=== PATIENT | female | born 1965 | race Caucasian/White ===

== ENCOUNTER → 2016-07-28 | Outpatient (CLI) | payer OTHER ==
[~2016-07-28] MED LIST: ALBU17IN INH; ALLO100T PO; ALLO10TA PO; ASPI1TAB PO; BUPR15TA PO; CALC600T57 PO; CARV6.25 PO; CELE-19 PO; COLA100C PO; CYCL10TA PO; CYMB60CA3 PO; DIAZ2TAB PO; DOXY100T PO; DRIS50002 PO; DULO1CAP3 PO; ESTR62CR PV; FENT75PA TD; FLEX10TA2 PO; FLON1SPR; FLON50SP; FOLI1TAB2 PO; GABA300C2 PO; GABA600T PO; HYDR-3713 PO; HYDR200T3 PO; HYZAAR; KEFL500C7 PO; LASI20TA PO; LOSA25TA8 PO; LOSA50TA20 PO; LOVA20TA2 PO; MAGN250T11 PO; METF-415 PO; METF1000 PO; MILKSUS PO; MYLI40DR PO; NABU750T PO; NICO21DI5 TD; NICO21PAT TD; NYST10CR TOP; NYST50SS SS; ONDA1TAB15 PO; OXYC15TA76 PO; PERC5TAB6 PO; PERCOCET PO; PLAQ200T PO; PLAQUINIL; ROCE500I; SILV-4 TOP; TOPA100T8 PO; TOPI100T OR; VALI5TAB PO; VICO5TAB PO; VICO5TAB16 PO; VITA10002 PO; ZANA4TAB PO; [UNRECOGNIZED DRUG - CODE] IM; [UNRECOGNIZED DRUG - REMARK]; bactrim ds PO; cardizem PO; senokot s PO; zocor PO
--- NOTE | 2016-08-15 01:35 | ECWPNPC ---
PATIENT NAME: BEBA WHITEHEAD : 1965 GENDER: FEMALE VISIT DATE: 07/28/2016 DISCHARGE DATE: 07/28/16 1122 VISIT LOCKED DATE TIME: PHYSICIAN: ADAM CARLOS RESOURCE: ADAM CARLOS REASON FOR APPOINTMENT 1. CHRONIC PAIN HISTORY OF PRESENT ILLNESS HISTORY OF PRESENT ILLNESS: HERE FOR F/U OF CHRONIC GENERALIZED PAIN WITH HX OF SLE AND POLYNEUROPATHY.STARTED ON MS CONTIN 15MG BID AT LAST VISIT.REPORTS SIGNIFICANT REDUCTION IN PAIN AND IMPROVED ACTIVITY TOLERANCE WITH THIS.REPORTS LESS FREQUENT USE OF PERCOCET 5/325.RATING PAIN VAS 7/10.DENIES SIDE EFFECTS. FALL RISK SCREENING: SCREENING :NO FALLS IN THE PAST YEAR CURRENT MEDICATIONS TAKING CPAP MASK CPAP MASK AND TUBING WITH CONNECTORS DX. 327.23 APPLY TO CPAP MACHINE APPLY TO FACE , NOTES: NON COMPLIANT DOES NOT USE TAKING BLOOD GLUCOSE TEST STRIP ONE TOUCH ULTRA 2 ICD:250.02 NIDDM SUBCUTANEOUSLY THREE TIMES DAILY 250.01/401.9 TAKING ASPIR-81 81 MG TABLET DELAYED RELEASE 1 TABLET ORALLY ONCE A DAY TAKING TOPAMAX 100 MG TABLET 1 TABLET ORALLY TWICE A DAY, NOTES: NEEDED TAKING FLONASE 50 MCG/ACT SUSPENSION 1 SPRAY IN EACH NOSTRIL NASALLY ONCE A DAY TAKING ONE TOUCH/ONE TOUCH II STARTER 1 GLUCOMETER ICD:250.02 NIDDM FSBS THREE TIMES DAILY TAKING CARVEDILOL 6.25 MG TABLET 1 TABLET WITH FOOD ORALLY DAILY NEEDED TAKING CALCIUM + D3 600-200 MG-UNIT TABLET ORALLY TAKING FOLIC ACID 1 MG TABLET 1 TABLET ORALLY ONCE A DAY TAKING ALBUTEROL SULFATE HFA 108 (90 BASE) MCG/ACT AEROSOL SOLUTION 2 PUFFS INHALATION ONCE A DAY TAKING VITAMIN B12 1000 MCG TABLET 1 TABLET ORALLY ONCE A DAY TAKING DRISDOL 50,000 UNITS TABLET 1 TAB ORAL WEEKLY TAKING CYMBALTA 60 MG CAPSULE TAKE ONE CAPSULE BY MOUTH EVERY DAY TAKING ZOFRAN 4 MG TABLET 1 TAB ORALLY ONCE A DAY NEEDED FOR NAUASEA TAKING NABUMETONE 750 MG TABLET 1 TABLET ORALLY TWICE A DAY TAKING NYSTATIN THROAT/SUSPENSION 023779 UNIT/ML SUSPENSION SWISH AND SWALLOW MOUTH/THROAT TID PRN TAKING CHLORASEPTIC GARGLE 1.4 % LIQUID 5 APPLICATIONS TO AFFECTED AREA NEEDED MOUTH/THROAT EVERY 2 HRS TAKING SM MAGNESIUM OXIDE 250 MG TABLET 1 TAB ORALLY THREE TIMES DAILY TAKING CYCLOBENZAPRINE HCL 10 MG TABLET TAKE ONE TABLET BY MOUTH THREE TIMES A DAY NEEDED TAKING NEURONTIN 600 MG TABLET 1 TABLET ORALLY THREE TIMES A DAY TAKING DIAZEPAM 2 MG TABLET 1 TABLET NEEDED ORALLY TWICE E A DAY NEEDED TAKING PROAIR HFA 108 (90 BASE) MCG/ACT AEROSOL SOLUTION INHALE TWO PUFFS BY MOUTH EVERY DAY TAKING VITAMIN B12 1000MCG TAB TAKE ONE TABLET BY MOUTH EVERY DAY TAKING GLUCOPHAGE 1000 MG TABLET 1 TABLET WITH MEALS ORALLY TWICE A DAY TAKING COMMODE BEDSIDE - MISCELLANEOUS DIRECTED ICD10 - R15.9, M62.81 DAILY TAKING MORPHINE SULFATE ER 15 MG TABLET EXTENDED RELEASE (SCHEDULE II DRUG) TAKE ONE TABLET BY MOUTH EVERY 12 HOURS MAXIMUM DAILY DOSE TWO TABLETS ORAL TAKING PERCOCET 5-325 MG TABLET 1 TABLET NEEDED ORALLY EVERY 6 HRS MAX 4 DAILY TAKING PLAQUENIL 200 MG TABLET 1 TABLET ORALLY ONCE A DAY TAKING ALLOPURINOL 100 MG TABLET 1 TABLET ORALLY ONCE A DAY TAKING LOSARTAN POTASSIUM 25 MG TABLET 1 TABLET ORALLY ONCE A DAY NOT-TAKING PERCOCET 5-325 MG TABLET 1-2 TAB ORALLY Q4-6H PRN MDD6 NOT-TAKING PLAQUENIL 180 MG TABLET TAKE ONE TABLET BY MOUTH TWICE A DAY MEDICATION LIST REVIEWED AND RECONCILED WITH THE PATIENT PAST MEDICAL HISTORY LUPUS INFECTIOUS DIARRHEA GIARDIA- DUODENITIS MIGRAINES DEPRESSION/ANXIETY SLEEP APNEA UNSPECIFIED ENTHESOPATHY OF KNEE CHRONIC SINUSITIS PULMONARY NODULE LEFT LUNG BASE 05/2015 GIARDIASIS- FOLLOWED ANNUALLY BY DR. RICHARDS L5-S1 HERNIATION ALCOHOL ABUSE DIABETES FIBROMYALGIA SOCIAL HISTORY GENERAL: TOBACCO USE ARE YOU A:CURRENT SMOKER PATIENT COUNSELED ON THE DANGERS OF TOBACCO USE AND URGED TO QUIT:07/28/2016 ARE YOU INTERESTED IN QUITTING?THINKING ABOUT QUITTING COUNSELED THE PATIENT ON SMOKING CESSATION, EDUCATION [id number]/2017 LEARNING BARRIERS / SPECIAL NEEDS ORIENTED TO PLAN OF CARE: PATIENT, PAIN MANAGEMENT PATIENT, ORIENTED TO PLAN OF CARE: PATIENT, PAIN MANAGEMENT PATIENT. NEW PATIENT PAIN DIARY TODAY'S VISITNOTES FROM 0-10, WHAT LEVEL IS YOUR PAIN TODAY?0 PAIN CLINIC PFS, CLERGY, PUBLIC HEALTH REFERRALS PFS REFERRAL NEEDED?NO CLERGY REFERRAL NEEDED?NO PUBLIC HEALTH REFERRAL NEEDED?NO WAS THE PROVIDER NOTIFIED OF ANY PERTINENT INFO?NO PFS REFERRAL NEEDED?NO CLERGY REFERRAL NEEDED?NO PUBLIC HEALTH REFERRAL NEEDED?NO WAS THE PROVIDER NOTIFIED OF ANY PERTINENT INFO?NO REVIEW OF SYSTEMS CONSTITUTIONAL: ANY CHANGE IN YOUR MEDICAL CONDITION? NO . CHILLS NO . FEVER NO . INFECTION: DO YOU HAVE NEW INFECTIONS? NO . DO YOU HAVE HISTORY OF MRSA? NO . MUSCULOSKELETAL: ANY NEW PATTERNS OF PAIN OR NUMBNESS? NO . GASTROENTEROLOGY: ANY NEW CHANGE IN BOWEL CONTROL? NO . GENITOURINARY: ANY NEW CHANGE IN BLADDER CONTROL? NO . IS THERE A CHANCE YOU COULD BE ? NO . HEMATOLOGY/LYMPH: DO YOU TAKE ANY BLOOD THINNERS? (FOR EXAMPLE- COUMADIN, PLAVIX, AGGRENOX, PLATEL, PRADAXA, OR XARELTO) NO . WHEN WAS YOUR LAST DOSE? DATE: TIME: . NEUROLOGY: HAVE YOU FALLEN IN THE PAST 6 MONTHS? NO . ANY NEW EXTREMITY NUMBNESS OR WEAKNESS? NO . CARDIOLOGY: DO YOU HAVE A PACEMAKER OR DEFIBRILLATOR? NO . RESPIRATORY: HAVE YOU BEEN SICK IN THE PAST WEEK? NO . FEVER NO . FLU LIKE SYMPTOMS? NO . COUGH NO . INTEGUMENTARY: DO YOU HAVE ANY RASHES OR OPEN SORES? YES BOTH HANDS [place]OW[place] SORE? . ALLERGIC/IMMUNO: ARE YOU ALLERGIC TO SHELLFISH OR IV DYE? NO . ANY NEW ALLERGIES? NO . PSYCHIATRIC: DO YOU HAVE THOUGHTS OF HURTING YOURSELF OR SOMEONE ELSE? NO . ARE YOU ABUSED, NEGLECTED, OR IN AN UNSAFE ENVIRONMENT? NO . ENDOCRINOLOGY: ARE YOU DIABETIC? NO . OTHER: DO YOU NEED ANY PRESCRIPTIONS? NO . IF YES, PLEASE LIST: ____ . ANY NEW PROBLEMS WITH YOUR MEDICATIONS? NO . WHEN DID YOU LAST EAT? ____ . WHEN DID YOU LAST DRINK? ____ . WHAT DID YOU LAST DRINK? ____ . NAME OF PERSON DRIVING YOU HOME? ____ . DO YOU HAVE ANY OTHER QUESTIONS OR CONCERNS NO . REVIEWED BY: PROVIDER: ADAM EAST . VITAL SIGNS WT 200 LBS, HT 64 IN, BMI 34.33 INDEX, BP 155/80 MM HG, HR 102 /MIN, RR 16 /MIN, TEMP 98.9 F, OXYGEN SAT % 96, NA INITIALS TL 1053. EXAMINATION GENERAL EXAMINATION: HEENT:HEAD:, NORMOCEPHALIC, EYES:, EYES NORMAL, NOSE:, NOSE CLEAR, THROAT: NORMAL. LUNGS:LUNG SOUNDS ARE CLEAR. HEART:HEART RATE REGULAR. ABDOMEN:SOFT AND NOT TENDER, NON-DISTENDED. MUSCULOSKELETAL:*. LUMBAR SACRAL SPINEMUSCLE STRENGTH TESTING 2/5 BILATERAL LOWER EXTREMITIES.PALPATION: POSITIVE FOR PAIN OVER L/S SPINE. POSITIVE FOR PAIN OVER L/S PARSPINALS.. THORACIC SPINENEGATIVE FOR PAIN WITH PALPATION OF THORACIC SPINE. NEGATIVE FOR PAIN WITH PALPATION OF THORACIC PARASPINAL. CERVICALNEGATIVE FOR PAIN WITH PALPATION OF CERVICAL SPINE. NEGATIVE FOR PAIN WITH PALPATION OF CERVICAL PARASPINALS. NEGATIVE FOR PAIN WITH PALPATION OF TRAPEZIUS BILAT. SKIN:NORMAL, NO RASH. NEUROLOGIC EXAM:ALERT AND ORIENTED X 3, DTRS UNABLE TO ELICIT LOWER EXTREMITIES. DENIES UPPER EXTREMETIES SENSORY LOSS. STATES SHE IS UNABLE TO FEEL HER LEGS WITH LIGHT TOUCH. . DIAGNOSTIC:MRI L/S [id number]-MULTI LEVEL DEGENERATIVE CHANGES.LUMBAR DISC PROTRUSION AT L5/S1. ASSESSMENTS ARTHROPATHY - M12.9 (PRIMARY) MYOFASCIAL PAIN - M79.1 CHRONIC PRESCRIPTION OPIATE USE - Z79.891 TREATMENT ARTHROPATHY REFILL MORPHINE SULFATE ER TABLET EXTENDED RELEASE, 15 MG, (SCHEDULE II DRUG) TAKE ONE TABLET BY MOUTH EVERY 12 HOURS MAXIMUM DAILY DOSE TWO TABLETS, ORAL, Q12H MDD2, 30, 60, REFILLS 0 REFILL PERCOCET TABLET, 5-325 MG, 1 TABLET NEEDED, ORALLY, EVERY 6 HRS MAX 4 DAILY, 30 DAY(S), 120, REFILLS 0 PROCEDURE CODES FA211 ESTABILISHED PATIENT [facility] CHARGE FOLLOW UP 2 MONTHS ELECTRONICALLY SIGNED BY CRUZITO CHURCHILL ON 08/14/2016 AT 03:20 PM EST DISCLAIMER : THIS IS A VISIT SUMMARY EXTRACTED FROM THE [employer] CHART. IT IS NOT A COPY OF THE [employer] PROGRESS NOTE. MTDD
== END ==
LOC: M PAIN 10:40
PROVIDERS: ATTEND Nurse Practitioner Family
DX: Z09 Encounter for follow-up examination after completed treatment for conditions other than malignant neoplasm (principal); G89.29 Other chronic pain; M12.9 Arthropathy, unspecified; M79.7 Fibromyalgia; M32.9 Systemic lupus erythematosus, unspecified; G43.909 Migraine, unspecified, not intractable, without status migrainosus; G47.30 Sleep apnea, unspecified; E11.9 Type 2 diabetes mellitus without complications; J32.9 Chronic sinusitis, unspecified; A07.1 Giardiasis [lambliasis]; M51.27 Other intervertebral disc displacement, lumbosacral region; F17.200 Nicotine dependence, unspecified, uncomplicated; Z79.891 Long term (current) use of opiate analgesic; Z79.82 Long term (current) use of aspirin; Z79.84 Long term (current) use of oral hypoglycemic drugs; Z79.899 Other long term (current) drug therapy; Z85.59 Personal history of malignant neoplasm of other urinary tract organ

== ENCOUNTER → 2016-09-11 | Outpatient (CLI) | payer OTHER ==
[2016-09-11 17:51] LABS: ANION GAP 13 MEQ/L (8-16); BLOOD UREA NITROGEN 5 MG/DL (7-18); CALCIUM LEVEL 8.3 MG/DL (8.5-10.1); CARBON DIOXIDE LEVEL 24 MEQ/L (21-32); CHLORIDE LEVEL 104 MEQ/L (98-107); CREATININE FOR GFR 0.64 MG/DL (0.55-1.02); GLOMERULAR FILTRATION RATE > 60.0 (>58); GLUCOSE, FASTING 87 MG/DL (70-105); POTASSIUM SERUM 4.4 MEQ/L (3.5-5.1); SODIUM LEVEL 141 MEQ/L (136-145)
== END ==
LOC: M WUC 15:41
PROVIDERS: ATTEND Family Medicine
DX: E61.2 Magnesium deficiency (principal)

== ENCOUNTER → 2016-10-02 | Outpatient (CLI) | payer OTHER ==
--- NOTE | 2016-10-04 00:02 | ECWPNPC ---
PATIENT NAME: BEBA WHITEHEAD : 1965 GENDER: FEMALE VISIT DATE: 10/02/2016 DISCHARGE DATE: 10/02/16 1623 VISIT LOCKED DATE TIME: PHYSICIAN: ADAM CARLOS RESOURCE: ADAM CARLOS REASON FOR APPOINTMENT 1. MED FOLLOW UP HISTORY OF PRESENT ILLNESS HISTORY OF PRESENT ILLNESS: HERE FOR F/U OF CHRONIC GENERALIZED PAIN WITH HX OF SLE AND POLYNEUROPATHY. ON MS CONTIN 15MG BID AT LAST VISIT.REPORTS SIGNIFICANT REDUCTION IN PAIN AND IMPROVED ACTIVITY TOLERANCE WITH THIS.REPORTS LESS FREQUENT USE OF PERCOCET 5/325.RATING PAIN VAS 7/10.DENIES SIDE EFFECTS.NOW SHE IS REPORTING ABILITY TO WALK AND RESOLUTION OF FACIAL NUMBNESS.PRIMARY CARE ATTRIBUTES FACIAL NUMBNESS AND INABILITY TO WALK DUE TO LONG USE OF PLAQUENIL.THAT WAS STOPPED 3 MOS. AGO. PAIN THE PATIENT DESCRIBES THE PAIN... THE PATIENT DESCRIBES THE PAIN... FALL RISK SCREENING: SCREENING :NO FALLS IN THE PAST YEAR CURRENT MEDICATIONS TAKING DRISDOL 50,000 UNITS TABLET 1 TAB ORAL WEEKLY TAKING CPAP MASK CPAP MASK AND TUBING WITH CONNECTORS DX. 327.23 APPLY TO CPAP MACHINE APPLY TO FACE , NOTES: NON COMPLIANT DOES NOT USE TAKING BLOOD GLUCOSE TEST STRIP ONE TOUCH ULTRA 2 ICD:250.02 NIDDM SUBCUTANEOUSLY THREE TIMES DAILY 250.01/401.9 TAKING ASPIR-81 81 MG TABLET DELAYED RELEASE 1 TABLET ORALLY ONCE A DAY TAKING FLONASE 50 MCG/ACT SUSPENSION 1 SPRAY IN EACH NOSTRIL NASALLY ONCE A DAY TAKING ONE TOUCH/ONE TOUCH II STARTER 1 GLUCOMETER ICD:250.02 NIDDM FSBS THREE TIMES DAILY TAKING ALBUTEROL SULFATE HFA 108 (90 BASE) MCG/ACT AEROSOL SOLUTION 2 PUFFS INHALATION ONCE A DAY TAKING ZOFRAN 4 MG TABLET 1 TAB ORALLY ONCE A DAY NEEDED FOR NAUASEA TAKING NYSTATIN THROAT/SUSPENSION 638653 UNIT/ML SUSPENSION SWISH AND SWALLOW MOUTH/THROAT TID PRN TAKING CHLORASEPTIC GARGLE 1.4 % LIQUID 5 APPLICATIONS TO AFFECTED AREA NEEDED MOUTH/THROAT EVERY 2 HRS TAKING GLUCOPHAGE 1000 MG TABLET 1 TABLET WITH MEALS ORALLY TWICE A DAY TAKING COMMODE BEDSIDE - MISCELLANEOUS DIRECTED ICD10 - R15.9, M62.81 DAILY TAKING TOPAMAX 100 MG TABLET 1 TABLET ORALLY TWICE A DAY, NOTES: NEEDED TAKING CARVEDILOL 6.25 MG TABLET 1 TABLET WITH FOOD ORALLY DAILY NEEDED FOR TACHYCARDIA TAKING CALCIUM + D3 600-200 MG-UNIT TABLET 1 TAB ORALLY DAILY TAKING FOLIC ACID 1 MG TABLET 1 TABLET ORALLY ONCE A DAY TAKING VITAMIN B12 1000 MCG TABLET 1 TABLET ORALLY ONCE A DAY TAKING LOSARTAN POTASSIUM 25 MG TABLET 1 TABLET ORALLY ONCE A DAY TAKING ALLOPURINOL 100 MG TABLET 1 TABLET ORALLY ONCE A DAY TAKING WELLBUTRIN XL 150 MG TABLET EXTENDED RELEASE 24 HOUR 1 TABLET IN THE MORNING ORALLY ONCE A DAY TAKING MORPHINE SULFATE ER 15 MG TABLET EXTENDED RELEASE (SCHEDULE II DRUG) TAKE ONE TABLET BY MOUTH EVERY 12 HOURS MAXIMUM DAILY DOSE TWO TABLETS ORAL Q12H MDD2 TAKING PERCOCET 5-325 MG TABLET 1 TABLET NEEDED ORALLY EVERY 6 HRS MAX 4 DAILY TAKING CYMBALTA 60 MG CAPSULE TAKE ONE CAPSULE BY MOUTH EVERY DAY ORALLY ONCE A DAY TAKING PROAIR HFA 108 (90 BASE) MCG/ACT AEROSOL SOLUTION INHALE TWO PUFFS BY MOUTH EVERY DAY TAKING CYCLOBENZAPRINE HCL 10 MG TABLET TAKE ONE TABLET BY MOUTH THREE TIMES A DAY NEEDED ORALLY THREE TIMES A DAY TAKING NABUMETONE 750 MG TABLET 1 TABLET ORALLY TWICE A DAY TAKING SM MAGNESIUM OXIDE 250 MG TABLET 1 TAB ORALLY THREE TIMES DAILY TAKING NEURONTIN 600 MG TABLET 1 TABLET ORALLY THREE TIMES A DAY DISCONTINUED VITAMIN B12 1000MCG TAB TAKE ONE TABLET BY MOUTH EVERY DAY DISCONTINUED PLAQUENIL 200 MG TABLET 1 TABLET ORALLY ONCE EVERY OTHER DAY X 14 DAYS, THEN DISCONTINUE MEDICATION LIST REVIEWED AND RECONCILED WITH THE PATIENT PAST MEDICAL HISTORY LUPUS INFECTIOUS DIARRHEA GIARDIA- DUODENITIS MIGRAINES DEPRESSION/ANXIETY SLEEP APNEA UNSPECIFIED ENTHESOPATHY OF KNEE CHRONIC SINUSITIS PULMONARY NODULE LEFT LUNG BASE 05/2015 GIARDIASIS- FOLLOWED ANNUALLY BY DR. RICHARDS L5-S1 HERNIATION ALCOHOL ABUSE DIABETES FIBROMYALGIA ALLERGIES N.K.D.A. SOCIAL HISTORY GENERAL: TOBACCO USE ARE YOU A:NONSMOKER LEARNING BARRIERS / SPECIAL NEEDS ORIENTED TO PLAN OF CARE: PATIENT, PAIN MANAGEMENT PATIENT, ORIENTED TO PLAN OF CARE: PATIENT, PAIN MANAGEMENT PATIENT. NEW PATIENT PAIN DIARY TODAY'S VISITNOTES FROM 0-10, WHAT LEVEL IS YOUR PAIN TODAY?0 PAIN CLINIC PFS, CLERGY, PUBLIC HEALTH REFERRALS PFS REFERRAL NEEDED?NO CLERGY REFERRAL NEEDED?NO PUBLIC HEALTH REFERRAL NEEDED?NO WAS THE PROVIDER NOTIFIED OF ANY PERTINENT INFO?NO PFS REFERRAL NEEDED?NO CLERGY REFERRAL NEEDED?NO PUBLIC HEALTH REFERRAL NEEDED?NO WAS THE PROVIDER NOTIFIED OF ANY PERTINENT INFO?NO REVIEW OF SYSTEMS CONSTITUTIONAL: ANY CHANGE IN YOUR MEDICAL CONDITION? NO . CHILLS NO . FEVER NO . INFECTION: DO YOU HAVE NEW INFECTIONS? NO . DO YOU HAVE HISTORY OF MRSA? NO . MUSCULOSKELETAL: ANY NEW PATTERNS OF PAIN OR NUMBNESS? NO . GASTROENTEROLOGY: ANY NEW CHANGE IN BOWEL CONTROL? NO . GENITOURINARY: ANY NEW CHANGE IN BLADDER CONTROL? NO . IS THERE A CHANCE YOU COULD BE ? NO . HEMATOLOGY/LYMPH: DO YOU TAKE ANY BLOOD THINNERS? (FOR EXAMPLE- COUMADIN, PLAVIX, AGGRENOX, PLATEL, PRADAXA, OR XARELTO) NO . WHEN WAS YOUR LAST DOSE? DATE: TIME: . NEUROLOGY: HAVE YOU FALLEN IN THE PAST 6 MONTHS? NO . ANY NEW EXTREMITY NUMBNESS OR WEAKNESS? NO . CARDIOLOGY: DO YOU HAVE A PACEMAKER OR DEFIBRILLATOR? NO . RESPIRATORY: HAVE YOU BEEN SICK IN THE PAST WEEK? YES PT REPORTS SHE HAS NOT BEEN FEELING WELL THIS PAST WEEK, WITH CHILLS, COUGHING, ACHY FEELING, PT FEELS THAT IT IS RESOLVING . FEVER NO . FLU LIKE SYMPTOMS? NO . COUGH NO . INTEGUMENTARY: DO YOU HAVE ANY RASHES OR OPEN SORES? YES PT SEES A FILM OR VIDEOTAPE EDITOR IN [place] FOR WOUNDS ON HER FINGER AND FOOT . ALLERGIC/IMMUNO: ARE YOU ALLERGIC TO SHELLFISH OR IV DYE? PT REPORTS AN ALLERGY TO THE SHELLS OF SHELLFISH, NO PROBLEMS EATING SHELLFISH OR WITH IV DYE . ANY NEW ALLERGIES? NO . PSYCHIATRIC: DO YOU HAVE THOUGHTS OF HURTING YOURSELF OR SOMEONE ELSE? NO . ARE YOU ABUSED, NEGLECTED, OR IN AN UNSAFE ENVIRONMENT? NO . ENDOCRINOLOGY: ARE YOU DIABETIC? NO . OTHER: DO YOU NEED ANY PRESCRIPTIONS? NO . IF YES, PLEASE LIST: ____ . ANY NEW PROBLEMS WITH YOUR MEDICATIONS? YES PT REPORTS ITCHING AT NIGHT FOR LAST SEVERAL MONGHTS ? IF DUE TO MEDICINE . WHEN DID YOU LAST EAT? ____ . WHEN DID YOU LAST DRINK? ____ . WHAT DID YOU LAST DRINK? ____ . NAME OF PERSON DRIVING YOU HOME? ____ . DO YOU HAVE ANY OTHER QUESTIONS OR CONCERNS YES PT REPORTS SHE IS ITCHING AT NIGHT . REVIEWED BY: PROVIDER: ADAM EAST . VITAL SIGNS WT 203.2 LBS, HT 64 IN, BMI 34.88 INDEX, BP 138/63 MM HG, HR 98 /MIN, RR 18 /MIN, TEMP 98.2 F, OXYGEN SAT % 91%, SAFE IN ENV? (Y/N) YES, NA INITIALS ME 15:41, REVIEWED BY: JUDI. EXAMINATION GENERAL EXAMINATION: HEENT:HEAD:, NORMOCEPHALIC, EYES:, EYES NORMAL, NOSE:, NOSE CLEAR, THROAT: NORMAL. LUNGS:LUNG SOUNDS ARE CLEAR. HEART:HEART RATE REGULAR. ABDOMEN:SOFT AND NOT TENDER, NON-DISTENDED. MUSCULOSKELETAL:*. LUMBAR SACRAL SPINEMUSCLE STRENGTH TESTING 4/5 BILATERAL LOWER EXTREMITIES.PALPATION: POSITIVE FOR PAIN OVER L/S SPINE. POSITIVE FOR PAIN OVER L/S PARSPINALS.. THORACIC SPINENEGATIVE FOR PAIN WITH PALPATION OF THORACIC SPINE. NEGATIVE FOR PAIN WITH PALPATION OF THORACIC PARASPINAL. CERVICALNEGATIVE FOR PAIN WITH PALPATION OF CERVICAL SPINE. NEGATIVE FOR PAIN WITH PALPATION OF CERVICAL PARASPINALS. NEGATIVE FOR PAIN WITH PALPATION OF TRAPEZIUS BILAT. SKIN:MULTIPLE CIRCULAR 3-4 CM RED AND DARK LESIONS OVER LOWER EXTREMITIES.. NEUROLOGIC EXAM:ALERT AND ORIENTED X 3, DTRS 2/4 UPPER AND LOWER EXTREMITIES. DENIES UPPER EXTREMETIES SENSORY LOSS. . DIAGNOSTIC:MRI L/S [id number]-MULTI LEVEL DEGENERATIVE CHANGES.LUMBAR DISC PROTRUSION AT L5/S1. ASSESSMENTS ARTHROPATHY - M12.9 (PRIMARY) CHRONIC PRESCRIPTION OPIATE USE - Z79.891 TREATMENT ARTHROPATHY REFILL MORPHINE SULFATE ER TABLET EXTENDED RELEASE, 15 MG, (SCHEDULE II DRUG) TAKE ONE TABLET BY MOUTH EVERY 12 HOURS MAXIMUM DAILY DOSE TWO TABLETS, ORAL, Q12H MDD2, 30, 60, REFILLS 0 REFILL PERCOCET TABLET, 5-325 MG, 1 TABLET NEEDED, ORALLY, EVERY 6 HRS MAX 4 DAILY, 30 DAY(S), 120, REFILLS 0 PROCEDURE CODES FA211 ESTABILISHED PATIENT [facility] CHARGE DISPOSITION & COMMUNICATION FOLLOW UP 2 MONTHS ELECTRONICALLY SIGNED BY CRUZITO CHURCHILL ON 10/03/2016 AT 05:08 PM EDT DISCLAIMER : THIS IS A VISIT SUMMARY EXTRACTED FROM THE [employer] CHART. IT IS NOT A COPY OF THE [employer] PROGRESS NOTE. MTDD
== END ==
LOC: M PAIN 14:40
PROVIDERS: ATTEND Nurse Practitioner Family
DX: Z09 Encounter for follow-up examination after completed treatment for conditions other than malignant neoplasm (principal); G89.29 Other chronic pain; M12.9 Arthropathy, unspecified; M79.7 Fibromyalgia; E11.9 Type 2 diabetes mellitus without complications; G43.919 Migraine, unspecified, intractable, without status migrainosus; F32.9 Major depressive disorder, single episode, unspecified; F41.9 Anxiety disorder, unspecified; G47.30 Sleep apnea, unspecified; Z79.82 Long term (current) use of aspirin; Z79.84 Long term (current) use of oral hypoglycemic drugs; Z79.891 Long term (current) use of opiate analgesic; Z79.899 Other long term (current) drug therapy; Z87.39 Personal history of other diseases of the musculoskeletal system and connective tissue; Z86.79 Personal history of other diseases of the circulatory system; Z86.59 Personal history of other mental and behavioral disorders

== ENCOUNTER → 2016-10-20 | Outpatient (CLI) | payer OTHER ==
[~2016-10-20] MED LIST changes: -COLA100C PO; +COLA100C3 PO; +ENTERO VU 24% w/v SUSP BTL 600ML As Ordered ONE
--- NOTE | 2016-10-20 16:25 | REP ---
Small follow-through study: History: Diarrhea. Findings: Preliminary gelatin dynamite packing operator radiograph shows clips in the right upper quadrant. Bowel gas pattern is unremarkable. SI joints are normal in appearance. Some vascular calcification is seen. Sequential films taken after the ingestion of Enterovu demonstrate normal stomach and duodenum. C-loop is not widened. Jejunal and ileal mucosal folds are normal. There is no evidence of obstruction, fold thickening, mural thickening or stricture. Terminal ileum and right colon are opacified at 210 minutes. Fluoroscopy time is 44 seconds. Impression: No morphologic abnormality. Signed by Catrachito Herron MD 10/20/2016 06:36 P
== END ==
LOC: M RAD 09:13
PROVIDERS: ATTEND Internal Medicine Gastroenterology
DX: R19.7 Diarrhea, unspecified (principal)

== ENCOUNTER → 2016-11-10 | Outpatient (CLI) | payer OTHER ==
[~2016-11-10] VITALS: Ht 160 cm; Wt 90.7 kg
[~2016-11-10] MED LIST changes: -ENTERO VU 24% w/v SUSP BTL 600ML As Ordered ONE; +MORP15TASA PO; +NEUR100C PO; +NS 1,000 ML IV ONE; +OXYC1TAB23 PO; +PROPOFOL 200 MG/20 ML VIAL As Ordered ONE
--- NOTE | 2016-11-10 13:33 | ROOR ---
Patient Name: Claudia Lorenz Procedure Date: 11/10/2016 1:10 PM Date of : 1965 Age: 51 Room: [facility] Gender: Female Note Status: Finalized Procedure: Colonoscopy Indications: Clinically significant diarrhea of unexplained origin, (Pt with previous history of chronic giardiasis) Providers: Elan DIOR MD Referring MD: Ammon Raymundo DO Requesting Provider: Medicines: Monitored Anesthesia Care Complications: No immediate complications. Procedure: Pre-Anesthesia Assessment: - The heart rate, respiratory rate, oxygen saturations, blood pressure, adequacy of pulmonary ventilation, and response to care were monitored throughout the procedure. The Colonoscope was introduced through the anus and advanced to 10 cm into the ileum. The colonoscopy was performed without difficulty. The patient tolerated the procedure well. The quality of the bowel preparation was good. Findings: The perianal and digital rectal examinations were normal. The terminal ileum appeared normal. A diminutive polyp was found in the splenic flexure. The polyp was sessile. The polyp was removed with a jumbo cold forceps. Resection and retrieval were complete. Internal hemorrhoids were found during retroflexion. The hemorrhoids were medium-sized. The exam was otherwise without abnormality on direct and retroflexion views. Biopsies for histology were taken with a cold forceps from the entire colon for evaluation of microscopic colitis. Impression: - The perianal and terminal ileum is normal. - One diminutive polyp at the splenic flexure, removed with a jumbo cold forceps. Resected and retrieved. - Internal hemorrhoids. - The colon examination was otherwise normal on direct and retroflexion views. - Biopsies were taken with a cold forceps from the entire colon for evaluation of microscopic colitis. Recommendation: - Please complete your small bowel study, your stool testing and blood work as ordered. - Telephone endoscopist for pathology results in 2 weeks. - Telephone endoscopist for study results in 2 weeks. Elan Dior MD Elan DIOR MD 11/10/2016 1:33:41 PM This report has been signed electronically. Number of Addenda: 0 Note Initiated On: 11/10/2016 1:10 PM Estimated Blood Loss: Estimated blood loss: none.
[2016-11-10 14:02] VITALS: BP 156/78
== END | disposition home or self-care (01) ==
LOC: M OPP 11:32
PROVIDERS: ATTEND Internal Medicine Gastroenterology
DX: R19.7 Diarrhea, unspecified (principal); D12.3 Benign neoplasm of transverse colon; K64.8 Other hemorrhoids; I10 Essential (primary) hypertension; E11.9 Type 2 diabetes mellitus without complications; M79.7 Fibromyalgia; E78.5 Hyperlipidemia, unspecified; Z86.14 Personal history of Methicillin resistant Staphylococcus aureus infection; M19.90 Unspecified osteoarthritis, unspecified site; M32.9 Systemic lupus erythematosus, unspecified; M25.50 Pain in unspecified joint; S81.001A Unspecified open wound, right knee, initial encounter; S81.002A Unspecified open wound, left knee, initial encounter; S61.401A Unspecified open wound of right hand, initial encounter; S61.402A Unspecified open wound of left hand, initial encounter; F41.9 Anxiety disorder, unspecified; F32.9 Major depressive disorder, single episode, unspecified; G62.9 Polyneuropathy, unspecified; G47.30 Sleep apnea, unspecified; G43.909 Migraine, unspecified, not intractable, without status migrainosus; R06.83 Snoring; F17.200 Nicotine dependence, unspecified, uncomplicated; Z86.19 Personal history of other infectious and parasitic diseases; T88.4XXD Failed or difficult intubation, subsequent encounter; Z87.898 Personal history of other specified conditions; Z91.013 Allergy to seafood; Z79.82 Long term (current) use of aspirin; Z79.84 Long term (current) use of oral hypoglycemic drugs; Z79.899 Other long term (current) drug therapy; X58.XXXA Exposure to other specified factors, initial encounter; Y93.9 Activity, unspecified; Y92.9 Unspecified place or not applicable; Y99.8 Other external cause status

== ENCOUNTER 2016-11-12 08:27 | Inpatient (IN) | payer OTHER ==
[~2016-11-12] VITALS: Ht 165.1 cm; Wt 91.9 kg
[~2016-11-12 08:27] MED LIST changes: -NS 1,000 ML IV ONE; -PROPOFOL 200 MG/20 ML VIAL As Ordered ONE
[2016-11-12] MEDS: FOLIC ACID 1 MG TAB PO SCH (09:00)
[2016-11-12] MEDS: CARVedilol 6.25 MG TAB PO SCH (09:00)
[2016-11-12] MEDS: NICOTINE 21MG/24HR 1 EA TRANSDERMAL TD SCH (09:00)
[2016-11-12] MEDS: CYANOCOBALAMIN 500 MCG TAB PO SCH (09:00)
[2016-11-12] MEDS ORDERED: NS 1,000 ML IV SCH ×2 (09:49→16:00)
[2016-11-12 10:00] LABS: BASO # 0.1 K/mm3 (0.0-0.2); BASO % 0.8 % (0.0-1.0); EOS # 0.1 K/mm3 (0.0-0.50); EOS % 0.7 % (0.0-3.0); LARGE UNSTAINED CELL # 0.1 K/mm3 (0.0-0.4); LARGE UNSTAINED CELL % 0.6 % (0.0-4.0); LYMPH # 1.1 K/mm3 (1.5-4.5); MEAN CORPUSCULAR HEMOGLOBIN 34.7 pg (27.0-33.0); MEAN CORPUSCULAR HGB CONC 31.1 g/dl (32.0-36.5); MEAN CORPUSCULAR VOLUME 111.6 fl (80.0-96.0); MONO # 0.3 K/mm3 (0.0-0.8); MONO % 3.1 % (0.0-5.0); NEUTROPHILS # 8.6 K/mm3 (1.8-7.7); NEUTROPHILS % 84.9 % (36.0-66.0); PLATELET COUNT, AUTOMATED 187 k/mm3 (150-450); RED CELL DISTRIBUTION WIDTH 14.7 % (11.5-14.5); WHITE BLOOD COUNT 10.1 K/mm3 (4.0-10.0)
[2016-11-12] MEDS ORDERED: ONDANSETRON 4MG/2ML VIAL (J2405) IV ONE ×2 (10:00→14:30)
[2016-11-12] MEDS ORDERED: MORPHINE 4 MG/ML 1ML SYRINGE IV PRN (10:00)
[2016-11-12 10:07] LABS: ADD MORPHOLOGY? YES
[2016-11-12 10:14] LABS: INR 0.9
[2016-11-12 10:23] LABS: STOMATOCYTES 2+
[2016-11-12 10:27] LABS: ALBUMIN 3.2 GM/DL (3.2-5.2); ALBUMIN/GLOBULIN RATIO 0.73 (1.00-1.93); ALKALINE PHOSPHATASE 297 U/L (45-117); ALT/SGPT 30 U/L (12-78); ANION GAP 7 MEQ/L (8-16); AST/SGOT 37 U/L (15-37); BILIRUBIN,DIRECT 0.4 MG/DL (0.0-0.2); BLOOD UREA NITROGEN 4 MG/DL (7-18); CALCIUM LEVEL 8.8 MG/DL (8.5-10.1); CARBON DIOXIDE LEVEL 28 MEQ/L (21-32); CHLORIDE LEVEL 100 MEQ/L (98-107); CREATININE FOR GFR 0.68 MG/DL (0.55-1.02); GLOMERULAR FILTRATION RATE > 60.0 (>58); GLUCOSE, FASTING 138 MG/DL (70-105); POTASSIUM SERUM 3.9 MEQ/L (3.5-5.1); SODIUM LEVEL 135 MEQ/L (136-145); TOTAL PROTEIN 7.6 GM/DL (6.4-8.2)
[2016-11-12] MEDS ORDERED: IPRATROPIUM 0.5MG/ALBUTEROL 2.5MG INH SOL UD 3ML (DUONEB)(J7620) NEB ONE (11:00)
[2016-11-12] MEDS ORDERED: ISOVUE-370 76% 100ML VIAL (Q9967) As Ordered ONE (11:09)
[2016-11-12] MEDS: IPRATROPIUM 0.5MG/ALBUTEROL 2.5MG INH SOL UD 3ML (DUONEB)(J7620) NEB SCH ×4 (12:47→20:00)
[2016-11-12] MEDS ORDERED: GABA600T PO (14:10)
[2016-11-12] MEDS ORDERED: LOSA25TA8 PO (14:10)
[2016-11-12] MEDS ORDERED: IPRATROPIUM 0.5MG/ALBUTEROL 2.5MG INH SOL UD 3ML (DUONEB)(J7620) NEB PRN (14:45)
[2016-11-12] MEDS ORDERED: ONDANSETRON 4MG/2ML VIAL (J2405) IV PRN (14:45)
[2016-11-12] MEDS ORDERED: ACETAMINOPHEN TAB 650MG DOSE (2X325MG) PO PRN (14:45)
[2016-11-12] MEDS ORDERED: SODIUM CHLORIDE 0.9% 1000 ML IV ONE (15:00)
[2016-11-12] MEDS: PANTOPRAZOLE 40MG INJ (PROTONIX) (C9113) IV SCH (15:02)
[2016-11-12] MEDS: MEROPENEM INJ 1 GM in D5W MINI-BAG PLUS 100 ML IV SCH (15:02)
[2016-11-12] MEDS: MORPHINE 2 MG/ML 1ML SYRINGE IV PRN (15:04)
--- NOTE | 2016-11-12 15:19 | HPEPDOC ---
General Date of Admission Nov 12, 2016 at 14:34 Chief Complaint The patient is a 51-year-old female Presented to the ER with complaints of nausea, vomiting, abdominal pain, diarrhea and shortness of breath. History of Present Illness Patient is a 51 year old female with a PMHx of SLE (not on medications ), Migraines, Depression, Anxiety, MICHELLE on CPAP, Arthritis of knee, Chronic sinusitis, Hx of Pulmonary nodule on LEFT, and Hx of Giardia infection who presented with multiple problems. Patient noted that she had a colonoscopy on Sunday with Dr. Segovia. Since that point she has been having nausea, vomiting, abdominal pain (more pronounced at LUQ) and diarrhea. She notes that today she was very short of breath and came in for evaluation. She notes that she has had nausea since yesterday evening, has had retching for a long period of time since then, but hasnt had much vomit. She noted that she was having left upper abdominal and left lower chest pain. She describes it as a 8/10, aching, continuous, non-radiating pain, no alieving or aggregating factors. Patient had a colonoscopy performed on Sunday to evaluate for inflammatory bowel disease, but was reported to be negative. She had an EGD several years ago and was reported normal. She denies any dysuria. Fever or chills at home. Denies palpitations,. Home Medications Scheduled Aspirin (Aspirin 81) 81 Mg Tab, 81 MG PO QHS, (Reported) Cyanocobalamin (Vitamin B-12) 1,000 Mcg Tab, 1,000 MCG PO DAILY, (Reported) Duloxetine Hcl (Cymbalta) 60 Mg Cap, 60 MG PO QHS, (Reported) Folic Acid (Folic Acid) 1 Mg Tab, 1 MG PO DAILY, (Reported) Gabapentin (Gabapentin) 600 Mg Tab, 600 MG PO TID, (Reported) Losartan Potassium (Losartan Potassium) 25 Mg Tab, 25 MG PO QHS, (Reported) Magnesium Oxide (Magnesium Oxide) 250 Mg Tab, 250 MG PO TID, (Reported) Metformin Hydrochloride (Metformin HCl) 1,000 Mg Tab, 1,000 MG PO BID, (Reported ) Morphine Sulfate (Morphine Sulfate ER) 15 Mg Tabcr, 15 MG PO BID, (Reported) Nabumetone (Nabumetone) 750 Mg Tab, 750 MG PO BID, (Reported) Topiramate (Topamax) 100 Mg Tab, 100 MG PO BID, (Reported) Vitamin D (Drisdol) 50,000 Unit Cap, 50,000 UNIT PO QWEEK, (Reported) WEDNESDAYS Scheduled PRN Albuterol Sulfate (Ventolin Hfa) 200 Puff/8 Gm Aers, 2 PUFF INH QIDP PRN for SHORTNESS OF BREATH, (Reported) Carvedilol (Carvedilol) 6.25 Mg Tab, 6.25 MG PO DAILY PRN for TACHYCARDIA, ( Reported) Cyclobenzaprine HCl (Cyclobenzaprine HCl) 10 Mg Tab, 10 MG PO TID PRN for SPASMS , (Reported) Diazepam (Diazepam) 2 Mg Tab, 2 MG PO BID PRN for ANXIETY, (Reported) Nystatin (Nystatin Oral Susp) 5 Ml Susp, 5 ML SS TID PRN for THRUSH, (Reported) Ondansetron HCl (Ondansetron HCl) 4 Mg Tab, 4 MG PO for NAUSEA OR VOMITING, ( Reported) Oxycodone/Acetaminophen (Oxycodone/Acetaminophen 5-325 mg) 1 Tab Tab, 1 TAB PO Q6HP PRN for PAIN, (Reported) Allergies Coded Allergies: Aspartame (Verified Allergy, Unknown, 09/17/15) SUGAR SUBSTITUTES Shellfish Allergy (Unverified Allergy, Unknown, 03/07/16) Past Medical History Medical History SLE (not on medications), Migraines, Depression, Anxiety, MICHELLE on CPAP, Arthritis of knee, Chronic sinusitis, Hx of Pulmonary nodule on LEFT, and Hx of Giardia infection Surgical History Carpal tunnel surgery bilaterally Bilateral elbow surgery Sinus reconstruction Cholecystectomy Hernia repair Diabetic foot ulcer Family History - Non-contributory Social History - Denies the use of illicit drugs; Smoker of 37 years at 2 ppd, Heavy alcohol use in the past, now social use - Denies sick contacts; Travel to [place] last week - Lives with - Never employed Review of Symptoms Other systems 11 point review of systems complete see HPI Vital Signs - Vitals: BP 162/80, HR 103, RR 18, Sat 93%RA, Temp 97.4F - General: Lying in bed, No acute distress, Speaking in full sentences, AAOx3 - HEENT: NC, AT, PERRLA, EOMI - CVS: RRR, +S1S2, +S4 - Lungs: Fair air entry bilaterally, Clear to auscultation, No wheezing / rales / rhonchi - Abdomen: Soft, Non-distended, Mild tenderness at LUQ, + Bowel sounds x 4 - Extremities: + PPx4, No lower extremity edema, No calf tenderness - Neuro: No focal motor or sensory deficit - Skin: No visible rashes Laboratory Data Labs 24H Laboratory Tests 2 11/12/16 09:05: White Blood Count 10.1H, Red Blood Count 4.47, Hemoglobin 15.5, Hematocrit 49.9H , Mean Corpuscular Volume 111.6H, Mean Corpuscular Hemoglobin 34.7H, Mean Corpuscular Hemoglobin Concent 31.1L, Red Cell Distribution Width 14.7H, Platelet Count 187, Neutrophils (%) (Auto) 84.9H, Lymphocytes (%) (Auto) 10.0L, Monocytes (%) (Auto) 3.1, Eosinophils (%) (Auto) 0.7, Basophils (%) (Auto) 0.8, Neutrophils # (Auto) 8.6H, Lymphocytes # (Auto) 1.1L, Monocytes # (Auto) 0.3, Eosinophils # (Auto) 0.1, Basophils # (Auto) 0.1, Large Unclassified Cells % 0.6 , Large Unclassified Cells # 0.1, Platelet Estimate NORMAL, Macrocytosis 3+, Stomatocytes 2+, Prothrombin Time 12.3, Prothromb Time International Ratio 0.90 , Activated Partial Thromboplast Time 32.4, D-Dimer, Quantitative 614.4H, Anion Gap 7L, Glomerular Filtration Rate > 60.0, Lactic Acid Level 3.0*H, Calcium Level 8.8, Aspartate Amino Transf (AST/SGOT) 37, Alanine Aminotransferase (ALT/ SGPT) 30, Alkaline Phosphatase 297H, Total Bilirubin 1.0, Direct Bilirubin 0.4H , Total Creatine Kinase 18L, Creatine Kinase MB 1.0, Creatine Kinase MB Relative Index 5.55H, Troponin I < 0.02, Total Protein 7.6, Albumin 3.2, Albumin /Globulin Ratio 0.73L, Lipase 55L 11/12/16 09:30: Urine Appearance CLEAR, Urine Color YELLOW, Urine pH 8.0, Urine Specific [place] 1.009, Urine Protein NEGATIVE, Urine Glucose (UA) NEGATIVE, Urine Ketones NEGATIVE, Urine Urobilinogen 0.2, Urine Bilirubin NEGATIVE, Urine Leukocyte Esterase NEGATIVE, Urine Blood NEGATIVE, Urine Nitrite NEGATIVE, Urine WBC (Auto) 0, Urine RBC (Auto) 1, Urine Hyaline Casts (Auto) 1, Urine Bacteria (Auto) NEGATIVE, Urine Squamous Epithelial Cells 0, Urine Mucus (Auto) SMALL, Urine Sperm (Auto) 11/12/16 14:42: B-Type Natriuretic Peptide 831H CBC/BMP Laboratory Tests 11/12/16 09:05 Red Blood Count 4.47, Mean Corpuscular Volume 111.6 H, Mean Corpuscular Hemoglobin 34.7 H, Mean Corpuscular Hemoglobin Concent 31.1 L, Red Cell Distribution Width 14.7 H, Neutrophils (%) (Auto) 84.9 H, Lymphocytes (%) (Auto ) 10.0 L, Monocytes (%) (Auto) 3.1, Eosinophils (%) (Auto) 0.7, Basophils (%) ( Auto) 0.8, Neutrophils # (Auto) 8.6 H, Lymphocytes # (Auto) 1.1 L, Monocytes # ( Auto) 0.3, Eosinophils # (Auto) 0.1, Basophils # (Auto) 0.1 Microbiology Microbiology 11/12/16 Blood Culture, Received Pending 11/12/16 Blood Culture, Received Pending 11/12/16 Urine Culture, Received Pending Plan / VTE VTE Prophylaxis Ordered?: Yes Plan Plan Abdominal pain, nausea, vomiting, diarrhea possibly 2/2 gastrointestinal etiology possibly 2/2 infection - Occurred after a colonoscopy on Sunday - Presented with nausea, vomiting, abdominal pain, diarrhea - Elevated WBC and Elevated Lactic acid, ESR / CRP - CT abdomen unrevealing - Will get US abdomen - Will send stool for GI panel, electrolytes, occult blood - Will start Meropenem and Vancomycin - Will give IV fluid bolus and continuous therafter Shortness of breath - History of significant smoking - No diagnosis of COPD - Physical without any wheezing - c/w Duoneb inhaled therapy SLE - not on medications - Follows with outpatient [employer] Migraines - c/w topiramate DM2 - c/w ISS HTN - c/w carvedilol and Lisinopril Depression and anxiety - c/w duloxetine and diazepam PRN MICHELLE on CPAP Arthritis of knee Chronic sinusitis Hx of Pulmonary nodule on LEFT Hx of Giardia infection Gastrointestinal prophylaxis - Will start Protonix IV DVT prophylaxis - Will start Lovenox ROSS,VIJESH MD Nov 12, 2016 15:19
[2016-11-12] MEDS: diazePAM 2 MG TAB PO PRN (15:42)
[2016-11-12 15:57] LABS: ERYTHROCYTE SEDIMENTATION RATE 15 mm/hr (0-20)
[2016-11-12] MEDS: GABAPENTIN 300 MG CAP PO SCH ×2 (16:00→22:00)
[2016-11-12 16:38] VITALS: BP 160/86
[2016-11-12] MEDS ORDERED: VANCOMYCIN HCL 1,000 MG, VIAL MATE ADAPTER 1 EACH in D5W 250 ML IV ONE (17:00)
[2016-11-12] MEDS ORDERED: NS 500 ML IV ONE (17:30)
[2016-11-12] MEDS: CYCLOBENZAPRINE 10 MG TAB PO PRN (17:50)
--- NOTE | 2016-11-12 18:14 | PHACANCOPD ---
PHARMACY VANCOMYCIN DOSING Pt Demographics Demographics Patient Age:51 , Weight:91.600 , Gender: female Adjusted Body Weight Date: 11/12/16, Adjusted Body Weight: [70.8] Kg Events Past 24 Hours Events Past 24 Hours: NO: Dialysis, Diuretic Therapy, Change in CrCl, Fever, Elevation in WBC, Pending Diagnostics, Pending Procedures, Other Vancomycin Vancomycin indication: MRSA coverage Vancomycin Target Ranges: 15-20 mcg/ml Vancomycin Load Y/N: Yes Load Dose Date Time Vancomycin Load Dose: 1000mg Date: 11/12 Time: ~17:00 - not yet documented Vancomycin Dose Date: 11/12/16. Current Vancomycin Dose: [1g IV q8h @22] Intermittent Dosing?: No Labs Labs Item Value Date Time White Blood Count 10.1 K/mm3 H 11/12/16 0905 Creatinine 0.68 MG/DL 11/12/16 0905 Lactic Acid Level 3.0 MMOL/L *H 11/12/16 0905 Micro Microbiology 11/12/16 Blood Culture, Received Pending 11/12/16 Blood Culture, Received Pending 11/12/16 Urine Culture, Received Pending Creatinine Clearance Date:11/12/16. Creatinine Clearance: [~110 ml/min]. Assessment and Plan Maintaining Current Dose?: Yes Reason for dose change: No Dose Change Pharmacist Note Pharmacist Note Date: 11/12/16. Pharmacist note: pt has been admitted for n/v/d s/p colonoscopy on Sunday. She has been started on meropenem and vancomycin to rule out infection. She has had a past hx of MRSA (wound, RIVKA = 0.5) in 01/2013 for which she was on vancomycin for. Based on her past dosing, I have started her on 1g q8h to start ~5 hours after her first dose. Blood and urine cultures are pending. We will continue to monitor and make adjustments as necessary. Bassem Malhotra Pharm.D. Nov 12, 2016 18:13
[2016-11-12] MEDS ORDERED: methylPREDNISolone INJ 125 MG/2 ML VIAL (J2930) IV ONE (20:00)
[2016-11-12] MEDS: ASPIRIN 81 MG ENTERIC TAB PO SCH (21:59)
[2016-11-12] MEDS: TOPIRAMATE (TopAMAX) 100 MG TAB PO SCH (21:59)
[2016-11-12] MEDS: ENOXAPARIN 40 MG/0.4 ML SYRINGE (J1650) SC SCH (21:59)
[2016-11-12] MEDS: NABUMETONE 500 MG TAB PO SCH (21:59)
[2016-11-12] MEDS: VANCOMYCIN HCL 1,000 MG, VIAL MATE ADAPTER 1 EACH in D5W 250 ML IV SCH (21:59)
[2016-11-12 22:00] VITALS: BP 154/82
[2016-11-12] MEDS: DULoxetine 30 MG CAP (CYMBALTA) PO SCH (22:00)
[2016-11-12] MEDS: LOSARTAN 25 MG TAB PO SCH (22:01)
[2016-11-12] MEDS: ADVAIR DISKUS 250/50 INH PWD INH SCH (22:03)
[2016-11-12 22:04] VITALS: O2SAT 91
[2016-11-13] MEDS: IPRATROPIUM 0.5MG/ALBUTEROL 2.5MG INH SOL UD 3ML (DUONEB)(J7620) NEB SCH ×4 (00:32→20:00)
[2016-11-13] MEDS: MEROPENEM INJ 1 GM in D5W MINI-BAG PLUS 100 ML IV SCH ×2 (00:42→08:41)
[2016-11-13 02:00] VITALS: BP 160/90
[2016-11-13] MEDS: methylPREDNISolone INJ 125 MG/2 ML VIAL (J2930) IV SCH ×2 (03:58→11:13)
[2016-11-13] MEDS: VANCOMYCIN HCL 1,000 MG, VIAL MATE ADAPTER 1 EACH in D5W 250 ML IV SCH (05:41)
--- NOTE | 2016-11-13 05:41 | REP ---
ABDOMEN, FLAT AND UPRIGHT; PA CHEST: HISTORY: Abdominal pain. A small amount of air is present in small and large intestine. Several air fluid levels are present. There are no dilated loops of intestine. There is no pneumoperitoneum. Surgical clips are present in the right upper quadrant. A diffuse increase in interstitial markings is present in the lungs. Linear densities are present in the left lower lobe consistent with atelectasis or scar. The heart is normal in size. The pulmonary vasculature is normal in appearance. IMPRESSION: 1. Nonspecific bowel gas pattern. 2. There is a diffuse increase in interstitial markings in the lungs. This may represent chronic interstitial fibrosis or an acute process such as pneumonitis. 3. Left lower lobe atelectasis or scar. Signed by Tavo Joyce MD 11/13/2016 08:15 A
--- NOTE | 2016-11-13 05:55 | REP ---
CT ANGIO CHEST: HISTORY: Dyspnea. CONTRAST: Isovue 370, 100 mL. There are no filling defects in the main , right and left pulmonary arteries or their branches. Small areas of atelectasis are present in the lower lobes. Small bilateral pleural effusions are present. A 4 mm parenchymal nodule is present in the left upper lobe. Enlarged lymph nodes are present in the kathleen and mediastinum. These measure 1.3 to 2.5 mm in size. The lymph nodes are increased in size compared to the previous study. The heart is normal in size. Atherosclerotic calcification is present in the thoracic aorta. Degenerative change is present in the thoracic spine. IMPRESSION: 1. There is no pulmonary embolism. 2. There are small areas of atelectasis or infiltrate in the lower lobes. 3. Small bilateral pleural effusions. 4. There are enlarged mediastinal lymph nodes that are increased in size compared to the previous study. 5. There is a 4 mm parenchymal nodule the left upper lobe. A repeat examination in 6 months may be helpful for further evaluation. Signed by Tavo Joyce MD 11/13/2016 08:16 A
--- NOTE | 2016-11-13 05:59 | REP ---
CT ABDOMEN AND PELVIS WITH CONTRAST: HISTORY: Dyspnea. The patient is status post cholecystectomy. The liver, pancreas, spleen, adrenal glands and kidneys are normal in appearance. There is no mass, adenopathy or free fluid. Atherosclerotic calcification is present in the abdominal aorta and common iliac arteries. The urinary bladder and uterus are normal in appearance. Degenerative change is present in the spine. IMPRESSION: The patient is status post cholecystectomy. Signed by Tavo Joyce MD 11/13/2016 08:17 A
[2016-11-13 06:00] VITALS: BP 167/95
--- NOTE | 2016-11-13 06:14 | ECGEPIP ---
Stationary ECG Study [facility] - ED Test Date: 2016-11-12 Pat Name: BEBA WHITEHEAD Department: Room: - Gender: F Rehabilitation Services Manager: luis alfredo : 1965 Requested By: Kunal Greer Order Number: [id number] Reading MD: Kunal King Measurements Intervals [place] Rate: 105 P: 40 TX: 116 QRS: -1 QRSD: 86 T: 52 QT: 344 QTc: 456 Interpretive Statements SINUS TACHYCARDIA WITH SHORT TX INTERVAL POSSIBLE LEFT ATRIAL ENLARGEMENT PRWP SIMILAR TO 05/01/16 Electronically Signed On 11-13-2016 6:13:26 EDT by Kunal King
--- NOTE | 2016-11-13 07:08 | REP ---
LIMITED ABDOMEN ULTRASOUND: HISTORY: Right upper quadrant tenderness. The patient is status post cholecystectomy. The common bile duct measures 5.6 mm. There is fatty infiltration of the liver. A cyst is present in the left lobe of the liver. This measures 5.9 mm in width. The right kidney is normal in echogenicity. The right kidney measures 6.1 cm in transverse by 5 cm in AP by 10.7 cm in cephalocaudal dimensions. There is no hydronephrosis or mass. IMPRESSION: 1. The patient is status post cholecystectomy. 2. Fatty infiltration of the liver. Signed by Tavo Joyce MD 11/13/2016 08:26 A
[2016-11-13 08:13] LABS: BASO % 0.2 % (0.0-1.0); EOS % 0.2 % (0.0-3.0); LARGE UNSTAINED CELL % 0.2 % (0.0-4.0); LYMPH # 0.6 K/mm3 (1.5-4.5); LYMPH % 7.4 % (24.0-44.0); MEAN CORPUSCULAR HEMOGLOBIN 35.5 pg (27.0-33.0); MEAN CORPUSCULAR HGB CONC 31.4 g/dl (32.0-36.5); MONO # 0.1 K/mm3 (0.0-0.8); MONO % 1.3 % (0.0-5.0); NEUTROPHILS # 6.6 K/mm3 (1.8-7.7); NEUTROPHILS % 90.7 % (36.0-66.0); PLATELET COUNT, AUTOMATED 183 k/mm3 (150-450); WHITE BLOOD COUNT 7.3 K/mm3 (4.0-10.0)
[2016-11-13 08:18] LABS: ADD MORPHOLOGY? YES
[2016-11-13 08:22] LABS: ALBUMIN 2.9 GM/DL (3.2-5.2); ALBUMIN/GLOBULIN RATIO 0.67 (1.00-1.93); ALKALINE PHOSPHATASE 248 U/L (45-117); ALT/SGPT 23 U/L (12-78); ANION GAP 7 MEQ/L (8-16); AST/SGOT 29 U/L (15-37); BLOOD UREA NITROGEN 4 MG/DL (7-18); CALCIUM LEVEL 8.3 MG/DL (8.5-10.1); CARBON DIOXIDE LEVEL 30 MEQ/L (21-32); CHLORIDE LEVEL 103 MEQ/L (98-107); CREATININE FOR GFR 0.78 MG/DL (0.55-1.02); GLOMERULAR FILTRATION RATE > 60.0 (>58); GLUCOSE, FASTING 195 MG/DL (70-105); MAGNESIUM LEVEL 2.1 MG/DL (1.8-2.4); POTASSIUM SERUM 3.8 MEQ/L (3.5-5.1); SODIUM LEVEL 140 MEQ/L (136-145); TOTAL PROTEIN 7.2 GM/DL (6.4-8.2)
[2016-11-13] MEDS: PANTOPRAZOLE 40MG INJ (PROTONIX) (C9113) IV SCH (08:28)
[2016-11-13] MEDS: MORPHINE 2 MG/ML 1ML SYRINGE IV PRN (08:28)
[2016-11-13] MEDS: GABAPENTIN 300 MG CAP PO SCH ×3 (08:29→21:48)
[2016-11-13] MEDS: TOPIRAMATE (TopAMAX) 100 MG TAB PO SCH ×2 (08:30→21:48)
[2016-11-13] MEDS: NABUMETONE 500 MG TAB PO SCH ×2 (08:30→21:49)
[2016-11-13] MEDS: FOLIC ACID 1 MG TAB PO SCH (08:31)
[2016-11-13] MEDS: CYCLOBENZAPRINE 10 MG TAB PO PRN (08:31)
[2016-11-13] MEDS: CARVedilol 6.25 MG TAB PO SCH (08:31)
[2016-11-13] MEDS: CYANOCOBALAMIN 500 MCG TAB PO SCH (08:31)
[2016-11-13] MEDS: NICOTINE 21MG/24HR 1 EA TRANSDERMAL TD SCH (08:41)
[2016-11-13] MEDS: ADVAIR DISKUS 250/50 INH PWD INH SCH ×2 (08:45→20:15)
[2016-11-13 09:04] LABS: ANISOCYTOSIS 1+; POLYCHROMASIA 1+
[2016-11-13 09:52] VITALS: BP 152/90
[2016-11-13] MEDS: MORPHINE 15 MG SA TAB PO SCH ×2 (11:08→21:49)
[2016-11-13] MEDS ORDERED: DEXTROSE 50% 50 ML SYRINGE IV PRN (11:45)
[2016-11-13] MEDS ORDERED: GLUCAGON FOR INJ 1 MG VIAL (J1610) SC PRN (11:45)
[2016-11-13] MEDS ORDERED: GLUCOSE 4 GM CHEW TABLET PO PRN (11:45)
[2016-11-13] MEDS: HumaLOG INSULIN (NovoLOG) PER UNIT SC SCH ×2 (12:00→17:30)
[2016-11-13] MEDS: PERCOCET 5MG/325MG TAB PO PRN ×2 (12:31→23:52)
[2016-11-13] MEDS: LACTOBACILLUS ACIDOPHILUS CAP (BACID) PO SCH ×2 (13:10→17:27)
[2016-11-13] MEDS: metroNIDAZOLE (FLAGYL) 500 MG TAB PO SCH ×2 (13:11→21:48)
[2016-11-13 14:00] VITALS: BP 137/67
[2016-11-13] MEDS ORDERED: LevoFLOXacin IV 750 MG in APPROPRIATE DILUENT 1 EA IV SCH (14:00)
[2016-11-13] MEDS: diazePAM 2 MG TAB PO PRN (14:06)
--- NOTE | 2016-11-13 19:27 | IPN ---
DATE: 11/13/2016 Patient is seen and examined. Reported nausea and vomiting has resolved, only minimal abdominal discomfort. Reported dyspnea has also resolved. Patient stated that she is hungry and wants to be on a diet. Subsequently, patient advanced to clear liquid diet and later this afternoon will be advanced to soft consistent carbohydrate diet. Patient currently feels comfortable. Denies any chest pain, pressure or discomfort. VITAL SIGNS: Temperature 99.7, pulse 100, respirations 18, blood pressure 137/67, pulse oximetry 95% on room air. LABORATORY DATA: WBC 7.3, hemoglobin and hematocrit 15.3/48.9, platelets 183. Chemistry: Sodium 140, potassium 3.8, chloride 103, bicarbonate 30, BUN 4, creatinine 0.78, lactic acid is down to 1.8. PHYSICAL EXAMINATION: GENERAL: Patient alert and oriented times three, in no acute distress. HEENT: Normocephalic, atraumatic, obese. PULMONARY: Bilateral minimal wheeze, no rales or rhonchi, good air entry. CARDIAC: Regular rate and rhythm, normal S1, S2. ABDOMEN: Soft, no distention, obese, no significant tenderness. Positive bowel sounds. EXTREMITIES: No edema lower extremities. ASSESSMENT AND PLAN: This is a 51-year-old female patient with underlying medical history of systemic lupus erythematous (SLE), migraines, depression, anxiety, obstructive sleep apnea on continuous positive airway pressure (CPAP), osteoarthritis of the knees, chronic sinusitis, pulmonary nodules on the left, with history of Giardia infection status post recent colonoscopy done last week on Sunday by Dr. Elan Ontiveros, presented with nausea, vomiting, abdominal pain, more pronounced on the left upper quadrant, and diarrhea, and also reported shortness of breath. 1. Abdominal pain, nausea and vomiting, possibly secondary to gastroenteritis. CT scan and ultrasound has been appreciated. Followup gastrointestinal (GI) panel. Recent colonoscopy. CT scan does not show any acute pathology or perforation. Patient initially nothing by mouth, currently diet has been advanced to clears, will advance the diet to soft consistent carbohydrate if patient tolerates. Lactic acidosis has resolved. Continue Levaquin and Flagyl for now. Gastrointestinal (GI) panel. Monitor electrolytes. Initially on meropenem and vancomycin for broad-spectrum coverage. IV fluids have also been given initially. 2. Shortness of breath, unknown history of chronic obstructive pulmonary disease (COPD), possible COPD exacerbation. Patient on steroids, currently tapered. Antibiotics have also been adjusted. Nebulizer treatments. Currently patient's respiration has much improved. Continue Advair. 3. Systemic lupus erythematous. Not on medication. Followup as outpatient with rheumatology. 4. Migraines. Continue with topiramate. 5. Diabetes. Continue insulin as per protocol. Followup fingersticks. 6. Hypertension. Continue Coreg and losartan. 7. Depression and anxiety. Continue current medication. 8. Obstructive sleep apnea. Continue continuous positive airway pressure (CPAP) at night. 9. Osteoarthritis. Continue pain medication as ordered. If necessary, consult pain management. 10. History of pulmonary nodule on the left. Outpatient followup. 11. Deep venous thrombosis (DVT) prophylaxis. Lovenox subcutaneous. DISPOSITION PLANNING: Pending clinical improvement. Will consider stopping steroids in the next few days. Followup cultures. Physical therapy.
--- NOTE | 2016-11-13 20:43 | ECHO ---
DATE OF PROCEDURE: 11/13/2016 REFERRING PHYSICIAN: Tunde Hopkins MD INDICATION: Dyspnea. HEIGHT: 165 cm WEIGHT: 92 kg DIMENSIONS: IVS: 1.5 LV: 4.3 LVPW: 1.5 LA: 4.5 Aorta: 2.9 IVC: 1.7 Mitral E velocity: 104 cm/s Septal E prime velocity: 4.7 cm/s Lateral E prime velocity: 7.2 cm/s FINDINGS: The study is of fair technical quality corresponding to patient's body habitus. Left ventricle is normal size and systolic function with estimated ejection fraction (EF) around 65-70%. Right ventricle is normal size and systolic function. Left atrium is moderately enlarged. Right atrium is probably normal size. Trace pericardial effusion is noted. Aortic valve has three cusps that have preserved mobility. Mitral valve exhibits degenerative abnormalities with mild mitral annular calcifications, but leaflet mobility is preserved. Tricuspid and pulmonic valves appear normal. Inferior vena cava is normal size. Aortic root is normal. Aortic arch and abdominal aorta were not well seen. Doppler interrogation of aortic valve reveals no stenosis or insufficiency. There is trace mitral insufficiency and trace tricuspid insufficiency. Calculated pulmonary artery pressure was on upper limits of normal values. Pulmonic valve is functionally competent. Mitral inflow pattern and tissue Doppler imaging of mitral annulus reveal grade 2 diastolic dysfunction. CONCLUSION 1. Study is of fair technical quality. 2. Normal left ventricle (LV) size with moderate left ventricular hypertrophy and preserved LV systolic function. Grade 2 diastolic dysfunction. 3. No hemodynamically significant valvular disease. 4. Normal central venous pressure. 5. Normal mildly elevated pulmonary artery pressure. 6. Trace pericardial effusion. COMMENT: Subacute bacterial endocarditis (SBE) prophylaxis is not recommended. Study is overall most consistent with hypertensive heart disease.
[2016-11-13] MEDS ORDERED: HumaLOG INSULIN (NovoLOG) PER UNIT SC SCH (21:00)
[2016-11-13] MEDS: DULoxetine 30 MG CAP (CYMBALTA) PO SCH (21:48)
[2016-11-13] MEDS: ASPIRIN 81 MG ENTERIC TAB PO SCH (21:48)
[2016-11-13] MEDS: LOSARTAN 25 MG TAB PO SCH (21:52)
[2016-11-13] MEDS: ENOXAPARIN 40 MG/0.4 ML SYRINGE (J1650) SC SCH (21:54)
[2016-11-13 22:00] VITALS: BP 118/56
[2016-11-13] MEDS: methylPREDNISolone INJ 40 MG/1 ML VIAL (J2920) IV SCH (22:02)
[2016-11-14] MEDS: IPRATROPIUM 0.5MG/ALBUTEROL 2.5MG INH SOL UD 3ML (DUONEB)(J7620) NEB SCH ×2 (02:00→07:51)
[2016-11-14] MEDS: metroNIDAZOLE (FLAGYL) 500 MG TAB PO SCH (05:28)
[2016-11-14 06:00] VITALS: BP 148/90
[2016-11-14 06:53] LABS: BASO % 0.2 % (0.0-1.0); EOS # 0.1 K/mm3 (0.0-0.50); EOS % 1.2 % (0.0-3.0); LARGE UNSTAINED CELL # 0.1 K/mm3 (0.0-0.4); LARGE UNSTAINED CELL % 0.9 % (0.0-4.0); LYMPH # 1.4 K/mm3 (1.5-4.5); LYMPH % 14.7 % (24.0-44.0); MEAN CORPUSCULAR HEMOGLOBIN 35.9 pg (27.0-33.0); MEAN CORPUSCULAR HGB CONC 32.1 g/dl (32.0-36.5); MEAN CORPUSCULAR VOLUME 111.9 fl (80.0-96.0); MONO # 0.4 K/mm3 (0.0-0.8); MONO % 4.7 % (0.0-5.0); NEUTROPHILS # 7.2 K/mm3 (1.8-7.7); NEUTROPHILS % 78.3 % (36.0-66.0); PLATELET COUNT, AUTOMATED 153 k/mm3 (150-450); RED CELL DISTRIBUTION WIDTH 15.1 % (11.5-14.5); WHITE BLOOD COUNT 9.2 K/mm3 (4.0-10.0)
[2016-11-14 07:16] LABS: ALBUMIN 2.5 GM/DL (3.2-5.2); ALBUMIN/GLOBULIN RATIO 0.78 (1.00-1.93); ALKALINE PHOSPHATASE 183 U/L (45-117); ALT/SGPT 20 U/L (12-78); ANION GAP 9 MEQ/L (8-16); AST/SGOT 29 U/L (15-37); BILIRUBIN,TOTAL 0.6 MG/DL (0.2-1.0); BLOOD UREA NITROGEN 8 MG/DL (7-18); CALCIUM LEVEL 7.8 MG/DL (8.5-10.1); CARBON DIOXIDE LEVEL 27 MEQ/L (21-32); CHLORIDE LEVEL 102 MEQ/L (98-107); CREATININE FOR GFR 0.81 MG/DL (0.55-1.02); GLOMERULAR FILTRATION RATE > 60.0 (>58); GLUCOSE, FASTING 193 MG/DL (70-105); MAGNESIUM LEVEL 1.9 MG/DL (1.8-2.4); POTASSIUM SERUM 3.8 MEQ/L (3.5-5.1); SODIUM LEVEL 138 MEQ/L (136-145); TOTAL PROTEIN 5.7 GM/DL (6.4-8.2)
[2016-11-14] MEDS: ADVAIR DISKUS 250/50 INH PWD INH SCH (07:51)
[2016-11-14] MEDS: PANTOPRAZOLE 40MG INJ (PROTONIX) (C9113) IV SCH (08:37)
[2016-11-14] MEDS: HumaLOG INSULIN (NovoLOG) PER UNIT SC SCH (08:39)
[2016-11-14] MEDS: CYANOCOBALAMIN 500 MCG TAB PO SCH (08:44)
[2016-11-14] MEDS: GABAPENTIN 300 MG CAP PO SCH (08:44)
[2016-11-14] MEDS: MORPHINE 15 MG SA TAB PO SCH (08:45)
[2016-11-14] MEDS: TOPIRAMATE (TopAMAX) 100 MG TAB PO SCH (08:45)
[2016-11-14] MEDS: LACTOBACILLUS ACIDOPHILUS CAP (BACID) PO SCH (08:45)
[2016-11-14 08:46] VITALS: BP 150/80
[2016-11-14] MEDS: FOLIC ACID 1 MG TAB PO SCH (08:46)
[2016-11-14] MEDS: CARVedilol 6.25 MG TAB PO SCH (08:46)
[2016-11-14] MEDS: NABUMETONE 500 MG TAB PO SCH (08:47)
[2016-11-14] MEDS: methylPREDNISolone INJ 40 MG/1 ML VIAL (J2920) IV SCH (10:39)
[2016-11-14] MEDS: PERCOCET 5MG/325MG TAB PO PRN (10:40)
[2016-11-14] MEDS ORDERED: KEFL500C7 PO (11:35)
--- NOTE | 2016-11-14 12:59 | DSES ---
DATE OF ADMISSION: 11/12/2016 DATE OF DISCHARGE: PRINCIPAL DIAGNOSES: Intractable nausea and vomiting with abdominal pain and probable gastroenteritis. SECONDARY DIAGNOSES: 1. History of chronic obstructive pulmonary disease (COPD) with exacerbation. 2. Lupus. 3. History of migraines. 4. Diabetes. On insulin. 5. Hypertension. 6. Obstructive sleep apnea (MICHELLE). On continuous positive airway pressure (CPAP). 7. History of pulmonary nodule, left lung, with outpatient followup advised (the patient aware). PRIMARY CARE PROVIDER: Dr. Ammon Raymundo, [facility] HISTORY: Claudia Lorenz was admitted with nausea, vomiting, and abdominal pain a few days after colonoscopy. Details are in history and physical for admission. HOSPITAL COURSE: The patient admitted to a medical bed. She was treated with intravenous (IV) Levaquin and Flagyl. CT scan did not show anything remarkable. She was rehydrated. She ended up growing out Escherichia (E.) coli in her urine. It was probably the source of some of her illness. She also had exacerbation of COPD. She used steroids and nebulized bronchodilator and above antibiotics. The rest of her medical problems remained stable during her hospitalization. On day of discharge, she is resting comfortably, eating a full diet, and would like to go home. Her examination show stable vital signs. No fever. Lungs clear. Heart: Regular rate and rhythm. Abdomen: Soft, nontender, nondistended. LABORATORIES: CMP unremarkable. White count is 9.2, hemoglobin 11.2. Abdominal ultrasound showed fatty liver. CT abdomen and pelvis showed no significant findings. Angiographic CT scan of the chest showed a 4 mm left upper lobe nodule, for which followup in 6 months is advised. DISPOSITION: She is discharged home, improved, in stable condition. She will take the same medicine she was taking prior to admission, which are aspirin 81 mg daily, B12 1000 mcg daily, Cymbalta 60 mg nightly, folic acid 1 mg daily, gabapentin 600 mg three times a day, losartan 25 mg nightly, magnesium oxide 250 mg three times a day, metformin 1000 mg twice a day, morphine ER 15 mg twice a day, Relafen 750 mg twice a day, Topamax 100 mg twice a day, vitamin D 50,000 units weekly. She uses carvedilol 6.25 mg daily as needed for tachycardia, albuterol two puffs four times a day as needed for shortness of breath, Valium 2 mg twice a day as needed for anxiety, cyclobenzaprine 10 mg twice a day as needed for back spasms, Percocet 5/325 every 6 hours as needed for pain. The only new medicine is Keflex 500 mg twice a day for 7 days for the urinary tract infection (UTI). Followup urine culture advised in the office. She will followup with Dr. Raymundo in 1 week. Activity as tolerated. Diet as tolerated.
== END 2016-11-14 12:13 | disposition home or self-care (01) | DRG 249 ==
LOC: EDBD 08:27 → M ED 09:41 → M ED INP 14:34 → M MSPAV 16:23
PROVIDERS: ADMIT Internal Medicine; ATTEND Family Medicine
DX: K52.9 Noninfective gastroenteritis and colitis, unspecified (principal); N39.0 Urinary tract infection, site not specified; J44.1 Chronic obstructive pulmonary disease with (acute) exacerbation; I10 Essential (primary) hypertension; E11.9 Type 2 diabetes mellitus without complications; B96.29 Other Escherichia coli [E. coli] as the cause of diseases classified elsewhere; M32.9 Systemic lupus erythematosus, unspecified; G47.33 Obstructive sleep apnea (adult) (pediatric); R91.1 Solitary pulmonary nodule; Z79.899 Other long term (current) drug therapy; Z79.82 Long term (current) use of aspirin; Z91.013 Allergy to seafood; Z91.018 Allergy to other foods; F41.9 Anxiety disorder, unspecified; F32.9 Major depressive disorder, single episode, unspecified; G43.909 Migraine, unspecified, not intractable, without status migrainosus; J32.9 Chronic sinusitis, unspecified; M17.2 Bilateral post-traumatic osteoarthritis of knee; M79.7 Fibromyalgia

== ENCOUNTER → 2016-11-23 | Outpatient (CLI) | payer OTHER ==
--- NOTE | 2016-11-24 00:01 | ECWPNPC ---
PATIENT NAME: BEBA WHITEHEAD : 1965 GENDER: FEMALE VISIT DATE: 11/23/2016 DISCHARGE DATE: 11/23/16 1150 VISIT LOCKED DATE TIME: PHYSICIAN: ADAM CARLOS RESOURCE: ADAM CARLOS REASON FOR APPOINTMENT 1. JOINTS HISTORY OF PRESENT ILLNESS HISTORY OF PRESENT ILLNESS: HERE FOR F/U OF CHRONIC GENERALIZED PAIN WITH HX OF SLE AND POLYNEUROPATHY. ON MS CONTIN 15MG BID .REPORTS SIGNIFICANT REDUCTION IN PAIN AND IMPROVED ACTIVITY TOLERANCE WITH THIS.REPORTS LESS FREQUENT USE OF PERCOCET 5/325.RATING PAIN VAS 7/10.DENIES SIDE EFFECTS.NOW SHE IS REPORTING ABILITY TO WALK AND RESOLUTION OF FACIAL NUMBNESS.PRIMARY CARE ATTRIBUTES FACIAL NUMBNESS AND INABILITY TO WALK DUE TO LONG USE OF PLAQUENIL.THAT WAS STOPPED SEVERAL MONTHS AGO. PAIN THE PATIENT DESCRIBES THE PAIN... THE PATIENT DESCRIBES THE PAIN... THE PATIENT DESCRIBES THE PAIN... FALL RISK SCREENING: SCREENING :TWO OR MORE FALLS WITHOUT INJURY IN THE PAST YEAR CURRENT MEDICATIONS TAKING CPAP MASK CPAP MASK AND TUBING WITH CONNECTORS DX. 327.23 APPLY TO CPAP MACHINE APPLY TO FACE , NOTES: NON COMPLIANT DOES NOT USE TAKING BLOOD GLUCOSE TEST STRIP ONE TOUCH ULTRA 2 ICD:250.02 NIDDM SUBCUTANEOUSLY THREE TIMES DAILY 250.01/401.9 TAKING ASPIR-81 81 MG TABLET DELAYED RELEASE 1 TABLET ORALLY ONCE A DAY TAKING FLONASE 50 MCG/ACT SUSPENSION 1 SPRAY IN EACH NOSTRIL NASALLY ONCE A DAY TAKING ONE TOUCH/ONE TOUCH II STARTER 1 GLUCOMETER ICD:250.02 NIDDM FSBS THREE TIMES DAILY TAKING ALBUTEROL SULFATE HFA 108 (90 BASE) MCG/ACT AEROSOL SOLUTION 2 PUFFS INHALATION ONCE A DAY TAKING ZOFRAN 4 MG TABLET 1 TAB ORALLY ONCE A DAY NEEDED FOR NAUASEA TAKING GLUCOPHAGE 1000 MG TABLET 1 TABLET WITH MEALS ORALLY TWICE A DAY TAKING COMMODE BEDSIDE - MISCELLANEOUS DIRECTED ICD10 - R15.9, M62.81 DAILY TAKING TOPAMAX 100 MG TABLET 1 TABLET ORALLY TWICE A DAY, NOTES: NEEDED TAKING CARVEDILOL 6.25 MG TABLET 1 TABLET WITH FOOD ORALLY DAILY NEEDED FOR TACHYCARDIA TAKING CALCIUM + D3 600-200 MG-UNIT TABLET 1 TAB ORALLY DAILY TAKING FOLIC ACID 1 MG TABLET 1 TABLET ORALLY ONCE A DAY TAKING VITAMIN B12 1000 MCG TABLET 1 TABLET ORALLY ONCE A DAY TAKING LOSARTAN POTASSIUM 25 MG TABLET 1 TABLET ORALLY ONCE A DAY TAKING WELLBUTRIN XL 150 MG TABLET EXTENDED RELEASE 24 HOUR 1 TABLET IN THE MORNING ORALLY ONCE A DAY TAKING CYMBALTA 60 MG CAPSULE TAKE ONE CAPSULE BY MOUTH EVERY DAY ORALLY ONCE A DAY TAKING CYCLOBENZAPRINE HCL 10 MG TABLET TAKE ONE TABLET BY MOUTH THREE TIMES A DAY NEEDED ORALLY THREE TIMES A DAY TAKING NABUMETONE 750 MG TABLET 1 TABLET ORALLY TWICE A DAY TAKING NYSTATIN THROAT/SUSPENSION 315075 UNIT/ML SUSPENSION SWISH AND SWALLOW MOUTH/THROAT TID PRN TAKING SM MAGNESIUM OXIDE 250 MG TABLET 1 TAB ORALLY THREE TIMES DAILY TAKING DRISDOL 50,000 UNITS TABLET 1 TAB ORAL WEEKLY TAKING MORPHINE SULFATE ER 15 MG TABLET EXTENDED RELEASE (SCHEDULE II DRUG) TAKE ONE TABLET BY MOUTH EVERY 12 HOURS MAXIMUM DAILY DOSE TWO TABLETS ORAL Q12H MDD2 TAKING PERCOCET 5-325 MG TABLET 1 TABLET NEEDED ORALLY EVERY 6 HRS MAX 4 DAILY TAKING NEURONTIN 600 MG TABLET 1 TABLET ORALLY THREE TIMES A DAY DISCONTINUED CHLORASEPTIC GARGLE 1.4 % LIQUID 5 APPLICATIONS TO AFFECTED AREA NEEDED MOUTH/THROAT EVERY 2 HRS DISCONTINUED ALLOPURINOL 100 MG TABLET 1 TABLET ORALLY ONCE A DAY DISCONTINUED PROAIR HFA 108 (90 BASE) MCG/ACT AEROSOL SOLUTION INHALE TWO PUFFS BY MOUTH EVERY DAY MEDICATION LIST REVIEWED AND RECONCILED WITH THE PATIENT PAST MEDICAL HISTORY LUPUS INFECTIOUS DIARRHEA GIARDIA- DUODENITIS MIGRAINES DEPRESSION/ANXIETY SLEEP APNEA UNSPECIFIED ENTHESOPATHY OF KNEE CHRONIC SINUSITIS PULMONARY NODULE LEFT LUNG BASE 05/2015 GIARDIASIS- FOLLOWED ANNUALLY BY DR. RICHARDS L5-S1 HERNIATION ALCOHOL ABUSE DIABETES FIBROMYALGIA ALLERGIES SHELL FISH: ITCHING: ALLERGY SOCIAL HISTORY GENERAL: TOBACCO USE ARE YOU A:CURRENT SMOKER HOW MANY CIGARETTES A DAY DO YOU SMOKE?11-20 HOW SOON AFTER YOU WAKE UP DO YOU SMOKE YOUR FIRST CIGARETTE?6-30 MIN HOW OFTEN DO YOU SMOKE CIGARETTES?EVERY DAY PATIENT COUNSELED ON THE DANGERS OF TOBACCO USE AND URGED TO QUIT:09/11/2016 ARE YOU INTERESTED IN QUITTING?THINKING ABOUT QUITTING COUNSELED THE PATIENT ON SMOKING CESSATION, EDUCATION [id number]/27/2017 BMI CARE GOAL FOLLOW-UP ABOVE NORMAL BMI FOLLOW-UPLIFESTYLE EDUCATION REGARDING DIET ALCOHOL SCREENING DID YOU HAVE A DRINK CONTAINING ALCOHOL IN THE PAST YEAR?YES HOW OFTEN DID YOU HAVE A DRINK CONTAINING ALCOHOL IN THE PAST YEAR?MONTHLY OR LESS (1 POINT) HOW MANY DRINKS DID YOU HAVE ON A TYPICAL DAY WHEN YOU WERE DRINKING IN THE PAST YEAR?1 OR 2 (0 POINTS) HOW OFTEN DID YOU HAVE SIX OR MORE DRINKS ON ONE OCCASION IN THE PAST YEAR?NEVER (0 POINTS) POINTS1 INTERPRETATIONNEGATIVE RECREATIONAL DRUG USE DRUG USE?NO CAFFEINE CAFFEINE USE?NO OCCUPATION: UNEMPLOYED. DIET: REGULAR. EXERCISE: NO REGULAR EXERCISE. MARITAL STATUS: . OTHERS AT HOME: JUAN DAVID, SONS. PETS: DOGS & CATS. EPISCOPAL NO SIKH BELIEFS THAT WOULD IMPACT HEALTH CARE. LANGUAGE PUERTO RICAN. LEARNING BARRIERS / SPECIAL NEEDS CHANGE FROM LAST VISIT?YES BARRIERS TO LEARNING?NO HEARING IMPAIRED?NO VISION IMPAIRED?YES :CORRECTIVE LENSES COGNITIVELY IMPAIRED?NO READINESS TO LEARN?YES LEARNING PREFERENCES?NO LEARNING CAPABILITIES PRESENT?YES EMOTIONAL BARRIERS?NO SPECIAL DEVICES?YES :WALKER SOIL SURVEYOR NEEDED?NO NEW PATIENT PAIN DIARY TODAY'S VISIT NOTES, FROM 0-10, WHAT LEVEL IS YOUR PAIN TODAY? 0. PAIN CLINIC PFS, CLERGY, PUBLIC HEALTH REFERRALS PFS REFERRAL NEEDED?NO CLERGY REFERRAL NEEDED?NO PUBLIC HEALTH REFERRAL NEEDED?NO WAS THE PROVIDER NOTIFIED OF ANY PERTINENT INFO?NO REVIEW OF SYSTEMS CONSTITUTIONAL: ANY CHANGE IN YOUR MEDICAL CONDITION? NO . CHILLS NO . FEVER NO . INFECTION: DO YOU HAVE NEW INFECTIONS? NO . DO YOU HAVE HISTORY OF MRSA? NO . MUSCULOSKELETAL: ANY NEW PATTERNS OF PAIN OR NUMBNESS? NO . GASTROENTEROLOGY: ANY NEW CHANGE IN BOWEL CONTROL? NO . GENITOURINARY: ANY NEW CHANGE IN BLADDER CONTROL? NO . IS THERE A CHANCE YOU COULD BE ? NO . HEMATOLOGY/LYMPH: DO YOU TAKE ANY BLOOD THINNERS? (FOR EXAMPLE- COUMADIN, PLAVIX, AGGRENOX, PLATEL, PRADAXA, OR XARELTO) NO . WHEN WAS YOUR LAST DOSE? DATE: TIME: . NEUROLOGY: HAVE YOU FALLEN IN THE PAST 6 MONTHS? YES . ANY NEW EXTREMITY NUMBNESS OR WEAKNESS? NO . CARDIOLOGY: DO YOU HAVE A PACEMAKER OR DEFIBRILLATOR? NO . RESPIRATORY: HAVE YOU BEEN SICK IN THE PAST WEEK? NO . FEVER NO . FLU LIKE SYMPTOMS? NO . COUGH NO . INTEGUMENTARY: DO YOU HAVE ANY RASHES OR OPEN SORES? YES . ALLERGIC/IMMUNO: ARE YOU ALLERGIC TO SHELLFISH OR IV DYE? YES . ANY NEW ALLERGIES? NO . PSYCHIATRIC: DO YOU HAVE THOUGHTS OF HURTING YOURSELF OR SOMEONE ELSE? NO . ARE YOU ABUSED, NEGLECTED, OR IN AN UNSAFE ENVIRONMENT? NO . ENDOCRINOLOGY: ARE YOU DIABETIC? YES . OTHER: DO YOU NEED ANY PRESCRIPTIONS? NO . IF YES, PLEASE LIST: ____ . ANY NEW PROBLEMS WITH YOUR MEDICATIONS? NO . WHEN DID YOU LAST EAT? ____ . WHEN DID YOU LAST DRINK? ____ . WHAT DID YOU LAST DRINK? ____ . NAME OF PERSON DRIVING YOU HOME? ____ . DO YOU HAVE ANY OTHER QUESTIONS OR CONCERNS NO . REVIEWED BY: PROVIDER: ADAM EAST . VITAL SIGNS WT 203 LBS, HT 64 IN, BMI 34.84 INDEX, BP 98/50 MM HG, HR 101 /MIN, RR 18 /MIN, TEMP 97.9 F, OXYGEN SAT % 90%, NA INITIALS AW 1046, REVIEWED BY: VD. EXAMINATION GENERAL EXAMINATION: HEENT:HEAD:, NORMOCEPHALIC, EYES:, EYES NORMAL, NOSE:, NOSE CLEAR, THROAT: NORMAL. LUNGS:LUNG SOUNDS ARE CLEAR. HEART:HEART RATE REGULAR. ABDOMEN:SOFT AND NOT TENDER, NON-DISTENDED. MUSCULOSKELETAL:*. LUMBAR SACRAL SPINEMUSCLE STRENGTH TESTING 4/5 BILATERAL LOWER EXTREMITIES.PALPATION: POSITIVE FOR PAIN OVER L/S SPINE. POSITIVE FOR PAIN OVER L/S PARSPINALS.. THORACIC SPINENEGATIVE FOR PAIN WITH PALPATION OF THORACIC SPINE. NEGATIVE FOR PAIN WITH PALPATION OF THORACIC PARASPINAL. CERVICALNEGATIVE FOR PAIN WITH PALPATION OF CERVICAL SPINE. NEGATIVE FOR PAIN WITH PALPATION OF CERVICAL PARASPINALS. NEGATIVE FOR PAIN WITH PALPATION OF TRAPEZIUS BILAT. SKIN:MULTIPLE CIRCULAR 3-4 CM RED AND DARK LESIONS OVER LOWER EXTREMITIES.. NEUROLOGIC EXAM:ALERT AND ORIENTED X 3, DTRS 2/4 UPPER AND LOWER EXTREMITIES. DENIES UPPER EXTREMETIES SENSORY LOSS. . DIAGNOSTIC:MRI L/S [id number]-MULTI LEVEL DEGENERATIVE CHANGES.LUMBAR DISC PROTRUSION AT L5/S1. ASSESSMENTS ARTHROPATHY - M12.9 (PRIMARY) CHRONIC PRESCRIPTION OPIATE USE - Z79.891 TREATMENT ARTHROPATHY REFILL MORPHINE SULFATE ER TABLET EXTENDED RELEASE, 15 MG, (SCHEDULE II DRUG) TAKE ONE TABLET BY MOUTH EVERY 12 HOURS MAXIMUM DAILY DOSE TWO TABLETS, ORAL, Q12H MDD2, 30, 60, REFILLS 0 REFILL PERCOCET TABLET, 5-325 MG, 1 TABLET NEEDED, ORALLY, EVERY 6 HRS MAX 4 DAILY, 30 DAY(S), 120, REFILLS 0 NOTES: ISTOP REGISTRY REVIEWED AND DEMNOSTRATES COMPLLIANCE. BRINGS IN MEDICATIONS WHICH IS APPROPRIATE FOR WHAT WAS DISPENSED. RECENT URINE TOXICOLOGY REVIEWED. NO UNAUTHORIZED MEDICATIONS. NO ILLICIT SUBSTANCES AND PRESCRIBED MEDICATIONS WERE PRESENT. , REVIEWED WITH PATIENT THE POTENTIAL RISK OF INCREASED SEDATION, RESPIRATORY SUPPRESSION AND WITH THE COMBINATION OF BENZODIAZAPINE AND OPIOD MEDICATIONS. PATIENT STATES HE UNDERSTANDS THIS RISK AND WISHES TO CONTINUE WITH THERAPY, RISKS AND BENEFITS OF NARCOTIC/OPIOD MEDICATIONS WERE REVIEWED WITH PATIENT - THIS INCLUDES BUT IS NOT LIMITED TO RISK OF DEPENDANCE/DEVELOPMENT OF ADDICTION, MOOD DISTURBANCE AND DEPRESSION, OSTEOPOROSIS, HORMONAL AND LABIDAL CHANGES, RESPIRATORY DEPRESSION AND . PATIENT IS ADVISED NOT TO DRIVE WHILE ON THESE MEDICATIONS.URINE TOX TODAY. PROCEDURE CODES FA211 ESTABILISHED PATIENT [facility] CHARGE DISPOSITION & COMMUNICATION FOLLOW UP 2 MONTHS ELECTRONICALLY SIGNED BY CRUZITO CHURCHILL ON 11/23/2016 AT 02:07 PM EDT DISCLAIMER : THIS IS A VISIT SUMMARY EXTRACTED FROM THE [employer] CHART. IT IS NOT A COPY OF THE [employer] PROGRESS NOTE. LETY
== END ==
LOC: M PAIN 10:20
PROVIDERS: ATTEND Nurse Practitioner Family
DX: G89.29 Other chronic pain (principal); M12.9 Arthropathy, unspecified; M32.9 Systemic lupus erythematosus, unspecified; G62.9 Polyneuropathy, unspecified; G43.909 Migraine, unspecified, not intractable, without status migrainosus; F32.9 Major depressive disorder, single episode, unspecified; F41.9 Anxiety disorder, unspecified; G47.30 Sleep apnea, unspecified; E11.9 Type 2 diabetes mellitus without complications; M79.7 Fibromyalgia; F17.200 Nicotine dependence, unspecified, uncomplicated; Z91.013 Allergy to seafood; Z79.82 Long term (current) use of aspirin; Z79.84 Long term (current) use of oral hypoglycemic drugs; Z79.891 Long term (current) use of opiate analgesic; Z79.899 Other long term (current) drug therapy

== ENCOUNTER → 2016-11-27 | Outpatient (REF) | payer OTHER | LOC: M SFHCPLAZ 15:30 | PROVIDERS: ATTEND Family Medicine | DX: N30.00 Acute cystitis without hematuria (principal) ==

== ENCOUNTER → 2016-12-13 | Outpatient (CLI) | payer OTHER ==
[~2016-12-13] MED LIST changes: +GABA-282 PO; +MORP-38 PO
--- NOTE | 2017-01-02 02:13 | ECWPNPC ---
PATIENT NAME: BEBA WHITEHEAD : 1965 GENDER: FEMALE VISIT DATE: 12/13/2016 DISCHARGE DATE: 12/13/16 1432 VISIT LOCKED DATE TIME: PHYSICIAN: ADAM CARLOS RESOURCE: ADAM CARLOS REASON FOR APPOINTMENT 1. MEDS HISTORY OF PRESENT ILLNESS HISTORY OF PRESENT ILLNESS: HERE FOR F/U OF CHRONIC GENERALIZED PAIN WITH HX OF SLE AND POLYNEUROPATHY. ON MS CONTIN 15MG BID .REPORTS SIGNIFICANT REDUCTION IN PAIN AND IMPROVED ACTIVITY TOLERANCE WITH THIS.REPORTS LESS FREQUENT USE OF PERCOCET 5/325.RATING PAIN VAS 6/10.DENIES SIDE EFFECTS.NOW SHE IS REPORTING ABILITY TO WALK AND RESOLUTION OF FACIAL NUMBNESS.PRIMARY CARE ATTRIBUTES FACIAL NUMBNESS AND INABILITY TO WALK DUE TO LONG USE OF PLAQUENIL.THAT WAS STOPPED SEVERAL MONTHS AGO.TODAY SHE IS REPORTING INCREASE IN BILATERAL HAND NUMBNESS AND BURNING PAIN.DISCUSSED MEDICATION OPTIONS FOR NEUROPATHY. PAIN THE PATIENT DESCRIBES THE PAIN... THE PATIENT DESCRIBES THE PAIN... THE PATIENT DESCRIBES THE PAIN... THE PATIENT DESCRIBES THE PAIN... FALL RISK SCREENING: SCREENING :NO FALLS IN THE PAST YEAR CURRENT MEDICATIONS TAKING MORPHINE SULFATE ER 15 MG TABLET EXTENDED RELEASE (SCHEDULE II DRUG) TAKE ONE TABLET BY MOUTH EVERY 12 HOURS MAXIMUM DAILY DOSE TWO TABLETS ORAL Q12H MDD2 TAKING PERCOCET 5-325 MG TABLET 1 TABLET NEEDED ORALLY EVERY 6 HRS MAX 4 DAILY TAKING CPAP MASK CPAP MASK AND TUBING WITH CONNECTORS DX. 327.23 APPLY TO CPAP MACHINE APPLY TO FACE , NOTES: NON COMPLIANT DOES NOT USE TAKING BLOOD GLUCOSE TEST STRIP ONE TOUCH ULTRA 2 ICD:250.02 NIDDM SUBCUTANEOUSLY THREE TIMES DAILY 250.01/401.9 TAKING ASPIR-81 81 MG TABLET DELAYED RELEASE 1 TABLET ORALLY ONCE A DAY TAKING FLONASE 50 MCG/ACT SUSPENSION 1 SPRAY IN EACH NOSTRIL NASALLY ONCE A DAY TAKING ONE TOUCH/ONE TOUCH II STARTER 1 GLUCOMETER ICD:250.02 NIDDM FSBS THREE TIMES DAILY TAKING ALBUTEROL SULFATE HFA 108 (90 BASE) MCG/ACT AEROSOL SOLUTION 2 PUFFS INHALATION ONCE A DAY TAKING ZOFRAN 4 MG TABLET 1 TAB ORALLY ONCE A DAY NEEDED FOR NAUASEA TAKING GLUCOPHAGE 1000 MG TABLET 1 TABLET WITH MEALS ORALLY TWICE A DAY TAKING COMMODE BEDSIDE - MISCELLANEOUS DIRECTED ICD10 - R15.9, M62.81 DAILY TAKING TOPAMAX 100 MG TABLET 1 TABLET ORALLY TWICE A DAY, NOTES: NEEDED TAKING CARVEDILOL 6.25 MG TABLET 1 TABLET WITH FOOD ORALLY DAILY NEEDED FOR TACHYCARDIA TAKING CALCIUM + D3 600-200 MG-UNIT TABLET 1 TAB ORALLY DAILY TAKING FOLIC ACID 1 MG TABLET 1 TABLET ORALLY ONCE A DAY TAKING VITAMIN B12 1000 MCG TABLET 1 TABLET ORALLY ONCE A DAY TAKING LOSARTAN POTASSIUM 25 MG TABLET 1 TABLET ORALLY ONCE A DAY TAKING CYMBALTA 60 MG CAPSULE TAKE ONE CAPSULE BY MOUTH EVERY DAY ORALLY ONCE A DAY TAKING CYCLOBENZAPRINE HCL 10 MG TABLET TAKE ONE TABLET BY MOUTH THREE TIMES A DAY NEEDED ORALLY THREE TIMES A DAY TAKING NABUMETONE 750 MG TABLET 1 TABLET ORALLY TWICE A DAY TAKING NYSTATIN THROAT/SUSPENSION 651108 UNIT/ML SUSPENSION SWISH AND SWALLOW MOUTH/THROAT TID PRN TAKING SM MAGNESIUM OXIDE 250 MG TABLET 1 TAB ORALLY THREE TIMES DAILY TAKING DRISDOL 50,000 UNITS TABLET 1 TAB ORAL WEEKLY TAKING NEURONTIN 600 MG TABLET 1 TABLET ORALLY THREE TIMES A DAY TAKING NICOTINE STEP 1 21 MG/24HR PATCH 24 HOUR 1 PATCH TO SKIN TRANSDERMAL ONCE A DAY TAKING NYSTATIN 622650 UNIT/GM CREAM 1 APPLICATION TO AFFECTED AREA EXTERNALLY TO AFFECTED AREA FOUR TIMES DAILY NEEDED FOR RASH NOT-TAKING CEFDINIR 300 MG CAPSULE 1 CAPSULE ORALLY EVERY 12 HRS NOT-TAKING DIFLUCAN 150 MG TABLET 1 TABLET ORALLY ONCE MEDICATION LIST REVIEWED AND RECONCILED WITH THE PATIENT PAST MEDICAL HISTORY LUPUS INFECTIOUS DIARRHEA GIARDIA- DUODENITIS MIGRAINES DEPRESSION/ANXIETY SLEEP APNEA UNSPECIFIED ENTHESOPATHY OF KNEE CHRONIC SINUSITIS PULMONARY NODULE LEFT LUNG BASE 05/2015 GIARDIASIS- FOLLOWED ANNUALLY BY DR. RICHARDS L5-S1 HERNIATION ALCOHOL ABUSE DIABETES FIBROMYALGIA ALLERGIES SHELL FISH: ITCHING: ALLERGY SURGICAL HISTORY CARPAL TUNNEL RELEASE/ULNAR TUNNEL RELEASE-DR. ROBERTH HMUMEL 11/2012 DEBRIDEMENT DIABETIC FOOT ULCER 03/2013 CHOLECYSTECTOMY 2009 SINUS SURGERY 2004 INCISIONAL HERNIA 09/28 COLONOSCOPY 11/10/16 HOSPITALIZATION/MAJOR DIAGNOSTIC PROCEDURE DIABETIC FOOT ULCER/CELLULITIS 12/2012 RENAL FAILURE 02/2016 WEAKNESS 05/09/2016 INFECTION & DEHYDRATION 11/12/16-11/14/16 REVIEW OF SYSTEMS CONSTITUTIONAL: ANY CHANGE IN YOUR MEDICAL CONDITION? YES, PT C/O BILAT HAND PAIN, WAXES AND WANES. SCRATHCES NOTED TO HANDS, PT STATES SHE HAS A NEW PUPPY. . CHILLS NO . FEVER NO . INFECTION: DO YOU HAVE NEW INFECTIONS? YES, RECENT UTI, TX'D WITH ABX, PT STATES SHE HAD TO BE ADMITTED FOR INFECTION.&NBSP;. DO YOU HAVE HISTORY OF MRSA? &NBSP;&NBSP; NO&NBSP;. MUSCULOSKELETAL: ANY NEW PATTERNS OF PAIN OR NUMBNESS? YES, HAND PAIN BILAT BASELINE 3/10 UP TO 04/24. PT STATES WHEN IT IS REALLY BAD, IT FEELS LIKE MY HANDS HAVE BEEN DIPPED IN BATTERY ACID. . GASTROENTEROLOGY: ANY NEW CHANGE IN BOWEL CONTROL? NO . GENITOURINARY: ANY NEW CHANGE IN BLADDER CONTROL? NO, PT SUSPECTS UTI IS STILL THERE . IS THERE A CHANCE YOU COULD BE ? NO . HEMATOLOGY/LYMPH: DO YOU TAKE ANY BLOOD THINNERS? (FOR EXAMPLE- COUMADIN, PLAVIX, AGGRENOX, PLATEL, PRADAXA, OR XARELTO) NO . WHEN WAS YOUR LAST DOSE? DATE: TIME: . NEUROLOGY: HAVE YOU FALLEN IN THE PAST 6 MONTHS? YES, PT STATES SHE FALLS ALL THE TIME, TRIPPING OVER THINGS, SHUFFLING . ANY NEW EXTREMITY NUMBNESS OR WEAKNESS? NO . CARDIOLOGY: DO YOU HAVE A PACEMAKER OR DEFIBRILLATOR? NO . RESPIRATORY: HAVE YOU BEEN SICK IN THE PAST WEEK? NO . FEVER NO . FLU LIKE SYMPTOMS? NO . COUGH NO . INTEGUMENTARY: DO YOU HAVE ANY RASHES OR OPEN SORES? YES, SCRATCHES TO HANDS, LEFT BIG TOE SORE . ALLERGIC/IMMUNO: ARE YOU ALLERGIC TO SHELLFISH OR IV DYE? NO . ANY NEW ALLERGIES? NO . PSYCHIATRIC: DO YOU HAVE THOUGHTS OF HURTING YOURSELF OR SOMEONE ELSE? NO . ARE YOU ABUSED, NEGLECTED, OR IN AN UNSAFE ENVIRONMENT? NO . ENDOCRINOLOGY: ARE YOU DIABETIC? YES . OTHER: DO YOU NEED ANY PRESCRIPTIONS? NO, PT TO DISCUSS WITH Gama CARLOS . IF YES, PLEASE LIST: ____ . ANY NEW PROBLEMS WITH YOUR MEDICATIONS? NO . WHEN DID YOU LAST EAT? ____ . WHEN DID YOU LAST DRINK? ____ . WHAT DID YOU LAST DRINK? ____ . NAME OF PERSON DRIVING YOU HOME? ____ . DO YOU HAVE ANY OTHER QUESTIONS OR CONCERNS NO . REVIEWED BY: PROVIDER: ADAM CARLOS CLERK FUNERAL DETAIL . VITAL SIGNS WT 205.4 LBS, HT 64 IN, BMI 35.25 INDEX, BP 120/65 MM HG, HR 92 /MIN, RR 18 /MIN, TEMP 96.6 F, OXYGEN SAT % 91%, SAFE IN ENV? (Y/N) Y, NA INITIALS GA 13:33, REVIEWED BY: EM. EXAMINATION GENERAL EXAMINATION: HEENT:HEAD:, NORMOCEPHALIC, EYES:, EYES NORMAL, NOSE:, NOSE CLEAR, THROAT: NORMAL. LUNGS:LUNG SOUNDS ARE CLEAR. HEART:HEART RATE REGULAR. ABDOMEN:SOFT AND NOT TENDER, NON-DISTENDED. MUSCULOSKELETAL:*. LUMBAR SACRAL SPINEMUSCLE STRENGTH TESTING 4/5 BILATERAL LOWER EXTREMITIES.PALPATION: POSITIVE FOR PAIN OVER L/S SPINE. POSITIVE FOR PAIN OVER L/S PARSPINALS.. THORACIC SPINENEGATIVE FOR PAIN WITH PALPATION OF THORACIC SPINE. NEGATIVE FOR PAIN WITH PALPATION OF THORACIC PARASPINAL. CERVICALNEGATIVE FOR PAIN WITH PALPATION OF CERVICAL SPINE. NEGATIVE FOR PAIN WITH PALPATION OF CERVICAL PARASPINALS. NEGATIVE FOR PAIN WITH PALPATION OF TRAPEZIUS BILAT. SKIN:MULTIPLE CIRCULAR 3-4 CM RED AND DARK LESIONS OVER LOWER EXTREMITIES.. NEUROLOGIC EXAM:ALERT AND ORIENTED X 3, DTRS 2/4 UPPER AND LOWER EXTREMITIES. DENIES UPPER EXTREMETIES SENSORY LOSS. . DIAGNOSTIC:MRI L/S [id number]-MULTI LEVEL DEGENERATIVE CHANGES.LUMBAR DISC PROTRUSION AT L5/S1. ASSESSMENTS ARTHROPATHY - M12.9 (PRIMARY) CHRONIC PRESCRIPTION OPIATE USE - Z79.891 TREATMENT ARTHROPATHY REFILL MORPHINE SULFATE ER TABLET EXTENDED RELEASE, 15 MG, (SCHEDULE II DRUG) TAKE ONE TABLET BY MOUTH EVERY 12 HOURS MAXIMUM DAILY DOSE TWO TABLETS, ORAL, Q12H MDD2, 30, 60, REFILLS 0 REFILL PERCOCET TABLET, 5-325 MG, 1 TABLET NEEDED, ORALLY, EVERY 6 HRS MAX 4 DAILY, 30 DAY(S), 120, REFILLS 0 CONTINUE NEURONTIN TABLET, 600 MG, 1 TABLET, ORALLY, THREE TIMES A DAY, 30 DAY(S), 90, REFILLS 0 START GABAPENTIN CAPSULE, 300 MG, 1 CAPSULE, ORALLY, BID, 30 DAY(S), 60 CAPSULE, REFILLS 2 NOTES: ISTOP REGISTRY REVIEWED AND DEMNOSTRATES COMPLLIANCE. BRINGS IN MEDICATIONS WHICH IS APPROPRIATE FOR WHAT WAS DISPENSED. RECENT URINE TOXICOLOGY REVIEWED. NO UNAUTHORIZED MEDICATIONS. NO ILLICIT SUBSTANCES AND PRESCRIBED MEDICATIONS WERE PRESENT. , RISKS AND BENEFITS OF NARCOTIC/OPIOD MEDICATIONS WERE REVIEWED WITH PATIENT - THIS INCLUDES BUT IS NOT LIMITED TO RISK OF DEPENDANCE/DEVELOPMENT OF ADDICTION, MOOD DISTURBANCE AND DEPRESSION, OSTEOPOROSIS, HORMONAL AND LABIDAL CHANGES, RESPIRATORY DEPRESSION AND . PATIENT IS ADVISED NOT TO DRIVE WHILE ON THESE MEDICATIONS.URINE TOX TODAY. PROCEDURE CODES FA211 ESTABILISHED PATIENT [facility] FACILITY CHARGE DISPOSITION & COMMUNICATION FOLLOW UP 2 MONTHS ELECTRONICALLY SIGNED BY CRUZITO CHURCHILL ON 01/01/2017 AT 06:18 PM EDT DISCLAIMER : THIS IS A VISIT SUMMARY EXTRACTED FROM THE [employer] CHART. IT IS NOT A COPY OF THE [employer] PROGRESS NOTE. MTDD
== END ==
LOC: M PAIN 13:20
PROVIDERS: ATTEND Nurse Practitioner Family
DX: G89.29 Other chronic pain (principal); M12.9 Arthropathy, unspecified; M32.9 Systemic lupus erythematosus, unspecified; G62.9 Polyneuropathy, unspecified; G43.909 Migraine, unspecified, not intractable, without status migrainosus; F32.9 Major depressive disorder, single episode, unspecified; F41.9 Anxiety disorder, unspecified; G47.30 Sleep apnea, unspecified; F10.21 Alcohol dependence, in remission; E11.9 Type 2 diabetes mellitus without complications; M79.7 Fibromyalgia; F17.200 Nicotine dependence, unspecified, uncomplicated; Z91.013 Allergy to seafood; Z79.891 Long term (current) use of opiate analgesic; Z79.82 Long term (current) use of aspirin; Z79.84 Long term (current) use of oral hypoglycemic drugs; Z79.899 Other long term (current) drug therapy

== ENCOUNTER → 2016-12-18 | Outpatient (REF) | payer OTHER ==
[~2016-12-18] MED LIST changes: -GABA-282 PO; -MORP-38 PO
== END ==
LOC: M SFHCPLAZ 11:30
PROVIDERS: ATTEND Family Medicine
DX: L65.8 Other specified nonscarring hair loss (principal); Z53.9 Procedure and treatment not carried out, unspecified reason

== ENCOUNTER → 2016-12-18 | Outpatient (CLI) | payer OTHER | LOC: M WUC 12:17 | PROVIDERS: ATTEND Internal Medicine Gastroenterology | DX: R19.7 Diarrhea, unspecified (principal) ==

== ENCOUNTER → 2016-12-18 | Outpatient (CLI) | payer OTHER ==
[2016-12-18 17:00] LABS: PERCENT SATURATION 31.2 % (13.2-37.4)
[2016-12-18 19:12] LABS: MEAN CORPUSCULAR HEMOGLOBIN 37.2 pg (27.0-33.0); MEAN CORPUSCULAR HGB CONC 32.6 g/dl (32.0-36.5); MEAN CORPUSCULAR VOLUME 114.1 fl (80.0-96.0); RED CELL DISTRIBUTION WIDTH 14.9 % (11.5-14.5); WHITE BLOOD COUNT 6.4 K/mm3 (4.0-10.0)
== END ==
LOC: M WUC 12:12
PROVIDERS: ATTEND Family Medicine
DX: L65.8 Other specified nonscarring hair loss (principal)

== ENCOUNTER 2017-01-01 14:40 | Inpatient (IN) | payer OTHER ==
[~2017-01-01] VITALS: Ht 160 cm; Wt 93.6 kg
[2017-01-01] MEDS ORDERED: FUROSEMIDE 40 MG/4 ML VIAL (J1940) IV ONE (15:45)
[2017-01-01] MEDS ORDERED: predniSONE 20 MG TAB PO ONE (15:45)
[2017-01-01] MEDS ORDERED: ALBUTEROL SULFATE 2.5 MG/0.5 ML INH NEB SOLN NEB PRN (15:45)
[2017-01-01 15:54] LABS: INR 1.06
[2017-01-01 16:02] LABS: ALBUMIN/GLOBULIN RATIO 0.94 (1.00-1.93); ALKALINE PHOSPHATASE 200 U/L (45-117); ALT/SGPT 21 U/L (12-78); ANION GAP 11 MEQ/L (8-16); AST/SGOT 33 U/L (15-37); BILIRUBIN,DIRECT 0.2 MG/DL (0.0-0.2); BILIRUBIN,TOTAL 0.6 MG/DL (0.2-1.0); BLOOD UREA NITROGEN 4 MG/DL (7-18); CALCIUM LEVEL 8.1 MG/DL (8.5-10.1); CARBON DIOXIDE LEVEL 24 MEQ/L (21-32); CHLORIDE LEVEL 96 MEQ/L (98-107); CREATININE FOR GFR 0.61 MG/DL (0.55-1.02); GLOMERULAR FILTRATION RATE > 60.0 (>58); GLUCOSE, FASTING 82 MG/DL (70-105); POTASSIUM SERUM 4.5 MEQ/L (3.5-5.1); SODIUM LEVEL 131 MEQ/L (136-145); TOTAL PROTEIN 6.2 GM/DL (6.4-8.2)
[2017-01-01 16:13] LABS: BASO % 0.3 % (0.0-1.0); EOS # 0.1 K/mm3 (0.0-0.50); EOS % 1.4 % (0.0-3.0); LARGE UNSTAINED CELL # 0.1 K/mm3 (0.0-0.4); LARGE UNSTAINED CELL % 1.1 % (0.0-4.0); LYMPH # 1.6 K/mm3 (1.5-4.5); LYMPH % 20.2 % (24.0-44.0); MEAN CORPUSCULAR HGB CONC 32.6 g/dl (32.0-36.5); MEAN CORPUSCULAR VOLUME 116.5 fl (80.0-96.0); MONO # 0.4 K/mm3 (0.0-0.8); MONO % 5.1 % (0.0-5.0); NEUTROPHILS # 5.5 K/mm3 (1.8-7.7); NEUTROPHILS % 71.8 % (36.0-66.0); PLATELET COUNT, AUTOMATED 251 k/mm3 (150-450); RED CELL DISTRIBUTION WIDTH 15.5 % (11.5-14.5); WHITE BLOOD COUNT 7.6 K/mm3 (4.0-10.0)
[2017-01-01 16:15] LABS: ADD MORPHOLOGY? YES
[2017-01-01 16:36] LABS: ANISOCYTOSIS 1+
[2017-01-01] MEDS ORDERED: GABA-282 PO (17:52)
[2017-01-01] MEDS ORDERED: OXYC1TAB23 PO (17:52)
[2017-01-01] MEDS ORDERED: MORP-38 PO (17:52)
[2017-01-01] MEDS ORDERED: CYCLOBENZAPRINE 10 MG TAB PO PRN (18:45)
[2017-01-01] MEDS ORDERED: CARVedilol 6.25 MG TAB PO PRN (18:45)
[2017-01-01] MEDS ORDERED: GLUCAGON FOR INJ 1 MG VIAL (J1610) SC PRN (18:45)
[2017-01-01] MEDS ORDERED: GLUCOSE 4 GM CHEW TABLET PO PRN (18:45)
[2017-01-01] MEDS ORDERED: ONDANSETRON 4MG/2ML VIAL (J2405) IV PRN (18:45)
[2017-01-01] MEDS ORDERED: DEXTROSE 50% 50 ML SYRINGE IV PRN (18:45)
[2017-01-01] MEDS ORDERED: ACETAMINOPHEN TAB 650MG DOSE (2X325MG) PO PRN (18:45)
[2017-01-01] MEDS ORDERED: IPRATROPIUM 0.5MG/ALBUTEROL 2.5MG INH SOL UD 3ML (DUONEB)(J7620) NEB PRN (18:45)
[2017-01-01] MEDS: IPRATROPIUM 0.5MG/ALBUTEROL 2.5MG INH SOL UD 3ML (DUONEB)(J7620) NEB SCH (20:00)
[2017-01-01 20:45] VITALS: BP 146/70
[2017-01-01] MEDS: HumaLOG INSULIN (NovoLOG) PER UNIT SC SCH (21:00)
[2017-01-01] MEDS: NABUMETONE 500 MG TAB PO SCH (21:59)
[2017-01-01] MEDS: ASPIRIN 81 MG ENTERIC TAB PO SCH (22:00)
[2017-01-01] MEDS: GABAPENTIN 300 MG CAP PO SCH (22:00)
[2017-01-01] MEDS: TOPIRAMATE (TopAMAX) 100 MG TAB PO SCH (22:00)
[2017-01-01] MEDS: NICOTINE 21MG/24HR 1 EA TRANSDERMAL TD SCH (22:00)
[2017-01-01] MEDS: DULoxetine 30 MG CAP (CYMBALTA) PO SCH (22:01)
[2017-01-01] MEDS: MAGNESIUM OXIDE 400 MG TAB (MAG-OX) PO SCH (22:01)
[2017-01-01] MEDS: MORPHINE 15 MG SA TAB PO SCH (22:01)
[2017-01-01] MEDS: PERCOCET 5MG/325MG TAB PO PRN (23:42)
[2017-01-01 23:59] VITALS: BP 116/69
[2017-01-02] MEDS: FUROSEMIDE 40 MG/4 ML VIAL (J1940) IV SCH ×3 (00:47→20:33)
[2017-01-02] MEDS: IPRATROPIUM 0.5MG/ALBUTEROL 2.5MG INH SOL UD 3ML (DUONEB)(J7620) NEB SCH ×4 (01:13→20:00)
[2017-01-02 05:18] VITALS: BP 109/70
[2017-01-02 06:34] LABS: MEAN CORPUSCULAR HGB CONC 32.7 g/dl (32.0-36.5); MEAN CORPUSCULAR VOLUME 116.5 fl (80.0-96.0); RED CELL DISTRIBUTION WIDTH 15.5 % (11.5-14.5); WHITE BLOOD COUNT 6.3 K/mm3 (4.0-10.0)
[2017-01-02 06:36] LABS: ANION GAP 4 MEQ/L (8-16); BLOOD UREA NITROGEN 6 MG/DL (7-18); CALCIUM LEVEL 8.3 MG/DL (8.5-10.1); CARBON DIOXIDE LEVEL 32 MEQ/L (21-32); CHLORIDE LEVEL 96 MEQ/L (98-107); CREATININE FOR GFR 0.74 MG/DL (0.55-1.02); GLOMERULAR FILTRATION RATE > 60.0 (>58); GLUCOSE, FASTING 158 MG/DL (70-105); MAGNESIUM LEVEL 2.5 MG/DL (1.8-2.4); POTASSIUM SERUM 4.1 MEQ/L (3.5-5.1); SODIUM LEVEL 132 MEQ/L (136-145)
[2017-01-02 08:00] VITALS: BP 139/77
[2017-01-02] MEDS: TOPIRAMATE (TopAMAX) 100 MG TAB PO SCH ×2 (08:04→20:36)
[2017-01-02] MEDS: ENOXAPARIN 40 MG/0.4 ML SYRINGE (J1650) SC SCH (08:04)
[2017-01-02] MEDS: NABUMETONE 500 MG TAB PO SCH ×2 (08:05→20:36)
[2017-01-02] MEDS: CYANOCOBALAMIN 500 MCG TAB PO SCH (08:05)
[2017-01-02] MEDS: GABAPENTIN 300 MG CAP PO SCH ×3 (08:05→20:36)
[2017-01-02] MEDS: FOLIC ACID 1 MG TAB PO SCH (08:05)
[2017-01-02] MEDS: HumaLOG INSULIN (NovoLOG) PER UNIT SC SCH ×4 (08:06→20:34)
[2017-01-02] MEDS: MAGNESIUM OXIDE 400 MG TAB (MAG-OX) PO SCH ×2 (08:06→20:36)
[2017-01-02] MEDS: MORPHINE 15 MG SA TAB PO SCH ×2 (08:07→20:35)
[2017-01-02 12:00] VITALS: BP 156/74
[2017-01-02] MEDS: PERCOCET 5MG/325MG TAB PO PRN (13:35)
[2017-01-02 16:00] VITALS: BP 135/65
[2017-01-02 20:10] VITALS: BP 144/71
[2017-01-02] MEDS: NICOTINE 21MG/24HR 1 EA TRANSDERMAL TD SCH (20:34)
[2017-01-02] MEDS: DULoxetine 30 MG CAP (CYMBALTA) PO SCH (20:35)
[2017-01-02] MEDS: ASPIRIN 81 MG ENTERIC TAB PO SCH (20:36)
[2017-01-02] MEDS ORDERED: NICOTINE 21MG/24HR 1 EA TRANSDERMAL TD SCH (21:00)
[2017-01-02] MEDS ORDERED: ALPRAZolam 0.25 MG TAB PO ONE (22:00)
[2017-01-03] VITALS: BP 123/64
[2017-01-03] MEDS: IPRATROPIUM 0.5MG/ALBUTEROL 2.5MG INH SOL UD 3ML (DUONEB)(J7620) NEB SCH ×2 (02:00→08:00)
[2017-01-03 03:41] VITALS: BP 154/86
[2017-01-03] MEDS: PERCOCET 5MG/325MG TAB PO PRN (03:50)
[2017-01-03 05:51] LABS: MEAN CORPUSCULAR HEMOGLOBIN 37.2 pg (27.0-33.0); MEAN CORPUSCULAR HGB CONC 32.1 g/dl (32.0-36.5); RED CELL DISTRIBUTION WIDTH 15.1 % (11.5-14.5)
[2017-01-03 05:55] LABS: ANION GAP 4 MEQ/L (8-16); BLOOD UREA NITROGEN 6 MG/DL (7-18); CALCIUM LEVEL 8.3 MG/DL (8.5-10.1); CARBON DIOXIDE LEVEL 35 MEQ/L (21-32); CHLORIDE LEVEL 99 MEQ/L (98-107); CREATININE FOR GFR 0.71 MG/DL (0.55-1.02); GLOMERULAR FILTRATION RATE > 60.0 (>58); GLUCOSE, FASTING 102 MG/DL (70-105); MAGNESIUM LEVEL 2.3 MG/DL (1.8-2.4); POTASSIUM SERUM 3.7 MEQ/L (3.5-5.1); SODIUM LEVEL 138 MEQ/L (136-145)
[2017-01-03] MEDS: HumaLOG INSULIN (NovoLOG) PER UNIT SC SCH (07:30)
[2017-01-03 08:00] VITALS: BP 153/84
[2017-01-03] MEDS: ENOXAPARIN 40 MG/0.4 ML SYRINGE (J1650) SC SCH (08:33)
[2017-01-03] MEDS: NABUMETONE 500 MG TAB PO SCH (08:34)
[2017-01-03] MEDS: CYANOCOBALAMIN 500 MCG TAB PO SCH (08:34)
[2017-01-03] MEDS: TOPIRAMATE (TopAMAX) 100 MG TAB PO SCH (08:34)
[2017-01-03] MEDS: MAGNESIUM OXIDE 400 MG TAB (MAG-OX) PO SCH (08:35)
[2017-01-03] MEDS: GABAPENTIN 300 MG CAP PO SCH (08:35)
[2017-01-03] MEDS: MORPHINE 15 MG SA TAB PO SCH (08:36)
[2017-01-03] MEDS: FOLIC ACID 1 MG TAB PO SCH (08:36)
[2017-01-03] MEDS: FUROSEMIDE 40 MG/4 ML VIAL (J1940) IV SCH (08:37)
[2017-01-03] MEDS ORDERED: LASI20TA PO (10:07)
== END 2017-01-03 12:15 | disposition home or self-care (01) | DRG 194 ==
LOC: M ED 15:30 → M ED INP 18:43 → M PCU 20:44
PROVIDERS: ADMIT Internal Medicine; ATTEND Hospitalist
DX: I50.33 Acute on chronic diastolic (congestive) heart failure (principal); M32.10 Systemic lupus erythematosus, organ or system involvement unspecified; J44.9 Chronic obstructive pulmonary disease, unspecified; E66.01 Morbid (severe) obesity due to excess calories; F41.9 Anxiety disorder, unspecified; F32.9 Major depressive disorder, single episode, unspecified; F17.200 Nicotine dependence, unspecified, uncomplicated; G43.909 Migraine, unspecified, not intractable, without status migrainosus; G47.33 Obstructive sleep apnea (adult) (pediatric); I11.0 Hypertensive heart disease with heart failure; Z79.899 Other long term (current) drug therapy; Z79.82 Long term (current) use of aspirin; Z91.013 Allergy to seafood; Z91.018 Allergy to other foods; G89.29 Other chronic pain

== ENCOUNTER → 2017-01-12 | Outpatient (CLI) | payer OTHER ==
[~2017-01-12] MED LIST changes: -CELE-19 PO; +CELE1CAP4 PO; -COLA100C3 PO; +COLA100C5 PO; -FOLI1TAB2 PO; +FOLI1TAB4 PO; +GABA-282 PO; +HYDR-3719 PO; +KEFL500C17 PO; -KEFL500C7 PO; -METF1000 PO; +METF10004 PO; +MORP-38 PO; +MUCI600T31 PO; -ONDA1TAB15 PO; +ONDA4TAB5 PO; +ONETTES6 VI; +PERC5TAB12 PO; -PERC5TAB6 PO; +PRED10PA PO; +SULF1TAB23 PO; +TOPA100T12 PO; -TOPA100T8 PO
[2017-01-12 14:10] LABS: ANION GAP 8 MEQ/L (8-16); BLOOD UREA NITROGEN 5 MG/DL (7-18); CALCIUM LEVEL 8.9 MG/DL (8.5-10.1); CARBON DIOXIDE LEVEL 30 MEQ/L (21-32); CHLORIDE LEVEL 97 MEQ/L (98-107); CREATININE FOR GFR 0.68 MG/DL (0.55-1.02); GLOMERULAR FILTRATION RATE > 60.0 (>58); GLUCOSE, FASTING 77 MG/DL (70-105); POTASSIUM SERUM 4.3 MEQ/L (3.5-5.1); SODIUM LEVEL 135 MEQ/L (136-145)
== END ==
LOC: M WUC 11:07
PROVIDERS: ATTEND Family Medicine
DX: I50.33 Acute on chronic diastolic (congestive) heart failure (principal)

== ENCOUNTER → 2017-01-29 | Outpatient (CLI) | payer OTHER ==
[2017-01-29 18:50] LABS: ANION GAP 8 MEQ/L (8-16); BLOOD UREA NITROGEN 5 MG/DL (7-18); CALCIUM LEVEL 8.8 MG/DL (8.5-10.1); CARBON DIOXIDE LEVEL 30 MEQ/L (21-32); CHLORIDE LEVEL 94 MEQ/L (98-107); CREATININE FOR GFR 0.79 MG/DL (0.55-1.02); GLOMERULAR FILTRATION RATE > 60.0 (>58); GLUCOSE, FASTING 153 MG/DL (70-105); MAGNESIUM LEVEL 2.2 MG/DL (1.8-2.4); POTASSIUM SERUM 3.9 MEQ/L (3.5-5.1); SODIUM LEVEL 132 MEQ/L (136-145)
== END ==
LOC: M WUC 15:04
PROVIDERS: ATTEND Family Medicine
DX: E86.0 Dehydration (principal)

== ENCOUNTER → 2017-02-14 | Outpatient (CLI) | payer OTHER ==
--- NOTE | 2017-03-02 00:03 | ECWPNPC ---
PATIENT NAME: BEBA WHITEHEAD : 1965 GENDER: FEMALE VISIT DATE: 02/14/2017 DISCHARGE DATE: 02/14/17 1531 VISIT LOCKED DATE TIME: PHYSICIAN: ADAM CARLOS RESOURCE: ADAM CARLOS REASON FOR APPOINTMENT 1. LUPUS/FIBROMIALGIA HISTORY OF PRESENT ILLNESS HISTORY OF PRESENT ILLNESS: HERE FOR F/U OF CHRONIC GENERALIZED PAIN WITH HX OF SLE AND POLYNEUROPATHY. ON MS CONTIN 15MG BID .REPORTS SIGNIFICANT REDUCTION IN PAIN AND IMPROVED ACTIVITY TOLERANCE WITH THIS.REPORTS THAT PERCOCET 5/325 NOT EFFECTIVE.RATING PAIN VAS 7/10.DENIES SIDE EFFECTS.NOW SHE IS REPORTING ABILITY TO WALK AND RESOLUTION OF FACIAL NUMBNESS.PRIMARY CARE ATTRIBUTES FACIAL NUMBNESS AND INABILITY TO WALK DUE TO LONG USE OF PLAQUENIL.THAT WAS STOPPED SEVERAL MONTHS AGO.TODAY SHE IS REPORTING INCREASE IN BILATERAL HAND NUMBNESS AND BURNING PAIN.DISCUSSED MEDICATION OPTIONS FOR NEUROPATHY. PAIN THE PATIENT DESCRIBES THE PAIN... THE PATIENT DESCRIBES THE PAIN... THE PATIENT DESCRIBES THE PAIN... THE PATIENT DESCRIBES THE PAIN... THE PATIENT DESCRIBES THE PAIN... FALL RISK SCREENING: SCREENING :TWO OR MORE FALLS WITHOUT INJURY IN THE PAST YEAR CURRENT MEDICATIONS TAKING GLUCOPHAGE 1000 MG TABLET 1 TABLET WITH MEALS ORALLY TWICE A DAY TAKING GABAPENTIN 600 MG TABLET 1 CAPSULE ORALLY THREE TIMES DAILY TAKING CPAP MASK CPAP MASK AND TUBING WITH CONNECTORS DX. 327.23 APPLY TO CPAP MACHINE APPLY TO FACE , NOTES: NON COMPLIANT DOES NOT USE TAKING BLOOD GLUCOSE TEST STRIP ONE TOUCH ULTRA 2 ICD:250.02 NIDDM SUBCUTANEOUSLY THREE TIMES DAILY 250.01/401.9 TAKING ASPIR-81 81 MG TABLET DELAYED RELEASE 1 TABLET ORALLY ONCE A DAY TAKING FLONASE 50 MCG/ACT SUSPENSION 1 SPRAY IN EACH NOSTRIL NASALLY ONCE A DAY TAKING ONE TOUCH/ONE TOUCH II STARTER 1 GLUCOMETER ICD:250.02 NIDDM FSBS THREE TIMES DAILY TAKING ALBUTEROL SULFATE HFA 108 (90 BASE) MCG/ACT AEROSOL SOLUTION 2 PUFFS INHALATION TWICE DAILY NEEDED TAKING COMMODE BEDSIDE - MISCELLANEOUS DIRECTED ICD10 - R15.9, M62.81 DAILY TAKING TOPAMAX 100 MG TABLET 1 TABLET ORALLY TWICE A DAY, NOTES: NEEDED TAKING CARVEDILOL 6.25 MG TABLET 1 TABLET WITH FOOD ORALLY DAILY NEEDED FOR TACHYCARDIA TAKING CALCIUM + D3 600-200 MG-UNIT TABLET 1 TAB ORALLY DAILY TAKING NYSTATIN THROAT/SUSPENSION 123448 UNIT/ML SUSPENSION SWISH AND SWALLOW MOUTH/THROAT TID PRN TAKING DRISDOL 50,000 UNITS TABLET 1 TAB ORAL WEEKLY TAKING NYSTATIN 799962 UNIT/GM CREAM 1 APPLICATION TO AFFECTED AREA EXTERNALLY TO AFFECTED AREA FOUR TIMES DAILY NEEDED FOR RASH TAKING GABAPENTIN 300 MG TABLET 1 TABLET ORALLY TWICE DAILY TAKING LASIX 20 MG TABLET 1 TABLET ORALLY ONCE A DAY TAKING FOLIC ACID 1 MG TABLET 1 TABLET ORALLY ONCE A DAY TAKING VITAMIN B12 1000 MCG TABLET 1 TABLET ORALLY ONCE A DAY TAKING ZOFRAN 4 MG TABLET 1 TAB ORALLY ONCE A DAY NEEDED FOR NAUASEA TAKING LOSARTAN POTASSIUM 25 MG TABLET 1 TABLET ORALLY ONCE A DAY TAKING SM MAGNESIUM OXIDE 250 MG TABLET 1 TAB ORALLY THREE TIMES DAILY TAKING CYCLOBENZAPRINE HCL 10 MG TABLET TAKE ONE TABLET BY MOUTH THREE TIMES A DAY NEEDED ORALLY THREE TIMES A DAY TAKING CYMBALTA 60 MG CAPSULE TAKE ONE CAPSULE BY MOUTH EVERY DAY ORALLY ONCE A DAY TAKING MORPHINE SULFATE ER 15 MG TABLET EXTENDED RELEASE (SCHEDULE II DRUG) TAKE ONE TABLET BY MOUTH EVERY 12 HOURS MAXIMUM DAILY DOSE TWO TABLETS ORAL Q12H MDD2 TAKING PERCOCET 5-325 MG TABLET 1 TABLET NEEDED ORALLY EVERY 6 HRS MAX 4 DAILY NOT-TAKING NABUMETONE 750 MG TABLET 1 TABLET ORALLY TWICE A DAY, NOTES: RELAFEN NOT-TAKING MINOXIDIL FOR WOMEN 2 % SOLUTION 1 DROP TO AFFECTED AREA EXTERNALLY TWICE A DAY NOT-TAKING NICOTINE STEP 1 21 MG/24HR PATCH 24 HOUR 1 PATCH TO SKIN TRANSDERMAL ONCE A DAY NOT-TAKING CEFDINIR 300 MG CAPSULE 1 CAPSULE ORALLY EVERY 12 HRS NOT-TAKING DIFLUCAN 150 MG TABLET 1 TABLET ORALLY ONCE MEDICATION LIST REVIEWED AND RECONCILED WITH THE PATIENT PAST MEDICAL HISTORY LUPUS INFECTIOUS DIARRHEA GIARDIA- DUODENITIS MIGRAINES DEPRESSION/ANXIETY SLEEP APNEA UNSPECIFIED ENTHESOPATHY OF KNEE CHRONIC SINUSITIS PULMONARY NODULE LEFT LUNG BASE 05/2015 GIARDIASIS- FOLLOWED ANNUALLY BY DR. RICHARDS L5-S1 HERNIATION ALCOHOL ABUSE DIABETES FIBROMYALGIA ALLERGIES SHELL FISH: ITCHING: ALLERGY REVIEW OF SYSTEMS REVIEWED BY: PROVIDER: ADAM EAST . CONSTITUTIONAL: ANY CHANGE IN YOUR MEDICAL CONDITION? NO . CHILLS NO . FEVER NO . INFECTION: DO YOU HAVE NEW INFECTIONS? NO . DO YOU HAVE HISTORY OF MRSA? NO . MUSCULOSKELETAL: ANY NEW PATTERNS OF PAIN OR NUMBNESS? NO . GASTROENTEROLOGY: ANY NEW CHANGE IN BOWEL CONTROL? NO . GENITOURINARY: ANY NEW CHANGE IN BLADDER CONTROL? NO . IS THERE A CHANCE YOU COULD BE ? NO . HEMATOLOGY/LYMPH: DO YOU TAKE ANY BLOOD THINNERS? (FOR EXAMPLE- COUMADIN, PLAVIX, AGGRENOX, PLATEL, PRADAXA, OR XARELTO) NO . WHEN WAS YOUR LAST DOSE? DATE: TIME: . NEUROLOGY: HAVE YOU FALLEN IN THE PAST 6 MONTHS? YES . ANY NEW EXTREMITY NUMBNESS OR WEAKNESS? NO . CARDIOLOGY: DO YOU HAVE A PACEMAKER OR DEFIBRILLATOR? NO . RESPIRATORY: HAVE YOU BEEN SICK IN THE PAST WEEK? NO . FEVER NO . FLU LIKE SYMPTOMS? NO . COUGH NO . INTEGUMENTARY: DO YOU HAVE ANY RASHES OR OPEN SORES? YES . ALLERGIC/IMMUNO: ARE YOU ALLERGIC TO SHELLFISH OR IV DYE? YES . ANY NEW ALLERGIES? NO . PSYCHIATRIC: DO YOU HAVE THOUGHTS OF HURTING YOURSELF OR SOMEONE ELSE? NO . ARE YOU ABUSED, NEGLECTED, OR IN AN UNSAFE ENVIRONMENT? NO . ENDOCRINOLOGY: ARE YOU DIABETIC? YES . OTHER: DO YOU NEED ANY PRESCRIPTIONS? NO . IF YES, PLEASE LIST: ____ . ANY NEW PROBLEMS WITH YOUR MEDICATIONS? NO . WHEN DID YOU LAST EAT? ____ . WHEN DID YOU LAST DRINK? ____ . WHAT DID YOU LAST DRINK? ____ . NAME OF PERSON DRIVING YOU HOME? ____ . DO YOU HAVE ANY OTHER QUESTIONS OR CONCERNS NO . VITAL SIGNS WT 198 LBS, HT 64 IN, BMI 33.98 INDEX, BP 130/66 MM HG, HR 72 /MIN, RR 18 /MIN, TEMP 98.0 F, OXYGEN SAT % 91%, NA INITIALS AW 1413, REVIEWED BY: VD. EXAMINATION GENERAL EXAMINATION: HEENT:HEAD:, NORMOCEPHALIC, EYES:, EYES NORMAL, NOSE:, NOSE CLEAR, THROAT: NORMAL. LUNGS:LUNG SOUNDS ARE CLEAR. HEART:HEART RATE REGULAR. ABDOMEN:SOFT AND NOT TENDER, NON-DISTENDED. MUSCULOSKELETAL:*. LUMBAR SACRAL SPINEMUSCLE STRENGTH TESTING 4/5 BILATERAL LOWER EXTREMITIES.PALPATION: POSITIVE FOR PAIN OVER L/S SPINE. POSITIVE FOR PAIN OVER L/S PARSPINALS.. THORACIC SPINENEGATIVE FOR PAIN WITH PALPATION OF THORACIC SPINE. NEGATIVE FOR PAIN WITH PALPATION OF THORACIC PARASPINAL. CERVICALNEGATIVE FOR PAIN WITH PALPATION OF CERVICAL SPINE. NEGATIVE FOR PAIN WITH PALPATION OF CERVICAL PARASPINALS. NEGATIVE FOR PAIN WITH PALPATION OF TRAPEZIUS BILAT. SKIN:MULTIPLE CIRCULAR 3-4 CM RED AND DARK LESIONS OVER LOWER EXTREMITIES.. NEUROLOGIC EXAM:ALERT AND ORIENTED X 3, DTRS 2/4 UPPER AND LOWER EXTREMITIES. DENIES UPPER EXTREMETIES SENSORY LOSS. . DIAGNOSTIC:MRI L/S [id number]-MULTI LEVEL DEGENERATIVE CHANGES.LUMBAR DISC PROTRUSION AT L5/S1. ASSESSMENTS ARTHROPATHY - M12.9 (PRIMARY) CHRONIC PRESCRIPTION OPIATE USE - Z79.891 TREATMENT ARTHROPATHY CONTINUE MORPHINE SULFATE ER TABLET EXTENDED RELEASE, 15 MG, (SCHEDULE II DRUG) TAKE ONE TABLET BY MOUTH EVERY 12 HOURS MAXIMUM DAILY DOSE TWO TABLETS, ORAL, Q12H MDD2, 30 DAY(S), 60, REFILLS 0 STOP PERCOCET TABLET, 5-325 MG, 1 TABLET NEEDED, ORALLY, EVERY 6 HRS MAX 4 DAILY START NORCO TABLET, 10-325 MG, 1 TABLET NEEDED, ORALLY, EVERY 6 HRS MDD4, 30 DAY(S), 120, REFILLS 0 NOTES: ISTOP REGISTRY REVIEWED AND DEMNOSTRATES COMPLLIANCE. BRINGS IN MEDICATIONS WHICH IS APPROPRIATE FOR WHAT WAS DISPENSED. RECENT URINE TOXICOLOGY REVIEWED. NO UNAUTHORIZED MEDICATIONS. NO ILLICIT SUBSTANCES AND PRESCRIBED MEDICATIONS WERE PRESENT. URINE TOX TODAY. PROCEDURE CODES FA211 ESTABILISHED PATIENT [facility] CHARGE DISPOSITION & COMMUNICATION FOLLOW UP 2 MONTHS ELECTRONICALLY SIGNED BY CRUZITO CHURCHILL ON 03/01/2017 AT 07:12 PM EDT DISCLAIMER : THIS IS A VISIT SUMMARY EXTRACTED FROM THE [employer] CHART. IT IS NOT A COPY OF THE [employer] PROGRESS NOTE. MTDD
== END ==
LOC: M PAIN 13:30
PROVIDERS: ATTEND Nurse Practitioner Family
DX: G89.29 Other chronic pain (principal); M12.9 Arthropathy, unspecified; M32.9 Systemic lupus erythematosus, unspecified; E11.9 Type 2 diabetes mellitus without complications; I50.32 Chronic diastolic (congestive) heart failure; G47.30 Sleep apnea, unspecified; F10.21 Alcohol dependence, in remission; L30.9 Dermatitis, unspecified; Z91.013 Allergy to seafood; Z79.84 Long term (current) use of oral hypoglycemic drugs; Z79.82 Long term (current) use of aspirin; Z79.891 Long term (current) use of opiate analgesic; Z79.899 Other long term (current) drug therapy

== ENCOUNTER → 2017-03-13 | Outpatient (CLI) | payer OTHER ==
[2017-03-13 17:40] LABS: IMMUNOGLOBULIN M 46.6 MG/DL (40-230)
[2017-03-13 18:19] LABS: BASO % 0.5 % (0.0-1.0); EOS # 0.2 K/mm3 (0.0-0.50); LARGE UNSTAINED CELL # 0.1 K/mm3 (0.0-0.4); LARGE UNSTAINED CELL % 0.8 % (0.0-4.0); LYMPH # 1.8 K/mm3 (1.5-4.5); LYMPH % 20.3 % (24.0-44.0); MEAN CORPUSCULAR HEMOGLOBIN 36.4 pg (27.0-33.0); MEAN CORPUSCULAR VOLUME 110.3 fl (80.0-96.0); MONO # 0.5 K/mm3 (0.0-0.8); MONO % 5.5 % (0.0-5.0); NEUTROPHILS # 6.2 K/mm3 (1.8-7.7); NEUTROPHILS % 70.9 % (36.0-66.0); PLATELET COUNT, AUTOMATED 227 k/mm3 (150-450); RED CELL DISTRIBUTION WIDTH 14.4 % (11.5-14.5); WHITE BLOOD COUNT 8.7 K/mm3 (4.0-10.0)
[2017-03-13 18:20] LABS: ADD MORPHOLOGY? YES
[2017-03-13 18:51] LABS: ERYTHROCYTE SEDIMENTATION RATE 28 mm/hr (0-20)
[2017-03-16 08:07] LABS: IgG SERUM (part of Subclasses) 784 mg/dL (700-1600); IgG Subclass 1 505 mg/dL (248-810); IgG Subclass 2 136 mg/dL (130-555); IgG Subclass 3 129 mg/dL (15-102); IgG Subclass 4 1 mg/dL (2-96)
== END ==
LOC: M WUC 11:06
PROVIDERS: ATTEND Internal Medicine Infectious Disease
DX: E11.621 Type 2 diabetes mellitus with foot ulcer (principal); L97.529 Non-pressure chronic ulcer of other part of left foot with unspecified severity; D80.1 Nonfamilial hypogammaglobulinemia

== ENCOUNTER → 2017-03-13 | Outpatient (CLI) | payer OTHER | LOC: M WUC 11:13 | PROVIDERS: ATTEND Family Medicine | DX: E55.9 Vitamin D deficiency, unspecified (principal) ==

== ENCOUNTER → 2017-03-22 | Outpatient (REF) | payer OTHER | LOC: M SFHCPLAZ 11:07 | PROVIDERS: ATTEND Internal Medicine Infectious Disease | DX: L89.893 Pressure ulcer of other site, stage 3 (principal) ==

== ENCOUNTER → 2017-04-03 | Outpatient (REF) | payer OTHER ==
[2017-04-03 14:00] LABS: BASO % 0.4 % (0.0-1.0); EOS # 0.2 K/mm3 (0.0-0.50); EOS % 2.8 % (0.0-3.0); LARGE UNSTAINED CELL % 0.6 % (0.0-4.0); LYMPH # 1.3 K/mm3 (1.5-4.5); LYMPH % 21.5 % (24.0-44.0); MEAN CORPUSCULAR HEMOGLOBIN 36.5 pg (27.0-33.0); MEAN CORPUSCULAR HGB CONC 33.3 g/dl (32.0-36.5); MEAN CORPUSCULAR VOLUME 109.7 fl (80.0-96.0); MONO # 0.3 K/mm3 (0.0-0.8); MONO % 4.8 % (0.0-5.0); NEUTROPHILS # 4.1 K/mm3 (1.8-7.7); NEUTROPHILS % 69.9 % (36.0-66.0); PLATELET COUNT, AUTOMATED 205 k/mm3 (150-450); RED CELL DISTRIBUTION WIDTH 15.1 % (11.5-14.5); WHITE BLOOD COUNT 5.8 K/mm3 (4.0-10.0)
[2017-04-03 14:10] LABS: IMMUNOGLOBULIN G 782 MG/DL (681-1648); IMMUNOGLOBULIN M 46.5 MG/DL (40-230)
[2017-04-03 15:12] LABS: ERYTHROCYTE SEDIMENTATION RATE 31 mm/hr (0-20)
[2017-04-05 12:37] LABS: FOLATE > 24.0 NG/ML; VITAMIN B12 LEVEL 1088 PG/ML
[2017-04-06 00:55] LABS: IgG SERUM (part of Subclasses) 755 mg/dL (700-1600); IgG Subclass 1 292 mg/dL (248-810); IgG Subclass 2 74 mg/dL (130-555); IgG Subclass 3 73 mg/dL (15-102); IgG Subclass 4 1 mg/dL (2-96)
== END ==
LOC: M SFHCPLAZ 10:43
PROVIDERS: ATTEND Internal Medicine Infectious Disease
DX: D80.1 Nonfamilial hypogammaglobulinemia (principal); L97.529 Non-pressure chronic ulcer of other part of left foot with unspecified severity; E11.621 Type 2 diabetes mellitus with foot ulcer

== ENCOUNTER → 2017-04-03 | Outpatient (CLI) | payer OTHER ==
[2017-04-03 14:00] LABS: ANION GAP 9 MEQ/L (8-16); BLOOD UREA NITROGEN 5 MG/DL (7-18); CALCIUM LEVEL 8.6 MG/DL (8.5-10.1); CARBON DIOXIDE LEVEL 33 MEQ/L (21-32); CHLORIDE LEVEL 91 MEQ/L (98-107); CREATININE FOR GFR 0.69 MG/DL (0.55-1.02); GLOMERULAR FILTRATION RATE > 60.0 (>58); GLUCOSE, FASTING 96 MG/DL (70-105); POTASSIUM SERUM 3.9 MEQ/L (3.5-5.1); SODIUM LEVEL 133 MEQ/L (136-145)
== END ==
LOC: M WUC 10:43
PROVIDERS: ATTEND Family Medicine
DX: E11.621 Type 2 diabetes mellitus with foot ulcer (principal)

== ENCOUNTER → 2017-04-06 | Outpatient (CLI) | payer OTHER ==
--- NOTE | 2017-04-06 16:00 | REP ---
MRI RIGHT FOOT WITH AND WITHOUT CONTRAST: TECHNIQUE: Multiple sequences obtained in the axial, sagittal and coronal planes prior to and following the intravenous administration of 17 mL of gadolinium. There is excessive motion artifact. Apparently the patient could not keep her foot still during the scan. This severely limits the exam. Only the coronal precontrast images provide any diagnostic information. The visualized osseous structures appear grossly unremarkable with no gross marrow signal abnormality. However, the osseous structures of the 5th toe are not optimally visualized. There is reportedly an ulcer of the right 5th toe. Soft tissue structures demonstrate scattered ill-defined high signal in the medial plantar soft tissues compatible with edema and possible cellulitis. No gross abscess collection is seen. IMPRESSION: Largely nondiagnostic exam due to excessive motion. No gross marrow signal abnormality is seen, but the osseous structures of the 5th toe cannot be adequately evaluated for osteomyelitis. There is edema and possible cellulitis of the medial plantar soft tissues. No gross abscess collection is seen. Signed by Rick Infante MD 04/06/2017 07:22 P
== END ==
LOC: M RAD 13:33
PROVIDERS: ATTEND Internal Medicine Infectious Disease
DX: L89.893 Pressure ulcer of other site, stage 3 (principal)
CPT/HCPCS: 73720; A9576

== ENCOUNTER → 2017-04-16 | Outpatient (CLI) | payer OTHER ==
--- NOTE | 2017-04-22 02:04 | ECWPNPC ---
PATIENT NAME: BEBA WHITEHEAD : 1965 GENDER: FEMALE VISIT DATE: 04/16/2017 DISCHARGE DATE: 04/16/17 1353 VISIT LOCKED DATE TIME: PHYSICIAN: ADAM CARLOS RESOURCE: ADAM CARLOS REASON FOR APPOINTMENT 1. LUPUS/FIBROMIALGIA HISTORY OF PRESENT ILLNESS HISTORY OF PRESENT ILLNESS: HERE FOR F/U OF CHRONIC GENERALIZED PAIN WITH HX OF SLE AND POLYNEUROPATHY. ON MS CONTIN 15MG BID .REPORTS SIGNIFICANT REDUCTION IN PAIN AND IMPROVED ACTIVITY TOLERANCE WITH THIS.USING HYDROCODONE 10/325 UP TO FOUR PER DAY NEEDED FOR SEVERE PAIN.RATING PAIN VAS 7/10.DENIES SIDE EFFECTS.HAVING ALOT OF MEDICAL ISSUES RECENTLY.BEING TREATED FOR PNEUMONIA.WILL BE HAVING CT SCAN OF CHEST FOR SUSPICOUS LYMPHADENOPATHY.GENERALLY NOT FEELING WELL. PAIN THE PATIENT DESCRIBES THE PAIN... THE PATIENT DESCRIBES THE PAIN... THE PATIENT DESCRIBES THE PAIN... THE PATIENT DESCRIBES THE PAIN... THE PATIENT DESCRIBES THE PAIN... THE PATIENT DESCRIBES THE PAIN... FALL RISK SCREENING: SCREENING :NO FALLS IN THE PAST YEAR CURRENT MEDICATIONS TAKING BLOOD GLUCOSE TEST STRIP ONE TOUCH ULTRA 2 ICD:250.02 NIDDM SUBCUTANEOUSLY THREE TIMES DAILY 250.01/401.9 TAKING ONE TOUCH/ONE TOUCH II STARTER 1 GLUCOMETER ICD:250.02 NIDDM FSBS THREE TIMES DAILY TAKING CPAP MASK CPAP MASK AND TUBING WITH CONNECTORS DX. 327.23 APPLY TO CPAP MACHINE APPLY TO FACE , NOTES: NON COMPLIANT DOES NOT USE TAKING ASPIR-81 81 MG TABLET DELAYED RELEASE 1 TABLET ORALLY ONCE A DAY TAKING FLONASE 50 MCG/ACT SUSPENSION 1 SPRAY IN EACH NOSTRIL NASALLY ONCE A DAY TAKING COMMODE BEDSIDE - MISCELLANEOUS DIRECTED ICD10 - R15.9, M62.81 DAILY TAKING TOPAMAX 100 MG TABLET 1 TABLET ORALLY TWICE A DAY, NOTES: NEEDED TAKING CARVEDILOL 6.25 MG TABLET 1 TABLET WITH FOOD ORALLY DAILY NEEDED FOR TACHYCARDIA TAKING CALCIUM + D3 600-200 MG-UNIT TABLET 1 TAB ORALLY DAILY TAKING NYSTATIN THROAT/SUSPENSION 485972 UNIT/ML SUSPENSION SWISH AND SWALLOW MOUTH/THROAT TID PRN TAKING NYSTATIN 505008 UNIT/GM CREAM 1 APPLICATION TO AFFECTED AREA EXTERNALLY TO AFFECTED AREA FOUR TIMES DAILY NEEDED FOR RASH TAKING GABAPENTIN 300 MG TABLET 1 TABLET ORALLY TWICE DAILY TAKING FOLIC ACID 1 MG TABLET 1 TABLET ORALLY ONCE A DAY TAKING VITAMIN B12 1000 MCG TABLET 1 TABLET ORALLY ONCE A DAY TAKING ZOFRAN 4 MG TABLET 1 TAB ORALLY ONCE A DAY NEEDED FOR NAUASEA TAKING LOSARTAN POTASSIUM 25 MG TABLET 1 TABLET ORALLY ONCE A DAY TAKING SM MAGNESIUM OXIDE 250 MG TABLET 1 TAB ORALLY THREE TIMES DAILY TAKING CYCLOBENZAPRINE HCL 10 MG TABLET TAKE ONE TABLET BY MOUTH THREE TIMES A DAY NEEDED ORALLY THREE TIMES A DAY TAKING CYMBALTA 60 MG CAPSULE TAKE ONE CAPSULE BY MOUTH EVERY DAY ORALLY ONCE A DAY TAKING LIDOCAINE 3 % CREAM 1 APPLICATION TO AFFECTED AREA NEEDED EXTERNALLY TWICE A DAY TAKING LASIX 20 MG TABLET 1 TABLET ORALLY ONCE A DAY TAKING DRISDOL 50,000 UNITS TABLET 1 TAB ORAL WEEKLY TAKING MORPHINE SULFATE ER 15 MG TABLET EXTENDED RELEASE (SCHEDULE II DRUG) TAKE ONE TABLET BY MOUTH EVERY 12 HOURS MAXIMUM DAILY DOSE TWO TABLETS ORAL Q12H MDD2 TAKING NORCO 10-325 MG TABLET 1 TABLET NEEDED ORALLY EVERY 6 HRS MDD4 TAKING GABAPENTIN 600 MG TABLET 1 CAPSULE ORALLY THREE TIMES DAILY TAKING GLUCOPHAGE 1000 MG TABLET 1 TABLET WITH MEALS ORALLY TWICE A DAY TAKING PREDNISONE 10 MG TABLET 4 TAB 3 DAYS , 3 TAB 3 DAYS , 2 TAB 3 DAYS THEMN 1 TAB DAILY ORALLY ONCE A DAY TAKING ALBUTEROL SULFATE HFA 108 (90 BASE) MCG/ACT AEROSOL SOLUTION 2 PUFFS INHALATION TWICE DAILY NEEDED TAKING CEFUROXIME AXETIL 500 MG TABLET 1 TABLET ORALLY TWICE A DAY MEDICATION LIST REVIEWED AND RECONCILED WITH THE PATIENT PAST MEDICAL HISTORY LUPUS INFECTIOUS DIARRHEA GIARDIA- DUODENITIS MIGRAINES DEPRESSION/ANXIETY SLEEP APNEA UNSPECIFIED ENTHESOPATHY OF KNEE CHRONIC SINUSITIS PULMONARY NODULE LEFT LUNG BASE 05/2015 GIARDIASIS- FOLLOWED ANNUALLY BY DR. RICHARDS L5-S1 HERNIATION ALCOHOL ABUSE DIABETES FIBROMYALGIA ALLERGIES SHELL FISH: ITCHING: ALLERGY REVIEW OF SYSTEMS REVIEWED BY: PROVIDER: ADAM EAST . CONSTITUTIONAL: ANY CHANGE IN YOUR MEDICAL CONDITION? YES, CURRENTLY BEING TX'D FOR PNEUMONIA . CHILLS NO . FEVER NO . INFECTION: DO YOU HAVE NEW INFECTIONS? YES, PT STATES SHE IS BEING TX'D FOR PNEUMONIA . DO YOU HAVE HISTORY OF MRSA? NO . MUSCULOSKELETAL: ANY NEW PATTERNS OF PAIN OR NUMBNESS? NO . GASTROENTEROLOGY: ANY NEW CHANGE IN BOWEL CONTROL? YES, PT C/O DIARRHEA, PT SUSPECTS SIDE EFFECT FROM ABX . GENITOURINARY: ANY NEW CHANGE IN BLADDER CONTROL? YES, PT C/O INCONTINENCE . IS THERE A CHANCE YOU COULD BE ? NO . HEMATOLOGY/LYMPH: DO YOU TAKE ANY BLOOD THINNERS? (FOR EXAMPLE- COUMADIN, PLAVIX, AGGRENOX, PLATEL, PRADAXA, OR XARELTO) NO . WHEN WAS YOUR LAST DOSE? DATE: TIME: . NEUROLOGY: HAVE YOU FALLEN IN THE PAST 6 MONTHS? YES, PT STATES SHE FALLS FREQUENTLY. PT STATES BALANCE IS OFF WITH CAST AND BOOT TO LEFT ANKLE & FOOT . ANY NEW EXTREMITY NUMBNESS OR WEAKNESS? NO . CARDIOLOGY: DO YOU HAVE A PACEMAKER OR DEFIBRILLATOR? NO . RESPIRATORY: HAVE YOU BEEN SICK IN THE PAST WEEK? NO . FEVER NO . FLU LIKE SYMPTOMS? NO . COUGH NO . INTEGUMENTARY: DO YOU HAVE ANY RASHES OR OPEN SORES? YES, RASHES AND OPEN SORES TO BILAT LEGS. PT STATES SHE IS BEING TX'D [facility] FOR THIS . ALLERGIC/IMMUNO: ARE YOU ALLERGIC TO SHELLFISH OR IV DYE? NO . ANY NEW ALLERGIES? NO . PSYCHIATRIC: DO YOU HAVE THOUGHTS OF HURTING YOURSELF OR SOMEONE ELSE? NO . ARE YOU ABUSED, NEGLECTED, OR IN AN UNSAFE ENVIRONMENT? NO . ENDOCRINOLOGY: ARE YOU DIABETIC? YES . OTHER: DO YOU NEED ANY PRESCRIPTIONS? YES, HYDROCODONE, MORPHINE . IF YES, PLEASE LIST: ____ . ANY NEW PROBLEMS WITH YOUR MEDICATIONS? NO . WHEN DID YOU LAST EAT? ____ . WHEN DID YOU LAST DRINK? ____ . WHAT DID YOU LAST DRINK? ____ . NAME OF PERSON DRIVING YOU HOME? ____ . DO YOU HAVE ANY OTHER QUESTIONS OR CONCERNS NO . VITAL SIGNS WT 195 LBS, HT 64 IN, BMI 33.47 INDEX, BP 175/77 MM HG, HR 104 /MIN, RR 16 /MIN, TEMP 98.6 F, OXYGEN SAT % 94, REVIEWED BY: EM. EXAMINATION GENERAL EXAMINATION: HEENT:HEAD:, NORMOCEPHALIC, EYES:, EYES NORMAL, NOSE:, NOSE CLEAR, THROAT: NORMAL. LUNGS:LUNG SOUNDS ARE CLEAR. HEART:HEART RATE REGULAR. ABDOMEN:SOFT AND NOT TENDER, NON-DISTENDED. MUSCULOSKELETAL:*. LUMBAR SACRAL SPINEMUSCLE STRENGTH TESTING 4/5 BILATERAL LOWER EXTREMITIES.PALPATION: POSITIVE FOR PAIN OVER L/S SPINE. POSITIVE FOR PAIN OVER L/S PARSPINALS.. THORACIC SPINENEGATIVE FOR PAIN WITH PALPATION OF THORACIC SPINE. NEGATIVE FOR PAIN WITH PALPATION OF THORACIC PARASPINAL. CERVICALNEGATIVE FOR PAIN WITH PALPATION OF CERVICAL SPINE. NEGATIVE FOR PAIN WITH PALPATION OF CERVICAL PARASPINALS. NEGATIVE FOR PAIN WITH PALPATION OF TRAPEZIUS BILAT. SKIN:MULTIPLE CIRCULAR 3-4 CM RED AND DARK LESIONS OVER LOWER EXTREMITIES.. NEUROLOGIC EXAM:ALERT AND ORIENTED X 3, DTRS 2/4 UPPER AND LOWER EXTREMITIES. DENIES UPPER EXTREMETIES SENSORY LOSS. . DIAGNOSTIC:MRI L/S [id number]-MULTI LEVEL DEGENERATIVE CHANGES.LUMBAR DISC PROTRUSION AT L5/S1. ASSESSMENTS ARTHROPATHY - M12.9 (PRIMARY) CHRONIC PRESCRIPTION OPIATE USE - Z79.891 TREATMENT ARTHROPATHY REFILL MORPHINE SULFATE ER TABLET EXTENDED RELEASE, 15 MG, (SCHEDULE II DRUG) TAKE ONE TABLET BY MOUTH EVERY 12 HOURS MAXIMUM DAILY DOSE TWO TABLETS, ORAL, Q12H MDD2, 30 DAY(S), 60, REFILLS 0 REFILL NORCO TABLET, 10-325 MG, 1 TABLET NEEDED, ORALLY, EVERY 6 HRS MDD4, 30 DAY(S), 120, REFILLS 0 REFILL GABAPENTIN TABLET, 300 MG, 1 TABLET, ORALLY, TWICE DAILY, 30 DAY(S), 60, REFILLS 2 REFILL GABAPENTIN TABLET, 600 MG, 1 CAPSULE, ORALLY, THREE TIMES DAILY, 30 DAY(S), 90, REFILLS 2 NOTES: ISTOP REGISTRY REVIEWED [id number] AND DEMNOSTRATES COMPLLIANCE. BRINGS IN MEDICATIONS WHICH IS APPROPRIATE FOR WHAT WAS DISPENSED. RECENT URINE TOXICOLOGY REVIEWED. NO UNAUTHORIZED MEDICATIONS. NO ILLICIT SUBSTANCES AND PRESCRIBED MEDICATIONS WERE PRESENT. , RISKS AND BENEFITS OF NARCOTIC/OPIOD MEDICATIONS WERE REVIEWED WITH PATIENT - THIS INCLUDES BUT IS NOT LIMITED TO RISK OF DEPENDANCE/DEVELOPMENT OF ADDICTION, MOOD DISTURBANCE AND DEPRESSION, OSTEOPOROSIS, HORMONAL AND LABIDAL CHANGES, RESPIRATORY DEPRESSION AND . PATIENT IS ADVISED NOT TO DRIVE WHILE ON THESE MEDICATIONS. PROCEDURE CODES FA211 ESTABILISHED PATIENT [facility]AC[facility] CHARGE DISPOSITION & COMMUNICATION FOLLOW UP 2 MONTHS ELECTRONICALLY SIGNED BY CRUZITO CHURCHILL ON 04/16/2017 AT 04:29 PM EDT DISCLAIMER : THIS IS A VISIT SUMMARY EXTRACTED FROM THE [employer] CHART. IT IS NOT A COPY OF THE [employer] PROGRESS NOTE. LETY
== END ==
LOC: M PAIN 13:00
PROVIDERS: ATTEND Nurse Practitioner Family
DX: G89.29 Other chronic pain (principal); M12.9 Arthropathy, unspecified; E11.9 Type 2 diabetes mellitus without complications; M32.9 Systemic lupus erythematosus, unspecified; I50.32 Chronic diastolic (congestive) heart failure; D80.1 Nonfamilial hypogammaglobulinemia; E55.9 Vitamin D deficiency, unspecified; J44.1 Chronic obstructive pulmonary disease with (acute) exacerbation; F32.9 Major depressive disorder, single episode, unspecified; F41.9 Anxiety disorder, unspecified; G47.30 Sleep apnea, unspecified; F10.21 Alcohol dependence, in remission; R19.7 Diarrhea, unspecified; R32 Unspecified urinary incontinence; R21 Rash and other nonspecific skin eruption; Z91.013 Allergy to seafood; Z79.82 Long term (current) use of aspirin; Z79.891 Long term (current) use of opiate analgesic; Z79.899 Other long term (current) drug therapy; Z91.81 History of falling

== ENCOUNTER → 2017-04-18 | Outpatient (CLI) | payer OTHER ==
--- NOTE | 2017-04-18 09:01 | REP ---
CT of the chest without IV contrast: Comparisons are 11/12/2016 and 11/03/2015. There are multifocal small subsegmental ground-glass densities throughout all lobes of both lungs today a significant interval change. This is nonspecific. Some diagnostic possibilities are: septic emboli, multifocal pneumonia, vasculitis and metastatic disease. There are enlarged aorticopulmonic mediastinal nodes. These have increased in size from 11/12/2016. The mediastinal azygos node has increased in size. The subcarinal adenopathy has slightly decreased in size. There are small bilateral pleural effusions and 11/12/2016 have resolved. There is a nodule in the left upper lobe on image 30 today measuring 8 mm. This was not present on 11/03/2015. 11/12/2016 artery measuring this nodule is 6 mm. There is a 7 ml nodule in the left lower lobe on image 75. This is unchanged from 11/12/2016. On 11/03/2015 there was atelectasis in this area. There is a parenchymal scar in the left lower lobe, unchanged. Impression: Multiple bilateral ground-glass densities throughout the all lobes of both lungs as distinct interval change as discussed above. The aorticopulmonic mediastinal adenopathy has increased in size. The azygos node has increased in size. The small bilateral pleural effusions identified on 11/12/2016 have resolved. There is a left upper lobe lung nodule and a left lower lobe lung nodule as described. On 11/03/2015 there was focal infiltration of the anterior abdominal wall subcutaneous fat. This has resolved. Signed by Rick Thomas MD 04/18/2017 08:53 A
== END ==
LOC: M RAD 07:19
PROVIDERS: ATTEND Internal Medicine Infectious Disease
DX: J44.9 Chronic obstructive pulmonary disease, unspecified (principal)

== ENCOUNTER → 2017-04-23 | Outpatient (CLI) | payer OTHER ==
[2017-04-23 19:35] LABS: BASO % 0.2 % (0.0-1.0); IMMATURE GRANULOCYTE % 1.2 % (0-0); LYMPH # 1.1 10^3/uL (1.5-4.5); MEAN CORPUSCULAR HGB CONC 33.1 g/dl (32.0-36.5); MONO # 0.6 10^3/uL (0.0-0.8); MONO % 4.9 % (0.0-5.0); NEUTROPHILS % 84.7 % (36.0-66.0); PLATELET COUNT, AUTOMATED 219 10^3/uL (150-450); WHITE BLOOD COUNT 11.8 10^3/uL (4.0-10.0)
[2017-04-23 19:52] LABS: ADD MORPHOLOGY? YES; MEAN CORPUSCULAR VOLUME 114.9 fl (80.0-96.0)
[2017-04-23 20:55] LABS: ANISOCYTOSIS 2+
[2017-04-25 14:24] LABS: SJOGREN'S ANTI SS-A <0.2 AI (0.0-0.9); SJOGREN'S ANTI SS-B <0.2 AI (0.0-0.9)
== END ==
LOC: M WUC 16:47
PROVIDERS: ATTEND Dermatology
DX: L98.499 Non-pressure chronic ulcer of skin of other sites with unspecified severity (principal)

== ENCOUNTER → 2017-04-23 | Outpatient (REF) | payer OTHER | LOC: M SFHCLERA 11:43 | PROVIDERS: ATTEND Dermatology | DX: L98.8 Other specified disorders of the skin and subcutaneous tissue (principal) ==

== ENCOUNTER 2017-04-24 11:32 | Observation (INO) | payer OTHER ==
[~2017-04-24] VITALS: Ht 160 cm; Wt 93.4 kg
[2017-04-24] MEDS: FOLIC ACID 1 MG TAB PO SCH (09:00)
[~2017-04-24 11:32] MED LIST changes: -HYDR-3719 PO; -MUCI600T31 PO; -ONETTES6 VI; -PRED10PA PO; -SULF1TAB23 PO
[2017-04-24] MEDS ORDERED: HYDR-3719 PO (11:49)
[2017-04-24] MEDS ORDERED: IPRATROPIUM 0.5MG/ALBUTEROL 2.5MG INH SOL UD 3ML (DUONEB)(J7620) NEB ONE (12:30)
[2017-04-24 12:50] LABS: BASO % 0.3 % (0.0-1.0); EOS # 0.1 10^3/uL (0.0-0.50); EOS % 0.7 % (0.0-3.0); IMMATURE GRANULOCYTE % 0.5 % (0-0); LYMPH # 2.7 10^3/uL (1.5-4.5); LYMPH % 23.9 % (24.0-44.0); MEAN CORPUSCULAR HEMOGLOBIN 38.2 pg (27.0-33.0); MEAN CORPUSCULAR HGB CONC 33.3 g/dl (32.0-36.5); MONO # 0.8 10^3/uL (0.0-0.8); NEUTROPHILS # 7.5 10^3/uL (1.8-7.7); NEUTROPHILS % 67.6 % (36.0-66.0); PLATELET COUNT, AUTOMATED 215 10^3/uL (150-450); RED CELL DISTRIBUTION WIDTH 17.1 % (11.5-14.5); WHITE BLOOD COUNT 11.1 10^3/uL (4.0-10.0)
[2017-04-24 12:54] LABS: ADD MORPHOLOGY? YES; MEAN CORPUSCULAR VOLUME 114.7 fl (80.0-96.0)
[2017-04-24] MEDS ORDERED: MUCI600T31 PO (12:56)
[2017-04-24 12:57] LABS: ABG BASE EXCESS 9.2 (-2.0-2.0); ABG HCO3 34.1 MEQ/L (22.0-26.0); ABG PARTIAL PRESSURE O2 75.9 mmHg (75.0-100.0); ABG STANDARD HCO3 32.9 MEQ/L (22.0-26.0); ABG TOTAL CO2 35.6 MEQ/L (22.0-29.0)
[2017-04-24 13:28] LABS: ALBUMIN 3.3 GM/DL (3.2-5.2); ALBUMIN/GLOBULIN RATIO 0.89 (1.00-1.93); ALKALINE PHOSPHATASE 167 U/L (45-117); ALT/SGPT 41 U/L (12-78); ANION GAP 8 MEQ/L (8-16); AST/SGOT 19 U/L (15-37); BILIRUBIN,DIRECT 0.3 MG/DL (0.0-0.2); BILIRUBIN,TOTAL 0.8 MG/DL (0.2-1.0); BLOOD UREA NITROGEN 4 MG/DL (7-18); CARBON DIOXIDE LEVEL 34 MEQ/L (21-32); CHLORIDE LEVEL 94 MEQ/L (98-107); CREATININE FOR GFR 0.64 MG/DL (0.55-1.02); GLOMERULAR FILTRATION RATE > 60.0 (>58); GLUCOSE, FASTING 88 MG/DL (70-105); POTASSIUM SERUM 3.4 MEQ/L (3.5-5.1); SODIUM LEVEL 136 MEQ/L (136-145)
[2017-04-24] MEDS ORDERED: NORCO, ANEXSIA 5/325MG TABLET (HYDROcodone/ACETAMINOPHEN) PO ONE (13:30)
[2017-04-24] MEDS ORDERED: ISOVUE-370 76% 100ML VIAL (Q9967) As Ordered ONE (13:45)
[2017-04-24] MEDS ORDERED: NS 1,000 ML IV ONE (13:45)
[2017-04-24] MEDS ORDERED: NICOTINE 21MG/24HR 1 EA TRANSDERMAL TD ONE (14:15)
[2017-04-24 15:40] VITALS: O2SAT 90
[2017-04-24] MEDS ORDERED: POTASSIUM CHLORIDE 10% LIQ 20 MEQ/15 ML UDC PO ONE (15:45)
[2017-04-24] MEDS: GABAPENTIN 300 MG CAP PO SCH ×2 (16:00→20:38)
[2017-04-24] MEDS: CYCLOBENZAPRINE 10 MG TAB PO SCH ×2 (16:00→20:39)
--- NOTE | 2017-04-24 16:27 | REP ---
CT study of the chest with IV contrast: History: Shortness of breath. Elevated BMP. Leukocytosis. Noncontrast CT study April 18, [address] is reviewed from November 12, [address] contrast dose: 75 mL of intravenous Isovue 370. CT findings: There is no evidence of pleural effusion. A small pericardial effusion is again seen. Left and right coronary artery vascular calcification is noted. There are scattered mediastinal and bilateral hilar lymph nodes again noted. Scattered nodular and ground-glass opacities are seen throughout the upper lobes and to a lesser extent lower lobes of the lungs as on recent prior study of April 18, 2017. There were similar opacities in the November 12, [address] findings suggest sarcoidosis or other granulomatous disease. One or two of the mediastinal lymph nodes are very slightly larger than on the October 2016 study. No new adenopathy. The main pulmonary artery is larger than the ascending aorta, raising question of pulmonary arterial hypertension. The main pulmonary artery measures 4.5 cm in transverse dimension as opposed to AP dimension of the aortic root, which is 3.3 cm. This is unchanged. No adrenal lesion is observed. The visualized upper abdominal structures are otherwise unremarkable. No extrathoracic mass or adenopathy is seen. No significant bony lesion is seen. Impression: Bilateral hilar mediastinal lymphadenopathy, essentially stable. Nodular and ground-glass opacities in the lung parenchyma, question sarcoidosis. These findings are similar to those seen on April 18, 2017 prior study. Coronary artery vascular calcification is seen. Small pericardial effusion is seen. Dilated main pulmonary artery, question pulmonary arterial hypertension. Signed by Catrachito Herron MD 04/24/2017 05:31 P
[2017-04-24] MEDS ORDERED: ALBUTEROL 90 MCG/ACT 8GM HFA INHALER INH PRN (18:00)
[2017-04-24] MEDS ORDERED: GLUCOSE 4 GM CHEW TABLET PO PRN (18:00)
[2017-04-24] MEDS ORDERED: DEXTROSE 50% 50 ML SYRINGE IV PRN (18:00)
[2017-04-24] MEDS ORDERED: CARVedilol 6.25 MG TAB PO PRN (18:00)
[2017-04-24] MEDS ORDERED: GLUCAGON FOR INJ 1 MG VIAL (J1610) SC PRN (18:00)
[2017-04-24] MEDS ORDERED: METAL LOCK LOOP XX ONE (18:51)
[2017-04-24 20:00] VITALS: BP 144/72
[2017-04-24] MEDS: HumaLOG INSULIN (NovoLOG) PER UNIT SC SCH (20:31)
--- NOTE | 2017-04-24 20:37 | ECGEPIP ---
Stationary ECG Study [facility] - ED Test Date: 2017-04-24 Pat Name: BEBA WHITEHEAD Department: Room: - Gender: F Bilingual Account Manager: mariana : 1965 Requested By: CLARA EAST Order Number: [id number] Reading MD: Tosha Gutierrez Measurements Intervals [place] Rate: 105 P: 56 CA: 99 QRS: 16 QRSD: 85 T: 73 QT: 342 QTc: 453 Interpretive Statements SINUS TACHYCARDIA WITH SHORT CA INTERVAL POSSIBLE LEFT ATRIAL ENLARGEMENT ABNORMAL RHYTHM ECG PRWP LOW VOLTAGE LIMB INCREASED RATE 01/01/17 Electronically Signed On 04-24-2017 20:36:51 EDT by Tosha Gutierrez
[2017-04-24] MEDS: guaiFENesin ER 600 MG TAB PO SCH (20:39)
[2017-04-24] MEDS: ASPIRIN 81 MG ENTERIC TAB PO SCH (20:39)
[2017-04-24] MEDS: TOPIRAMATE (TopAMAX) 100 MG TAB PO SCH (20:39)
[2017-04-24] MEDS: BACTRIM 160MG/800MG DS TAB PO SCH (20:39)
[2017-04-24] MEDS: DULoxetine 30 MG CAP (CYMBALTA) PO SCH (20:39)
[2017-04-24] MEDS: LOSARTAN 25 MG TAB PO SCH (20:40)
[2017-04-24] MEDS: MORPHINE 15 MG SA TAB PO SCH (20:42)
--- NOTE | 2017-04-24 22:10 | HPEPDOC ---
General Date of Admission Apr 24, 2017 Chief Complaint The patient is a 51-year-old female admitted with a reason for visit of Lung/ Chest Braulio. Pain. History of Present Illness This is a 51 F with a PMH migraine headaches, SLE, hypertension, obstructive sleep apnea on CPAP, COPD, diabetes mellitus, diastolic congestive heart failure presenting to the ER for worsening SOB for 1 day. The patient states she woke up the morning of admission with difficulty breathing, and was recommened to come to the ER if her breathing did not improve. The patient states for the last two days she has felt a lot more fatigue, exertional dyspnea when traveling short distances. The patient also states she has been under the care of Dr. Morris for abnormal CT of lung finding for the last two weeks. She has been a ton of antibiotics which she states hasn't been helping. The patient also states since she has been starting the furosemide she admits to drinking "almost of gallon of water", especially before going to bed because she just feel so dry. The patient denies any recent sick contact, any respiratory symptoms, diarrhea, constipation, or vomiting. The patient does admit to having fevers interment the past two weeks with a tmax of 102 unknown date and a temp yesterday of 101. Patient does states she recently finished a steroid taper 2 days prior to this ER visit. In the ER, the patient has been afebrile, does not appear in acute distress, with stable vitals. Labs came back elevated for a slight white count, and lactic acidosis of 5.7 and a BNP of 1717. She had a slight hypokalemia on admission which the ER gave 40 mEq Potassium Chloride. Patient had CT of the chest which showed Bilateral hilar mediastinal lymphadenopathy, essentially stable. Nodular and ground-glass opacities in the lung parenchyma, question sarcoidosis. These findings are similar to those seen on April 18, 2017 prior study. Coronary artery vascular calcification is seen. Small pericardial effusion is seen. Dilated main pulmonary artery, question pulmonary arterial hypertension. Patient was admitted for hypoxia likely due to Congestive heart Failure vs COPD. Home Medications Scheduled Aspirin (Aspirin 81) 81 Mg Tab, 81 MG PO QHS, (Reported) Cyanocobalamin (Vitamin B-12) 1,000 Mcg Tab, 1,000 MCG PO DAILY, (Reported) LUNCHTIME Cyclobenzaprine HCl (Cyclobenzaprine HCl) 10 Mg Tab, 10 MG PO TID, (Reported) Duloxetine Hcl (Cymbalta) 60 Mg Cap, 60 MG PO QHS, (Reported) Folic Acid (Folic Acid) 1 Mg Tab, 1 MG PO DAILY, (Reported) LUNCHTIME Furosemide (Lasix) 20 Mg Tab, 20 MG PO DAILY Gabapentin (Gabapentin) 600 Mg Tab, 600 MG PO DAILY, (Reported) Gabapentin (Gabapentin) 300 Mg Cap, 900 MG PO BID, (Reported) Afternoon & HS Guaifenesin (Mucinex) 600 Mg Tab, 1,200 MG PO BID, (Reported) Losartan Potassium (Losartan Potassium) 25 Mg Tab, 25 MG PO QHS, (Reported) Magnesium Oxide (Magnesium Oxide) 250 Mg Tab, 250 MG PO TID, (Reported) Metformin Hydrochloride (Metformin HCl) 1,000 Mg Tab, 1,000 MG PO BID, (Reported ) Morphine Sulfate (Morphine Sulfate ER) 15 Mg Tab, 15 MG PO Q12H, (Reported) Topiramate (Topamax) 100 Mg Tab, 100 MG PO BID, (Reported) Vitamin D (Drisdol) 50,000 Unit Cap, 50,000 UNIT PO QWEEK, (Reported) WEDNESDAYS Scheduled PRN Acetaminophen/Hydrocodone (Hydrocodone/Acetaminophen 10-325 mg) 1 Tab Tab, 1 TAB PO Q6H PRN for PAIN, (Reported) Albuterol Sulfate (Ventolin Hfa) 200 Puff/8 Gm Aers, 2 PUFF INH Q2H PRN for SHORTNESS OF BREATH, (Reported) Carvedilol (Carvedilol) 6.25 Mg Tab, 6.25 MG PO DAILY PRN for TACHYCARDIA, ( Reported) Ondansetron HCl (Ondansetron HCl) 4 Mg Tab, 4 MG PO PRN PRN for NAUSEA OR VOMITING, (Reported) Allergies Coded Allergies: Aspartame (Verified Allergy, Unknown, 09/17/15) SUGAR SUBSTITUTES Shellfish Allergy (Unverified Allergy, Unknown, 03/07/16) Past Medical History Medical History 1. migraine headaches 2. SLE 3. hypertension 4. obstructive sleep apnea on CPAP 5. COPD 6. diabetes mellitus 7. diastolic congestive heart failure Family History Significant Family History: No pertinent family hx Patient is an only child. Patient's father due to myocardial infarction ([place]). Patient's mother due to lupus and leukemia. Patient has one son and one daughter who are healthy. Patient has one adopted daughter who is also healthy Social History * Smoker: greater than 1 pack/day (37 years od 2ppd) Alcohol: other (Heavy alcohol use in the past, now social use ) Drugs: denies Review of Symptoms Constitutional: Reports: Fever (Tmax 102 unknow date. last fever yesterday of 101. ), Night Sweats (two week. ), Weakness, Fatigue ENT: Reports: Head Aches Skin: Reports: Lesions (chronic right lower leg lesion (currently being evaluated by a dermotologist)) Pulmonary: Reports: Dyspnea Cardiovascular: Reports: Chest Pain, Edema Gastrointestinal: Denies: Nausea, Vomiting, Abdominal Pain, Diarrhea, Constipation Genitourinary: Denies: Dysuria, Frequency Physical Examination General Exam: Positive: Alert, Cooperative, No Acute Distress Eye Exam: Positive: PERRLA, Conjunctiva & lids normal, EOMI ENT Exam: Positive: Atraumatic, Mucous membr. moist/pink Chest Exam: Positive: Wheezing (expiratory wheezing) Heart Exam: Positive: Rate Normal, Regular Rhythm, Normal S1, Normal S2, Negative: Gallops, Murmurs, Rubs Abdomen Exam: Positive: Normal bowel sounds, Negative: Soft (distended abdomen) Extremity Exam: Positive: Other (right leg in a wound cast with a boot. ) Skin Exam: Positive: Nl turgor and temperature, Other skin issue (multiple skin lesion on the left anterior leg, right big toe sole ucleration lesion, right little pinkie crustic wound on dorsal aspect) Neuro Exam: Positive: Normal Speech Psych Exam: Positive: Mental status NL Vital Signs Vital Signs Date Time Temp Pulse Resp B/P (MAP) Pulse Ox O2 Delivery O2 Flow Rate FiO2 04/24/17 15:48 92 96 04/24/17 15:45 16 04/24/17 15:40 Room Air 04/24/17 15:16 143/74 (97) 04/24/17 11:33 97.8 Laboratory Data Labs 24H Laboratory Tests 2 04/24/17 12:34: Immature Granulocyte % (Auto) 0.5H, White Blood Count 11.1H, Red Blood Count 3.19L, Hemoglobin 12.2, Hematocrit 36.6, Mean Corpuscular Volume 114.7H, Mean Corpuscular Hemoglobin 38.2H, Mean Corpuscular Hemoglobin Concent 33.3, Red Cell Distribution Width 17.1H, Platelet Count 215, Neutrophils (%) (Auto) 67.6H , Lymphocytes (%) (Auto) 23.9L, Monocytes (%) (Auto) 7.0H, Eosinophils (%) (Auto ) 0.7, Basophils (%) (Auto) 0.3, Neutrophils # (Auto) 7.5, Lymphocytes # (Auto) 2.7, Monocytes # (Auto) 0.8, Eosinophils # (Auto) 0.1, Basophils # (Auto) 0.0, Immature Granulocyte # (Auto) 0.1H, Nucleated Red Blood Cells % (auto) 0.0, Platelet Estimate NORMAL, Macrocytosis 2+, D-Dimer, Quantitative 307.8, Anion Gap 8, Glomerular Filtration Rate > 60.0, Lactic Acid Level 5.7*H, Calcium Level 9.0, Aspartate Amino Transf (AST/SGOT) 19, Alanine Aminotransferase (ALT/ SGPT) 41, Alkaline Phosphatase 167H, Total Bilirubin 0.8, Direct Bilirubin 0.3H , Total Creatine Kinase 14L, Creatine Kinase MB 1.0, Creatine Kinase MB Relative Index 7.14H, Troponin I < 0.02, XP-Rcc-L-Type Natriuretic Peptide 1717H , Total Protein 7.0, Albumin 3.3, Albumin/Globulin Ratio 0.89L 04/24/17 12:45: Blood Gas Bicarbonate Standard 32.9H, Arterial Blood pH 7.470H, Arterial Blood Partial Pressure CO2 48.0H, Arterial Blood Partial Pressure O2 75.9, Arterial Blood Total CO2 35.6H, Arterial Blood HCO3 34.1H, Arterial Blood Base Excess 9.2H, Arterial Blood Oxygen Saturation 96.6 04/24/17 14:38: Urine Appearance CLEAR, Urine Color STRAW, Urine pH 6.0, Urine Specific Strong 1.008, Urine Protein NEGATIVE, Urine Glucose (UA) NEGATIVE, Urine Ketones NEGATIVE, Urine Urobilinogen 0.2, Urine Bilirubin NEGATIVE, Urine Leukocyte Esterase NEGATIVE, Urine Blood NEGATIVE, Urine Nitrite NEGATIVE, Urine WBC (Auto ) 0, Urine RBC (Auto) 1, Urine Hyaline Casts (Auto) 0, Urine Bacteria (Auto) NEGATIVE, Urine Squamous Epithelial Cells 0, Urine Sperm (Auto) CBC/BMP Laboratory Tests 04/24/17 12:34 Red Blood Count 3.19 L, Mean Corpuscular Volume 114.7 H, Mean Corpuscular Hemoglobin 38.2 H, Mean Corpuscular Hemoglobin Concent 33.3, Red Cell Distribution Width 17.1 H, Neutrophils (%) (Auto) 67.6 H, Lymphocytes (%) (Auto ) 23.9 L, Monocytes (%) (Auto) 7.0 H, Eosinophils (%) (Auto) 0.7, Basophils (%) (Auto) 0.3, Neutrophils # (Auto) 7.5, Lymphocytes # (Auto) 2.7, Monocytes # ( Auto) 0.8, Eosinophils # (Auto) 0.1, Basophils # (Auto) 0.0 Microbiology Microbiology 04/24/17 Blood Culture, Received Pending 04/24/17 Blood Culture, Received Pending 04/24/17 Respiratory Virus Panel (PCR) (RIVKA) - Final, Complete Assessment/Plan 1. Hypoxia due to Congestive heart failure vs due to COPD. The patient does admit to drinking a gallon of water daily for the past one month. Does have a history of a recent admission for diastolic CHF here in [facility] on 12/2016. Chest CT showed questionable Pulmonary hypertension unsure if secondary to CHF or COPD or another underlying lung etiology. BNP was elevated at 1717. The patient does not appear in any distress currently. We will order an echo, fluid restrict the patient to 1800c. Day team can reassess if the patient should be placed on home lasix to diuresis the patient, I do believe the patient will benefit it. 2. Lactic acidosis - Will follow up on with reflex lactic acidosis. 3. Wound Care- [facility] care nurse to elevate the left foot if the wound cast can be removed. 4. Right Pinkie Osteomyelitises - History of MSSA on the right toe on 04/11, will emperically treat with Bactrim and will obtain new wound cultures. 5. Hx of COPD - continue with home medication and continue with O2 with titration order of spo2 between 89-93%. 6. Abnormal CT imaging - ground glass opacity unchanged since 04/18/17. Patient was being followed by Dr. Morris. Contacted Dr. Morris, who will come see the patient on if needed. Consult order is currently pending, pending reevaluation tomorrow. 7. Diabetes mellitus - insulin sliding scale. 8. MICHELLE - use CPAP 9. DVT prophylaxis - Lovenox 10. CODE STATUS - FULL CODE. Plan / VTE VTE Prophylaxis Ordered?: Yes (Lovenox ) GME ATTESTATION GME ATTESTATION My preceptor for this patient encounter was physically present in the building during the encounter and was fully available. As needed, all aspects of the patient interview, examination, medical decision making process, and medical care plan development were reviewed and approved by the preceptor. Preceptor is aware and concurs with the plan as stated in the body of this note and will attest to such by his/her cosignature. ATTENDING NOTE I, Tunde Ross, have both independently examined this patient as well as reviewed the documentation. I have discussed in detail with the resident the findings and plan of treatment as documented in the residents documentation. I will continue to follow the patient and offer further guidance to the patients care as necessary during this hospital stay. THOR BRAVO DO Apr 24, 2017 15:57 TUNDE ROSS MD Apr 25, 2017 12:08
[2017-04-24] MEDS ORDERED: diphenhydrAMINE 25 MG CAP PO ONE (23:15)
[2017-04-25 06:00] VITALS: BP 152/84
[2017-04-25] MEDS ORDERED: diphenhydrAMINE 25 MG CAP PO PRN (07:30)
[2017-04-25] MEDS ORDERED: IPRATROPIUM 0.5MG/ALBUTEROL 2.5MG INH SOL UD 3ML (DUONEB)(J7620) NEB PRN (07:30)
[2017-04-25 07:34] LABS: MEAN CORPUSCULAR HEMOGLOBIN 37.4 pg (27.0-33.0); MEAN CORPUSCULAR HGB CONC 32.1 g/dl (32.0-36.5); RED CELL DISTRIBUTION WIDTH 17.2 % (11.5-14.5); WHITE BLOOD COUNT 7.9 10^3/uL (4.0-10.0)
[2017-04-25 07:49] LABS: MEAN CORPUSCULAR VOLUME 116.3 fl (80.0-96.0)
[2017-04-25] MEDS ORDERED: FUROSEMIDE 40 MG/4 ML VIAL (J1940) IV ONE (08:00)
[2017-04-25 08:05] LABS: ALBUMIN 3.3 GM/DL (3.2-5.2); ALBUMIN/GLOBULIN RATIO 0.94 (1.00-1.93); ALKALINE PHOSPHATASE 164 U/L (45-117); ALT/SGPT 37 U/L (12-78); ANION GAP 4 MEQ/L (8-16); AST/SGOT 17 U/L (15-37); BILIRUBIN,TOTAL 0.8 MG/DL (0.2-1.0); BLOOD UREA NITROGEN 6 MG/DL (7-18); CALCIUM LEVEL 9.1 MG/DL (8.5-10.1); CARBON DIOXIDE LEVEL 33 MEQ/L (21-32); CHLORIDE LEVEL 100 MEQ/L (98-107); CREATININE FOR GFR 0.57 MG/DL (0.55-1.02); GLOMERULAR FILTRATION RATE > 60.0 (>58); GLUCOSE, FASTING 93 MG/DL (70-105); MAGNESIUM LEVEL 2.3 MG/DL (1.8-2.4); POTASSIUM SERUM 4.7 MEQ/L (3.5-5.1); SODIUM LEVEL 137 MEQ/L (136-145); TOTAL PROTEIN 6.8 GM/DL (6.4-8.2)
[2017-04-25] MEDS: IPRATROPIUM 0.5MG/ALBUTEROL 2.5MG INH SOL UD 3ML (DUONEB)(J7620) NEB PRN ×2 (08:43→20:10)
[2017-04-25] MEDS: HumaLOG INSULIN (NovoLOG) PER UNIT SC SCH ×4 (08:48→21:18)
[2017-04-25] MEDS: MORPHINE 15 MG SA TAB PO SCH ×2 (09:48→21:14)
[2017-04-25] MEDS: NORCO, ANEXSIA 5/325MG TABLET (HYDROcodone/ACETAMINOPHEN) PO PRN ×3 (09:48→23:52)
[2017-04-25] MEDS: TOPIRAMATE (TopAMAX) 100 MG TAB PO SCH ×2 (09:48→21:19)
[2017-04-25] MEDS: CYCLOBENZAPRINE 10 MG TAB PO SCH ×3 (09:48→21:13)
[2017-04-25] MEDS: CYANOCOBALAMIN 500 MCG TAB PO SCH (09:49)
[2017-04-25] MEDS: guaiFENesin ER 600 MG TAB PO SCH ×2 (09:49→21:16)
[2017-04-25] MEDS: FOLIC ACID 1 MG TAB PO SCH (09:49)
[2017-04-25] MEDS: GABAPENTIN 300 MG CAP PO SCH ×3 (09:49→21:12)
[2017-04-25] MEDS: BACTRIM 160MG/800MG DS TAB PO SCH ×3 (09:53→21:17)
[2017-04-25] MEDS: ENOXAPARIN 40 MG/0.4 ML SYRINGE (J1650) SC SCH (09:54)
[2017-04-25] MEDS: NICOTINE 21MG/24HR 1 EA TRANSDERMAL TD SCH (12:34)
[2017-04-25] MEDS: methylPREDNISolone INJ 125 MG/2 ML VIAL (J2930) IV SCH ×2 (12:34→23:52)
[2017-04-25 14:00] VITALS: BP 172/86
--- NOTE | 2017-04-25 16:01 | IPNPDOC ---
Date Seen The patient was seen on 04/25/17. Progress Note SUBJECTIVE: Patient is a 51-year-old female admitted last evening due to increasing shortness of breath, intermittent productive cough. She denies chest pain, nausea, vomiting, no abdominal pain. She's tolerating oral intake. She also had a issue with her left lower extremity with the compression casting placed by Dr. Neely for wound therapy. There was a 2-D echo that was ordered on her. However, she informs me that she did have one performed at outside facility within the last couple of months. We'll try to obtain those records. OBJECTIVE PHYSICAL EXAMINATION: VITAL SIGNS: Please see below. GENERAL: Acute distress, alert, oriented, pleasant HEENT: PERRLA. Throat clear. Neck supple, no JVD CARDIOVASCULAR: Regular rate and rhythm. RESPIRATORY: Occasional expiratory wheeze. ABDOMINAL: Soft, anteroseptal positive bowel sounds EXTREMITIES: Cast on the left leg was removed. The wounds do appear to be clean and healing well. Did discuss with Dr. Jones, her outpatient provider NEUROLOGICAL: Cranial nerves II through XII grossly intact. No neurologic deficits PSYCHOLOGICAL: Negative LABORATORY DATA: Please see below. MICROBIOLOGY: Please see below. Echocardiogram: Will obtain recent echo from outside facility. 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 PROBLEMS: 1. Acute hypoxic respiratory failure: Likely secondary to her underlying lung disease. However, she did have an elevated proBNP am not fully convinced that this is cardiac in nature. Nonetheless, we'll give her 1 time dose of furosemide 40 mg IV. And continue with nebulizers and Solu-Medrol. 2. Lactic acidosis - resolved, likely secondary to her hypoxic respiratory failure and work to breathe. She does not have any signs of sepsis 3. Wound Care- spoke to her outpatient wound provider will remove the compression cast. And if need be. Apply Unna boots versus other wound dressings. Follow up outpatient with Dr. Neely 4. Right Pinkie Osteomyelitises - History of MSSA on the right toe on 04/11, will empirically continue to treat with Bactrim and will obtain new wound cultures. 5. Hx of COPD - continue with home medication and continue with O2 with titration order of spo2 between 89-93%. 6. Abnormal CT imaging - ground glass opacity unchanged since 04/18/17. The opportunity discussed this with pulmonology. She does have what appears to be more reactive adenopathy. We'll treat her underlying cause. There is a history of lupus. We'll go ahead and recheck some lupus titers as well as rheumatoid factor. And started on empiric steroids. Today starting Solu-Medrol. We'll gradually progress her to prednisone. She'll take as an outpatient. 7. Diabetes mellitus - insulin sliding scale. 8. MICHELLE - use CPAP 9. DVT prophylaxis - Lovenox DISPOSITION: Anticipate she'll be here greater than 2 midnights. VS, I&O, 24H, Fishbone Vital Signs/I&O Vital Signs Date Time Temp Pulse Resp B/P (MAP) Pulse Ox O2 Delivery O2 Flow Rate FiO2 04/25/17 10:18 18 04/25/17 09:00 Room Air 04/25/17 06:00 97.0 102 152/84 (106) 92 I&O- Last 24 Hours up to 6 AM 04/26/17 06:00 Intake Total 960 ml Output Total 4300 ml Balance -3340 ml Laboratory Data 24H LABS Laboratory Tests 2 04/24/17 17:30: Lactic Acid Followup at 4 Hours 2.6*H 04/24/17 18:43: Lactic Acid Level 1.5 04/24/17 20:24: Bedside Glucose (Misc Panel) 173H 04/25/17 07:06: Erythrocyte Sedimentation Rate 24H, Anion Gap 4L, Glomerular Filtration Rate > 60.0, Blood Urea Nitrogen 6L, Creatinine 0.57, Sodium Level 137, Potassium Level 4.7#, Chloride Level 100, Carbon Dioxide Level 33H, Calcium Level 9.1, Aspartate Amino Transf (AST/SGOT) 17, Alanine Aminotransferase (ALT/SGPT) 37, Alkaline Phosphatase 164H, Total Bilirubin 0.8, Total Protein 6.8, Albumin 3.3, Magnesium Level 2.3, C-Reactive Protein, Quantitative 6.82H, Albumin/Globulin Ratio 0.94L 04/25/17 11:42: Bedside Glucose (Misc Panel) 81 04/25/17 11:56: C-Reactive Protein, Quantitative 7.23H, Rheumatoid Factor < 10.0 CBC/BMP Laboratory Tests 04/25/17 07:06 Red Blood Count 3.13 L, Mean Corpuscular Volume 116.3 H, Mean Corpuscular Hemoglobin 37.4 H, Mean Corpuscular Hemoglobin Concent 32.1, Red Cell Distribution Width 17.2 H, Calcium Level 9.1, Aspartate Amino Transf (AST/SGOT) 17, Alanine Aminotransferase (ALT/SGPT) 37, Alkaline Phosphatase 164 H, Total Bilirubin 0.8, Total Protein 6.8, Albumin 3.3 Microbiology Microbiology 04/24/17 Blood Culture - Preliminary, Resulted No growth after 24 hours . All specim... 04/24/17 Blood Culture - Preliminary, Resulted No growth after 24 hours . All specim... 04/25/17 Gram Stain - Final, Resulted 04/25/17 Sputum Culture, Resulted Pending 04/24/17 Respiratory Virus Panel (PCR) (RIVKA) - Final, Complete KRYSTYNA COTO DO Apr 25, 2017 16:01
[2017-04-25 21:15] VITALS: BP 158/82
[2017-04-25] MEDS: ASPIRIN 81 MG ENTERIC TAB PO SCH (21:15)
[2017-04-25] MEDS: LOSARTAN 25 MG TAB PO SCH (21:15)
[2017-04-25] MEDS: DULoxetine 30 MG CAP (CYMBALTA) PO SCH (21:17)
[2017-04-25 22:00] VITALS: BP 160/82
[2017-04-26] MEDS: NORCO, ANEXSIA 5/325MG TABLET (HYDROcodone/ACETAMINOPHEN) PO PRN (05:52)
[2017-04-26 06:00] VITALS: BP 144/62
[2017-04-26 07:14] LABS: MEAN CORPUSCULAR HEMOGLOBIN 37.8 pg (27.0-33.0); MEAN CORPUSCULAR HGB CONC 33.1 g/dl (32.0-36.5); WHITE BLOOD COUNT 11.2 10^3/uL (4.0-10.0)
[2017-04-26 07:17] LABS: MEAN CORPUSCULAR VOLUME 114.1 fl (80.0-96.0)
[2017-04-26 07:39] LABS: ALBUMIN 3.6 GM/DL (3.2-5.2); ALBUMIN/GLOBULIN RATIO 0.88 (1.00-1.93); BILIRUBIN,TOTAL 0.8 MG/DL (0.2-1.0); CALCIUM LEVEL 9.3 MG/DL (8.5-10.1); CREATININE FOR GFR 1.08 MG/DL (0.55-1.02); GLOMERULAR FILTRATION RATE 57.4 (>58); POTASSIUM SERUM 4.5 MEQ/L (3.5-5.1); TOTAL PROTEIN 7.7 GM/DL (6.4-8.2)
[2017-04-26] MEDS ORDERED: SULF1TAB23 PO (07:51)
[2017-04-26] MEDS ORDERED: PRED10PA PO (07:51)
[2017-04-26] MEDS: ENOXAPARIN 40 MG/0.4 ML SYRINGE (J1650) SC SCH (09:00)
[2017-04-26] MEDS: NICOTINE 21MG/24HR 1 EA TRANSDERMAL TD SCH (09:00)
[2017-04-26] MEDS: HumaLOG INSULIN (NovoLOG) PER UNIT SC SCH (09:08)
[2017-04-26] MEDS: CYCLOBENZAPRINE 10 MG TAB PO SCH (09:09)
[2017-04-26] MEDS: FOLIC ACID 1 MG TAB PO SCH (09:09)
[2017-04-26] MEDS: GABAPENTIN 300 MG CAP PO SCH (09:09)
[2017-04-26] MEDS: CYANOCOBALAMIN 500 MCG TAB PO SCH (09:09)
[2017-04-26] MEDS: BACTRIM 160MG/800MG DS TAB PO SCH (09:09)
[2017-04-26] MEDS: TOPIRAMATE (TopAMAX) 100 MG TAB PO SCH (09:09)
[2017-04-26] MEDS: MORPHINE 15 MG SA TAB PO SCH (09:10)
[2017-04-26] MEDS: guaiFENesin ER 600 MG TAB PO SCH (09:10)
--- NOTE | 2017-04-26 14:03 | DS.PDOC ---
Discharge Summary General Date of Admission Apr 24, 2017 at 17:31 Date of Discharge Apr, Primary Care Physician: William Morris MD Attending Physician: KRYSTYNA COTO DO Specialist/Consultants Involve none Discharge Summary PROCEDURES PERFORMED DURING STAY: [None]. ADMITTING DIAGNOSES / DISCHARGE DIAGNOSES: 1. Acute hypoxic respiratory failure: Resolved. 2. Lactic acidosis: Resolved. 3. Wound care: Compression cast was removed, dressings applied. She can follow- up with Dr. Jones 4. Right foot fifth digit osteomyelitis, history of MSSA. Empirically continue with Bactrim on palpation with Dr. Jones. 5. History of COPD, stable. 6. Abnormal CT imaging with groundglass opacity and what appears to be reactive lymph nodes. She'll need outpatient follow-up with pulmonology. 7. Diabetes: Stable excellent 8. MICHELLE on CPAP 9. h/o SLE: continue with steroid taper/ follow up with her glove operator. HOSPITAL COURSE: [51-year-old female presented to the emergency department with acute respiratory failure, hypoxia, shortness of breath, admitted for further symptomatic treatment. There was some question with her. ProBNP be an elevated that she did receive a few doses of IV Lasix, nebulizers, Solu-Medrol. She did have a recent echocardiogram done as an outpatient since results have not been resulted to establish follow-up as an outpatient since she is clinically improved. He does appear to be back to her baseline. We'll plan on discharging her today. She did have abnormal findings on CT scan of the chest with groundglass opacification that did not appear to be change since 04/18/2017 and what appeared to be reactive lymphadenopathy. I did discuss with pulmonology. It did not appear that she needed any acute intervention and she should have repeat CT scan done in the next 3-4 weeks when she has completed treatment. For further information regarding intake physical. Lab diagnostics please refer the H&P]. DISCHARGE MEDICATIONS: Please see below. ALLERGIES: Please see below. PHYSICAL EXAMINATION ON DISCHARGE: VITAL SIGNS: Please see below. GENERAL: [No acute distress. Heart and oriented] HEENT: [Negative] NECK: [Negative] CARDIOVASCULAR EXAMINATION: RESPIRATORY EXAMINATION: [Clear to auscultation] ABDOMINAL EXAMINATION: [Soft and non- tenderness, non-extended] EXTREMITIES: [Negative] SKIN: [Clear] NEUROLOGICAL EXAMINATION: [Negative] PSYCHIATRIC EXAMINATION: [Negative] LABORATORY DATA: Please see below. ACTIVITY: [As tolerated]. DIET: [Consistent carb]. DISCHARGE CONDITION: [Stable]. DISPOSITION: 01 Home, Self-Care. DISCHARGE INSTRUCTIONS: Discharge home. Activities tolerated. Consistent carb diet. She'll follow-up with Dr. Neely as an outpatient for her wound care and she'll need outpatient follow-up with pulmonology in 3-4 weeks regarding her abnormal chest CT. She keep regular appointment and/or follow-up appointment in a week or so with her primary care provider. Keep f/u appointments with [facility]. TRANSITION OF CARE ISSUES: Follow up with pulmonology in 3-4 weeks and likely needs repeat imaging of chest due to ground glass appearance and questionable reactive adenopathy. TIME SPENT ON DISCHARGE: Greater than minutes. Vital Signs/I&Os Vital Signs Date Time Temp Pulse Resp B/P (MAP) Pulse Ox O2 Delivery O2 Flow Rate FiO2 04/26/17 09:10 22 04/26/17 09:00 Room Air 04/26/17 06:00 97.3 96 144/62 (89) 92 I&O- Last 24 Hours up to 6 AM 04/27/17 05:59 Intake Total 100 ml Output Total 400 ml Balance -300 ml Laboratory Data Labs 24H Laboratory Tests 2 04/25/17 17:16: Bedside Glucose (Misc Panel) 250H 04/25/17 20:10: Bedside Glucose (Misc Panel) 300H 04/26/17 06:59: Nucleated Red Blood Cells % (auto) 0.0, Anion Gap 6L, Glomerular Filtration Rate 57.4L, Blood Urea Nitrogen 10#, Creatinine 1.08#H, Sodium Level 131L, Potassium Level 4.5, Chloride Level 95L, Carbon Dioxide Level 30, Calcium Level 9.3, Aspartate Amino Transf (AST/SGOT) 17, Alanine Aminotransferase (ALT/SGPT) 38, Alkaline Phosphatase 192H, Total Bilirubin 0.8, Total Protein 7.7, Albumin 3.6, Albumin/Globulin Ratio 0.88L CBC/BMP Laboratory Tests 04/26/17 06:59 Red Blood Count 3.47 L, Mean Corpuscular Volume 114.1 H, Mean Corpuscular Hemoglobin 37.8 H, Mean Corpuscular Hemoglobin Concent 33.1, Red Cell Distribution Width 16.0 H, Calcium Level 9.3, Aspartate Amino Transf (AST/SGOT) 17, Alanine Aminotransferase (ALT/SGPT) 38, Alkaline Phosphatase 192 H, Total Bilirubin 0.8, Total Protein 7.7, Albumin 3.6 FSBS Laboratory Tests Test 04/25/17 17:16 04/25/17 20:10 Range/Units Bedside Glucose (Misc Panel) 250 300 70-105 MG/DL Microbiology Microbiology 04/24/17 Blood Culture - Preliminary, Resulted No growth after 24 hours . All specim... 04/24/17 Blood Culture - Preliminary, Resulted No Growth after 48 hours. All Specime... 04/25/17 Gram Stain - Final, Resulted 04/25/17 Sputum Culture, Resulted Pending 04/24/17 Respiratory Virus Panel (PCR) (RIVKA) - Final, Complete Discharge Medications Scheduled Aspirin (Aspirin 81) 81 Mg Tab, 81 MG PO QHS, (Reported) Cyanocobalamin (Vitamin B-12) 1,000 Mcg Tab, 1,000 MCG PO DAILY, (Reported) LUNCHTIME Cyclobenzaprine HCl (Cyclobenzaprine HCl) 10 Mg Tab, 10 MG PO TID, (Reported) Duloxetine Hcl (Cymbalta) 60 Mg Cap, 60 MG PO QHS, (Reported) Folic Acid (Folic Acid) 1 Mg Tab, 1 MG PO DAILY, (Reported) LUNCHTIME Furosemide (Lasix) 20 Mg Tab, 20 MG PO DAILY Gabapentin (Gabapentin) 600 Mg Tab, 600 MG PO DAILY, (Reported) Gabapentin (Gabapentin) 300 Mg Cap, 900 MG PO BID, (Reported) Afternoon & HS Guaifenesin (Mucinex) 600 Mg Tab, 1,200 MG PO BID, (Reported) Losartan Potassium (Losartan Potassium) 25 Mg Tab, 25 MG PO QHS, (Reported) Magnesium Oxide (Magnesium Oxide) 250 Mg Tab, 250 MG PO TID, (Reported) Metformin Hydrochloride (Metformin HCl) 1,000 Mg Tab, 1,000 MG PO BID, (Reported ) Morphine Sulfate (Morphine Sulfate ER) 15 Mg Tab, 15 MG PO Q12H, (Reported) Prednisone (Prednisone) 10 Mg Raheel, 10 MG PO DAILY 6TBS DAILY X3DAYS; 5TBS DAILY X3DAYS; 4TBS DAILY X3DAYS; 3TBS DAILY X3DAYS; 2TBS DAILY X3DAYS; 1TBS DAILY X3DAYS Topiramate (Topamax) 100 Mg Tab, 100 MG PO BID, (Reported) Trimethoprim/Sulfamethoxazole (Smz-Tmp Ds 800-160 mg) 1 Tab Tab, 1 TAB PO BID Vitamin D (Drisdol) 50,000 Unit Cap, 50,000 UNIT PO QWEEK, (Reported) WEDNESDAYS Scheduled PRN Acetaminophen/Hydrocodone (Hydrocodone/Acetaminophen 10-325 mg) 1 Tab Tab, 1 TAB PO Q6H PRN for PAIN, (Reported) Albuterol Sulfate (Ventolin Hfa) 200 Puff/8 Gm Aers, 2 PUFF INH Q2H PRN for SHORTNESS OF BREATH, (Reported) Carvedilol (Carvedilol) 6.25 Mg Tab, 6.25 MG PO DAILY PRN for TACHYCARDIA, ( Reported) Ondansetron HCl (Ondansetron HCl) 4 Mg Tab, 4 MG PO PRN PRN for NAUSEA OR VOMITING, (Reported) Allergies Coded Allergies: Aspartame (Verified Allergy, Unknown, 09/17/15) SUGAR SUBSTITUTES Shellfish Allergy (Unverified Allergy, Unknown, 03/07/16) KRYSTYNA COTO DO Apr 26, 2017 14:03
[2017-04-26] MEDS ORDERED: METF10004 PO (15:45)
[2017-04-26] MEDS ORDERED: ONETTES6 VI (15:45)
[2017-04-28 00:07] LABS: ANTI-SINGLE STRAND DNA Ab IgG < 20 EU (0-19)
== END 2017-04-26 10:40 | disposition home or self-care (01) ==
LOC: M ED 11:32 → M ED INP 17:31 → M MS5PR 20:18
PROVIDERS: ADMIT Internal Medicine; ATTEND Hospitalist
DX: J96.01 Acute respiratory failure with hypoxia (principal); E87.2 Acidosis; M86.171 Other acute osteomyelitis, right ankle and foot; J44.9 Chronic obstructive pulmonary disease, unspecified; R91.8 Other nonspecific abnormal finding of lung field; E11.9 Type 2 diabetes mellitus without complications; G47.33 Obstructive sleep apnea (adult) (pediatric); M32.10 Systemic lupus erythematosus, organ or system involvement unspecified; I50.30 Unspecified diastolic (congestive) heart failure; I11.9 Hypertensive heart disease without heart failure; Z79.82 Long term (current) use of aspirin; Z79.52 Long term (current) use of systemic steroids; Z79.899 Other long term (current) drug therapy; Z91.013 Allergy to seafood; Z91.018 Allergy to other foods; Z79.51 Long term (current) use of inhaled steroids; F17.210 Nicotine dependence, cigarettes, uncomplicated
CPT/HCPCS: 36415; 36600; 71260; 80048; 80053; 80076; 81001; 82550; 82553; 82803; 83605; 83735; 83880; 85025; 85027; 85379; 85652; 86038; 86140; 86225; 86226; 86431; 87040; 87070; 87205; 87486; 87581; 87633; 87798; 93000; 93041; 94640; 96361; 96375; 97161; 97165; 99285; J1650; J1940; J2930; Q9967

== ENCOUNTER 2017-04-30 14:01 | Emergency (ER) | payer OTHER ==
[~2017-04-30] VITALS: Ht 160 cm; Wt 88.6 kg
[~2017-04-30 14:01] MED LIST changes: +HYDR-3719 PO; +MUCI600T31 PO; +ONETTES6 VI; +PRED10PA PO; +SULF1TAB23 PO
[2017-04-30 15:40] LABS: BASO % 0.1 % (0.0-1.0); IMMATURE GRANULOCYTE % 1.3 % (0-0); LYMPH # 0.6 10^3/uL (1.5-4.5); LYMPH % 5.5 % (24.0-44.0); MEAN CORPUSCULAR HGB CONC 33.8 g/dl (32.0-36.5); MONO # 0.1 10^3/uL (0.0-0.8); MONO % 0.9 % (0.0-5.0); NEUTROPHILS # 10.1 10^3/uL (1.8-7.7); NEUTROPHILS % 92.2 % (36.0-66.0); PLATELET COUNT, AUTOMATED 189 10^3/uL (150-450); RED CELL DISTRIBUTION WIDTH 15.6 % (11.5-14.5); WHITE BLOOD COUNT 10.9 10^3/uL (4.0-10.0)
[2017-04-30 15:42] LABS: MEAN CORPUSCULAR VOLUME 112.2 fl (80.0-96.0); POSITIVE MORPH POS FLAG
[2017-04-30 15:43] LABS: ADD MORPHOLOGY? YES
[2017-04-30] MEDS ORDERED: IPRATROPIUM 0.5MG/ALBUTEROL 2.5MG INH SOL UD 3ML (DUONEB)(J7620) NEB ONE ×2 (15:45→18:15)
[2017-04-30 15:53] LABS: ALBUMIN/GLOBULIN RATIO 0.97 (1.00-1.93); ALKALINE PHOSPHATASE 160 U/L (45-117); ALT/SGPT 30 U/L (12-78); ANION GAP 14 MEQ/L (8-16); AST/SGOT 16 U/L (15-37); BILIRUBIN,DIRECT 0.3 MG/DL (0.0-0.2); BILIRUBIN,TOTAL 0.4 MG/DL (0.2-1.0); BLOOD UREA NITROGEN 9 MG/DL (7-18); CALCIUM LEVEL 8.2 MG/DL (8.5-10.1); CARBON DIOXIDE LEVEL 23 MEQ/L (21-32); CHLORIDE LEVEL 88 MEQ/L (98-107); CREATININE FOR GFR 0.73 MG/DL (0.55-1.02); GLOMERULAR FILTRATION RATE > 60.0 (>58); GLUCOSE, FASTING 199 MG/DL (70-105); POTASSIUM SERUM 4.1 MEQ/L (3.5-5.1); SODIUM LEVEL 125 MEQ/L (136-145); TOTAL PROTEIN 6.1 GM/DL (6.4-8.2)
[2017-04-30 16:12] LABS: ANISOCYTOSIS 2+
[2017-04-30] MEDS ORDERED: NS 500 ML IV ONE (16:30)
[2017-04-30] MEDS ORDERED: FUROSEMIDE 40 MG/4 ML VIAL (J1940) IV ONE (16:30)
--- NOTE | 2017-04-30 16:40 | REP ---
CHEST, TWO VIEWS: HISTORY: Cough. COMPARISON: Chest x-ray 01/01/[address] chest 04/24/2017. Parenchymal densities are present in the lungs. There is enlargement of the right hilum consistent with adenopathy. The heart is normal in size. The pulmonary vasculature is normal in appearance. The bony structure is intact. IMPRESSION: There are parenchymal densities in the lungs with associated right hilar adenopathy. This may represent sarcoidosis. Signed by Tavo Joyce MD 04/30/2017 04:43 P
[2017-04-30 18:31] LABS: ABG BASE EXCESS 2.1 (-2.0-2.0); ABG HCO3 25.4 MEQ/L (22.0-26.0); ABG STANDARD HCO3 26.4 MEQ/L (22.0-26.0); ABG TOTAL CO2 26.4 MEQ/L (22.0-29.0); ABG pH (ARTERIAL) 7.478 UNITS (7.350-7.450)
[2017-04-30 18:54] VITALS: BP 107/18
--- NOTE | 2017-04-30 20:30 | CR.PDOC ---
[facility] Consultation Consultation DATE OF CONSULTATION: Apr 30, 2017 at 14:01 REFERRING PROVIDER: Dr. Sabra Nguyen ATTENDING PHYSICIAN: Dr. Sabra Nguyen REASON FOR CONSULTATION: Evaluation of dyspnea. CHIEF COMPLAINT: Presented to the ER with complaints of shortness of breath. HISTORY OF PRESENT ILLNESS: Patient is a 75 year old female with a PMHx of HTN, Diastolic CHF ( Stage 2), SLE, MICHELLE on CPAP, Suspected COPD, NIDDM2 and Migraine headaches who presented to the ER with complaints of shortness of breath. Patient was evaluated by the ER physician and was thought to have possible fluid overload vs. infection. Hospitalist was called for further evaluation of her breathing. Upon evaluation in the ER patient noted that yesterday she was experiencing worsening of her breathing and noted that there has been a productive cough with yellow / green. She noted that she has had increased frequency of nebulizer treatments at home. Today she only took her inhaled therapy twice. Patient denies any fever or chills. Patient was recently admitted on 04/24/2017 and was found to have a possible COPD exacerbation; she was given Solumedrol IV and discharged home with a tapering dose of steroids. She was noted to have a bone scan several weeks ago and had an MRI of her foot that showed possible osteomyelitis. She was prescribed Bactrim for this. Currently she is still on Bactrim and is completing her steroid taper. She notes mild nausea without any vomiting. No abdominal pain, constipation, diarrhea or dysuria. ALLERGIES: Please see below. HOME MEDICATIONS: Please see below. PAST MEDICAL HISTORY: HTN, Diastolic CHF (Stage 2), SLE, MICHELLE on CPAP, Suspected COPD, NIDDM2 and Migraine headaches PAST SURGICAL HISTORY: Bilateral elbow surgery Bilateral wrist surgeries Cholecystectomy Hernia repair Sinus reconstruction surgery FAMILY HISTORY: - Mother with history of SLE and Leukemia - Father with history of SC SOCIAL HISTORY: - Denies the use of illicit drugs; Smoker of 37 years at 1-2ppd; Heavy alcohol use and now social alcohol use - Denies recent travel or sick contacts - Lives together with - Occupation; Unemployed, Looking into disability REVIEW OF SYSTEMS: Negative otherwise stated in HPI PHYSICAL EXAMINATION: - Vitals: BP 138/62, HR 107, RR 18, Sat 91%RA, Temp 98.6F - General: Lying in bed, No acute distress, Speaking in full sentences, AAOx3 - HEENT: NC, AT, PERRLA, EOMI - CVS: Mildly Tachycardic, Regular rhythm, +S1S2 - Lungs: Fair air entry bilaterally, Expiratory wheezing appreciated bilaterally - Abdomen: Soft, Non-distended, Non-tender - Extremities: No lower extremity edema, No calf tenderness - Neuro: No focal motor or sensory deficit - Skin: No visible rashes LABORATORY DATA: Please see below. ASSESSMENT/PLAN: Dyspnea likely 2/2 acute COPD exacerbation - Presented with dyspnea and productive cough - Physical reveals bilateral expiratory wheezing - ABG indicate mild respiratory alkalosis and normal oxygenation - CXR 04/30: parenchymal densities in the lungs with associated right hilar adenopathy, may represent sarcoidosis - Has had improvement in the ER after receiving Duoneb therapy x2 - Patient has outpatient follow up with Dr. Morris, Dr. Meeks, Dr. Neely and her primary care provider - Advised ER physician to report if there is no resolution of her breathing after Duoneb therapy Mild Leukocytosis - possibly 2/2 reactive from steroid use, possibly 2/2 chronic osteomyelitis - CXR does not reveal any new infiltrates s/p Lactic acidosis - improved with IV fluids - Repeat lactic acid of 5.3 to 1.5 Vital Signs/I&O Vital Signs Date Time Temp Pulse Resp B/P (MAP) Pulse Ox O2 Delivery O2 Flow Rate FiO2 04/30/17 18:54 98.6 107 18 107/18 (47) 91 Room Air I&O- Last 24 Hours up to 6 AM 05/01/17 06:00 Output Total 700 ml Balance -700 ml Laboratory Data Labs 24H Laboratory Tests 2 04/30/17 14:54: Immature Granulocyte % (Auto) 1.3H, White Blood Count 10.9H, Red Blood Count 3.03L, Hemoglobin 11.5L, Hematocrit 34.0L, Mean Corpuscular Volume 112.2H, Mean Corpuscular Hemoglobin 38.0H, Mean Corpuscular Hemoglobin Concent 33.8, Red Cell Distribution Width 15.6H, Platelet Count 189, Neutrophils (%) (Auto) 92.2H , Lymphocytes (%) (Auto) 5.5L, Monocytes (%) (Auto) 0.9, Eosinophils (%) (Auto) 0.0, Basophils (%) (Auto) 0.1, Neutrophils # (Auto) 10.1H, Lymphocytes # (Auto) 0.6L, Monocytes # (Auto) 0.1, Eosinophils # (Auto) 0.0, Basophils # (Auto) 0.0, Immature Granulocyte # (Auto) 0.1H, Nucleated Red Blood Cells % (auto) 0.0, Platelet Estimate NORMAL, Anisocytosis 2+, Macrocytosis 2+, Anion Gap 14, Glomerular Filtration Rate > 60.0, Lactic Acid Level 5.3*H, Calcium Level 8.2L, Aspartate Amino Transf (AST/SGOT) 16, Alanine Aminotransferase (ALT/SGPT) 30, Alkaline Phosphatase 160H, Total Bilirubin 0.4, Direct Bilirubin 0.3H, NT-Pro-B- Type Natriuretic Peptide 1755H, Total Protein 6.1L, Albumin 3.0L, Albumin/ Globulin Ratio 0.97L 04/30/17 17:33: Blood Gas Bicarbonate Standard 26.4H, Arterial Blood pH 7.478H, Arterial Blood Partial Pressure CO2 35.0, Arterial Blood Partial Pressure O2 205.0H, Arterial Blood Total CO2 26.4, Arterial Blood HCO3 25.4, Arterial Blood Base Excess 2.1H , Arterial Blood Oxygen Saturation 99.5H 04/30/17 17:42: Lactic Acid Level 1.5 CBC/BMP Laboratory Tests 04/30/17 14:54 Red Blood Count 3.03 L, Mean Corpuscular Volume 112.2 H, Mean Corpuscular Hemoglobin 38.0 H, Mean Corpuscular Hemoglobin Concent 33.8, Red Cell Distribution Width 15.6 H, Neutrophils (%) (Auto) 92.2 H, Lymphocytes (%) (Auto ) 5.5 L, Monocytes (%) (Auto) 0.9, Eosinophils (%) (Auto) 0.0, Basophils (%) ( Auto) 0.1, Neutrophils # (Auto) 10.1 H, Lymphocytes # (Auto) 0.6 L, Monocytes # (Auto) 0.1, Eosinophils # (Auto) 0.0, Basophils # (Auto) 0.0 Allergies Coded Allergies: Aspartame (Verified Allergy, Unknown, 09/17/15) SUGAR SUBSTITUTES Shellfish Allergy (Unverified Allergy, Unknown, 03/07/16) Home Medications Scheduled (Men [place] Ultra Blue) 1 Tika Tika, 1 TIKA TID for 7 Days, #21 Aspirin (Aspirin 81) 81 Mg Tab, 81 MG PO QHS, (Reported) Cyanocobalamin (Vitamin B-12) 1,000 Mcg Tab, 1,000 MCG PO DAILY, (Reported) LUNCHTIME Cyclobenzaprine HCl (Cyclobenzaprine HCl) 10 Mg Tab, 10 MG PO TID, (Reported) Duloxetine Hcl (Cymbalta) 60 Mg Cap, 60 MG PO QHS, (Reported) Folic Acid (Folic Acid) 1 Mg Tab, 1 MG PO DAILY, (Reported) LUNCHTIME Furosemide (Lasix) 20 Mg Tab, 20 MG PO DAILY for 30 Days, #30 Gabapentin (Gabapentin) 600 Mg Tab, 600 MG PO DAILY, (Reported) Gabapentin (Gabapentin) 300 Mg Cap, 900 MG PO BID, (Reported) Afternoon & HS Guaifenesin (Mucinex) 600 Mg Tab, 1,200 MG PO BID, (Reported) Losartan Potassium (Losartan Potassium) 25 Mg Tab, 25 MG PO QHS, (Reported) Magnesium Oxide (Magnesium Oxide) 250 Mg Tab, 250 MG PO TID, (Reported) Metformin Hydrochloride (Metformin HCl) 1,000 Mg Tab, 1,000 MG PO BID, (Reported ) Morphine Sulfate (Morphine Sulfate ER) 15 Mg Tab, 15 MG PO Q12H, (Reported) Prednisone (Prednisone) 10 Mg Raheel, 10 MG PO DAILY, #60 6TBS DAILY X3DAYS; 5TBS DAILY X3DAYS; 4TBS DAILY X3DAYS; 3TBS DAILY X3DAYS; 2TBS DAILY X3DAYS; 1TBS DAILY X3DAYS Topiramate (Topamax) 100 Mg Tab, 100 MG PO BID, (Reported) Trimethoprim/Sulfamethoxazole (Smz-Tmp Ds 800-160 mg) 1 Tab Tab, 1 TAB PO BID, # 20 Vitamin D (Drisdol) 50,000 Unit Cap, 50,000 UNIT PO QWEEK, (Reported) WEDNESDAYS Scheduled PRN Acetaminophen/Hydrocodone (Hydrocodone/Acetaminophen 10-325 mg) 1 Tab Tab, 1 TAB PO Q6H PRN for PAIN, (Reported) Albuterol Sulfate (Ventolin Hfa) 200 Puff/8 Gm Aers, 2 PUFF INH Q2H PRN for SHORTNESS OF BREATH, (Reported) Carvedilol (Carvedilol) 6.25 Mg Tab, 6.25 MG PO DAILY PRN for TACHYCARDIA, ( Reported) Ondansetron HCl (Ondansetron HCl) 4 Mg Tab, 4 MG PO PRN PRN for NAUSEA OR VOMITING, (Reported) LORENZA ROSS MD Apr 30, 2017 20:30
--- NOTE | 2017-05-01 05:29 | ECGEPIP ---
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
== END 2017-04-30 18:54 | disposition home or self-care (01) ==
LOC: M ED 14:01
DX: J44.9 Chronic obstructive pulmonary disease, unspecified (principal); R06.02 Shortness of breath; R00.0 Tachycardia, unspecified; E11.9 Type 2 diabetes mellitus without complications; I10 Essential (primary) hypertension; N18.9 Chronic kidney disease, unspecified; Z87.440 Personal history of urinary (tract) infections; Z86.73 Personal history of transient ischemic attack (TIA), and cerebral infarction without residual deficits; G43.909 Migraine, unspecified, not intractable, without status migrainosus; M79.7 Fibromyalgia; M32.9 Systemic lupus erythematosus, unspecified; F32.9 Major depressive disorder, single episode, unspecified; F41.9 Anxiety disorder, unspecified; D80.1 Nonfamilial hypogammaglobulinemia; F17.200 Nicotine dependence, unspecified, uncomplicated; Z82.49 Family history of ischemic heart disease and other diseases of the circulatory system
CPT/HCPCS: 36600; 71020; 80048; 80076; 82803; 83605; 83880; 85025; 93000; 93041; 94640; 96374; 99284; J1940

== ENCOUNTER 2017-05-31 15:58 | Emergency (ER) | payer OTHER ==
[~2017-05-31] VITALS: Ht 160 cm; Wt 97.7 kg
[~2017-05-31 15:58] MED LIST changes: -CLEO300C2 PO; -LASI40TA PO; -PULM0.5S INH
[2017-05-31] MEDS ORDERED: LASI40TA PO (16:09)
[2017-05-31] MEDS ORDERED: NS 1,000 ML IV SCH (17:24)
[2017-05-31] MEDS ORDERED: MORPHINE 4 MG/ML 1ML SYRINGE IV PRN (17:30)
[2017-05-31] MEDS ORDERED: ISOVUE-370 76% 100ML VIAL (Q9967) As Ordered ONE (17:45)
[2017-05-31] MEDS ORDERED: FUROSEMIDE 100 MG/10 ML VIAL (J1940) IV ONE (18:30)
[2017-05-31 18:56] LABS: ANION GAP 9 MEQ/L (8-16); BLOOD UREA NITROGEN 9 MG/DL (7-18); CALCIUM LEVEL 8.5 MG/DL (8.5-10.1); CARBON DIOXIDE LEVEL 30 MEQ/L (21-32); CHLORIDE LEVEL 87 MEQ/L (98-107); CREATININE FOR GFR 0.99 MG/DL (0.55-1.02); GLOMERULAR FILTRATION RATE > 60.0 (>58); GLUCOSE, FASTING 159 MG/DL (70-105); POTASSIUM SERUM 3.8 MEQ/L (3.5-5.1); SODIUM LEVEL 126 MEQ/L (136-145)
--- NOTE | 2017-05-31 20:00 | REPUSA ---
CT angiogram of the chest Clinical statement: Chest pain and shortness of breath. Technique: Multiple axial CT images were obtained from the thoracic inlet through the upper abdomen a fter a bolus administration of nonionic intravenous contrast. Coronal and sagittal reconstructions we re also obtained. Comparison: 04/24/2017. Findings: The pulmonary arteries are well-opacified with contrast, with no intraluminal filling defec ts to suggest embolism. The thoracic aorta is unremarkable. Thyroid gland is within normal limits. Th ere is no thoracic lymphadenopathy. There are no pericardial or pleural effusions. There is minimal l inear atelectasis in the left lower lobe clear. Limited imaging of the upper abdomen is unremarkable. There are no suspicious osseous lesions. Impression: 1. No evidence of pulmonary embolism. 2. Minimal linear atelectasis in the left lower lobe.
[2017-05-31 21:47] LABS: BASO % 0.4 % (0.0-1.0); EOS # 0.1 10^3/uL (0.0-0.50); IMMATURE GRANULOCYTE % 0.8 % (0-0); LYMPH # 1.9 10^3/uL (1.5-4.5); LYMPH % 24.9 % (24.0-44.0); MEAN CORPUSCULAR HEMOGLOBIN 38.8 pg (27.0-33.0); MEAN CORPUSCULAR VOLUME 110.7 fl (80.0-96.0); MONO # 0.6 10^3/uL (0.0-0.8); MONO % 8.1 % (0.0-5.0); NEUTROPHILS # 5.1 10^3/uL (1.8-7.7); NEUTROPHILS % 64.8 % (36.0-66.0); PLATELET COUNT, AUTOMATED 160 10^3/uL (150-450); RED CELL DISTRIBUTION WIDTH 15.6 % (11.5-14.5); WHITE BLOOD COUNT 7.8 10^3/uL (4.0-10.0)
[2017-05-31] MEDS ORDERED: CLEO300C2 PO (22:27)
[2017-05-31] MEDS ORDERED: PULM0.5S INH (22:29)
[2017-05-31 22:37] VITALS: BP 149/72
--- NOTE | 2017-06-01 07:37 | ECGEPIP ---
Stationary ECG Study [facility] - ED Test Date: 2017-05-31 Pat Name: BEBA WHITEHEAD Department: Room: - Gender: F Alterations Manager: ct : 1965 Requested By: PERFECTO DE LEON PA-C Order Number: [id number] Reading MD: Kunal King Measurements Intervals [place] Rate: 98 P: 55 NM: 145 QRS: 26 QRSD: 100 T: 70 QT: 366 QTc: 468 Interpretive Statements SINUS RHYTHM WITH OCCASIONAL SUPRAVENTRICULAR PREMATURE COMPLEXES POSSIBLE LEFT ATRIAL ENLARGEMENT SIMILAR TO PRIOR ON SAME DATE Electronically Signed On 06-01-2017 7:36:57 EST by Kunal King
== END 2017-05-31 22:40 | disposition home or self-care (01) ==
LOC: M ED 15:58
DX: J44.9 Chronic obstructive pulmonary disease, unspecified (principal); J98.11 Atelectasis; I50.9 Heart failure, unspecified; E11.40 Type 2 diabetes mellitus with diabetic neuropathy, unspecified; I10 Essential (primary) hypertension; Z87.442 Personal history of urinary calculi; M54.2 Cervicalgia; Z86.73 Personal history of transient ischemic attack (TIA), and cerebral infarction without residual deficits; G43.909 Migraine, unspecified, not intractable, without status migrainosus; M32.9 Systemic lupus erythematosus, unspecified; M79.7 Fibromyalgia; F41.9 Anxiety disorder, unspecified; F32.9 Major depressive disorder, single episode, unspecified; Z86.14 Personal history of Methicillin resistant Staphylococcus aureus infection; Z79.82 Long term (current) use of aspirin; Z79.84 Long term (current) use of oral hypoglycemic drugs; Z79.899 Other long term (current) drug therapy; Z91.02 Food additives allergy status; Z91.013 Allergy to seafood
CPT/HCPCS: 36415; 71275; 80048; 81001; 83605; 85025; 85652; 86140; 93000; 96374; 96375; 99284; J1940; Q9967

== ENCOUNTER → 2017-05-31 | Outpatient (CLI) | payer OTHER ==
[~2017-05-31] MED LIST changes: +CLEO300C2 PO; +LASI40TA PO; +PULM0.5S INH
[2017-05-31 13:09] LABS: BASO # 0.1 10^3/uL (0.0-0.2); BASO % 0.6 % (0.0-1.0); EOS # 0.1 10^3/uL (0.0-0.50); EOS % 0.8 % (0.0-3.0); IMMATURE GRANULOCYTE % 0.8 % (0-0); LYMPH % 25.9 % (24.0-44.0); MEAN CORPUSCULAR HEMOGLOBIN 38.2 pg (27.0-33.0); MEAN CORPUSCULAR HGB CONC 34.5 g/dl (32.0-36.5); MEAN CORPUSCULAR VOLUME 110.8 fl (80.0-96.0); MONO # 0.5 10^3/uL (0.0-0.8); MONO % 6.7 % (0.0-5.0); NEUTROPHILS # 5.2 10^3/uL (1.8-7.7); NEUTROPHILS % 65.2 % (36.0-66.0); PLATELET COUNT, AUTOMATED 170 10^3/uL (150-450); RED CELL DISTRIBUTION WIDTH 15.6 % (11.5-14.5); WHITE BLOOD COUNT 7.9 10^3/uL (4.0-10.0)
--- NOTE | 2017-05-31 13:31 | REP ---
Clinical: Congestive heart failure . Comparison: 04/30/2017 . Technique: PA and lateral. Findings: The mediastinum and cardiac silhouette are normal. The lung molina are clear and without acute consolidation, effusion, or pneumothorax. The skeletal structures are intact and normal. Impression: 1. No acute cardiopulmonary process. Signed by Christopher Renae MD 05/31/2017 01:23 P
[2017-05-31 13:38] LABS: ALBUMIN 3.3 GM/DL (3.2-5.2); ALKALINE PHOSPHATASE 122 U/L (45-117); ALT/SGPT 23 U/L (12-78); ANION GAP 10 MEQ/L (8-16); AST/SGOT 13 U/L (7-37); BILIRUBIN,TOTAL 0.5 MG/DL (0.2-1.0); BLOOD UREA NITROGEN 8 MG/DL (7-18); CALCIUM LEVEL 8.6 MG/DL (8.5-10.1); CARBON DIOXIDE LEVEL 30 MEQ/L (21-32); CHLORIDE LEVEL 85 MEQ/L (98-107); CREATININE FOR GFR 0.88 MG/DL (0.55-1.02); GLOMERULAR FILTRATION RATE > 60.0 (>58); GLUCOSE, FASTING 84 MG/DL (70-105); POTASSIUM SERUM 3.9 MEQ/L (3.5-5.1); SODIUM LEVEL 125 MEQ/L (136-145); TOTAL PROTEIN 6.3 GM/DL (6.4-8.2)
--- NOTE | 2017-06-01 13:46 | ECGEPIP ---
Stationary ECG Study [facility] Test Date: 2017-05-31 Pat Name: BEBA WHITEHEAD Department: Room: - Gender: F Mascara Molder: JAMES : 1965 Requested By: Nedra Hirsch Order Number: [id number] Reading MD: Sidney Monterroso Measurements Intervals [place] Rate: 86 P: 40 IN: 151 QRS: 29 QRSD: 102 T: 65 QT: 381 QTc: 458 Interpretive Statements SINUS RHYTHM POSSIBLE LEFT ATRIAL ENLARGEMENT Borderline low-voltage QRS complexes in the limb leads Poor R-wave progression Compared to the last 2 tracings, heart rate is now slower otherwise no significant changes Electronically Signed On 06-01-2017 13:46:14 EST by Sidney Monterroso
== END ==
LOC: M LAB 12:17
PROVIDERS: ATTEND Physician Assistant Medical
DX: I50.20 Unspecified systolic (congestive) heart failure (principal)

== ENCOUNTER → 2017-06-20 | Outpatient (CLI) | payer OTHER | LOC: M PAIN 08:30 | DX: G89.29 Other chronic pain (principal); M12.9 Arthropathy, unspecified; M32.9 Systemic lupus erythematosus, unspecified; G43.909 Migraine, unspecified, not intractable, without status migrainosus; F32.9 Major depressive disorder, single episode, unspecified; F41.9 Anxiety disorder, unspecified; F10.10 Alcohol abuse, uncomplicated; E11.9 Type 2 diabetes mellitus without complications; M79.7 Fibromyalgia; M76.899 Other specified enthesopathies of unspecified lower limb, excluding foot; I50.9 Heart failure, unspecified; F17.210 Nicotine dependence, cigarettes, uncomplicated; J32.9 Chronic sinusitis, unspecified; Z79.891 Long term (current) use of opiate analgesic; Z79.899 Other long term (current) drug therapy; Z79.82 Long term (current) use of aspirin; Z91.013 Allergy to seafood | CPT/HCPCS: G0463 ==

== ENCOUNTER 2017-07-04 06:24 | Emergency (ER) | payer OTHER ==
[~2017-07-04 06:24] MED LIST changes: +CLEO300C2 PO; +LASI40TA PO; +PULM0.5S INH
[2017-07-04] MEDS ORDERED: MORPHINE 4 MG/ML 1ML SYRINGE IV ONE (06:45)
[2017-07-04] MEDS ORDERED: HYDROmorphone HCL 1 MG/ML SYRINGE (J1170) IV ONE (07:15)
[2017-07-04] MEDS ORDERED: ONDANSETRON 4MG/2ML VIAL (J2405) IV ONE (07:15)
[2017-07-04] MEDS ORDERED: PERCOCET 5MG/325MG TAB PO ONE (09:00)
[2017-07-04 11:06] VITALS: BP 160/90
--- NOTE | 2017-07-04 15:46 | REP ---
Clinical: Trauma. Technique: AP and lateral views of the right humerus. Findings: There is a comminuted fracture involving the proximal to mid humerus with relatively stable alignment to the fracture fragments. Overlying soft tissue swelling and small amounts of subcutaneous emphysema are suggested. Underlying calcific tendinopathy at the shoulder and mild degenerative changes noted. Impression: 1. Comminuted nondisplaced fracture of the proximal to mid humerus with overlying soft tissue injury. 2. Calcific tendinopathy and mild degenerative changes at the right shoulder. Signed by Christopher Renae MD 07/04/2017 04:13 A
== END 2017-07-04 11:08 | disposition home or self-care (01) ==
LOC: M ED 06:24
DX: S42.354A Nondisplaced comminuted fracture of shaft of humerus, right arm, initial encounter for closed fracture (principal); W01.10XA Fall on same level from slipping, tripping and stumbling with subsequent striking against unspecified object, initial encounter; Y92.099 Unspecified place in other non-institutional residence as the place of occurrence of the external cause; Y93.9 Activity, unspecified; Y99.9 Unspecified external cause status; M19.011 Primary osteoarthritis, right shoulder; M75.31 Calcific tendinitis of right shoulder; Z86.73 Personal history of transient ischemic attack (TIA), and cerebral infarction without residual deficits; G43.909 Migraine, unspecified, not intractable, without status migrainosus; I50.9 Heart failure, unspecified; E78.00 Pure hypercholesterolemia, unspecified; I10 Essential (primary) hypertension; I95.9 Hypotension, unspecified; G47.30 Sleep apnea, unspecified; Z87.01 Personal history of pneumonia (recurrent); A07.1 Giardiasis [lambliasis]; N17.9 Acute kidney failure, unspecified; Z87.440 Personal history of urinary (tract) infections; Z87.442 Personal history of urinary calculi; N93.9 Abnormal uterine and vaginal bleeding, unspecified; E11.40 Type 2 diabetes mellitus with diabetic neuropathy, unspecified; K76.0 Fatty (change of) liver, not elsewhere classified; M79.7 Fibromyalgia; M32.9 Systemic lupus erythematosus, unspecified; M54.2 Cervicalgia; M54.9 Dorsalgia, unspecified; E55.9 Vitamin D deficiency, unspecified; D75.9 Disease of blood and blood-forming organs, unspecified; D80.1 Nonfamilial hypogammaglobulinemia; F41.9 Anxiety disorder, unspecified; F32.9 Major depressive disorder, single episode, unspecified; Z86.14 Personal history of Methicillin resistant Staphylococcus aureus infection; Z79.899 Other long term (current) drug therapy; Z79.82 Long term (current) use of aspirin; Z79.84 Long term (current) use of oral hypoglycemic drugs; Z91.013 Allergy to seafood; Z91.02 Food additives allergy status
CPT/HCPCS: 29105; 73060; 93041; 96374; 96375; 99284; J1170; J2405

== ENCOUNTER → 2017-07-06 | Outpatient (CLI) | payer OTHER | LOC: M PAIN 10:15 | DX: G89.29 Other chronic pain (principal); M12.9 Arthropathy, unspecified; S42.301S Unspecified fracture of shaft of humerus, right arm, sequela; M32.9 Systemic lupus erythematosus, unspecified; E11.9 Type 2 diabetes mellitus without complications; G43.909 Migraine, unspecified, not intractable, without status migrainosus; F32.9 Major depressive disorder, single episode, unspecified; F41.9 Anxiety disorder, unspecified; G47.30 Sleep apnea, unspecified; F10.10 Alcohol abuse, uncomplicated; F17.210 Nicotine dependence, cigarettes, uncomplicated; Z91.013 Allergy to seafood; Z79.891 Long term (current) use of opiate analgesic; Z79.82 Long term (current) use of aspirin; Z79.84 Long term (current) use of oral hypoglycemic drugs; Z79.899 Other long term (current) drug therapy | CPT/HCPCS: G0463 ==

== ENCOUNTER → 2017-08-24 | Outpatient (CLI) | payer OTHER, SELFPAY | LOC: M PAIN 13:45 | DX: M12.9 Arthropathy, unspecified (principal); G89.29 Other chronic pain; M32.9 Systemic lupus erythematosus, unspecified; G43.909 Migraine, unspecified, not intractable, without status migrainosus; F32.9 Major depressive disorder, single episode, unspecified; F41.9 Anxiety disorder, unspecified; G47.30 Sleep apnea, unspecified; F10.10 Alcohol abuse, uncomplicated; M79.7 Fibromyalgia; E11.9 Type 2 diabetes mellitus without complications; F17.210 Nicotine dependence, cigarettes, uncomplicated; Z79.82 Long term (current) use of aspirin; Z79.84 Long term (current) use of oral hypoglycemic drugs; Z79.891 Long term (current) use of opiate analgesic; Z79.899 Other long term (current) drug therapy; Z91.013 Allergy to seafood; Z86.79 Personal history of other diseases of the circulatory system | CPT/HCPCS: G0463 ==

== ENCOUNTER → 2018-01-07 | Outpatient (REF) | payer OTHER | LOC: M SFHCPLAZ 09:13 | DX: L97.502 Non-pressure chronic ulcer of other part of unspecified foot with fat layer exposed (principal); D80.1 Nonfamilial hypogammaglobulinemia; Z53.9 Procedure and treatment not carried out, unspecified reason | CPT/HCPCS: 36415 ==

== ENCOUNTER → 2018-01-21 | Outpatient (CLI) | payer OTHER | LOC: M PAIN 14:00 | DX: M12.9 Arthropathy, unspecified (principal); M79.1 Myalgia; M54.5 Low back pain; M25.50 Pain in unspecified joint; G89.29 Other chronic pain; E11.9 Type 2 diabetes mellitus without complications; M32.10 Systemic lupus erythematosus, organ or system involvement unspecified; G43.909 Migraine, unspecified, not intractable, without status migrainosus; F32.9 Major depressive disorder, single episode, unspecified; F41.9 Anxiety disorder, unspecified; G47.30 Sleep apnea, unspecified; F10.10 Alcohol abuse, uncomplicated; I25.2 Old myocardial infarction; F17.210 Nicotine dependence, cigarettes, uncomplicated; Z79.01 Long term (current) use of anticoagulants; Z79.82 Long term (current) use of aspirin; Z79.891 Long term (current) use of opiate analgesic; Z79.899 Other long term (current) drug therapy; Z88.0 Allergy status to penicillin; Z91.013 Allergy to seafood; Z86.79 Personal history of other diseases of the circulatory system; Z91.81 History of falling | CPT/HCPCS: G0463 ==

== ENCOUNTER → 2018-03-04 | Outpatient (CLI) | payer OTHER | LOC: M RAD 13:49 | DX: S42.35 Comminuted fracture of shaft of humerus (principal) | CPT/HCPCS: 73200 ==

== ENCOUNTER → 2018-03-05 | Outpatient (REF) | payer OTHER ==
[2018-03-05 12:14] LABS: BASO # 0.1 10^3/uL (0.0-0.2); BASO % 0.7 % (0.0-1.0); EOS # 0.2 10^3/uL (0.0-0.50); EOS % 2.4 % (0.0-3.0); HEMATOCRIT 35.6 % (36.0-47.0); HEMOGLOBIN 12.5 g/dl (12.0-15.5); IMMATURE GRANULOCYTE % 0.7 % (0-3.0); LYMPH # 1.2 10^3/uL (1.5-4.5); LYMPH % 15.7 % (24.0-44.0); MEAN CORPUSCULAR HEMOGLOBIN 35.5 pg (27.0-33.0); MEAN CORPUSCULAR HGB CONC 35.1 g/dl (32.0-36.5); MEAN CORPUSCULAR VOLUME 101.1 fl (80.0-96.0); MONO # 0.7 10^3/uL (0.0-0.8); MONO % 8.9 % (0.0-5.0); NEUTROPHILS # 5.5 10^3/uL (1.8-7.7); NEUTROPHILS % 71.6 % (36.0-66.0); PLATELET COUNT, AUTOMATED 172 10^3/uL (150-450); RED BLOOD COUNT 3.52 10^6/uL (4.00-5.40); RED CELL DISTRIBUTION WIDTH 17.3 % (11.5-14.5); WHITE BLOOD COUNT 7.6 10^3/uL (4.0-10.0)
[2018-03-05 12:37] LABS: ERYTHROCYTE SEDIMENTATION RATE 48 mm/hr (0-30)
[2018-03-05 13:24] LABS: ANION GAP 8 MEQ/L (8-16); BLOOD UREA NITROGEN 10 MG/DL (7-18); CALCIUM LEVEL 8.6 MG/DL (8.5-10.1); CARBON DIOXIDE LEVEL 31 MEQ/L (21-32); CHLORIDE LEVEL 87 MEQ/L (98-107); CREATININE FOR GFR 0.88 MG/DL (0.55-1.30); FREE T4 1.37 NG/DL (0.76-1.46); GLOMERULAR FILTRATION RATE > 60.0 (>51); GLUCOSE, FASTING 101 MG/DL (70-100); POTASSIUM SERUM 4.1 MEQ/L (3.5-5.1); SODIUM LEVEL 126 MEQ/L (136-145); URIC ACID 6.6 MG/DL (2.6-6.0)
== END ==
LOC: M SFHCPLAZ 10:56
DX: M79.89 Other specified soft tissue disorders (principal); E87.1 Hypo-osmolality and hyponatremia
CPT/HCPCS: 84443

== ENCOUNTER → 2018-04-01 | Outpatient (CLI) | payer OTHER | LOC: M PAIN 09:30 | DX: M12.9 Arthropathy, unspecified (principal); G89.29 Other chronic pain; G43.909 Migraine, unspecified, not intractable, without status migrainosus; F32.9 Major depressive disorder, single episode, unspecified; F41.9 Anxiety disorder, unspecified; G47.30 Sleep apnea, unspecified; E11.610 Type 2 diabetes mellitus with diabetic neuropathic arthropathy; M79.7 Fibromyalgia; I25.2 Old myocardial infarction; F17.210 Nicotine dependence, cigarettes, uncomplicated; Z79.01 Long term (current) use of anticoagulants; Z79.82 Long term (current) use of aspirin; Z79.891 Long term (current) use of opiate analgesic; Z79.899 Other long term (current) drug therapy; Z88.0 Allergy status to penicillin; Z91.013 Allergy to seafood; Z87.39 Personal history of other diseases of the musculoskeletal system and connective tissue; Z86.79 Personal history of other diseases of the circulatory system | CPT/HCPCS: G0463 ==

== ENCOUNTER → 2018-04-04 | Outpatient (CLI) | payer OTHER ==
[2018-04-09 14:27] LABS: PORPHYRINS SERUM <0.1 ug/dL (0.0-1.0)
[2018-04-09 14:27] LABS: PORPHYRIN TOTAL PLASMA <0.1 ug/dL (0.0-1.0)
== END ==
LOC: M WUC 13:17
DX: R21 Rash and other nonspecific skin eruption (principal)
CPT/HCPCS: 84311

== ENCOUNTER → 2018-04-30 | Outpatient (CLI) | payer OTHER | LOC: M PAIN 13:00 | DX: M12.9 Arthropathy, unspecified (principal); E11.9 Type 2 diabetes mellitus without complications; M79.7 Fibromyalgia; G43.909 Migraine, unspecified, not intractable, without status migrainosus; F41.9 Anxiety disorder, unspecified; F32.9 Major depressive disorder, single episode, unspecified; G47.30 Sleep apnea, unspecified; F10.10 Alcohol abuse, uncomplicated; I25.2 Old myocardial infarction; F17.210 Nicotine dependence, cigarettes, uncomplicated; Z79.01 Long term (current) use of anticoagulants; Z79.82 Long term (current) use of aspirin; Z79.891 Long term (current) use of opiate analgesic; Z79.899 Other long term (current) drug therapy; Z88.0 Allergy status to penicillin; Z91.013 Allergy to seafood; Z87.39 Personal history of other diseases of the musculoskeletal system and connective tissue; Z86.79 Personal history of other diseases of the circulatory system | CPT/HCPCS: G0463 ==

== ENCOUNTER 2018-05-15 07:14 | Day surgery (SDC) | payer OTHER ==
[~2018-05-15 07:14] MED LIST changes: +ACETAMINOPHEN 325 MG TAB PO; -ALBU17IN INH; -ALLO100T PO; -ALLO10TA PO; -ASPI1TAB PO; -BUPR15TA PO; -CALC600T57 PO; -CARV6.25 PO; -CELE1CAP4 PO; -CLEO300C2 PO; -COLA100C5 PO; -CYCL10TA PO; +CYCLOPENTOLATE 2% OPHTH SOLN 2ML BTL OS; -CYMB60CA3 PO; -DIAZ2TAB PO; -DOXY100T PO; -DRIS50002 PO; -DULO1CAP3 PO; -ESTR62CR PV; -FENT75PA TD; -FLEX10TA2 PO; -FLON1SPR; -FLON50SP; -FOLI1TAB4 PO; -GABA-282 PO; -GABA300C2 PO; -GABA600T PO; -HYDR-3713 PO; -HYDR-3719 PO; -HYDR200T3 PO; -HYZAAR; -KEFL500C17 PO; -LASI20TA PO; -LASI40TA PO; -LOSA25TA8 PO; -LOSA50TA20 PO; -LOVA20TA2 PO; -MAGN250T11 PO; -METF-415 PO; -METF10004 PO; -MILKSUS PO; -MORP-38 PO; -MORP15TASA PO; -MUCI600T31 PO; -MYLI40DR PO; -NABU750T PO; -NEUR100C PO; -NICO21DI5 TD; -NICO21PAT TD; -NYST10CR TOP; -NYST50SS SS; -ONDA4TAB5 PO; -ONETTES6 VI; -OXYC15TA76 PO; -OXYC1TAB23 PO; -PERC5TAB12 PO; -PERCOCET PO; -PLAQ200T PO; -PLAQUINIL; -PRED10PA PO; +PROPARACAINE 0.5% OPHTH SOL 15ML OS; -PULM0.5S INH; -ROCE500I; -SILV-4 TOP; -SULF1TAB23 PO; -TOPA100T12 PO; -TOPI100T OR; -VALI5TAB PO; -VICO5TAB PO; -VICO5TAB16 PO; -VITA10002 PO; -ZANA4TAB PO; -[UNRECOGNIZED DRUG - CODE] IM; -[UNRECOGNIZED DRUG - REMARK]; -bactrim ds PO; -cardizem PO; -senokot s PO; -zocor PO
[2018-05-15] MEDS: OFLOXACIN 0.3 % (OCUFLOX) OPTH SOL 5ML OS (07:48)
[2018-05-15] MEDS: TROPICAMIDE 1% OPHTH SOLN 2ML OS (07:48)
[2018-05-15] MEDS: PHENYLEPHRINE 2.5% OPHTH SOL 2ML OS (07:48)
[2018-05-15] MEDS: PHENYLEPHRINE HCL 10 % OPHTH. SOL 5ML OS (07:50)
[2018-05-15] MEDS: LIDOCAINE 3.5 % 1ML OPHTH TOPICAL GEL OU (07:50)
[2018-05-15 08:12] LABS: BEDSIDE GLUCOSE 104 MG/DL (70-105)
[2018-05-15] MEDS ORDERED: MIDAZOLAM INJ 2 MG/2 ML VIAL (J2250) As Ordered (08:26)
[2018-05-15] MEDS ORDERED: fentaNYL 100 MCG/2 ML INJECTION (J3010) As Ordered (08:26)
[2018-05-15] MEDS: BALANCED SALT IRRIGATION SOLUTION 500ML BAG (FOR OR EYE MACHINE) As Ordered (09:22)
[2018-05-15] MEDS: HEALON DUET (HEALON 10MG/ML 0.55ML & HEALON ENDOCOAT 30MG/ML 0.85ML) As Ordered (09:22)
[2018-05-15] MEDS: LIDOCAINE 1% SDV 5 ML VIAL As Ordered (09:23)
[2018-05-15] MEDS: AcetaZOLAMIDE 500 MG ER CAP PO (10:00)
[2018-05-15] MEDS ORDERED: TRIMETHOBENZAMIDE 300 MG CAP PO (10:00)
[2018-05-15] MEDS ORDERED: KETOROLAC 0.5% OPHTH SOLN OS (10:00)
== END 2018-05-15 10:25 | disposition home or self-care (01) ==
LOC: M SDC 07:14
DX: H25.12 Age-related nuclear cataract, left eye (principal); I11.0 Hypertensive heart disease with heart failure; I25.10 Atherosclerotic heart disease of native coronary artery without angina pectoris; I25.2 Old myocardial infarction; R00.0 Tachycardia, unspecified; E11.40 Type 2 diabetes mellitus with diabetic neuropathy, unspecified; M12.9 Arthropathy, unspecified; M32.9 Systemic lupus erythematosus, unspecified; M79.7 Fibromyalgia; S91.101D Unspecified open wound of right great toe without damage to nail, subsequent encounter; F41.9 Anxiety disorder, unspecified; F32.9 Major depressive disorder, single episode, unspecified; G43.909 Migraine, unspecified, not intractable, without status migrainosus; R29.898 Other symptoms and signs involving the musculoskeletal system; G47.33 Obstructive sleep apnea (adult) (pediatric); T88.4XXD Failed or difficult intubation, subsequent encounter; Z91.09 Other allergy status, other than to drugs and biological substances; Z91.013 Allergy to seafood; Z79.899 Other long term (current) drug therapy; Z79.82 Long term (current) use of aspirin; Z79.01 Long term (current) use of anticoagulants; Z95.5 Presence of coronary angioplasty implant and graft; Z86.14 Personal history of Methicillin resistant Staphylococcus aureus infection; Z72.0 Tobacco use; Z78.0 Asymptomatic menopausal state
CPT/HCPCS: 66984

== ENCOUNTER → 2018-06-12 | Day surgery (SDC) | payer OTHER ==
[~2018-06-12] MED LIST changes: -ACETAMINOPHEN 325 MG TAB PO; +BALANCED SALT IRRIGATION SOLUTION 500ML BAG (FOR OR EYE MACHINE) As Ordered; -CYCLOPENTOLATE 2% OPHTH SOLN 2ML BTL OS; +HEALON DUET PRO(HEALON 10MG/ML 0.55ML & HEALON ENDOCOAT 30MG/ML 0.85ML) As Ordered; +LIDOCAINE 1% SDV 5 ML VIAL As Ordered; +PHENYLEPHRINE HCL 10 % OPHTH. SOL 5ML OD; -PROPARACAINE 0.5% OPHTH SOL 15ML OS
[2018-06-12] MEDS: CYCLOPENTOLATE 2% OPHTH SOLN 2ML BTL OD (08:20)
[2018-06-12] MEDS: PHENYLEPHRINE 2.5% OPHTH SOL 2ML OD (08:20)
[2018-06-12] MEDS: OFLOXACIN 0.3 % (OCUFLOX) OPTH SOL 5ML OD (08:21)
[2018-06-12] MEDS: LIDOCAINE 3.5 % 1ML OPHTH TOPICAL GEL OU (08:21)
[2018-06-12] MEDS: TROPICAMIDE 1% OPHTH SOLN 2ML OD (08:21)
== END | disposition home or self-care (01) ==
LOC: M SDC 07:43
DX: H25.11 Age-related nuclear cataract, right eye (principal); Z53.09 Procedure and treatment not carried out because of other contraindication; R05 Cough

== ENCOUNTER → 2018-06-14 | Outpatient (CLI) | payer OTHER | LOC: M RAD 11:43 | DX: N63.10 Unspecified lump in the right breast, unspecified quadrant (principal) | CPT/HCPCS: 77065 ==

== ENCOUNTER 2020-01-08 08:31 | Inpatient (IN) | payer MEDICARE, OTHER ==
[~2020-01-08] VITALS: Ht 162.6 cm; Wt 97.9 kg
[~2020-01-08 08:31] MED LIST changes: +ALBU17IN INH; +ALLO100T PO; +ALLO10TA PO; +ASPI81TA26 PO; -BALANCED SALT IRRIGATION SOLUTION 500ML BAG (FOR OR EYE MACHINE) As Ordered; +BUPR15TA PO; +CALC600T57 PO; +CARV6.25 PO; +CELE1CAP4 PO; +CLEO300C2 PO; +COLA100C5 PO; +CYAN100049 PO; +CYCL-707 PO; +CYMB1CAP5 PO; +CYMB60CA3 PO; +DIAZ2TAB PO; +DOXY100T PO; +DRIS50003 PO; +DULO1CAP6 PO; +ESTR62CR PV; +FENT75DI18 TD; +FLEX10TA2 PO; +FLON1SPR; +FLON50SP; +FOLI1TAB11 PO; +GABA-843 PO; +GABA300C2 PO; +GABA600T4 PO; -HEALON DUET PRO(HEALON 10MG/ML 0.55ML & HEALON ENDOCOAT 30MG/ML 0.85ML) As Ordered; +HYDR-3713 PO; +HYDR-3719 PO; +HYDR200T3 PO; +HYZAAR; +KEFL500C17 PO; +LASI20TA3 PO; +LASI40TA9 PO; -LIDOCAINE 1% SDV 5 ML VIAL As Ordered; +LOSA25TA14 PO; +LOSA25TA8 PO; +LOSA50TA88 PO; +LOVA20TA2 PO; +MAGN250T11 PO; +METF-415 PO; +METF10004 PO; +MILK120011 PO; +MORP-69 PO; +MORP15TASA PO; +MUCI600T31 PO; +MYLI40DR PO; +NABU-119 PO; +NEUR100C PO; +NICO21DI6 TD; +NICO21PAT TD; +NYST100029 TOP; +NYST50SS SS; +ONDA-83 PO; +ONETTES6 VI; +OXYC-1 PO; +OXYC1TAB23 PO; +PERC5TAB12 PO; +PERCOCET PO; -PHENYLEPHRINE HCL 10 % OPHTH. SOL 5ML OD; +PLAQ200T PO; +PLAQUINIL; +PLAV1TAB2 PO; +PRED10PA PO; +PULM0.5S INH; +ROCE500I; +SILV-4 TOP; +SULF1TAB93 PO; +TOPA100T12 PO; +TOPI100T OR; +VALI5TAB PO; +VENTAER INH; +VICO5TAB PO; +VICO5TAB17 PO; +ZANA4TAB PO; +[UNRECOGNIZED DRUG - CODE] IM; +[UNRECOGNIZED DRUG - REMARK]; +bactrim ds PO; +cardizem PO; +senokot s PO; +zocor PO
[2020-01-08 16:00] VITALS: BP 147/73
[2020-01-08] MEDS ORDERED: CARV3.12 PO (16:04)
[2020-01-08] MEDS ORDERED: DIAZ2TAB PO (16:04)
[2020-01-08] MEDS ORDERED: LASI40TA9 PO (16:04)
[2020-01-08] MEDS ORDERED: BUPR150T5 PO (16:04)
[2020-01-08] MEDS ORDERED: HYDR200T3 PO (16:04)
[2020-01-08] MEDS ORDERED: VITA50005 PO (16:04)
[2020-01-08] MEDS: ACETAMINOPHEN TAB 650MG DOSE (2X325MG) PO PRN (16:31)
[2020-01-08] MEDS ORDERED: NICO21DI38 TD (16:39)
[2020-01-08] MEDS ORDERED: SODI1TAB6 PO (16:39)
[2020-01-08] MEDS ORDERED: POTA1TAB23 PO (16:39)
[2020-01-08] MEDS ORDERED: CALC500T44 PO (16:39)
[2020-01-08] MEDS ORDERED: VANC-7 IV (16:39)
[2020-01-08] MEDS ORDERED: FLUC100T PO (16:39)
[2020-01-08] MEDS ORDERED: NOVOINJ12 SC (16:39)
[2020-01-08 16:45] LABS: HEMATOCRIT 29.4 % (36.0-47.0); HEMOGLOBIN 8.9 g/dl (12.0-15.5); MEAN CORPUSCULAR HEMOGLOBIN 34.9 pg (27.0-33.0); MEAN CORPUSCULAR HGB CONC 30.3 g/dl (32.0-36.5); PLATELET COUNT, AUTOMATED 230 10^3/uL (150-450); RED BLOOD COUNT 2.55 10^6/uL (4.00-5.40); WHITE BLOOD COUNT 4.9 10^3/uL (4.0-10.0)
[2020-01-08 16:46] LABS: MEAN CORPUSCULAR VOLUME 115.3 fl (80.0-96.0)
[2020-01-08] MEDS ORDERED: VANCOMYCIN HCL 1,000 MG in IV FLUID PLACE HOLDER 1 EA IV SCH (17:00)
[2020-01-08 17:01] LABS: ALBUMIN 2.6 GM/DL (3.2-5.2); ALT/SGPT 14 U/L (12-78); BILIRUBIN,TOTAL 1.2 MG/DL (0.2-1.0); BLOOD UREA NITROGEN 4 MG/DL (7-18); CALCIUM LEVEL 8.7 MG/DL (8.5-10.1); CARBON DIOXIDE LEVEL 33 MEQ/L (21-32); CHLORIDE LEVEL 98 MEQ/L (98-107); CREATININE FOR GFR 0.63 MG/DL (0.55-1.30); GLOMERULAR FILTRATION RATE > 60.0 (>51); GLUCOSE, FASTING 71 MG/DL (70-100); POTASSIUM SERUM 3.4 MEQ/L (3.5-5.1); SODIUM LEVEL 139 MEQ/L (136-145)
[2020-01-08] MEDS ORDERED: BUDESONIDE 0.5 MG/2 ML INHALATION SUSPENSION INH PRN (17:30)
[2020-01-08] MEDS: FUROSEMIDE 40MG/4ML VIAL (J1940) IV SCH (17:30)
[2020-01-08] MEDS: PIPERACILLIN/TAZOBACTAM SOD 3.375 GM in D5W MINI-BAG PLUS 50 ML IV SCH (17:30)
[2020-01-08] MEDS ORDERED: ONDANSETRON 4 MG TAB PO PRN (17:30)
[2020-01-08] MEDS ORDERED: ALBUTEROL 90 MCG/ACT 8GM HFA INHALER INH PRN (17:30)
--- NOTE | 2020-01-08 17:39 | HPEPDOC ---
[facility] Medical History & Physical Date of Admission Jan 08, 2020 Date of Service: Jan 08, 2020 Attending Physician: BENI MUNIZ MD History and Physical CHIEF COMPLAINT: Persistent/worsening LLE cellulitis HISTORY OF PRESENT ILLNESS: 54yo W with a history of SLE, hypertension, obstructive sleep apnea on CPAP, COPD, history of diabetes mellitus, Charcot's, diastolic heart failure and alcohol use disorder who is being transferred from [facility] for persistent, worsening LLE cellulitis despite treatment with vancomycin for 3 days, with wound cultures thus far growing mixed GPCs. Briefly, Ms. 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 She originally presented with LLE pain and fever and she was diagnosed with cellulitis in the setting of small ulcerating lesions (long standing for many years) with surrounding erythema that blister, crust over and slough off, and was treated with keflex and discharged home. She returned to the [facility] on 01/04 to clinic with LLE erythema, pain and edema with reported 20lb weight gain without fever or chills but with copious clear weeping drainage. She was admitted and started on vancomycin, and thus far wound cultures were notable for mixed GPCs, BCx negative, MRSA positive? per patient, not seen in their records without much change in the erythema or swelling with pain and firmness in her medial left thigh to groin area though the deepest erythema is in her lower leg. With regard to her weight gain, she reports that she has gained 20+ pounds has abdominal wall swelling and 3+ LE edema bilaterally and is actually increasingly feeling short of breath and while in [facility] was maintained on her home diuretic of 20 lasix daily without any change in her fluid status. She reports that approximately two weeks ago, when she originally presented, she had LE doppler US that was negative for DVT. She is now transferred to [facility] for severe cellulitis not improving on vancomycin with goal of an ID consult. Past Medical History 1. migraine headaches 2. SLE 3. hypertension 4. obstructive sleep apnea on CPAP 5. COPD 6. history of diabetes mellitus, that resolved after massive intentional weight loss 7. diastolic congestive heart failure Family History Patient is an only child. Patient's father due to myocardial infarction. Patient's mother due to lupus and leukemia. Patient has one son and one daughter who are healthy. Patient has one adopted daughter who is also healthy Social History Smoker: greater than 1 pack/day (40 years of 2ppd) Alcohol: Heavy alcohol use in the past, now social use Drugs: denies Review of Symptoms Constitutional: no recent fever, chills, generalized weakness, weight loss, instead has had massive weight gain in 2 weeks of 20lbs with accompanying edema HEENT: history of migraine headaches. Otherwise no vision changes, watering or discharge. No congestion, has a chronic smoker's cough, no change in sputum color or amount Skin: chronic episodic bilateral lower leg lesions, that begin as small ulcerating lesions with surrounding erythema that blister, crust over and slough off and leave deep chronic scarring Pulmonary: Reports slightly worsening dyspnea over the last 2 weeks Cardiovascular: No chest pain. Has massive LE edema and abdominal wall edema Gastrointestinal: No nausea, vomiting, abdominal pain, diarrhea, constipation Genitourinary: Denies any dysuria, frequency, frothy urine or tomasz hematuria Physical Examination General Exam: Alert, Cooperative, No Acute Distress Eye: PERRLA, Conjunctiva & lids normal, EOMI ENT: Atraumatic, Mucous membr. moist/pink Chest: CTAB at this time without wheezing, rhonchi or crackles Heart: soft systolic murmur at RUSB, RRR, no gallops or rubs Abdomen: obese, distended with notable soft tissue edema, otherwise soft, normoactive sounds and nontender Extremities: 3+ bilateral LE pitting edema to thighs with lower abdominal all edema Skin: Nl turgor and temperature, multiple skin lesion on BLE, s/p R great toe amputation,multiple crusted wounds on LLE and dorsum of L foot with massive erythema of LLE from foot to knees with ankle edema. No weeping noted Neuro: CN2-12 intact, speech not dysarthric, moving all extremities Psych: AOx3 Laboratory Tests WBC 4.9 Hgb 8.9 platelets 230 AM labs from daniela terrazas while out CMP is pending: na 140 K 3.4 Cr 0.79 mag 1.5 AST 15 ALT 14 Tbili 1.5 Dbili 0.8 Assessment: 54yo W with a history of SLE, hypertension, obstructive sleep apnea on CPAP, COPD, history of diabetes mellitus, Charcot's, diastolic heart failure and alcohol use disorder who is being transferred from [facility] for persistent, worsening LLE cellulitis despite treatment with vancomycin for 3 days, with wound cultures thus far growing mixed GPCs, also with decompensated HF with volume overload. HFpEF: -stop home PO diuretic and start lasix 40 Q8H -strict I/Os -daily weights -2g sodium diet and 2L/24h fluid restriction -EKG -proBNP -TTE LLE cellulits not improving on vanc despite 3d of therapy and wound swab culture showing mixed GPCs. -start vanc and piptazo, has a history of serratia and other non GPC organisms -MRI of LLE to discern extent of infection given the CRP of 180 at [facility] -Will get imaging and then consult Dr. Morris when I have enough information to warrant a clinical question -Repeat wound culture here if expressive -Elevate LLE -Deferred DVT US as she just recently had them for the same problem and they were negative -will either get wound consult vs. surgical consult depending on imaging findings -ESR, CRP History of chronic back adn LE pain: -continue home PRN norco, BID morphine, janneth BID, flexeril. COPD: no evidence of acute exacerbation - continue with home mdi therapies Nicotine dependence: -Patient reports that she is working on quitting and is now down to a little over one ppd and used to smoke at least 2 ppd -21mg nicotine patch Q24H Prior history of diabetes mellitus: resolved. A1c at [facility] was 5.5 -2g diet MICHELLE - continue CPAP per home script Psych meds: Anxiety, depression -continue bupropion, diazepam, cymbalta DVT prophylaxis - Lovenox CODE STATUS - FULL CODE Home Medications Scheduled Aspirin (Aspirin EC) 81 Mg Tab, 81 MG PO DAILY Bupropion Hcl (Bupropion HCl Sr) 150 Mg Tab.sr.12h, 150 MG PO DAILY Calcium Carbonate/Vitamin D3 (Calcium 500-Vit D3 200 Tablet) 1 Each Tablet, 1 TAB PO DAILY Carvedilol (Carvedilol) 3.125 Mg Tablet, 3.125 MG PO BID Cyanocobalamin (Vitamin B-12) (Vitamin B-12) 1,000 Mcg Tab, 1,000 MCG PO DAILY Cyclobenzaprine HCl (Cyclobenzaprine HCl) 10 Mg Tab, 10 MG PO TID Duloxetine Hcl (Cymbalta) 60 Mg Cap, 60 MG PO BID Ergocalciferol (Vitamin D2) (Vitamin D2) 50,000 Units Cap, 50,000 UNITS PO QWEEK WEDNESDAYS Fluconazole (Fluconazole) 100 Mg Tablet, 100 MG PO DAILY STARTED AT [facility] Folic Acid (Folic Acid) 1 Mg Tab, 1 MG PO DAILY Furosemide (Lasix) 40 Mg Tab, 80 MG PO QAM Furosemide (Lasix) 40 Mg Tablet, 40 MG PO QPM Gabapentin (Gabapentin) 600 Mg Tab, 600 MG PO TID 900MG AM, 600MG NOON, 900MG HS Gabapentin (Gabapentin) 300 Mg Cap, 300 MG PO BID 900MG TOTAL AM & HS Hydrocodone/Acetaminophen (Hydrocodone-Acetamin 10-325 mg) 1 Tab Tab, 1 TAB PO ACHS Hydroxychloroquine Sulfate (Hydroxychloroquine Sulfate) 200 Mg Tablet, 200 MG PO DAILY Insulin Regular, Human (Novolin R) 100 Unit/1 Ml Vial, 1 DOSE SC ACHS STARTED AT [facility], PER SLIDING SCALE Magnesium Oxide (Magnesium Oxide) 250 Mg Tab, 250 MG PO TID Morphine Sulfate (Morphine Sulfate ER) 15 Mg Tab, 15 MG PO Q12H Nicotine (Nicotine Patch) 21 Mg/24 Hr Patch.td24, 21 MG TD DAILY STARTED AT [facility], REMOVED ON WAY TO [facility] BY PATIENT Potassium Chloride (Potassium Chloride) 10 Meq Tablet.er, 10 MEQ PO BID STARTED AT [facility] Sodium Chloride (Sodium Chloride) 1 Gm Tablet, 1 GM PO BID STARTED AT [facility] Vancomycin HCl (Vancomycin HCl) 1 Gm Vial, 1 GM IV Q12H STARTED AT [facility] Scheduled PRN Albuterol Sulfate (Ventolin Hfa) 108 Mcg/Act Aer, 2 PUFFS INH QID PRN for SHORTNESS OF BREATH Budesonide (Pulmicort) 0.5 Mg/2 Ml Michelle, 0.5 MG INH BID PRN for SHORTNESS OF BREATH Diazepam (Diazepam) 2 Mg Tablet, 2 MG PO BID PRN for ANXIETY Ondansetron HCl (Ondansetron HCl) 4 Mg Tab, 4 MG PO Q4H PRN for NAUSEA OR VOMITING Allergies Coded Allergies: Penicillins (Verified Allergy, Unknown, 01/08/20) aspartame (Verified Allergy, Unknown, 01/08/20) SUGAR SUBSTITUTE shellfish derived (Verified Allergy, Unknown, 01/08/20) A-FIB/CHADSVASC A-FIB History Current/History of A-Fib/PAF?: No Current PO Anticoag Therapy: No Age/Risk Factor Scoring CHADSVASC: CHADSVASC Response (Comments) Value Age Risk Factor Age < 65 years old 0 Gender Risk Factor Female 1 Hx of CHF Yes 1 Hx of HTN No 0 Hx of Stroke/TIA/or VTE No 0 Hx of Diabetes Yes 1 Hx of Vascular Disease Yes 1 Total 4 Treatment Treatment ordered: NONE Reason Anticoagulant not given: Not indicated/[email or web address] BENI MUNIZ MD Jan 08, 2020 16:15
[2020-01-08 17:53] LABS: C REACTIVE PROTEIN QUANTITATIV 8.61 MG/DL (0.00-0.30)
[2020-01-08] MEDS: NORCO, ANEXSIA 5/325MG TABLET (HYDROcodone/ACETAMINOPHEN) PO PRN (18:13)
[2020-01-08] MEDS: diazePAM 2 MG TAB PO PRN (18:47)
[2020-01-08] MEDS ORDERED: PROHANCE 279.3MG/ML 15ML VIAL As Ordered ONE (19:56)
[2020-01-08] MEDS ORDERED: PROHANCE 279.3MG/ML 5ML VIAL As Ordered ONE (19:56)
[2020-01-08] MEDS: POTASSIUM CHLORIDE 10 MEQ SR TABLET PO SCH (20:40)
[2020-01-08] MEDS: DULoxetine 30 MG CAP (CYMBALTA) PO SCH (20:40)
[2020-01-08] MEDS: MAGNESIUM OXIDE 400 MG TAB (MAG-OX) PO SCH (20:40)
[2020-01-08] MEDS: CYCLOBENZAPRINE 10MG TABLET PO SCH (20:40)
[2020-01-08] MEDS: CARVedilol 3.125 MG TAB PO SCH (20:41)
[2020-01-08] MEDS: GABAPENTIN 300 MG CAP PO SCH (20:42)
[2020-01-08] MEDS: ENOXAPARIN 40MG/0.4ML SYRINGE (J1650 PER 10MG) SC SCH (20:42)
[2020-01-08] MEDS: SODIUM CHLORIDE 1 GM TAB PO SCH (20:42)
[2020-01-08] MEDS: MORPHINE 15 MG SA TAB PO SCH (20:43)
--- NOTE | 2020-01-08 20:45 | REPVR ---
PROCEDURE INFORMATION: Exam: MR Left Lower Extremity Without and With Contrast, Tibia Fibula Exam date and time: 01/08/2020 8:22 PM Age: 54 years old Clinical indication: Condition or disease; Patient HX: Severe cellulitis, redness and swelling of lt tib. Fib, PT has HX of ulcers from diabetes; Additional info: Severe cellulitis for severity and depth of infection TECHNIQUE: Imaging protocol: MR of the Left lower extremity without and with contrast. Exam focused on the tibia and fibula. Contrast material: PROHANVE; Contrast volume: 20 ml; Contrast route: INTRAVENOUS (IV); COMPARISON: MRI-Knee WITHOUT CONTRAST 06/16/2013 9:08 AM FINDINGS: The examination is markedly limited by motion degradation. There is severe, diffuse, confluent subcutaneous edema with associated enhancement and overlying skin thickening. There is extensive cutaneous irregularity, most notably along the anterolateral and posteromedial aspect of the mid lower leg. There is mild edema along the superficial aspect of the medial gastrocnemius muscle belly. There is mild infiltration of the deep intramuscular fat planes in the posterior compartment. There is no convincing soft tissue gas. No acute tendon or ligament injury is identified. There is no MR evidence of acute fracture or dislocation. There are geographic areas of decreased T1 signal intensity and enhancement involving an approximately 16.8 cm long segment of the proximal tibial metadiaphysis, as well as a 2.5 cm long segment of the distal tibial metaphysis and epiphysis. There are similar findings in the fibula, measuring up to approximately 7 cm in length in the proximal metadiaphysis, 4.6 cm in the mid-diaphysis and 1.5 cm in the distal metaphysis. No convincing erosive or destructive changes are seen. IMPRESSION: 1. Markedly limited examination due to motion degradation. 2. Severe, diffuse cellulitis with mild myositis and fasciitis in the posterior compartment, as described above. No convincing organized collection. 3. Abnormal marrow signal and enhancement in the tibia and fibula, as described above. Acute osteomyelitis cannot be excluded. Electronically signed by: Joaquim Gutierrez On 01/08/2020 20:44:54 PM
[2020-01-08] MEDS: VANCOMYCIN HCL 1,000 MG, VIAL MATE ADAPTER 1 EACH in D5W 250 ML IV SCH (22:02)
[2020-01-09] MEDS: PIPERACILLIN/TAZOBACTAM SOD 3.375 GM in D5W MINI-BAG PLUS 50 ML IV SCH ×4 (00:13→18:30)
[2020-01-09] MEDS: FUROSEMIDE 40MG/4ML VIAL (J1940) IV SCH ×3 (00:13→16:33)
[2020-01-09] MEDS: NORCO, ANEXSIA 5/325MG TABLET (HYDROcodone/ACETAMINOPHEN) PO PRN ×4 (00:14→18:30)
[2020-01-09 06:00] VITALS: BP 133/64
[2020-01-09 06:35] LABS: HEMATOCRIT 27.6 % (36.0-47.0); HEMOGLOBIN 8.4 g/dl (12.0-15.5); MEAN CORPUSCULAR HEMOGLOBIN 35.3 pg (27.0-33.0); MEAN CORPUSCULAR HGB CONC 30.4 g/dl (32.0-36.5); PLATELET COUNT, AUTOMATED 217 10^3/uL (150-450); RED BLOOD COUNT 2.38 10^6/uL (4.00-5.40); WHITE BLOOD COUNT 4.4 10^3/uL (4.0-10.0)
[2020-01-09 07:03] LABS: BLOOD UREA NITROGEN 4 MG/DL (7-18); CALCIUM LEVEL 8.1 MG/DL (8.5-10.1); CARBON DIOXIDE LEVEL 35 MEQ/L (21-32); CHLORIDE LEVEL 97 MEQ/L (98-107); CREATININE FOR GFR 0.66 MG/DL (0.55-1.30); GLOMERULAR FILTRATION RATE > 60.0 (>51); GLUCOSE, FASTING 86 MG/DL (70-100); MAGNESIUM LEVEL 1.8 MG/DL (1.8-2.4); POTASSIUM SERUM 3.5 MEQ/L (3.5-5.1); SODIUM LEVEL 137 MEQ/L (136-145)
[2020-01-09] MEDS: GABAPENTIN 300 MG CAP PO SCH ×3 (08:01→21:36)
[2020-01-09] MEDS: VANCOMYCIN HCL 1,000 MG, VIAL MATE ADAPTER 1 EACH in D5W 250 ML IV SCH (08:01)
[2020-01-09] MEDS: NICOTINE 21MG/24HR 1 EA TRANSDERMAL TD SCH (08:01)
[2020-01-09] MEDS: POTASSIUM CHLORIDE 10 MEQ SR TABLET PO SCH (08:02)
[2020-01-09] MEDS: CALCIUM/VITAMIN D 500 MG TAB PO SCH (08:02)
[2020-01-09] MEDS: CYCLOBENZAPRINE 10MG TABLET PO SCH ×3 (08:02→21:37)
[2020-01-09] MEDS: CYANOCOBALAMIN 500 MCG TAB PO SCH (08:02)
[2020-01-09] MEDS: SODIUM CHLORIDE 1 GM TAB PO SCH (08:03)
[2020-01-09] MEDS: ASPIRIN 81 MG ENTERIC TAB PO SCH (08:03)
[2020-01-09] MEDS: MORPHINE 15 MG SA TAB PO SCH ×2 (08:03→21:37)
[2020-01-09] MEDS: MAGNESIUM OXIDE 400 MG TAB (MAG-OX) PO SCH ×3 (08:03→21:37)
[2020-01-09] MEDS: buPROPion **SR TABLET** (ZYBAN) 150MG PO SCH (08:03)
[2020-01-09] MEDS: FOLIC ACID 1 MG TAB PO SCH (08:03)
[2020-01-09] MEDS: DULoxetine 30 MG CAP (CYMBALTA) PO SCH ×2 (08:04→21:36)
[2020-01-09] MEDS: CARVedilol 3.125 MG TAB PO SCH ×2 (08:06→21:37)
[2020-01-09] MEDS ORDERED: POTASSIUM CHLORIDE 10 MEQ SR TABLET PO ONE (09:00)
--- NOTE | 2020-01-09 13:49 | IPNPDOC ---
Text Note Date of Service The patient was seen on 01/09/20. NOTE Subjective: Feels much better and responding well to lasix with robust UOP Objective: General: Pleasant, Cooperative, No Acute Distress Eye: PERRLA, Conjunctiva & lids normal, EOMI ENT: Atraumatic, Mucous membr. moist/pink Chest: CTAB without wheezing, rhonchi or crackles Heart: soft systolic murmur at RUSB, RRR, no gallops or rubs Abdomen: obese, distended with notable soft tissue edema, otherwise soft, normoactive sounds and nontender Extremities: bilateral LE pitting edema to thighs with lower abdominal all edema, all improving Skin: Nl turgor and temperature, multiple skin lesion on BLE, s/p R great toe amputation,multiple crusted wounds on LLE and dorsum of L foot with massive erythema of LLE from foot to knees. No weeping noted. LLE erythema border has NOT yet started receding, will monitor Neuro: CN2-12 intact, speech not dysarthric, moving all extremities Psych: AOx3 Laboratory Tests WBC 4.4 Hgb 8.4 platelets 217 na 137 K 3.5 Cr 0.66 Imaging: MRI LLE: 1. Markedly limited examination due to motion degradation. 2. Severe, diffuse cellulitis with mild myositis and fasciitis in the posterior compartment, as described above. No convincing organized collection. 3. Abnormal marrow signal and enhancement in the tibia and fibula, as described above. Acute osteomyelitis cannot be excluded. Assessment: 54yo W with a history of SLE, hypertension, obstructive sleep apnea on CPAP, COPD, history of diabetes mellitus, Charcot's, diastolic heart failure and alcohol use disorder who is being transferred from [facility] for persistent, worsening LLE cellulitis despite treatment with vancomycin for 3 days also with decompensated HF with volume overload. HFpEF: -continue lasix 40 Q8H -strict I/Os -daily weights -2g sodium diet and 2L/24h fluid restriction -EKG without evidence of ischemia -TTE pending LLE cellulits not improving on vanc despite 3d of therapy and wound swab culture showing mixed GPCs. -dc vanc since MRSA screen was negative, continue piptazo -MRI of LLE with no nec fasc however could not r/o osteomyelitis -Spoke with Dr. Morris, off for the rest of the week but will discuss progress with diuresis and abx and potential osteo tx plan -Repeat wound culture -Elevate LLE -Deferred DVT US as she just recently had them for the same problem and they were negative -wound consult History of chronic back adn LE pain: -continue home PRN norco, BID morphine, janneth BID, flexeril. COPD: no evidence of acute exacerbation - continue with home mdi therapies Nicotine dependence: -Patient reports that she is working on quitting and is now down to a little over one ppd and used to smoke at least 2 ppd -21mg nicotine patch Q24H Prior history of diabetes mellitus: resolved. A1c at [facility] was 5.5 -2g diet MICHELLE - continue CPAP per home script Psych meds: Anxiety, depression -continue bupropion, diazepam, cymbalta DVT prophylaxis - Lovenox CODE STATUS - FULL CODE VS,Fishbone, I+O VS, Fishbone, I+O Laboratory Tests 01/08/20 16:10 01/09/20 06:18 Vital Signs Date Time Temp Pulse Resp B/P (MAP) Pulse Ox O2 Delivery O2 Flow Rate FiO2 01/09/20 08:06 100 135/66 01/09/20 08:03 18 01/09/20 06:00 96.4 88 Room Air I&O- Last 24 Hours up to 6 AM 01/09/20 06:00 Intake Total 564 ml Output Total 1200 ml Balance -636 ml BENI MUNIZ MD Jan 09, 2020 09:00
[2020-01-09 14:00] VITALS: BP 135/66
--- NOTE | 2020-01-09 17:20 | ECGEPIP ---
[facility] Test Date: 2020-01-08 Pat Name: BEBA WHITEHEAD Department: Room: [place] [address] Gender: Female Head Shipper: ANNETTE : 1965 Requested By: BENI Davis Order Number: [id number] Reading MD: Sidney Monterroso Measurements Intervals [place] Rate: 97 P: 73 AK: 139 QRS: 33 QRSD: 95 T: 44 QT: 351 QTc: 447 Interpretive Statements SINUS RHYTHM WITH OCCASIONAL VENTRICULAR PREMATURE COMPLEXES WITH OCCASIONAL SUPRAVENTRICULAR PREMATURE COMPLEXES LOW QRS VOLTAGE IN EXTREMITY LEADS Compared to prior tracings in the system, PVCs and PACs are new Electronically Signed on 01-09-2020 17:20:48 EDT by Sidney Monterroso
[2020-01-09] MEDS ORDERED: POTASSIUM CHLORIDE 10 MEQ SR TABLET PO SCH (21:00)
[2020-01-09] MEDS: ENOXAPARIN 40MG/0.4ML SYRINGE (J1650 PER 10MG) SC SCH (21:38)
[2020-01-09] MEDS: diazePAM 2 MG TAB PO PRN (21:53)
[2020-01-09 22:00] VITALS: BP 115/58
[2020-01-10] MEDS: PIPERACILLIN/TAZOBACTAM SOD 3.375 GM in D5W MINI-BAG PLUS 50 ML IV SCH ×4 (00:14→17:02)
[2020-01-10] MEDS: NORCO, ANEXSIA 5/325MG TABLET (HYDROcodone/ACETAMINOPHEN) PO PRN ×3 (02:00→18:19)
[2020-01-10] MEDS: FUROSEMIDE 40MG/4ML VIAL (J1940) IV SCH ×3 (02:01→17:02)
[2020-01-10] MEDS: ACETAMINOPHEN TAB 650MG DOSE (2X325MG) PO PRN (03:08)
[2020-01-10 06:00] VITALS: BP 128/49
[2020-01-10 07:31] LABS: BLOOD UREA NITROGEN 4 MG/DL (7-18); CALCIUM LEVEL 8.1 MG/DL (8.5-10.1); CARBON DIOXIDE LEVEL 35 MEQ/L (21-32); CHLORIDE LEVEL 94 MEQ/L (98-107); CREATININE FOR GFR 0.89 MG/DL (0.55-1.30); GLOMERULAR FILTRATION RATE > 60.0 (>51); GLUCOSE, FASTING 108 MG/DL (70-100); POTASSIUM SERUM 3.1 MEQ/L (3.5-5.1); SODIUM LEVEL 135 MEQ/L (136-145)
[2020-01-10] MEDS: MAGNESIUM OXIDE 400 MG TAB (MAG-OX) PO SCH ×3 (08:51→20:45)
[2020-01-10] MEDS: CALCIUM/VITAMIN D 500 MG TAB PO SCH (08:51)
[2020-01-10] MEDS: DULoxetine 30 MG CAP (CYMBALTA) PO SCH ×2 (08:51→20:46)
[2020-01-10] MEDS: POTASSIUM CHLORIDE 10 MEQ SR TABLET PO SCH ×2 (08:51→20:45)
[2020-01-10] MEDS: NICOTINE 21MG/24HR 1 EA TRANSDERMAL TD SCH (08:51)
[2020-01-10] MEDS: GABAPENTIN 300 MG CAP PO SCH ×3 (08:51→20:45)
[2020-01-10] MEDS: FOLIC ACID 1 MG TAB PO SCH (08:52)
[2020-01-10] MEDS: CYANOCOBALAMIN 500 MCG TAB PO SCH (08:52)
[2020-01-10] MEDS: CARVedilol 3.125 MG TAB PO SCH ×2 (08:52→20:48)
[2020-01-10] MEDS: CYCLOBENZAPRINE 10MG TABLET PO SCH ×3 (08:52→20:46)
[2020-01-10] MEDS: MORPHINE 15 MG SA TAB PO SCH ×2 (08:52→20:47)
[2020-01-10] MEDS: buPROPion **SR TABLET** (ZYBAN) 150MG PO SCH (08:52)
[2020-01-10] MEDS: ASPIRIN 81 MG ENTERIC TAB PO SCH (08:53)
[2020-01-10] MEDS ORDERED: MAG SULF 1GM/100ML (MAG RUN) 1 GM in IV 1 EA IV ONE (09:00)
[2020-01-10 10:08] LABS: HEMATOCRIT 27.6 % (36.0-47.0); HEMOGLOBIN 8.3 g/dl (12.0-15.5); MEAN CORPUSCULAR HEMOGLOBIN 35.3 pg (27.0-33.0); MEAN CORPUSCULAR HGB CONC 30.1 g/dl (32.0-36.5); MEAN CORPUSCULAR VOLUME 117.4 fl (80.0-96.0); PLATELET COUNT, AUTOMATED 222 10^3/uL (150-450); RED BLOOD COUNT 2.35 10^6/uL (4.00-5.40); WHITE BLOOD COUNT 5.4 10^3/uL (4.0-10.0)
--- NOTE | 2020-01-10 11:07 | ECHO ---
DATE OF PROCEDURE: 01/09/2020 DATE OF : 1965 AGE: 54 REFERRING PROVIDER : Dr. Dana Suarez PATIENT LOCATION: Room 5150 REASON FOR THE STUDY: Congestive heart failure. 2D MEASUREMENTS: IVS: 1.4 cm LV: 4.2 cm LVPW: 1.3 cm LA: 4.9 cm Aorta: 2.8 cm IVC: 2.5 cm DOPPLER MEASUREMENTS: Peak velocity across the aortic valve: 1.7 meters per second Peak velocity across the LVOT: 0.8 meters per second Peak gradient across the aortic valve: 12 mmHg Mean gradient across the aortic valve: 6 mmHg Mitral E: 1.1, mitral A 0.87 with a ratio of 1.3 Maximum tricuspid valve velocity: 2.4 meters per second 2D COMMENTS: 1. Normal left ventricular size with mildly increased left ventricular wall thickness and a normal global left ventricular systolic function. The estimated left ventricular systolic ejection fraction is 60-65%. 2. Mildly enlarged left atrium. The right atrium and the right ventricle appear to be normal in size. There appeared to be mildly increased right ventricular free wall thickness. 3. The atrial septum appeared to be normal without evidence of defect or shunt. 4. Normal aortic root. 5. Trace pericardial effusion noted, no evidence of cardiac tamponade. 6. Mildly calcified aortic valve with minimally restricted leaflet motion. Moderately calcified mitral annulus with normal anterior mitral valve leaflet motion. Normal tricuspid valve and pulmonic valve. The proximal pulmonary artery branches were not well visualized. 7. The inferior vena cava was mildly enlarged, central venous pressure might be elevated. DOPPLER: It detects trace aortic regurgitation, mild tricuspid regurgitation, trace pulmonic regurgitation. The calculated pulmonary artery systolic pressure varies between 30-40 mmHg. Assessment of the left ventricular diastolic function appeared to be normal but may be artifactual in view of the mitral annulus calcification. IMPRESSION: 1. Normal global left ventricular systolic function with mild concentric left ventricular hypertrophy. Assessment of the left ventricular diastolic function appeared to be normal. 2. Aortic valve sclerosis with trace aortic regurgitation and trivial aortic stenosis. 3. Mildly enlarged left atrium, isolated. No evidence of mitral regurgitation. There is moderate mitral annulus calcification. 4. Mild tricuspid regurgitation with probably mild pulmonary hypertension. 5. There are features that may be related to elevated central venous pressure, the inferior vena cava was mildly enlarged. 6. Trace pericardial effusion, no evidence of cardiac tamponade. MTDD
--- NOTE | 2020-01-10 11:31 | IPNPDOC ---
Text Note Date of Service The patient was seen on 01/10/20. NOTE Subjective: Continues to respond well to lasix with robust UOP -Worried about increasingly left breast enlargement without any pain, reports that this is recent Objective: General: Pleasant, Cooperative, No Acute Distress Eye: PERRLA, Conjunctiva & lids normal, EOMI ENT: Atraumatic, Mucous membr. moist/pink Chest: CTAB without wheezing, rhonchi or crackles Heart: soft systolic murmur at RUSB, RRR, no gallops or rubs Abdomen: obese, distended with notable soft tissue edema, otherwise soft, normoactive sounds and nontender Extremities: bilateral LE pitting edema to thighs with lower abdominal all edema, all improving Skin: Nl turgor and temperature, multiple skin lesion on BLE, s/p R great toe amputation,multiple crusted wounds on LLE and dorsum of L foot with massive erythema of LLE from foot to knees. No weeping noted. LLE erythema border slightly receding Neuro: CN2-12 intact, speech not dysarthric, moving all extremities Psych: AOx3 Laboratory Tests AM CBC pending na 137 K 3.1 (repleting) Cr 0.89 Imaging: MRI LLE: 1. Markedly limited examination due to motion degradation. 2. Severe, diffuse cellulitis with mild myositis and fasciitis in the posterior compartment, as described above. No convincing organized collection. 3. Abnormal marrow signal and enhancement in the tibia and fibula, as described above. Acute osteomyelitis cannot be excluded. Assessment: 54yo W with a history of SLE, hypertension, obstructive sleep apnea on CPAP, COPD, history of diabetes mellitus, Charcot's, diastolic heart failure and alcohol use disorder who is being transferred from [facility] for persistent, worsening LLE cellulitis despite treatment with vancomycin for 3 days also with decompensated HF with volume overload. HFpEF: -continue lasix 40 Q8H -strict I/Os -daily weights -2g sodium diet and 2L/24h fluid restriction -EKG without evidence of ischemia -TTE read pending LLE cellulits not improving on vanc despite 3d of therapy and wound swab culture showing mixed GPCs. -dc vanc since MRSA screen was negative, continue piptazo, day 2 -MRI of LLE with no nec fasc however could not r/o osteomyelitis -Spoke with Dr. Alexandra, off for the rest of the week but will discuss progress with diuresis and abx, will update her about potential osteomyelitis? -Repeat wound culture pending -Elevate LLE -Deferred DVT US as she just recently had them for the same problem and they were negative -wound care consulted L breast enlargement: -breast US History of chronic back adn LE pain: -continue home PRN norco, BID morphine, janneth BID, flexeril. COPD: no evidence of acute exacerbation - continue with home mdi therapies Nicotine dependence: -Patient reports that she is working on quitting and is now down to a little over one ppd and used to smoke at least 2 ppd -21mg nicotine patch Q24H Prior history of diabetes mellitus: resolved. A1c at [facility] was 5.5 -2g diet MICHELLE - continue CPAP per home script Psych meds: Anxiety, depression -continue bupropion, diazepam, cymbalta DVT prophylaxis - Lovenox CODE STATUS - FULL CODE VS,Fishbone, I+O VS, Fishbone, I+O Laboratory Tests 01/10/20 06:30 Vital Signs Date Time Temp Pulse Resp B/P (MAP) Pulse Ox O2 Delivery O2 Flow Rate FiO2 01/10/20 06:00 98.3 89 18 128/49 (75) 86 Room Air I&O- Last 24 Hours up to 6 AM 01/10/20 06:00 Intake Total 2460 ml Output Total 2050 ml Balance 410 ml BENI MUNIZ MD Jan 10, 2020 07:51
[2020-01-10 14:00] VITALS: BP 122/52
--- NOTE | 2020-01-10 15:46 | REPVR ---
PROCEDURE INFORMATION: Exam: US Left Breast Limited Exam date and time: 01/10/2020 2:30 PM Age: 54 years old Clinical indication: Mass, lump, or swelling; Left; Patient HX: Swelling of lt lateral breast; Additional info: Enlarging breast, R/O abscess TECHNIQUE: Imaging protocol: Limited ultrasound of Left breast with image documentation, including axilla when performed. Exam focused on the search and evaluation for mass. COMPARISON: US BREAST U/S UNILATERAL LIMITED LEFT 04/21/2016 2:23 PM FINDINGS: Breast: No solid or cystic lesions. The area from 2:00 to 4:00 a.m. scanned. Other findings: The axilla was also scanned on the left demonstrating no abnormality. IMPRESSION: No evidence of abnormal fluid collection/abscess in the region scanned which was the 2 to 4 o'clock position. No left axillary abnormality. Please note this was not a diagnostic ultrasound for malignancy or for a mammographic follow-up. This was performed solely to rule out abscess in the 2-4 o'clock position as well as in the left axilla. Electronically signed by: Leo Andujar On 01/10/2020 15:46:24 PM
[2020-01-10] MEDS: ENOXAPARIN 40MG/0.4ML SYRINGE (J1650 PER 10MG) SC SCH (20:44)
[2020-01-10 22:00] VITALS: BP 120/57
[2020-01-11] MEDS: PIPERACILLIN/TAZOBACTAM SOD 3.375 GM in D5W MINI-BAG PLUS 50 ML IV SCH ×4 (00:24→17:52)
[2020-01-11] MEDS: NORCO, ANEXSIA 5/325MG TABLET (HYDROcodone/ACETAMINOPHEN) PO PRN ×4 (00:24→21:24)
[2020-01-11] MEDS: FUROSEMIDE 40MG/4ML VIAL (J1940) IV SCH ×3 (01:34→17:52)
[2020-01-11 06:00] VITALS: BP 127/69
[2020-01-11 07:25] LABS: HEMATOCRIT 27.2 % (36.0-47.0); HEMOGLOBIN 8.1 g/dl (12.0-15.5); MEAN CORPUSCULAR HEMOGLOBIN 34.8 pg (27.0-33.0); MEAN CORPUSCULAR HGB CONC 29.8 g/dl (32.0-36.5); PLATELET COUNT, AUTOMATED 197 10^3/uL (150-450); RED BLOOD COUNT 2.33 10^6/uL (4.00-5.40); WHITE BLOOD COUNT 3.9 10^3/uL (4.0-10.0)
[2020-01-11 07:29] LABS: MEAN CORPUSCULAR VOLUME 116.7 fl (80.0-96.0)
[2020-01-11 07:47] LABS: BLOOD UREA NITROGEN 5 MG/DL (7-18); CALCIUM LEVEL 8.3 MG/DL (8.5-10.1); CARBON DIOXIDE LEVEL 37 MEQ/L (21-32); CHLORIDE LEVEL 95 MEQ/L (98-107); CREATININE FOR GFR 0.84 MG/DL (0.55-1.30); GLOMERULAR FILTRATION RATE > 60.0 (>51); GLUCOSE, FASTING 92 MG/DL (70-100); MAGNESIUM LEVEL 2.1 MG/DL (1.8-2.4); NT-PRO BNP 2582 PG/ML (<125); POTASSIUM SERUM 3.3 MEQ/L (3.5-5.1); SODIUM LEVEL 136 MEQ/L (136-145)
[2020-01-11] MEDS: DULoxetine 30 MG CAP (CYMBALTA) PO SCH ×2 (09:00→20:37)
[2020-01-11] MEDS: ASPIRIN 81 MG ENTERIC TAB PO SCH (09:00)
[2020-01-11] MEDS: CALCIUM/VITAMIN D 500 MG TAB PO SCH (09:00)
[2020-01-11] MEDS: buPROPion **SR TABLET** (ZYBAN) 150MG PO SCH (09:00)
[2020-01-11] MEDS: CYANOCOBALAMIN 500 MCG TAB PO SCH (09:00)
[2020-01-11] MEDS: MORPHINE 15 MG SA TAB PO SCH ×2 (09:00→20:38)
[2020-01-11] MEDS: NICOTINE 21MG/24HR 1 EA TRANSDERMAL TD SCH (09:01)
[2020-01-11] MEDS: FOLIC ACID 1 MG TAB PO SCH (09:01)
[2020-01-11] MEDS: CARVedilol 3.125 MG TAB PO SCH ×2 (09:01→20:42)
[2020-01-11] MEDS: POTASSIUM CHLORIDE 10 MEQ SR TABLET PO SCH ×2 (09:01→20:37)
[2020-01-11] MEDS: MAGNESIUM OXIDE 400 MG TAB (MAG-OX) PO SCH ×3 (09:01→20:36)
[2020-01-11] MEDS: GABAPENTIN 300 MG CAP PO SCH ×3 (09:01→20:37)
[2020-01-11] MEDS: CYCLOBENZAPRINE 10MG TABLET PO SCH ×3 (09:01→20:36)
--- NOTE | 2020-01-11 11:45 | IPNPDOC ---
Text Note Date of Service The patient was seen on 01/11/20. NOTE Subjective: -has mild left breast and axillary pain Objective: General: Pleasant, Cooperative, No Acute Distress Eye: PERRLA, Conjunctiva & lids normal, EOMI ENT: Atraumatic, Mucous membr. moist/pink Chest: CTAB without wheezing, rhonchi or crackles Heart: soft systolic murmur at RUSB, RRR, no gallops or rubs Abdomen: obese, distended with notable soft tissue edema, otherwise soft, no rmoactive sounds and nontender Extremities: bilateral LE pitting edema to thighs with lower abdominal all edema, all improving Skin: Nl turgor and temperature, multiple skin lesion on BLE, s/p R great toe amputation,multiple crusted wounds on LLE and dorsum of L foot with massive erythema of LLE from foot to knees. No weeping noted. LLE erythema improving, skin now sloughing off. Neuro: CN2-12 intact, speech not dysarthric, moving all extremities Psych: AOx3 Laboratory Tests WBC 3.9 Hgb 8.1 platelets 197 na 136 K 3.3 (repletion ordered) Cr 0.84 Mag 2.1 Imaging: MRI LLE: 1. Markedly limited examination due to motion degradation. 2. Severe, diffuse cellulitis with mild myositis and fasciitis in the posterior compartment, as described above. No convincing organized collection. 3. Abnormal marrow signal and enhancement in the tibia and fibula, as described above. Acute osteomyelitis cannot be excluded. L breast US: No noted fluid collection or abscess at position of swelling. TTE: 1. Normal global left ventricular systolic function with mild concentric left ventricular hypertrophy. Assessment of the left ventricular diastolic function appeared to be normal. 2. Aortic valve sclerosis with trace aortic regurgitation and trivial aortic stenosis. 3. Mildly enlarged left atrium, isolated. No evidence of mitral regurgitation. There is moderate mitral annulus calcification. 4. Mild tricuspid regurgitation with probably mild pulmonary hypertension. 5. There are features that may be related to elevated central venous pressure, the inferior vena cava was mildly enlarged. 6. Trace pericardial effusion, no evidence of cardiac tamponade. Assessment: 54yo W with a history of SLE, hypertension, obstructive sleep apnea on CPAP, COPD, history of diabetes mellitus, Charcot's, diastolic heart failure and alcohol use disorder who is being transferred from [facility] for persistent, worsening LLE cellulitis despite treatment with vancomycin for 3 days also with with volume overload. acute on chronic HFpEF: -change lasix to 60 IV Q6H -strict I/Os -daily weights -2g sodium diet and 2L/24h fluid restriction -EKG without evidence of ischemia -TTE with LVH but normal EF, with an elevated CVP and no WMA or severe valvular insufficiency LLE cellulits not improving on vanc despite 3d of therapy and wound swab culture showing mixed GPCs. -dc vanc since MRSA screen was negative, continue piptazo, day 3 -MRI of LLE with no nec fasc however could not r/o osteomyelitis -Spoke with Dr. Morris, off for the rest of the week but will discuss progress with diuresis and abx, will update her about potential osteomyelitis? -Repeat wound culture pending -Elevate LLE -Deferred DVT US as she just recently had them for the same problem and they were negative -wound care consulted L breast enlargement: -breast US without evidence of collection or abscess, monitor -History of L breast discharge and fibrocystic changes. Will recommend mammography because it has been a few years since the last one. History of chronic back and LE pain: -continue home PRN norco, BID morphine, janneth BID, flexeril. COPD: no evidence of acute exacerbation - continue with home mdi therapies Nicotine dependence: -Patient reports that she is working on quitting and is now down to a little over one ppd and used to smoke at least 2 ppd -21mg nicotine patch Q24H Prior history of diabetes mellitus: resolved. A1c at [facility] was 5.5 -2g diet MICHELLE - continue CPAP per home script Psych meds: Anxiety, depression -continue bupropion, diazepam, cymbalta DVT prophylaxis - Lovenox CODE STATUS - FULL CODE VS,Fishbone, I+O VS, Fishbone, I+O Vital Signs Date Time Temp Pulse Resp B/P (MAP) Pulse Ox O2 Delivery O2 Flow Rate FiO2 01/11/20 06:36 16 01/10/20 22:00 98.3 91 120/57 (78) 93 Room Air I&O- Last 24 Hours up to 6 AM 01/11/20 06:00 Intake Total 1350 ml Output Total 1601 ml Balance -251 ml BENI MUNIZ MD Jan 11, 2020 07:23
[2020-01-11 14:00] VITALS: BP 94/52
[2020-01-11] MEDS ORDERED: diphenhydrAMINE 50MG/ML VIAL (J1200) IM PRN (15:15)
[2020-01-11] MEDS: diphenhydrAMINE 25MG CAP PO PRN ×2 (15:46→20:36)
[2020-01-11] MEDS: ENOXAPARIN 40MG/0.4ML SYRINGE (J1650 PER 10MG) SC SCH (20:37)
[2020-01-11 22:00] VITALS: BP 101/49
[2020-01-12] MEDS: PIPERACILLIN/TAZOBACTAM SOD 3.375 GM in D5W MINI-BAG PLUS 50 ML IV SCH ×5 (00:04→23:15)
[2020-01-12] MEDS: FUROSEMIDE 40MG/4ML VIAL (J1940) IV SCH (00:05)
[2020-01-12] MEDS: diazePAM 2 MG TAB PO PRN ×2 (01:27→23:15)
[2020-01-12] MEDS: NORCO, ANEXSIA 5/325MG TABLET (HYDROcodone/ACETAMINOPHEN) PO PRN ×3 (03:27→18:50)
[2020-01-12 05:33] LABS: HEMATOCRIT 27.1 % (36.0-47.0); HEMOGLOBIN 8.2 g/dl (12.0-15.5); MEAN CORPUSCULAR HEMOGLOBIN 35.3 pg (27.0-33.0); MEAN CORPUSCULAR HGB CONC 30.3 g/dl (32.0-36.5); PLATELET COUNT, AUTOMATED 191 10^3/uL (150-450); RED BLOOD COUNT 2.32 10^6/uL (4.00-5.40); WHITE BLOOD COUNT 4.9 10^3/uL (4.0-10.0)
[2020-01-12 05:37] LABS: MEAN CORPUSCULAR VOLUME 116.8 fl (80.0-96.0)
[2020-01-12 05:55] LABS: CALCIUM LEVEL 8.5 MG/DL (8.5-10.1); CREATININE FOR GFR 1.11 MG/DL (0.55-1.30); POTASSIUM SERUM 4.1 MEQ/L (3.5-5.1)
[2020-01-12] MEDS: GABAPENTIN 300 MG CAP PO SCH ×3 (08:35→21:15)
[2020-01-12] MEDS: CALCIUM/VITAMIN D 500 MG TAB PO SCH (08:35)
[2020-01-12] MEDS: CARVedilol 3.125 MG TAB PO SCH ×2 (08:35→21:16)
[2020-01-12] MEDS: CYCLOBENZAPRINE 10MG TABLET PO SCH ×3 (08:35→21:15)
[2020-01-12] MEDS: ASPIRIN 81 MG ENTERIC TAB PO SCH (08:35)
[2020-01-12] MEDS: DULoxetine 30 MG CAP (CYMBALTA) PO SCH ×2 (08:36→21:14)
[2020-01-12] MEDS: MORPHINE 15 MG SA TAB PO SCH ×2 (08:36→21:16)
[2020-01-12] MEDS: NICOTINE 21MG/24HR 1 EA TRANSDERMAL TD SCH (08:36)
[2020-01-12] MEDS: CYANOCOBALAMIN 500 MCG TAB PO SCH (08:36)
[2020-01-12] MEDS: MAGNESIUM OXIDE 400 MG TAB (MAG-OX) PO SCH ×3 (08:36→21:15)
[2020-01-12] MEDS: FOLIC ACID 1 MG TAB PO SCH (08:36)
[2020-01-12] MEDS: buPROPion **SR TABLET** (ZYBAN) 150MG PO SCH (08:46)
[2020-01-12] MEDS ORDERED: FUROSEMIDE 40 MG TAB PO SCH (09:00)
[2020-01-12 14:00] VITALS: BP 116/86
[2020-01-12] MEDS: ACETAMINOPHEN TAB 650MG DOSE (2X325MG) PO PRN (15:43)
[2020-01-12] MEDS: FUROSEMIDE 40 MG TAB PO SCH (18:46)
[2020-01-12] MEDS: diphenhydrAMINE 25MG CAP PO PRN (21:14)
[2020-01-12] MEDS: ENOXAPARIN 40MG/0.4ML SYRINGE (J1650 PER 10MG) SC SCH (21:15)
[2020-01-12 22:00] VITALS: BP 127/63
[2020-01-13] MEDS: NORCO, ANEXSIA 5/325MG TABLET (HYDROcodone/ACETAMINOPHEN) PO PRN ×3 (00:24→16:37)
[2020-01-13] MEDS: diphenhydrAMINE 25MG CAP PO PRN ×3 (03:55→21:51)
[2020-01-13] MEDS: PIPERACILLIN/TAZOBACTAM SOD 3.375 GM in D5W MINI-BAG PLUS 50 ML IV SCH (05:25)
[2020-01-13 06:00] VITALS: BP 124/64
[2020-01-13 07:34] LABS: HEMATOCRIT 27.3 % (36.0-47.0); HEMOGLOBIN 8.3 g/dl (12.0-15.5); MEAN CORPUSCULAR HEMOGLOBIN 35.8 pg (27.0-33.0); MEAN CORPUSCULAR HGB CONC 30.4 g/dl (32.0-36.5); PLATELET COUNT, AUTOMATED 205 10^3/uL (150-450); RED BLOOD COUNT 2.32 10^6/uL (4.00-5.40); WHITE BLOOD COUNT 4.3 10^3/uL (4.0-10.0)
[2020-01-13 07:45] LABS: MEAN CORPUSCULAR VOLUME 117.7 fl (80.0-96.0)
[2020-01-13 07:55] LABS: CALCIUM LEVEL 8.5 MG/DL (8.5-10.1); CREATININE FOR GFR 1.13 MG/DL (0.55-1.30); GLOMERULAR FILTRATION RATE 53.8 (>51); POTASSIUM SERUM 3.9 MEQ/L (3.5-5.1)
[2020-01-13] MEDS ORDERED: VANCOMYCIN HCL 500 MG in D5W MINI-BAG PLUS 100 ML IV SCH (09:00)
--- NOTE | 2020-01-13 09:28 | PHACANCOPD ---
PHARMACY VANCOMYCIN DOSING Pt Demographics Demographics Patient Age:54 , Weight:101.700 , Gender: female Adjusted Body Weight Date: 01/13/20, Adjusted Body Weight: [73.5] Kg Events Past 24 Hours Events Past 24 Hours: NO: Dialysis, Diuretic Therapy, Change in CrCl, Fever, Elevation in WBC, Pending Diagnostics, Pending Procedures, Other Vancomycin Vancomycin indication: WOUND INFECTION Vancomycin Target Ranges: 10-20 mcg/ml Vancomycin Load Y/N: Yes Load Dose Date Time Vancomycin Load Dose: 2G Date:01/13/20 Time:10:00 Vancomycin Dose Date: 01/13/20. Current Vancomycin Dose: [1G IV Q12H] Intermittent Dosing?: No Labs Labs Item Value Date Time White Blood Count 4.9 10^3/uL 01/12/20 0518 White Blood Count 4.3 10^3/uL 01/13/20 0700 Creatinine 0.84 MG/DL 01/11/20 0648 Creatinine 1.11 MG/DL 01/12/20 0518 Creatinine 1.13 MG/DL 01/13/20 0700 Vancomycin Level Trough 15.6 UG/ML 01/08/20 203 Micro Microbiology 01/09/20 Wound Culture - Final, Complete Staphylococcus Sp Coag Neg 01/08/20 Blood Culture - Preliminary, Resulted No Growth after 72 hours. All specime... 01/08/20 Blood Culture - Preliminary, Resulted No Growth after 72 hours. All specime... Creatinine Clearance Date:01/13/20. Creatinine Clearance: [67ML/MIN ADJ.BW]. Pending Labs VANCOMYCIN TROUGH 01/14/20 @21:00 Assessment and Plan Maintaining Current Dose?: Yes Reason for dose change: No Dose Change Pharmacist Note Pharmacist Note Date: 01/13/20. Pharmacist note: Pt is a 54 year old female being treated for a wound infection goal trough 10-20mcg/ml. The patient last received vancomycin 01/08/20. To achieve goal the patient will receive a 2g loading dose 01/13/20 @10:00. Maintenance therapy will consist of 1g IV every 12 hours. A trough is scheduled for 01/14/20 @21:00. We will continue to monitor and adjust the dose as needed. [facility] Jan 13, 2020 09:28
[2020-01-13] MEDS: DULoxetine 30 MG CAP (CYMBALTA) PO SCH ×2 (09:44→21:52)
[2020-01-13] MEDS: ASPIRIN 81 MG ENTERIC TAB PO SCH (09:44)
[2020-01-13] MEDS: MAGNESIUM OXIDE 400 MG TAB (MAG-OX) PO SCH ×3 (09:44→21:51)
[2020-01-13] MEDS: GABAPENTIN 300 MG CAP PO SCH ×3 (09:44→21:51)
[2020-01-13] MEDS: FOLIC ACID 1 MG TAB PO SCH (09:45)
[2020-01-13] MEDS: CYCLOBENZAPRINE 10MG TABLET PO SCH ×3 (09:45→21:51)
[2020-01-13] MEDS: CYANOCOBALAMIN 500 MCG TAB PO SCH (09:45)
[2020-01-13] MEDS: FUROSEMIDE 40 MG TAB PO SCH ×2 (09:45→17:00)
[2020-01-13] MEDS: CALCIUM/VITAMIN D 500 MG TAB PO SCH (09:45)
[2020-01-13] MEDS: buPROPion **SR TABLET** (ZYBAN) 150MG PO SCH (09:45)
[2020-01-13] MEDS: VANCOMYCIN HCL 1,000 MG, VIAL MATE ADAPTER 1 EACH in D5W 250 ML IV SCH ×2 (09:46→22:09)
[2020-01-13] MEDS: NICOTINE 21MG/24HR 1 EA TRANSDERMAL TD SCH (09:46)
[2020-01-13] MEDS: CARVedilol 3.125 MG TAB PO SCH ×2 (09:49→21:52)
[2020-01-13] MEDS ORDERED: VANCOMYCIN HCL 1,000 MG, VIAL MATE ADAPTER 1 EACH in D5W 250 ML IV ONE (11:00)
[2020-01-13] MEDS: MORPHINE 15 MG SA TAB PO SCH ×2 (11:08→21:52)
[2020-01-13 14:00] VITALS: BP 131/68
--- NOTE | 2020-01-13 18:57 | IPNPDOC ---
Date Seen The patient was seen on 01/13/20. Progress Note SUBJECTIVE: Improved redness. Discussed case with ortho, Dr. Bhatia who also cannot r/o osteomyelitis on films- poor quality. Recommending discussion with interventional radiology to see if good enough quality for biopsy of bone. Infectious disease is not available this week. US breast neg for abscess ;however, patient is being advised to f/u with mammogram after discharge. Denies fevers, chills, n/v/d, shortness of breath, chest pain. OBJECTIVE: VITAL SIGNS: Please see below PHYSICAL EXAM: General: NAD, resting sitting up in bed, at times tearful. Eye: PERRLA, Conjunctiva & lids normal, EOMI ENT: Atraumatic, Mucous membr. moist/pink Chest: CTAB without wheezing, rhonchi or crackles Breast: Deferred Heart: soft systolic murmur at RUSB, RRR, no gallops or rubs Abdomen: obese, distended with notable soft tissue edema, otherwise soft, normoactive sounds and nontender Extremities: bilateral LE pitting edema to thighs with lower abdominal all edema, all improving Skin: Nl turgor and temperature, multiple skin lesion on BLE, s/p R great toe amputation, well healed scars. Mulitple scabbed and crusted wounds on LLE and dorsum of L foot with continued erythema of LLE from foot to knees. No weeping noted. Overall improved from admission Neuro: CN2-12 intact, speech not dysarthric, moving all extremities Psych: AOx3 LABORATORY: Please see below Imaging: MRI LLE: 1. Markedly limited examination due to motion degradation. 2. Severe, diffuse cellulitis with mild myositis and fasciitis in the posterior compartment, as described above. No convincing organized collection. 3. Abnormal marrow signal and enhancement in the tibia and fibula, as described above. Acute osteomyelitis cannot be excluded. L breast US: No noted fluid collection or abscess at position of swelling. TTE: 1. Normal global left ventricular systolic function with mild concentric left ventricular hypertrophy. Assessment of the left ventricular diastolic function appeared to be normal. 2. Aortic valve sclerosis with trace aortic regurgitation and trivial aortic stenosis. 3. Mildly enlarged left atrium, isolated. No evidence of mitral regurgitation. There is moderate mitral annulus calcification. 4. Mild tricuspid regurgitation with probably mild pulmonary hypertension. 5. There are features that may be related to elevated central venous pressure, the inferior vena cava was mildly enlarged. 6. Trace pericardial effusion, no evidence of cardiac tamponade. Assessment: 54yo W with a history of SLE, hypertension, obstructive sleep apnea on CPAP, COPD, history of diabetes mellitus, Charcot's, diastolic heart failure and alcohol use disorder who is being transferred from [facility] for persistent, worsening LLE cellulitis despite treatment with vancomycin for 3 da ys also with with volume overload. LLE cellulitis cannot r/o osteomyelitis. Previously failed Vancomycin (3 days) and wound swab culture showing Staph coag neg, RIVKA 1 sensitive to Vancomycin. -MRI LLE above -Deferred DVT US as she just recently had them for the same problem and they were negative -wound care consulted -Discussed with orthopedic surgery, MRI poor quality. Will discuss with inter vention radiolology to see if they can also review MRI to give input. If need better imaging, possibly nuclear bone scan and bone biopsy. Acute on chronic HFpEF: -+ fluid balance over 24 hrs -EKG without evidence of ischemia -TTE with LVH but normal EF, with an elevated CVP and no WMA or severe valvular insufficiency -C/w lasix to 40 IV Q6H -strict I/Os -daily weights -2g sodium diet and 2L/24h fluid restriction L breast enlargement: -breast US without evidence of collection or abscess, monitor -History of L breast discharge and fibrocystic changes. Recommend o/p mammogram. History of chronic back and LE pain: -continue home PRN norco, BID morphine, janneth BID, flexeril. COPD: no evidence of acute exacerbation - continue with home mdi therapies Nicotine dependence: -21mg nicotine patch Q24H Prior history of diabetes mellitus: resolved. A1c at [facility] was 5.5 -2g diet MICHELLE - continue CPAP per home script Psych meds: Anxiety, depression -continue bupropion, diazepam, cymbalta DVT prophylaxis - Lovenox DISPOSITION: TB with IR in the AM to discuss case. Ortho to see patient. Plan is discharge home when medically improved. VS, I&O, 24H, Fishbone Vital Signs/I&O Vital Signs Date Time Temp Pulse Resp B/P (MAP) Pulse Ox O2 Delivery O2 Flow Rate FiO2 01/13/20 16:37 18 01/13/20 14:00 98.6 74 131/68 (89) 89 Room Air I&O- Last 24 Hours up to 6 AM 01/13/20 06:00 Intake Total 1630 ml Balance 1630 ml Laboratory Data 24H LABS Laboratory Tests 2 01/13/20 07:00: Nucleated Red Blood Cells % (auto) 0.0, Anion Gap 5L, Glomerular Filtration Rate 53.8, Calcium Level 8.5 CBC/BMP Laboratory Tests 01/13/20 07:00 Microbiology Microbiology 01/09/20 Wound Culture - Final, Complete Staphylococcus Sp Coag Neg 01/08/20 Blood Culture - Final, Complete NO GROWTH AFTER 5 DAYS 01/08/20 Blood Culture - Final, Complete NO GROWTH AFTER 5 DAYS Current Medications Current Medications Medications (Trade) Dose Ordered Sig/Nereida Route PRN Reason Start Time Stop Time Status Last Admin Dose Admin Acetaminophen (Tylenol Tab) 650 mg Q4H PRN PO PAIN OR FEVER 01/08/20 16:00 01/12/20 15:43 Acetaminophen/ Hydrocodone Bitart ([place], Anexsia 5/325) 2 tab Q6HP PRN PO SEVERE PAIN (PS 8-10) 01/08/20 17:30 01/13/20 16:37 Albuterol Sulfate (Proventil, Ventolin Hfa) 2 puff QIDP PRN INH SHORTNESS OF BREATH 01/08/20 17:30 Aspirin (Ecotrin) 81 mg DAILY PO 01/09/20 09:00 01/13/20 09:44 Budesonide (Pulmicort) 0.5 mg BIDP PRN INH SHORTNESS OF BREATH 01/08/20 17:30 Bupropion HCl (Zyban, Wellbutrin Sr) 150 mg DAILY PO 01/09/20 09:00 01/13/20 09:45 Calcium/Vitamin D (Oscal D) 500 mg DAILY PO 01/09/20 09:00 01/13/20 09:45 Carvedilol (COReg) 3.125 mg BID PO 01/08/20 21:00 01/13/20 09:49 Cyanocobalamin (Vitamin B12) 1,000 mcg DAILY PO 01/09/20 09:00 01/13/20 09:45 Cyclobenzaprine HCl (Flexeril) 10 mg TID PO 01/08/20 21:00 01/13/20 16:33 Diazepam (Valium) 2 mg BIDP PRN PO ANXIETY 01/08/20 17:30 01/12/20 23:15 Diphenhydramine HCl (Benadryl) 25 mg Q4HP PRN PO ITCHING 01/11/20 15:30 01/13/20 16:41 Diphenhydramine HCl (Benadryl) 25 mg Q6HP PRN IM itching 01/11/20 15:15 01/11/20 15:26 DC Duloxetine HCl (Cymbalta) 60 mg BID PO 01/08/20 21:00 01/13/20 09:44 Enoxaparin Sodium (Lovenox) 40 mg DAILY@2100 SC 01/08/20 21:00 01/12/20 21:15 Folic Acid (Folic Acid) 1 mg DAILY PO 01/09/20 09:00 01/13/20 09:45 Furosemide (LASIX injection) 40 mg Q8H IV 01/08/20 17:00 01/12/20 06:30 DC 01/12/20 00:05 Furosemide (Lasix) 40 mg BID@0900,1700 PO 01/12/20 17:00 01/13/20 09:45 Furosemide (Lasix) 40 mg DAILY PO 01/12/20 09:00 01/12/20 17:50 DC 01/12/20 08:35 Gabapentin (Neurontin) 600 mg DAILY@1200 PO 01/09/20 12:00 01/13/20 12:18 Gabapentin (Neurontin) 900 mg BID PO 01/08/20 21:00 01/13/20 09:44 Home Med (Med Rec Complete!) ASDIRECTED XX 01/08/20 16:45 01/08/20 16:42 DC Magnesium Oxide (Mag-Ox) 400 mg TID PO 01/08/20 21:00 01/13/20 16:33 Morphine Sulfate (Ms Contin) 15 mg Q12H PO 01/08/20 21:00 01/13/20 11:08 Nicotine (Nicoderm Cq 21mg) 1 patch DAILY TD 01/09/20 09:00 01/13/20 09:46 Ondansetron HCl (Zofran) 4 mg Q4H PRN PO NAUSEA OR VOMITING 01/08/20 17:30 Piperacillin Sod/ Tazobactam Sod 3.375 gm/Dextrose 50 ml @ 50 mls/hr Q6H IV 01/08/20 18:00 01/13/20 08:53 DC 01/13/20 05:25 Potassium Chloride (Micro-K Extencaps) 10 meq BID PO 01/08/20 21:00 01/09/20 08:33 DC 01/09/20 08:02 Potassium Chloride (Micro-K Extencaps) 20 meq BID PO 01/09/20 21:00 01/10/20 07:41 DC 01/09/20 21:36 Potassium Chloride (Micro-K Extencaps) 40 meq BID PO 01/10/20 09:00 01/12/20 06:31 DC 01/11/20 20:37 Sodium Chloride (Sodium Chloride) 1 gm BID PO 01/08/20 21:00 01/09/20 08:47 DC Vancomycin HCl 500 mg/Dextrose 110 ml @ 110 mls/hr Q8H IV 01/13/20 09:00 01/13/20 09:06 DC Vancomycin HCl 1000 mg/IV Miscellaneous Supplies 20 ml @ 20 mls/hr Q12H IV 01/08/20 17:00 01/08/20 16:58 DC Vancomycin HCl 1000 mg/IV Miscellaneous Supplies 1 each/ Dextrose 270 ml @ 270 mls/hr Q12H IV 01/08/20 20:00 01/09/20 08:35 DC 01/09/20 08:01 Vancomycin HCl 1000 mg/IV Miscellaneous Supplies 1 each/ Dextrose 270 ml @ 270 mls/hr Q12H IV 01/13/20 10:00 01/13/20 09:46 Allergies Coded Allergies: aspartame (Verified Allergy, Unknown, 01/08/20) SUGAR SUBSTITUTE shellfish derived (Verified Allergy, Unknown, 01/08/20) Kimberly Stevens MD Jan 13, 2020 18:57
[2020-01-13] MEDS: FUROSEMIDE 40MG/4ML VIAL (J1940) IV SCH (20:16)
[2020-01-13] MEDS: ENOXAPARIN 40MG/0.4ML SYRINGE (J1650 PER 10MG) SC SCH (21:51)
[2020-01-13] MEDS: diazePAM 2 MG TAB PO PRN (21:52)
[2020-01-13 22:00] VITALS: BP 104/80
[2020-01-14] MEDS: NORCO, ANEXSIA 5/325MG TABLET (HYDROcodone/ACETAMINOPHEN) PO PRN ×4 (00:15→21:43)
[2020-01-14] MEDS ORDERED: MAALOX 30 ML SUSP *UDC PO PRN (00:45)
[2020-01-14] MEDS: ACETAMINOPHEN TAB 650MG DOSE (2X325MG) PO PRN (04:39)
[2020-01-14] MEDS: diphenhydrAMINE 25MG CAP PO PRN ×2 (04:57→18:49)
[2020-01-14 05:43] LABS: HEMATOCRIT 29.4 % (36.0-47.0); HEMOGLOBIN 8.9 g/dl (12.0-15.5); MEAN CORPUSCULAR HGB CONC 30.3 g/dl (32.0-36.5); PLATELET COUNT, AUTOMATED 223 10^3/uL (150-450); RED BLOOD COUNT 2.54 10^6/uL (4.00-5.40); WHITE BLOOD COUNT 4.2 10^3/uL (4.0-10.0)
[2020-01-14 05:51] LABS: MEAN CORPUSCULAR VOLUME 115.7 fl (80.0-96.0)
[2020-01-14 06:00] VITALS: BP 109/78
[2020-01-14 06:11] LABS: ALBUMIN 2.6 GM/DL (3.2-5.2); ALT/SGPT 10 U/L (12-78); BILIRUBIN,TOTAL 1.3 MG/DL (0.2-1.0); BLOOD UREA NITROGEN 6 MG/DL (7-18); CALCIUM LEVEL 8.9 MG/DL (8.5-10.1); CARBON DIOXIDE LEVEL 34 MEQ/L (21-32); CHLORIDE LEVEL 96 MEQ/L (98-107); CREATININE FOR GFR 1.01 MG/DL (0.55-1.30); GLOMERULAR FILTRATION RATE > 60.0 (>51); GLUCOSE, FASTING 124 MG/DL (70-100); POTASSIUM SERUM 3.8 MEQ/L (3.5-5.1); SODIUM LEVEL 133 MEQ/L (136-145); TOTAL PROTEIN 7.3 GM/DL (6.4-8.2)
[2020-01-14] MEDS: VANCOMYCIN HCL 1,000 MG, VIAL MATE ADAPTER 1 EACH in D5W 250 ML IV SCH ×2 (10:17→21:58)
[2020-01-14] MEDS: MAGNESIUM OXIDE 400 MG TAB (MAG-OX) PO SCH ×3 (10:18→21:43)
[2020-01-14] MEDS: CYCLOBENZAPRINE 10MG TABLET PO SCH ×3 (10:18→21:41)
[2020-01-14] MEDS: GABAPENTIN 300 MG CAP PO SCH ×3 (10:18→21:44)
[2020-01-14] MEDS: buPROPion **SR TABLET** (ZYBAN) 150MG PO SCH (10:18)
[2020-01-14] MEDS: ASPIRIN 81 MG ENTERIC TAB PO SCH (10:19)
[2020-01-14] MEDS: FUROSEMIDE 40MG/4ML VIAL (J1940) IV SCH ×2 (10:19→21:44)
[2020-01-14] MEDS: NICOTINE 21MG/24HR 1 EA TRANSDERMAL TD SCH (10:19)
[2020-01-14] MEDS: DULoxetine 30 MG CAP (CYMBALTA) PO SCH ×2 (10:19→21:42)
[2020-01-14] MEDS: FOLIC ACID 1 MG TAB PO SCH (10:20)
[2020-01-14] MEDS: CALCIUM/VITAMIN D 500 MG TAB PO SCH (10:20)
[2020-01-14] MEDS: CYANOCOBALAMIN 500 MCG TAB PO SCH (10:20)
[2020-01-14] MEDS: MORPHINE 15 MG SA TAB PO SCH ×2 (10:22→21:44)
[2020-01-14] MEDS: CARVedilol 3.125 MG TAB PO SCH ×2 (10:22→21:42)
--- NOTE | 2020-01-14 10:23 | REP ---
LEFT TIB/FIB SERIES: Four views. HISTORY: Rule out osteomyelitis left lower extremity. Comparison MRI study January 08, 2020. FINDINGS: Four views of the left tibia and fibula demonstrate some vascular calcification in the popliteal artery. There is minimal patellar spurring. Plantar calcaneal spurring is noted. There is osteoarthritis at the ankle and midfoot with apparent collapse of the tarsal arch. This is compatible with neuropathic arthropathy of the midfoot. No acute fracture is seen. Bones, joints and soft tissues are otherwise unremarkable. There is no evidence of periosteal reaction or radiolucency in the tibia or fibula to suggest osteomyelitis. IMPRESSION: No evidence to suggest osteomyelitis. There is osteoarthritis at the ankle and evidence of neuropathic arthropathy of the midfoot with collapse of the tarsal arch seen at the edge of the field of view on the lateral radiograph. Heel spur. Vascular calcification. Electronically Signed by Catrachito Herron MD 01/14/2020 10:56 A
--- NOTE | 2020-01-14 15:36 | CR ---
DATE OF CONSULTATION: 01/14/2020 CHIEF COMPLAINT: Left lower extremity cellulitis. HISTORY OF PRESENT ILLNESS: 54-year-old female with complex medical history including systemic lupus erythematous (SLE) and diabetes was consulted to me for consideration of a bone biopsy and possible lower extremity osteomyelitis. The patient states that since Sunday now about 5 days ago, she developed increasing redness, swelling, warmth her left lower extremity. Since that time since starting vancomycin about 3 days ago, the swelling, she states has gone down as well as the redness. She showed me pictures and dated, seems to be getting better. MRI was performed of her lower extremity. They cannot rule out osteomyelitis and as such I was consulted by the hospitalist service. PAST MEDICAL HISTORY: Includes Systemic lupus erythematous, SLE). Hypertension. Obstructive sleep apnea on CPAP. Chronic obstructive pulmonary disease (COPD). Diabetes. Charcot. Diastolic heart failure. Alcohol use disorder. Migraines. MEDICATIONS: - Mylanta - furosemide - vancomycin - diphenhydramine - gabapentin - aspirin - bupropion - calcium - vitamin B12 - folic acid - nicotine patch - Lovenox - carvedilol - cyclobenzaprine - duloxetine - MS Contin - morphine - albuterol. - budesonide - valium - ondansetron ALLERGIES: ASPARTAME, Shellfish PAST SURGICAL HISTORY: She had a right great toe amputation. SOCIAL HISTORY: Smokes a pack cigarettes a day. Heavy alcohol use in the past. PHYSICAL EXAM: Vital signs: Temperature 98.2. Blood pressure 115/76, pulse rate 85. Respiratory rate 20. She appears comfortable. In terms of both lower extremities, she has redness along the entire length of the left tibia from just below the knee down to the ankle. She has multiple small healing ulcers that are not draining and do not appear infected. She states that the redness and swelling has been going down. There is no tracking of the redness, no streaking. It is painful to palpate. Calf is overall swollen but soft. Decreased sensation in the foot. She has chronic neuropathy. The foot has capillary refill 3 seconds or less. She is able wiggle her toes, dorsiflex, plantar flex foot. No pain with passive range of motion the ankle. No knee effusion. Radiographs were reviewed for tibia and fibula. There is no evidence cyst osteomyelitis. There is osteoarthritis of the ankle and evidence of neuropathic arthropathy mid foot with collapse of the metatarsal arch. Heel spur vascular calcification. MRI was reviewed by myself as well as radiologist. It is severely limited to do motion degradation. There does appear to be severe diffuse cellulitis and posterior compartment. No convincing organized collection. There may be abnormal marrow signal enhancement. Very difficult to fully interpret. Acute osteomyelitis cannot be excluded I agree with this interpretation by the radiologist. ASSESSMENT/PLAN: 54-year-old female. According to her this seems to be resolving terms of redness, warmth and swelling. There does still appear to be need for IV antibiotics here. I recommend continuing to follow her white blood cell count and CRP to ensure that is trending down. The patient will likely benefit from remaining on IV antibiotics. Because Dr. Morris, the infectious specialist at [facility] is away this week, I do recommend the hospitalist to contact infectious disease specialist in another hospital, perhaps in [place], that could potentially offer more insight into the guiding treatment. I also recommend hospitalist contact interventional radiology to see if they would recommend performing a bone biopsy or other means of obtaining cultures as this patient would be extremely high risk of secondary complications from going ahead with open bone biopsy and this would be extremely difficult to know where to place a biopsy given the equivocal MRI findings. One could consider forming other tests to further localize and rule in or out osteomyelitis. WBC scan, bone scan or other nuclear medicine scans and I recommend contacting the nuclear medicine department to have their opinion as well. For now it seems like according to the patient, she is having a reasonable clinical response to IV antibiotics and I would not recommend open bone marrow biopsy at this point in time.
--- NOTE | 2020-01-14 17:45 | IPNPDOC ---
Date Seen The patient was seen on 01/14/20. Progress Note SUBJECTIVE: Improved redness even more today. Discussed case with radiology who suggested left lower extremity x-ray. MRI was of poor quality but radiologist did not feel that it was suspicious for osteomyelitis. X-ray of the left tib-fib was negative for signs of osteomyelitis as well as. Denies fevers, chills, n/v/d, shortness of breath, chest pain. OBJECTIVE: VITAL SIGNS: Please see below PHYSICAL EXAM: General: NAD, resting sitting up in bed, at times tearful. Eye: PERRLA, Conjunctiva & lids normal, EOMI ENT: Atraumatic, Mucous membr. moist/pink Chest: CTAB without wheezing, rhonchi or crackles Breast: Deferred Heart: soft systolic murmur at RUSB, RRR, no gallops or rubs Abdomen: obese, distended with notable soft tissue edema, otherwise soft, normoactive sounds and nontender Extremities: bilateral LE pitting edema to thighs with lower abdominal all edema, all improving Skin: Nl turgor and temperature, multiple skin lesion on BLE, s/p R great toe amputation, well healed scars. Multiple scabbed and crusted wounds on LLE and dorsum of L foot with continued erythema of LLE from foot to knees. No weeping noted. improved further today, redness is receding from marked outlined area Neuro: CN2-12 intact, speech not dysarthric, moving all extremities Psych: AOx3 LABORATORY: Please see below Imaging: XR tib/fib: No evidence to suggest osteomyelitis. There is osteoarthritis at the ankle and evidence of neuropathic arthropathy of the midfoot with collapse of the tarsal arch seen at the edge of the field of view on the lateral radiograph. Heel spur. Vascular calcification. MRI LLE: 1. Markedly limited examination due to motion degradation. 2. Severe, diffuse cellulitis with mild myositis and fasciitis in the posterior compartment, as described above. No convincing organized collection. 3. Abnormal marrow signal and enhancement in the tibia and fibula, as described above. Acute osteomyelitis cannot be excluded. L breast US: No noted fluid collection or abscess at position of swelling. TTE: 1. Normal global left ventricular systolic function with mild concentric left ventricular hypertrophy. Assessment of the left ventricular diastolic function appeared to be normal. 2. Aortic valve sclerosis with trace aortic regurgitation and trivial aortic stenosis. 3. Mildly enlarged left atrium, isolated. No evidence of mitral regurgitation. There is moderate mitral annulus calcification. 4. Mild tricuspid regurgitation with probably mild pulmonary hypertension. 5. There are features that may be related to elevated central venous pressure, the inferior vena cava was mildly enlarged. 6. Trace pericardial effusion, no evidence of cardiac tamponade. Assessment: 54yo W with a history of SLE, hypertension, obstructive sleep apnea on CPAP, C OPD, history of diabetes mellitus, Charcot's, diastolic heart failure and alcohol use disorder admitted for LLE cellulitis, unlikely osteomyelitis. LLE cellulitis. Unlikely osteomyelitis per radiology. -Further improved today but still requiring IV treatment -XR tib fib above. -Wound swab culture showing Staph coag neg, RIVKA 1 sensitive to Vancomycin. -C/w vancomycin. Acute on chronic HFpEF: -Denies chest pain, sob, cough -TTE with LVH but normal EF, with an elevated CVP and no WMA or severe valvular insufficiency -C/w lasix to 40 IV Q6H, strict I/Os, daily weights, 2g sodium diet and 2L/24h fluid restriction L breast enlargement: -breast US without evidence of collection or abscess, monitor -History of L breast discharge and fibrocystic changes. -Recommend o/p mammogram. History of chronic back and LE pain: -continue home PRN norco, BID morphine, janneth BID, flexeril. COPD: no evidence of acute exacerbation - continue with home mdi therapies Nicotine dependence: -21mg nicotine patch Q24H Prior history of diabetes mellitus: resolved. A1c at [facility] was 5.5 -2g diet MICHELLE - continue CPAP per home script Psych meds: Anxiety, depression -continue bupropion, diazepam, cymbalta DVT prophylaxis -Lovenox DISPOSITION: Plan is discharge home when medically improved. VS, I&O, 24H, Fishbone Vital Signs/I&O Vital Signs Date Time Temp Pulse Resp B/P (MAP) Pulse Ox O2 Delivery O2 Flow Rate FiO2 01/14/20 14:43 20 01/14/20 10:22 85 115/76 01/14/20 06:00 98.2 94 Room Air I&O- Last 24 Hours up to 6 AM 01/14/20 06:00 Intake Total 1810 ml Output Total 3400 ml Balance -1590 ml Laboratory Data 24H LABS Laboratory Tests 2 01/14/20 05:18: Nucleated Red Blood Cells % (auto) 0.0, Anion Gap 3L, Glomerular Filtration Rate > 60.0, Calcium Level 8.9, Total Bilirubin 1.3H, Aspartate Amino Transf (AST/SG OT) 24, Alanine Aminotransferase (ALT/SGPT) 10L, Alkaline Phosphatase 180H, Total Protein 7.3, Albumin 2.6L, Albumin/Globulin Ratio 0.6L CBC/BMP Laboratory Tests 01/14/20 05:18 Microbiology Microbiology 01/09/20 Wound Culture - Final, Complete Staphylococcus Sp Coag Neg 01/08/20 Blood Culture - Final, Complete NO GROWTH AFTER 5 DAYS 01/08/20 Blood Culture - Final, Complete NO GROWTH AFTER 5 DAYS Current Medications Current Medications Medications (Trade) Dose Ordered Sig/Nereida Route PRN Reason Start Time Stop Time Status Last Admin Dose Admin Acetaminophen (Tylenol Tab) 650 mg Q4H PRN PO PAIN OR FEVER 01/08/20 16:00 01/14/20 04:39 Acetaminophen/ Hydrocodone Bitart ([place], Anexsia 5/325) 2 tab Q6HP PRN PO SEVERE PAIN (PS 8-10) 01/08/20 17:30 01/14/20 14:13 Al Hydrox/Mg Hydrox/Simethicone (Mylanta) 30 ml Q12HP PRN PO INDIGESTION 01/14/20 00:45 01/14/20 00:56 Albuterol Sulfate (Proventil, Ventolin Hfa) 2 puff QIDP PRN INH SHORTNESS OF BREATH 01/08/20 17:30 Aspirin (Ecotrin) 81 mg DAILY PO 01/09/20 09:00 01/14/20 10:19 Budesonide (Pulmicort) 0.5 mg BIDP PRN INH SHORTNESS OF BREATH 01/08/20 17:30 Bupropion HCl (Zyban, Wellbutrin Sr) 150 mg DAILY PO 01/09/20 09:00 01/14/20 10:18 Calcium/Vitamin D (Oscal D) 500 mg DAILY PO 01/09/20 09:00 01/14/20 10:20 Carvedilol (COReg) 3.125 mg BID PO 01/08/20 21:00 01/14/20 10:22 Cyanocobalamin (Vitamin B12) 1,000 mcg DAILY PO 01/09/20 09:00 01/14/20 10:20 Cyclobenzaprine HCl (Flexeril) 10 mg TID PO 01/08/20 21:00 01/14/20 16:44 Diazepam (Valium) 2 mg BIDP PRN PO ANXIETY 01/08/20 17:30 01/13/20 21:52 Diphenhydramine HCl (Benadryl) 25 mg Q4HP PRN PO ITCHING 01/11/20 15:30 01/14/20 04:57 Diphenhydramine HCl (Benadryl) 25 mg Q6HP PRN IM itching 01/11/20 15:15 01/11/20 15:26 DC Duloxetine HCl (Cymbalta) 60 mg BID PO 01/08/20 21:00 01/14/20 10:19 Enoxaparin Sodium (Lovenox) 40 mg DAILY@2100 SC 01/08/20 21:00 01/13/20 21:51 Folic Acid (Folic Acid) 1 mg DAILY PO 01/09/20 09:00 01/14/20 10:20 Furosemide (LASIX injection) 40 mg BID IV 01/13/20 21:00 01/14/20 10:19 Furosemide (LASIX injection) 40 mg Q8H IV 01/08/20 17:00 01/12/20 06:30 DC 01/12/20 00:05 Furosemide (Lasix) 40 mg BID@0900,1700 PO 01/12/20 17:00 01/13/20 19:24 DC 01/13/20 09:45 Furosemide (Lasix) 40 mg DAILY PO 01/12/20 09:00 01/12/20 17:50 DC 01/12/20 08:35 Gabapentin (Neurontin) 600 mg DAILY@1200 PO 01/09/20 12:00 01/14/20 13:20 Gabapentin (Neurontin) 900 mg BID PO 01/08/20 21:00 01/14/20 10:18 Home Med (Med Rec Complete!) ASDIRECTED XX 01/08/20 16:45 01/08/20 16:42 DC Magnesium Oxide (Mag-Ox) 400 mg TID PO 01/08/20 21:00 01/14/20 16:44 Morphine Sulfate (Ms Contin) 15 mg Q12H PO 01/08/20 21:00 01/14/20 10:22 Nicotine (Nicoderm Cq 21mg) 1 patch DAILY TD 01/09/20 09:00 01/14/20 10:19 Ondansetron HCl (Zofran) 4 mg Q4H PRN PO NAUSEA OR VOMITING 01/08/20 17:30 Piperacillin Sod/ Tazobactam Sod 3.375 gm/Dextrose 50 ml @ 50 mls/hr Q6H IV 01/08/20 18:00 01/13/20 08:53 DC 01/13/20 05:25 Potassium Chloride (Micro-K Extencaps) 10 meq BID PO 01/08/20 21:00 01/09/20 08:33 DC 01/09/20 08:02 Potassium Chloride (Micro-K Extencaps) 20 meq BID PO 01/09/20 21:00 01/10/20 07:41 DC 01/09/20 21:36 Potassium Chloride (Micro-K Extencaps) 40 meq BID PO 01/10/20 09:00 01/12/20 06:31 DC 01/11/20 20:37 Sodium Chloride (Sodium Chloride) 1 gm BID PO 01/08/20 21:00 01/09/20 08:47 DC Vancomycin HCl 500 mg/Dextrose 110 ml @ 110 mls/hr Q8H IV 01/13/20 09:00 01/13/20 09:06 DC Vancomycin HCl 1000 mg/IV Miscellaneous Supplies 20 ml @ 20 mls/hr Q12H IV 01/08/20 17:00 01/08/20 16:58 DC Vancomycin HCl 1000 mg/IV Miscellaneous Supplies 1 each/ Dextrose 270 ml @ 270 mls/hr Q12H IV 01/08/20 20:00 01/09/20 08:35 DC 01/09/20 08:01 Vancomycin HCl 1000 mg/IV Miscellaneous Supplies 1 each/ Dextrose 270 ml @ 270 mls/hr Q12H IV 01/13/20 10:00 01/14/20 10:17 Allergies Coded Allergies: aspartame (Verified Allergy, Unknown, 01/08/20) SUGAR SUBSTITUTE shellfish derived (Verified Allergy, Unknown, 01/08/20) Kimberly Stevens MD Jan 14, 2020 17:45
[2020-01-14] MEDS: ENOXAPARIN 40MG/0.4ML SYRINGE (J1650 PER 10MG) SC SCH (21:45)
[2020-01-14 22:00] VITALS: BP 109/78
--- NOTE | 2020-01-14 22:02 | PHACANCOPD ---
PHARMACY VANCOMYCIN DOSING Pt Demographics Demographics Patient Age:54 , Weight:101.000 , Gender: female Adjusted Body Weight Date: 01/13/20, Adjusted Body Weight: [73.5] Kg Vancomycin Vancomycin indication: WOUND INFECTION Vancomycin Target Ranges: 10-20 mcg/ml Vancomycin Load Y/N: Yes Load Dose Date Time Vancomycin Load Dose: 2G Date:01/13/20 Time:10:00 Vancomycin Dose Date: 01/14/20. Current Vancomycin Dose: [1G IV Q18H] Intermittent Dosing?: No Labs Labs Item Value Date Time White Blood Count 4.2 10^3/uL 01/14/20 0518 Glomerular Filtration Rate > 60.0 01/14/20 0518 Creatinine 1.01 MG/DL 01/14/20 0518 Blood Urea Nitrogen 6 MG/DL L 01/14/20 0518 Vital Signs Label Value Date Time Patient Temperature 98.2 degrees F 01/14/20 0600 Temperature Source Oral 01/14/20 0600 Micro Microbiology 01/09/20 Wound Culture - Final, Complete Staphylococcus Sp Coag Neg 01/08/20 Blood Culture - Final, Complete NO GROWTH AFTER 5 DAYS 01/08/20 Blood Culture - Final, Complete NO GROWTH AFTER 5 DAYS Creatinine Clearance Date:01/13/20. Creatinine Clearance: [67ML/MIN ADJ.BW]. Pending Labs VANCOMYCIN TROUGH 01/16/20 @11:00 Assessment and Plan Maintaining Current Dose?: No Reason for dose change: Trough too high Pharmacist Note Pharmacist Note Date: 01/14/20. Pharmacist note: trough of 24.4 is above target range. Dosing reduced to 1g q18h. Will monitor and make adjustments as needed. YOLANDE ARELLANO [facility] Jan 14, 2020 22:02
[2020-01-15] MEDS: diphenhydrAMINE 25MG CAP PO PRN ×2 (00:11→06:43)
[2020-01-15] MEDS: NORCO, ANEXSIA 5/325MG TABLET (HYDROcodone/ACETAMINOPHEN) PO PRN ×3 (03:48→18:12)
[2020-01-15 06:00] VITALS: BP 111/61
[2020-01-15 06:54] LABS: HEMATOCRIT 30.1 % (36.0-47.0); HEMOGLOBIN 9.2 g/dl (12.0-15.5); MEAN CORPUSCULAR HEMOGLOBIN 35.8 pg (27.0-33.0); MEAN CORPUSCULAR HGB CONC 30.6 g/dl (32.0-36.5); PLATELET COUNT, AUTOMATED 256 10^3/uL (150-450); RED BLOOD COUNT 2.57 10^6/uL (4.00-5.40); WHITE BLOOD COUNT 4.5 10^3/uL (4.0-10.0)
[2020-01-15 06:55] LABS: MEAN CORPUSCULAR VOLUME 117.1 fl (80.0-96.0)
[2020-01-15 07:23] LABS: ALBUMIN 2.7 GM/DL (3.2-5.2); ALT/SGPT 14 U/L (12-78); BILIRUBIN,TOTAL 0.9 MG/DL (0.2-1.0); BLOOD UREA NITROGEN 6 MG/DL (7-18); CALCIUM LEVEL 8.7 MG/DL (8.5-10.1); CARBON DIOXIDE LEVEL 31 MEQ/L (21-32); CHLORIDE LEVEL 96 MEQ/L (98-107); CREATININE FOR GFR 0.98 MG/DL (0.55-1.30); GLOMERULAR FILTRATION RATE > 60.0 (>51); GLUCOSE, FASTING 120 MG/DL (70-100); POTASSIUM SERUM 3.5 MEQ/L (3.5-5.1); SODIUM LEVEL 134 MEQ/L (136-145); TOTAL PROTEIN 7.5 GM/DL (6.4-8.2)
[2020-01-15] MEDS: MORPHINE 15 MG SA TAB PO SCH ×2 (08:59→20:29)
[2020-01-15] MEDS: GABAPENTIN 300 MG CAP PO SCH ×3 (08:59→20:28)
[2020-01-15] MEDS: CYANOCOBALAMIN 500 MCG TAB PO SCH (08:59)
[2020-01-15] MEDS: ASPIRIN 81 MG ENTERIC TAB PO SCH (08:59)
[2020-01-15] MEDS: CARVedilol 3.125 MG TAB PO SCH ×2 (09:00→20:27)
[2020-01-15] MEDS: MAGNESIUM OXIDE 400 MG TAB (MAG-OX) PO SCH ×3 (09:00→20:29)
[2020-01-15] MEDS: FOLIC ACID 1 MG TAB PO SCH (09:00)
[2020-01-15] MEDS: CALCIUM/VITAMIN D 500 MG TAB PO SCH (09:00)
[2020-01-15] MEDS: CYCLOBENZAPRINE 10MG TABLET PO SCH ×3 (09:00→20:29)
[2020-01-15] MEDS: buPROPion **SR TABLET** (ZYBAN) 150MG PO SCH (09:00)
[2020-01-15] MEDS: DULoxetine 30 MG CAP (CYMBALTA) PO SCH ×2 (09:00→20:29)
[2020-01-15] MEDS: FUROSEMIDE 40MG/4ML VIAL (J1940) IV SCH ×2 (09:01→20:30)
[2020-01-15] MEDS: NICOTINE 21MG/24HR 1 EA TRANSDERMAL TD SCH (09:01)
[2020-01-15 14:00] VITALS: BP 136/66
[2020-01-15] MEDS ORDERED: VANCOMYCIN HCL 1,000 MG, VIAL MATE ADAPTER 1 EACH in D5W 250 ML IV SCH (18:00)
--- NOTE | 2020-01-15 19:28 | IPNPDOC ---
Date Seen The patient was seen on 01/15/20. Progress Note SUBJECTIVE: Improved redness today more than 01/14/20. Possible d/c 01/16/20 if continues improvement. Denies fevers, chills, n/v/d, shortness of breath, chest pain. OBJECTIVE: VITAL SIGNS: Please see below PHYSICAL EXAM: General: NAD, resting sitting up in bed, at times tearful. Eye: PERRLA, Conjunctiva & lids normal, EOMI ENT: Atraumatic, Mucous membr. moist/pink Chest: CTAB without wheezing, rhonchi or crackles Breast: Deferred Heart: soft systolic murmur at RUSB, RRR, no gallops or rubs Abdomen: obese, distended with notable soft tissue edema, otherwise soft, normoactive sounds and nontender Extremities: bilateral LE pitting edema to thighs with lower abdominal all edema, all improving Skin: Nl turgor and temperature, multiple skin lesion on BLE, s/p R great toe amputation, well healed scars. Multiple scabbed and crusted wounds on LLE and dorsum of L foot withdecreasead erythema of LLE from foot to knees. No weeping noted. improved further today, redness is receding from marked outlined area Neuro: CN2-12 intact, speech not dysarthric, moving all extremities Psych: AOx3 LABORATORY: Please see below Imaging: XR tib/fib: No evidence to suggest osteomyelitis. There is osteoarthritis at the ankle and evidence of neuropathic arthropathy of the midfoot with collapse of the tarsal arch seen at the edge of the field of view on the lateral radiograph. Heel spur. Vascular calcification. MRI LLE: 1. Markedly limited examination due to motion degradation. 2. Severe, diffuse cellulitis with mild myositis and fasciitis in the posterior compartment, as described above. No convincing organized collection. 3. Abnormal marrow signal and enhancement in the tibia and fibula, as described above. Acute osteomyelitis cannot be excluded. L breast US: No noted fluid collection or abscess at position of swelling. TTE: 1. Normal global left ventricular systolic function with mild concentric left ventricular hypertrophy. Assessment of the left ventricular diastolic function appeared to be normal. 2. Aortic valve sclerosis with trace aortic regurgitation and trivial aortic stenosis. 3. Mildly enlarged left atrium, isolated. No evidence of mitral regurgitation. There is moderate mitral annulus calcification. 4. Mild tricuspid regurgitation with probably mild pulmonary hypertension. 5. There are features that may be related to elevated central venous pressure, the inferior vena cava was mildly enlarged. 6. Trace pericardial effusion, no evidence of cardiac tamponade. Assessment: 54yo W with a history of SLE, hypertension, obstructive sleep apnea on CPAP, COPD, history of diabetes mellitus, Charcot's, diastolic heart failure and alcohol use disorder admitted for LLE cellulitis. PLAN: LLE cellulitis. Unlikely osteomyelitis per radiology. -Further improved today but still requiring IV treatment -XR tib fib above. -Wound swab culture showing Staph coag neg, RIVKA 1 sensitive to Vancomycin. -C/w vancomycin -Hopeful for discharge tomorrow with PO abx Acute on chronic HFpEF: --1.7L/24 hr -Denies chest pain, sob, cough -TTE with LVH but normal EF, with an elevated CVP and no WMA or severe valvular insufficiency -C/w lasix to 40 IV Q6H, strict I/Os, daily weights, 2g sodium diet and 2L/24h fluid restriction L breast enlargement: -breast US without evidence of collection or abscess, monitor -History of L breast discharge and fibrocystic changes. -Recommend o/p mammogram. History of chronic back and LE pain: -continue home PRN norco, BID morphine, janneth BID, flexeril. COPD: no evidence of acute exacerbation - continue with home mdi therapies Nicotine dependence: -21mg nicotine patch Q24H Prior history of diabetes mellitus: resolved. A1c at [facility] was 5.5 -2g diet MICHELLE - continue CPAP per home script Psych meds: Anxiety, depression -continue bupropion, diazepam, cymbalta DVT prophylaxis -Lovenox DISPOSITION: Plan is discharge home 01/16/20 if continues to show same improvement daily. VS, I&O, 24H, Fishbone Vital Signs/I&O Vital Signs Date Time Temp Pulse Resp B/P (MAP) Pulse Ox O2 Delivery O2 Flow Rate FiO2 01/15/20 18:12 18 01/15/20 14:00 98.4 82 136/66 (89) 92 Room Air I&O- Last 24 Hours up to 6 AM 01/15/20 06:00 Intake Total 1555 ml Output Total 2800 ml Balance -1245 ml Laboratory Data 24H LABS Laboratory Tests 2 01/14/20 20:57: Vancomycin Level Trough 24.4H 01/15/20 06:30: Nucleated Red Blood Cells % (auto) 0.0, Anion Gap 7L, Glomerular Filtration Rate > 60.0, Calcium Level 8.7, Total Bilirubin 0.9, Aspartate Amino Transf (AST/SGOT) 21, Alanine Aminotransferase (ALT/SGPT) 14, Alkaline Phosphatase 176H, Total Protein 7.5, Albumin 2.7L, Albumin/Globulin Ratio 0.6L CBC/BMP Laboratory Tests 01/15/20 06:30 Microbiology Microbiology 01/09/20 Wound Culture - Final, Complete Staphylococcus Sp Coag Neg 01/08/20 Blood Culture - Final, Complete NO GROWTH AFTER 5 DAYS 01/08/20 Blood Culture - Final, Complete NO GROWTH AFTER 5 DAYS Current Medications Current Medications Medications (Trade) Dose Ordered Sig/Nereida Route PRN Reason Start Time Stop Time Status Last Admin Dose Admin Acetaminophen (Tylenol Tab) 650 mg Q4H PRN PO PAIN OR FEVER 01/08/20 16:00 01/14/20 04:39 Acetaminophen/ Hydrocodone Bitart ([place], Anexsia 5/325) 2 tab Q6HP PRN PO SEVERE PAIN (PS 8-10) 01/08/20 17:30 01/15/20 18:12 Al Hydrox/Mg Hydrox/Simethicone (Mylanta) 30 ml Q12HP PRN PO INDIGESTION 01/14/20 00:45 01/14/20 00:56 Albuterol Sulfate (Proventil, Ventolin Hfa) 2 puff QIDP PRN INH SHORTNESS OF BREATH 01/08/20 17:30 Aspirin (Ecotrin) 81 mg DAILY PO 01/09/20 09:00 01/15/20 08:59 Budesonide (Pulmicort) 0.5 mg BIDP PRN INH SHORTNESS OF BREATH 01/08/20 17:30 Bupropion HCl (Zyban, Wellbutrin Sr) 150 mg DAILY PO 01/09/20 09:00 01/15/20 09:00 Calcium/Vitamin D (Oscal D) 500 mg DAILY PO 01/09/20 09:00 01/15/20 09:00 Carvedilol (COReg) 3.125 mg BID PO 01/08/20 21:00 01/15/20 09:00 Cyanocobalamin (Vitamin B12) 1,000 mcg DAILY PO 01/09/20 09:00 01/15/20 08:59 Cyclobenzaprine HCl (Flexeril) 10 mg TID PO 01/08/20 21:00 01/15/20 17:44 Diazepam (Valium) 2 mg BIDP PRN PO ANXIETY 01/08/20 17:30 01/13/20 21:52 Diphenhydramine HCl (Benadryl) 25 mg Q4HP PRN PO ITCHING 01/11/20 15:30 01/15/20 06:43 Diphenhydramine HCl (Benadryl) 25 mg Q6HP PRN IM itching 01/11/20 15:15 01/11/20 15:26 DC Duloxetine HCl (Cymbalta) 60 mg BID PO 01/08/20 21:00 01/15/20 09:00 Enoxaparin Sodium (Lovenox) 40 mg DAILY@2100 SC 01/08/20 21:00 01/14/20 21:45 Folic Acid (Folic Acid) 1 mg DAILY PO 01/09/20 09:00 01/15/20 09:00 Furosemide (LASIX injection) 40 mg BID IV 01/13/20 21:00 01/15/20 09:01 Furosemide (LASIX injection) 40 mg Q8H IV 01/08/20 17:00 01/12/20 06:30 DC 01/12/20 00:05 Furosemide (Lasix) 40 mg BID@0900,1700 PO 01/12/20 17:00 01/13/20 19:24 DC 01/13/20 09:45 Furosemide (Lasix) 40 mg DAILY PO 01/12/20 09:00 01/12/20 17:50 DC 01/12/20 08:35 Gabapentin (Neurontin) 600 mg DAILY@1200 PO 01/09/20 12:00 01/15/20 12:03 Gabapentin (Neurontin) 900 mg BID PO 01/08/20 21:00 01/15/20 08:59 Home Med (Med Rec Complete!) ASDIRECTED XX 01/08/20 16:45 01/08/20 16:42 DC Magnesium Oxide (Mag-Ox) 400 mg TID PO 01/08/20 21:00 01/15/20 17:44 Morphine Sulfate (Ms Contin) 15 mg Q12H PO 01/08/20 21:00 01/15/20 08:59 Nicotine (Nicoderm Cq 21mg) 1 patch DAILY TD 01/09/20 09:00 01/15/20 09:01 Ondansetron HCl (Zofran) 4 mg Q4H PRN PO NAUSEA OR VOMITING 01/08/20 17:30 Piperacillin Sod/ Tazobactam Sod 3.375 gm/Dextrose 50 ml @ 50 mls/hr Q6H IV 01/08/20 18:00 01/13/20 08:53 DC 01/13/20 05:25 Potassium Chloride (Micro-K Extencaps) 10 meq BID PO 01/08/20 21:00 01/09/20 08:33 DC 01/09/20 08:02 Potassium Chloride (Micro-K Extencaps) 20 meq BID PO 01/09/20 21:00 01/10/20 07:41 DC 01/09/20 21:36 Potassium Chloride (Micro-K Extencaps) 40 meq BID PO 01/10/20 09:00 01/12/20 06:31 DC 01/11/20 20:37 Sodium Chloride (Sodium Chloride) 1 gm BID PO 01/08/20 21:00 01/09/20 08:47 DC Vancomycin HCl 500 mg/Dextrose 110 ml @ 110 mls/hr Q8H IV 01/13/20 09:00 01/13/20 09:06 DC Vancomycin HCl 1000 mg/IV Miscellaneous Supplies 20 ml @ 20 mls/hr Q12H IV 01/08/20 17:00 01/08/20 16:58 DC Vancomycin HCl 1000 mg/IV Miscellaneous Supplies 1 each/ Dextrose 270 ml @ 270 mls/hr Q12H IV 01/08/20 20:00 01/09/20 08:35 DC 01/09/20 08:01 Vancomycin HCl 1000 mg/IV Miscellaneous Supplies 1 each/ Dextrose 270 ml @ 270 mls/hr Q12H IV 01/13/20 10:00 01/14/20 23:59 DC 01/14/20 21:58 Vancomycin HCl 1000 mg/IV Miscellaneous Supplies 1 each/ Dextrose 270 ml @ 270 mls/hr Q18H IV 01/15/20 18:00 01/15/20 17:44 Allergies Coded Allergies: aspartame (Verified Allergy, Unknown, 01/08/20) SUGAR SUBSTITUTE shellfish derived (Verified Allergy, Unknown, 01/08/20) Kimberly Stevens MD Jan 15, 2020 19:28
[2020-01-15] MEDS: ENOXAPARIN 40MG/0.4ML SYRINGE (J1650 PER 10MG) SC SCH (20:30)
[2020-01-15 22:00] VITALS: BP 142/66
[2020-01-16] MEDS: NORCO, ANEXSIA 5/325MG TABLET (HYDROcodone/ACETAMINOPHEN) PO PRN ×2 (00:15→08:24)
[2020-01-16] MEDS: diphenhydrAMINE 25MG CAP PO PRN ×2 (00:15→08:20)
[2020-01-16 06:00] VITALS: BP 127/60
[2020-01-16] MEDS: FUROSEMIDE 40MG/4ML VIAL (J1940) IV SCH (08:20)
[2020-01-16] MEDS: CALCIUM/VITAMIN D 500 MG TAB PO SCH (08:20)
[2020-01-16] MEDS: DULoxetine 30 MG CAP (CYMBALTA) PO SCH (08:20)
[2020-01-16] MEDS: CYCLOBENZAPRINE 10MG TABLET PO SCH (08:20)
[2020-01-16] MEDS: GABAPENTIN 300 MG CAP PO SCH (08:20)
[2020-01-16 08:21] VITALS: BP 127/60
[2020-01-16] MEDS: ASPIRIN 81 MG ENTERIC TAB PO SCH (08:21)
[2020-01-16] MEDS: buPROPion **SR TABLET** (ZYBAN) 150MG PO SCH (08:21)
[2020-01-16] MEDS: FOLIC ACID 1 MG TAB PO SCH (08:21)
[2020-01-16] MEDS: CARVedilol 3.125 MG TAB PO SCH (08:21)
[2020-01-16] MEDS: MAGNESIUM OXIDE 400 MG TAB (MAG-OX) PO SCH (08:21)
[2020-01-16] MEDS: CYANOCOBALAMIN 500 MCG TAB PO SCH (08:22)
[2020-01-16] MEDS: NICOTINE 21MG/24HR 1 EA TRANSDERMAL TD SCH (08:22)
[2020-01-16 08:34] LABS: HEMATOCRIT 30.6 % (36.0-47.0); HEMOGLOBIN 9.4 g/dl (12.0-15.5); MEAN CORPUSCULAR HEMOGLOBIN 35.7 pg (27.0-33.0); MEAN CORPUSCULAR HGB CONC 30.7 g/dl (32.0-36.5); PLATELET COUNT, AUTOMATED 260 10^3/uL (150-450); RED BLOOD COUNT 2.63 10^6/uL (4.00-5.40); WHITE BLOOD COUNT 4.9 10^3/uL (4.0-10.0)
[2020-01-16 08:47] LABS: MEAN CORPUSCULAR VOLUME 116.3 fl (80.0-96.0)
[2020-01-16 08:58] LABS: ALBUMIN 2.8 GM/DL (3.2-5.2); ALT/SGPT 9 U/L (12-78); BILIRUBIN,TOTAL 0.9 MG/DL (0.2-1.0); BLOOD UREA NITROGEN 7 MG/DL (7-18); CALCIUM LEVEL 8.5 MG/DL (8.5-10.1); CARBON DIOXIDE LEVEL 33 MEQ/L (21-32); CHLORIDE LEVEL 97 MEQ/L (98-107); CREATININE FOR GFR 0.97 MG/DL (0.55-1.30); GLOMERULAR FILTRATION RATE > 60.0 (>51); GLUCOSE, FASTING 108 MG/DL (70-100); POTASSIUM SERUM 3.8 MEQ/L (3.5-5.1); SODIUM LEVEL 135 MEQ/L (136-145); TOTAL PROTEIN 7.9 GM/DL (6.4-8.2)
[2020-01-16] MEDS ORDERED: ZYVO1TAB PO (09:00)
--- NOTE | 2020-01-16 09:25 | IPN ---
DATE: 01/16/2020 CHIEF COMPLAINT: Left lower extremity cellulitis. HISTORY OF PRESENT ILLNESS: This woman developed left lower extremity cellulitis. She has been on vancomycin. This seems to be improving. PHYSICAL EXAMINATION: Well-appearing female in no acute distress. She is in a good mood, easy to talk to. The lower extremity cellulitis seems to be improving as well as the lower extremity edema. ASSESSMENT/PLAN: This 54-year-old female is improving in terms of her left lower extremity cellulitis. I will sign off and not further follow this patient. It seems as though she could be stepped down to oral antibiotics. She is also desiring to see me as an outpatient for her right shoulder and I am more than happy to see her on a non urgent timeline for that.
[2020-01-16] MEDS: MORPHINE 15 MG SA TAB PO SCH (09:45)
--- NOTE | 2020-01-16 14:52 | DS.PDOC ---
Discharge Summary General Date of Admission Jan 08, 2020 at 14:56 Date of Discharge 01/16/20 Attending Physician: Kimberly Stevens MD Discharge Summary HISTORY OF PRESENT ILLNESS: 54yo W with a history of SLE, hypertension, obstructive sleep apnea on CPAP, COPD, history of diabetes mellitus, Charcot's, diastolic heart failure and alcohol use disorder who is being transferred from [facility] for persistent, worsening LLE cellulitis despite treatment with vancomycin for 3 days, with wound cultures thus far growing mixed GPCs. Briefly, Ms. 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 She originally presented with LLE pain and fever and she was diagnosed with cellulitis in the setting of small ulcerating lesions (long standing for many years) with surrounding erythema that blister, crust over and slough off, and was treated with keflex and discharged home. She returned to the [facility] on 01/04 to clinic with LLE erythema, pain and edema with reported 20lb weight gain without fever or chills but with copious clear weeping drainage. She was admitted and started on van comycin, and thus far wound cultures were notable for mixed GPCs, BCx negative, MRSA positive? per patient, not seen in their records without much change in the erythema or swelling with pain and firmness in her medial left thigh to groin area though the deepest erythema is in her lower leg. With regard to her weight gain, she reports that she has gained 20+ pounds has abdominal wall swelling and 3+ LE edema bilaterally and is actually increasingly feeling short of breath and while in [facility] was maintained on her home diuretic of 20 lasix daily without any change in her fluid status. She reports that approximately two weeks ago, when she originally presented, she had LE doppler US that was negative for DVT. She was transferred to [facility] for severe cellulitis not improving on vancomycin with goal of an ID consult. HOSPITAL COURSE: Vancomycin was stopped as MRSA screen was negative and the patient was started on Zosyn. Wound culture was done of LLE wound which was draining on admission- later came back Staph coag neg sensitive to Vancomycin. Vancomycin was restarted and patient continued to make improvements. MRI done on 01/08/20 showed severe, diffuse cellulitis with mild myositis and fasciitis in the posterior compartment. There was no convincing organized collection. Abnormal marrow signal and enhancement in the tibia and fibula with acute osteomyelitis not being able to be excluded. Discussed case with ortho, Dr. Bhatia who also cannot r/o osteomyelitis on films- poor quality due to motion artifact. He had also assessed patient at bedside. I discussed the case further with covering radiologist who did not feel this was concerning for osteomyelitis. X-ray of the left tib-fib was negative for signs of osteomyelitis as well as. Infectious disease was not available this week to discuss. Patient complained of left breast being larger than right and US breast neg for abscess ;however, patient is being advised to f/u with mammogram after discharge. Patient was continued on IV vancomycin with marked improvement by 01/16/20. She was later discharged with PO zyvox 600 mg PO BID. Due to multiple medications that can interact with zyvox, risks were discussed in detail with patient. patient information on Serotonin Syndrome was given to her and detailed instructions on how to space meds out, which meds to stop and s/s to be on the lookout was discussed. At the time of discharge, patient was much improved and denies fevers, chills, n/v/d, shortness of breath, chest pain. Past Medical History 1. migraine headaches 2. SLE 3. hypertension 4. obstructive sleep apnea on CPAP 5. COPD 6. history of diabetes mellitus, that resolved after massive intentional weight loss 7. diastolic congestive heart failure Family History Patient is an only child. Patient's father due to myocardial infarction. Patient's mother due to lupus and leukemia. Patient has one son and one daughter who are healthy. Patient has one adopted daughter who is also healthy Social History Smoker: greater than 1 pack/day (40 years of 2ppd) Alcohol: Heavy alcohol use in the past, now social use Drugs: denies ALLERGIES: Please see below. DISCHARGE MEDICATIONS: Please see below. ALLERGIES: Please see blow PHYSICAL EXAM: VS: Please see below General: NAD, resting sitting up in bed, at times tearful. Eye: PERRLA, Conjunctiva & lids normal, EOMI ENT: Atraumatic, Mucous membr. moist/pink Chest: CTAB without wheezing, rhonchi or crackles Breast: Deferred Heart: soft systolic murmur at RUSB, RRR, no gallops or rubs Abdomen: obese, distended with notable soft tissue edema, otherwise soft, normoactive sounds and nontender Extremities: bilateral LE pitting edema to thighs with lower abdominal all edema, all improving Skin: Nl turgor and temperature, multiple skin lesion on BLE, s/p R great toe amputation, well healed scars. Multiple scabbed and crusted wounds on LLE and dorsum of L foot with decreasead erythema of LLE from foot to knees. No weeping noted. improved further today, redness is receding from marked outlined area Neuro: CN2-12 intact, speech not dysarthric, moving all extremities Psych: AOx3 LABORATORY: Please see below MICROBIOLOGY: Wound cx LLE: Staph Sp coag neg sensitive to Vancomycin, zyvox Imaging: XR tib/fib: No evidence to suggest osteomyelitis. There is osteoarthritis at the ankle and evidence of neuropathic arthropathy of the midfoot with collapse of the tarsal arch seen at the edge of the field of view on the lateral radiograph. Heel spur. Vascular calcification. MRI LLE: 1. Markedly limited examination due to motion degradation. 2. Severe, diffuse cellulitis with mild myositis and fasciitis in the posterior compartment, as described above. No convincing organized collection. 3. Abnormal marrow signal and enhancement in the tibia and fibula, as described above. Acute osteomyelitis cannot be excluded. L breast US: No noted fluid collection or abscess at position of swelling. TTE: 1. Normal global left ventricular systolic function with mild concentric left ventricular hypertrophy. Assessment of the left ventricular diastolic function appeared to be normal. 2. Aortic valve sclerosis with trace aortic regurgitation and trivial aortic stenosis. 3. Mildly enlarged left atrium, isolated. No evidence of mitral regurgitation. There is moderate mitral annulus calcification. 4. Mild tricuspid regurgitation with probably mild pulmonary hypertension. 5. There are features that may be related to elevated central venous pressure, the inferior vena cava was mildly enlarged. 6. Trace pericardial effusion, no evidence of cardiac tamponade. Assessment: 54yo W with a history of SLE, hypertension, obstructive sleep apnea on CPAP, COPD, history of diabetes mellitus, Charcot's, diastolic heart failure and alcohol use disorder treated for LLE cellulitis. PLAN: LLE cellulitis. Unlikely osteomyelitis per radiology. -Much improved from admission. . -Wound swab culture showing Staph coag neg, RIVKA 1 sensitive to Vancomycin, zyvox. -C/w zyvox for additional 7 days (total of 10 days) -Advise patient to f/u with wound care, PCP closely Acute on chronic HFpEF: -Neg fluid balance -Denies chest pain, sob, cough -TTE with LVH but normal EF, with an elevated CVP and no WMA or severe valvular insufficiency -C/w home medications, low salt diet L breast enlargement: -breast US without evidence of collection or abscess, monitor -History of L breast discharge and fibrocystic changes. -Recommend o/p mammogram History of chronic back and LE pain: -continue home PRN norco, BID morphine, janneth BID -Recommend stopping flexeril while on zyvox. Given strict details on this at [facility], within discharge instructions . COPD: no evidence of acute exacerbation - continue with home med Nicotine dependence: -Smoking cessation conselling given Prior history of diabetes mellitus: resolved. A1c at [facility] was 5.5 MICHELLE - continue CPAP per home script Anxiety, depression -continue home meds DISPOSITION: Discharge home today in improved condition TIME SPENT ON DISCHARGE: Greater than 30 minutes. Vital Signs/I&Os Vital Signs Date Time Temp Pulse Resp B/P (MAP) Pulse Ox O2 Delivery O2 Flow Rate FiO2 01/16/20 09:45 18 Room Air 01/16/20 08:21 84 127/60 01/16/20 06:00 98.1 97 I&O- Last 24 Hours up to 6 AM 01/16/20 06:00 Intake Total 1600 ml Output Total 800 ml Balance 800 ml Laboratory Data Labs 24H Laboratory Tests 2 01/16/20 08:01: Nucleated Red Blood Cells % (auto) 0.0, Anion Gap 5L, Glomerular Filtration Rate > 60.0, Calcium Level 8.5, Total Bilirubin 0.9, Aspartate Amino Transf (AST/SGOT) 24, Alanine Aminotransferase (ALT/SGPT) 9L, Alkaline Phosphatase 170H, Total Protein 7.9, Albumin 2.8L, Albumin/Globulin Ratio 0.5L CBC/BMP Laboratory Tests 01/16/20 08:01 Microbiology Microbiology 01/09/20 Wound Culture - Final, Complete Staphylococcus Sp Coag Neg 01/08/20 Blood Culture - Final, Complete NO GROWTH AFTER 5 DAYS 01/08/20 Blood Culture - Final, Complete NO GROWTH AFTER 5 DAYS Discharge Medications Scheduled Aspirin (Aspirin EC) 81 Mg Tab, 81 MG PO DAILY, (Reported) Bupropion Hcl (Bupropion HCl Sr) 150 Mg Tab.sr.12h, 150 MG PO DAILY, (Reported) Calcium Carbonate/Vitamin D3 (Calcium 500-Vit D3 200 Tablet) 1 Each Tablet, 1 TAB PO DAILY, (Reported) Carvedilol (Carvedilol) 3.125 Mg Tablet, 3.125 MG PO BID, (Reported) Cyanocobalamin (Vitamin B-12) (Vitamin B-12) 1,000 Mcg Tab, 1,000 MCG PO DAILY, (Reported) Duloxetine Hcl (Cymbalta) 60 Mg Cap, 60 MG PO BID, (Reported) Ergocalciferol (Vitamin D2) (Vitamin D2) 50,000 Units Cap, 50,000 UNITS PO QWEEK, (Reported) WEDNESDAYS Fluconazole (Fluconazole) 100 Mg Tablet, 100 MG PO DAILY, (Reported) STARTED AT [facility] Folic Acid (Folic Acid) 1 Mg Tab, 1 MG PO DAILY, (Reported) Furosemide (Lasix) 40 Mg Tab, 80 MG PO QAM, (Reported) Furosemide (Lasix) 40 Mg Tablet, 40 MG PO QPM, (Reported) Gabapentin (Gabapentin) 600 Mg Tab, 600 MG PO TID, (Reported) 900MG AM, 600MG NOON, 900MG HS Gabapentin (Gabapentin) 300 Mg Cap, 300 MG PO BID, (Reported) 900MG TOTAL AM & HS Hydrocodone/Acetaminophen (Hydrocodone-Acetamin 10-325 mg) 1 Tab Tab, 1 TAB PO ACHS, (Reported) Hydroxychloroquine Sulfate (Hydroxychloroquine Sulfate) 200 Mg Tablet, 200 MG PO DAILY, (Reported) Linezolid (Zyvox) 600 Mg Tablet, 600 MG PO BID with food Magnesium Oxide (Magnesium Oxide) 250 Mg Tab, 250 MG PO TID, (Reported) Morphine Sulfate (Morphine Sulfate ER) 15 Mg Tab, 15 MG PO Q12H, (Reported) Scheduled PRN Albuterol Sulfate (Ventolin Hfa) 108 Mcg/Act Aer, 2 PUFFS INH QID PRN for SHORTNESS OF BREATH, (Reported) Budesonide (Pulmicort) 0.5 Mg/2 Ml Michelle, 0.5 MG INH BID PRN for SHORTNESS OF BREATH, (Reported) Diazepam (Diazepam) 2 Mg Tablet, 2 MG PO BID PRN for ANXIETY, (Reported) Allergies Coded Allergies: aspartame (Verified Allergy, Unknown, 01/08/20) SUGAR SUBSTITUTE shellfish derived (Verified Allergy, Unknown, 01/08/20) Current Medications Current Medications Medications (Trade) Dose Ordered Sig/Nereida Route PRN Reason Start Time Stop Time Status Last Admin Dose Admin Acetaminophen (Tylenol Tab) 650 mg Q4H PRN PO PAIN OR FEVER 01/08/20 16:00 01/16/20 10:40 DC 01/14/20 04:39 Acetaminophen/ Hydrocodone Bitart ([place], Anexsia 5/325) 2 tab Q6HP PRN PO SEVERE PAIN (PS 8-10) 01/08/20 17:30 01/16/20 10:40 DC 01/16/20 08:24 Al Hydrox/Mg Hydrox/Simethicone (Mylanta) 30 ml Q12HP PRN PO INDIGESTION 01/14/20 00:45 01/16/20 10:40 DC 01/14/20 00:56 Albuterol Sulfate (Proventil, Ventolin Hfa) 2 puff QIDP PRN INH SHORTNESS OF BREATH 01/08/20 17:30 01/16/20 10:40 DC Aspirin (Ecotrin) 81 mg DAILY PO 01/09/20 09:00 01/16/20 10:40 DC 01/16/20 08:21 Budesonide (Pulmicort) 0.5 mg BIDP PRN INH SHORTNESS OF BREATH 01/08/20 17:30 01/16/20 10:40 DC Bupropion HCl (Zyban, Wellbutrin Sr) 150 mg DAILY PO 01/09/20 09:00 01/16/20 10:40 DC 01/16/20 08:21 Calcium/Vitamin D (Oscal D) 500 mg DAILY PO 01/09/20 09:00 01/16/20 10:40 DC 01/16/20 08:20 Carvedilol (COReg) 3.125 mg BID PO 01/08/20 21:00 01/16/20 10:40 DC 01/16/20 08:21 Cyanocobalamin (Vitamin B12) 1,000 mcg DAILY PO 01/09/20 09:00 01/16/20 10:40 DC 01/16/20 08:22 Cyclobenzaprine HCl (Flexeril) 10 mg TID PO 01/08/20 21:00 01/16/20 10:40 DC 01/16/20 08:20 Diazepam (Valium) 2 mg BIDP PRN PO ANXIETY 01/08/20 17:30 01/16/20 10:40 DC 01/13/20 21:52 Diphenhydramine HCl (Benadryl) 25 mg Q4HP PRN PO ITCHING 01/11/20 15:30 01/16/20 10:40 DC 01/16/20 08:20 Diphenhydramine HCl (Benadryl) 25 mg Q6HP PRN IM itching 01/11/20 15:15 01/11/20 15:26 DC Duloxetine HCl (Cymbalta) 60 mg BID PO 01/08/20 21:00 01/16/20 10:40 DC 01/16/20 08:20 Enoxaparin Sodium (Lovenox) 40 mg DAILY@2100 SC 01/08/20 21:00 01/16/20 10:40 DC 01/15/20 20:30 Folic Acid (Folic Acid) 1 mg DAILY PO 01/09/20 09:00 01/16/20 10:40 DC 01/16/20 08:21 Furosemide (LASIX injection) 40 mg BID IV 01/13/20 21:00 01/16/20 10:40 DC 01/16/20 08:20 Furosemide (LASIX injection) 40 mg Q8H IV 01/08/20 17:00 01/12/20 06:30 DC 01/12/20 00:05 Furosemide (Lasix) 40 mg BID@0900,1700 PO 01/12/20 17:00 01/13/20 19:24 DC 01/13/20 09:45 Furosemide (Lasix) 40 mg DAILY PO 01/12/20 09:00 01/12/20 17:50 DC 01/12/20 08:35 Gabapentin (Neurontin) 600 mg DAILY@1200 PO 01/09/20 12:00 01/16/20 10:40 DC 01/15/20 12:03 Gabapentin (Neurontin) 900 mg BID PO 01/08/20 21:00 01/16/20 10:40 DC 01/16/20 08:20 Home Med (Med Rec Complete!) ASDIRECTED XX 01/08/20 16:45 01/08/20 16:42 DC Magnesium Oxide (Mag-Ox) 400 mg TID PO 01/08/20 21:00 01/16/20 10:40 DC 01/16/20 08:21 Morphine Sulfate (Ms Contin) 15 mg Q12H PO 01/08/20 21:00 01/16/20 10:40 DC 01/16/20 09:45 Nicotine (Nicoderm Cq 21mg) 1 patch DAILY TD 01/09/20 09:00 01/16/20 10:40 DC 01/16/20 08:22 Ondansetron HCl (Zofran) 4 mg Q4H PRN PO NAUSEA OR VOMITING 01/08/20 17:30 01/16/20 10:40 DC Piperacillin Sod/ Tazobactam Sod 3.375 gm/Dextrose 50 ml @ 50 mls/hr Q6H IV 01/08/20 18:00 01/13/20 08:53 DC 01/13/20 05:25 Potassium Chloride (Micro-K Extencaps) 10 meq BID PO 01/08/20 21:00 01/09/20 08:33 DC 01/09/20 08:02 Potassium Chloride (Micro-K Extencaps) 20 meq BID PO 01/09/20 21:00 01/10/20 07:41 DC 01/09/20 21:36 Potassium Chloride (Micro-K Extencaps) 40 meq BID PO 01/10/20 09:00 01/12/20 06:31 DC 01/11/20 20:37 Sodium Chloride (Sodium Chloride) 1 gm BID PO 01/08/20 21:00 01/09/20 08:47 DC Vancomycin HCl 500 mg/Dextrose 110 ml @ 110 mls/hr Q8H IV 01/13/20 09:00 01/13/20 09:06 DC Vancomycin HCl 1000 mg/IV Miscellaneous Supplies 20 ml @ 20 mls/hr Q12H IV 01/08/20 17:00 01/08/20 16:58 DC Vancomycin HCl 1000 mg/IV Miscellaneous Supplies 1 each/ Dextrose 270 ml @ 270 mls/hr Q12H IV 01/08/20 20:00 01/09/20 08:35 DC 01/09/20 08:01 Vancomycin HCl 1000 mg/IV Miscellaneous Supplies 1 each/ Dextrose 270 ml @ 270 mls/hr Q12H IV 01/13/20 10:00 01/14/20 23:59 DC 01/14/20 21:58 Vancomycin HCl 1000 mg/IV Miscellaneous Supplies 1 each/ Dextrose 270 ml @ 270 mls/hr Q18H IV 01/15/20 18:00 01/16/20 10:40 DC 01/15/20 17:44 Kimberly Stevens MD Jan 16, 2020 14:52
== END 2020-01-16 10:20 | disposition home or self-care (01) | DRG 602 ==
LOC: EEVIPCON 14:56 → M MS5PR 14:56
PROVIDERS: ADMIT Internal Medicine; ATTEND Internal Medicine
DX: L03.116 Cellulitis of left lower limb (principal); I50.33 Acute on chronic diastolic (congestive) heart failure; J44.9 Chronic obstructive pulmonary disease, unspecified; M32.9 Systemic lupus erythematosus, unspecified; I11.0 Hypertensive heart disease with heart failure; G47.33 Obstructive sleep apnea (adult) (pediatric); F10.10 Alcohol abuse, uncomplicated; E11.51 Type 2 diabetes mellitus with diabetic peripheral angiopathy without gangrene; G43.909 Migraine, unspecified, not intractable, without status migrainosus; F17.210 Nicotine dependence, cigarettes, uncomplicated; F41.9 Anxiety disorder, unspecified; F32.9 Major depressive disorder, single episode, unspecified; Z79.82 Long term (current) use of aspirin; Z79.899 Other long term (current) drug therapy; Z88.8 Allergy status to other drugs, medicaments and biological substances; Z91.013 Allergy to seafood

== ENCOUNTER 2020-02-21 12:49 | Inpatient (IN) | payer MEDICARE, OTHER ==
[~2020-02-21 12:49] MED LIST changes: +BUPR150T5 PO; +CALC500T44 PO; +CARV3.12 PO; +FLUC100T PO; -NABU-119 PO; +NABU-53 PO; +NICO21DI38 TD; +NOVOINJ12 SC; +POTA1TAB23 PO; +SODI1TAB6 PO; +VANC-7 IV; +VITA50005 PO; +ZYVO1TAB PO
[2020-02-22] MEDS ORDERED: NALOXONE INJ 0.4MG/1ML VIAL (J2310 PER 1MG) ONE ×4 (01:09→07:53)
[2020-02-22] MEDS ORDERED: NALOXONE INJ 0.4MG/1ML VIAL (J2310 PER 1MG) As Ordered ONE ×4 (01:09→07:53)
[2020-02-22] MEDS ORDERED: methylPREDNISolone 125MG 2ML VIAL ONE ×2 (02:45→07:53)
[2020-02-22] MEDS ORDERED: PANTOPRAZOLE 40MG VIAL (C9113 PER 1) As Ordered ONE ×2 (02:45→07:54)
[2020-02-22] MEDS ORDERED: PANTOPRAZOLE 40MG VIAL (C9113 PER 1) ONE ×2 (02:45→07:53)
[2020-02-22] MEDS ORDERED: methylPREDNISolone 125MG 2ML VIAL As Ordered ONE ×2 (02:45→07:54)
[2020-02-22] MEDS ORDERED: HEPARIN SOD (PORCINE) 5000UNITS/ML 1ML VIAL/SYRINGE ONE ×3 (07:53→22:03)
[2020-02-22] MEDS ORDERED: HEPARIN SOD (PORCINE) 5000UNITS/ML 1ML VIAL/SYRINGE As Ordered ONE ×3 (07:53→22:03)
[2020-02-22] MEDS ORDERED: FUROSEMIDE 100MG/10ML VIAL (J1940) As Ordered ONE ×3 (09:22→20:03)
[2020-02-22] MEDS ORDERED: FUROSEMIDE 100MG/10ML VIAL (J1940) ONE ×3 (09:22→20:03)
[2020-02-22] MEDS ORDERED: cefTRIAXone SOD 1GM VIAL (J0696 PER 250MG) ONE (11:10)
[2020-02-22] MEDS ORDERED: cefTRIAXone SOD 1GM VIAL (J0696 PER 250MG) As Ordered ONE (11:10)
[2020-02-22] MEDS ORDERED: CALCIUM GLUCONATE 1,000MG/10ML VIAL (100MG/ML) (J0610) ONE (14:19)
[2020-02-22] MEDS ORDERED: CALCIUM GLUCONATE 1,000MG/10ML VIAL (100MG/ML) (J0610) As Ordered ONE (14:19)
[2020-02-23] MEDS ORDERED: HEPARIN SOD (PORCINE) 5000UNITS/ML 1ML VIAL/SYRINGE As Ordered ONE ×3 (06:23→22:01)
[2020-02-23] MEDS ORDERED: HEPARIN SOD (PORCINE) 5000UNITS/ML 1ML VIAL/SYRINGE ONE ×3 (06:23→22:01)
[2020-02-23] MEDS ORDERED: HumaLOG INSULIN (NovoLOG) PER UNIT ONE ×3 (06:23→23:24)
[2020-02-23] MEDS ORDERED: HumaLOG INSULIN (NovoLOG) PER UNIT As Ordered ONE ×4 (06:24→23:24)
[2020-02-23] MEDS ORDERED: PANTOPRAZOLE 40MG VIAL (C9113 PER 1) ONE (08:35)
[2020-02-23] MEDS ORDERED: methylPREDNISolone 40MG 1ML VIAL As Ordered ONE (08:35)
[2020-02-23] MEDS ORDERED: methylPREDNISolone 40MG 1ML VIAL ONE (08:35)
[2020-02-23] MEDS ORDERED: PANTOPRAZOLE 40MG VIAL (C9113 PER 1) As Ordered ONE (08:35)
[2020-02-23] MEDS ORDERED: ETOMIDATE INJ 20MG/10ML VIAL ONE (09:12)
[2020-02-23] MEDS ORDERED: MIDAZOLAM INJ 2MG/2ML VIAL (J2250 PER 1MG) ONE ×3 (09:12→19:53)
[2020-02-23] MEDS ORDERED: ETOMIDATE INJ 20MG/10ML VIAL As Ordered ONE (09:12)
[2020-02-23] MEDS ORDERED: MIDAZOLAM INJ 2MG/2ML VIAL (J2250 PER 1MG) As Ordered ONE ×3 (09:12→19:53)
[2020-02-23] MEDS ORDERED: SODIUM BICARBONATE 8.4% INJ 50 ML SYRINGE ONE (09:12)
[2020-02-23] MEDS ORDERED: SODIUM BICARBONATE 8.4% INJ 50 ML SYRINGE As Ordered ONE (09:13)
[2020-02-23] MEDS ORDERED: PROPOFOL 1,000 MG/100 ML VIAL ONE ×4 (09:26→21:27)
[2020-02-23] MEDS ORDERED: PROPOFOL 1,000 MG/100 ML VIAL As Ordered ONE ×5 (09:26→21:27)
[2020-02-23] MEDS ORDERED: CHLORHEXIDINE GLUCONATE 0.12 % 15ML UDC (PERIDEX ORAL RINSE) As Ordered ONE ×2 (17:06→21:07)
[2020-02-23] MEDS ORDERED: MEROPENEM 500MG IN NACL 0.9% 50ML IVBAG (J2185 PER 100MG) As Ordered ONE (17:06)
[2020-02-23] MEDS ORDERED: CHLORHEXIDINE GLUCONATE 0.12 % 15ML UDC (PERIDEX ORAL RINSE) ONE ×2 (17:06→21:07)
[2020-02-23] MEDS ORDERED: MEROPENEM 500MG IN NACL 0.9% 50ML IVBAG (J2185 PER 100MG) ONE (17:06)
[2020-02-24] MEDS ORDERED: PROPOFOL 1,000 MG/100 ML VIAL ONE ×7 (02:02→22:07)
[2020-02-24] MEDS ORDERED: MIDAZOLAM INJ 2MG/2ML VIAL (J2250 PER 1MG) ONE ×2 (02:02→19:50)
[2020-02-24] MEDS ORDERED: MIDAZOLAM INJ 2MG/2ML VIAL (J2250 PER 1MG) As Ordered ONE ×2 (02:02→19:50)
[2020-02-24] MEDS ORDERED: PROPOFOL 1,000 MG/100 ML VIAL As Ordered ONE ×7 (02:06→22:07)
[2020-02-24] MEDS ORDERED: HEPARIN SOD (PORCINE) 5000UNITS/ML 1ML VIAL/SYRINGE ONE ×3 (05:06→20:33)
[2020-02-24] MEDS ORDERED: HumaLOG INSULIN (NovoLOG) PER UNIT ONE ×4 (05:06→23:07)
[2020-02-24] MEDS ORDERED: HEPARIN SOD (PORCINE) 5000UNITS/ML 1ML VIAL/SYRINGE As Ordered ONE ×3 (05:06→20:33)
[2020-02-24] MEDS ORDERED: HumaLOG INSULIN (NovoLOG) PER UNIT As Ordered ONE ×4 (05:07→23:07)
[2020-02-24] MEDS ORDERED: PANTOPRAZOLE 40MG VIAL (C9113 PER 1) ONE (09:33)
[2020-02-24] MEDS ORDERED: methylPREDNISolone 40MG 1ML VIAL As Ordered ONE (09:33)
[2020-02-24] MEDS ORDERED: CHLORHEXIDINE GLUCONATE 0.12 % 15ML UDC (PERIDEX ORAL RINSE) ONE ×2 (09:33→20:33)
[2020-02-24] MEDS ORDERED: PANTOPRAZOLE 40MG VIAL (C9113 PER 1) As Ordered ONE (09:33)
[2020-02-24] MEDS ORDERED: CHLORHEXIDINE GLUCONATE 0.12 % 15ML UDC (PERIDEX ORAL RINSE) As Ordered ONE ×2 (09:33→20:33)
[2020-02-24] MEDS ORDERED: methylPREDNISolone 40MG 1ML VIAL ONE (09:33)
[2020-02-24] MEDS ORDERED: THIAMINE 200MG/2ML VIAL (J3411 PER 100MG) As Ordered ONE (11:02)
[2020-02-24] MEDS ORDERED: MULTIVITAMINS/MINERALS THERAP 1 TAB As Ordered ONE (11:02)
[2020-02-24] MEDS ORDERED: MULTIVITAMINS/MINERALS THERAP 1 TAB ONE (11:02)
[2020-02-24] MEDS ORDERED: THIAMINE 200MG/2ML VIAL (J3411 PER 100MG) ONE (11:02)
[2020-02-24] MEDS ORDERED: MEROPENEM 500MG IN NACL 0.9% 50ML IVBAG (J2185 PER 100MG) ONE (18:21)
[2020-02-24] MEDS ORDERED: MEROPENEM 500MG IN NACL 0.9% 50ML IVBAG (J2185 PER 100MG) As Ordered ONE (18:21)
[2020-02-25] MEDS ORDERED: PROPOFOL 1,000 MG/100 ML VIAL ONE ×4 (00:07→06:44)
[2020-02-25] MEDS ORDERED: PROPOFOL 1,000 MG/100 ML VIAL As Ordered ONE ×4 (00:07→06:44)
[2020-02-25] MEDS ORDERED: MIDAZOLAM INJ 2MG/2ML VIAL (J2250 PER 1MG) ONE (01:31)
[2020-02-25] MEDS ORDERED: MIDAZOLAM INJ 2MG/2ML VIAL (J2250 PER 1MG) As Ordered ONE (01:31)
[2020-02-25] MEDS ORDERED: HEPARIN SOD (PORCINE) 5000UNITS/ML 1ML VIAL/SYRINGE As Ordered ONE ×3 (05:29→22:12)
[2020-02-25] MEDS ORDERED: HEPARIN SOD (PORCINE) 5000UNITS/ML 1ML VIAL/SYRINGE ONE ×3 (05:29→22:12)
[2020-02-25] MEDS ORDERED: HumaLOG INSULIN (NovoLOG) PER UNIT ONE ×3 (05:29→16:35)
[2020-02-25] MEDS ORDERED: HumaLOG INSULIN (NovoLOG) PER UNIT As Ordered ONE ×3 (05:34→16:35)
[2020-02-25] MEDS ORDERED: NYSTATIN 100,000 UNITS/GM TOPICAL PWD 15 GM ONE (09:00)
[2020-02-25] MEDS ORDERED: methylPREDNISolone 40MG 1ML VIAL ONE (09:42)
[2020-02-25] MEDS ORDERED: MULTIVITAMINS/MINERALS THERAP 1 TAB ONE (09:42)
[2020-02-25] MEDS ORDERED: methylPREDNISolone 40MG 1ML VIAL As Ordered ONE (09:42)
[2020-02-25] MEDS ORDERED: MULTIVITAMINS/MINERALS THERAP 1 TAB As Ordered ONE (09:42)
[2020-02-25] MEDS ORDERED: THIAMINE 200MG/2ML VIAL (J3411 PER 100MG) ONE (09:42)
[2020-02-25] MEDS ORDERED: PANTOPRAZOLE 40MG VIAL (C9113 PER 1) As Ordered ONE (09:42)
[2020-02-25] MEDS ORDERED: PANTOPRAZOLE 40MG VIAL (C9113 PER 1) ONE (09:42)
[2020-02-25] MEDS ORDERED: THIAMINE 200MG/2ML VIAL (J3411 PER 100MG) As Ordered ONE (09:43)
[2020-02-25] MEDS ORDERED: SPIRONOLACTONE 25 MG TAB ONE (11:16)
[2020-02-25] MEDS ORDERED: POTASSIUM CHLORIDE 10 MEQ SR TABLET ONE (11:16)
[2020-02-25] MEDS ORDERED: POTASSIUM CHLORIDE 10 MEQ SR TABLET As Ordered ONE (11:16)
[2020-02-25] MEDS ORDERED: SPIRONOLACTONE 25 MG TAB As Ordered ONE (11:16)
[2020-02-25] MEDS ORDERED: MEROPENEM 500MG IN NACL 0.9% 50ML IVBAG (J2185 PER 100MG) ONE (16:24)
[2020-02-25] MEDS ORDERED: MEROPENEM 500MG IN NACL 0.9% 50ML IVBAG (J2185 PER 100MG) As Ordered ONE (16:24)
[2020-02-26] MEDS ORDERED: LORazepam 2 MG/ML VIAL As Ordered ONE (02:08)
[2020-02-26] MEDS ORDERED: LORazepam 2 MG/ML VIAL ONE (02:08)
[2020-02-26] MEDS ORDERED: HEPARIN SOD (PORCINE) 5000UNITS/ML 1ML VIAL/SYRINGE ONE ×3 (06:25→21:37)
[2020-02-26] MEDS ORDERED: HEPARIN SOD (PORCINE) 5000UNITS/ML 1ML VIAL/SYRINGE As Ordered ONE ×3 (06:25→21:37)
[2020-02-26] MEDS ORDERED: HumaLOG INSULIN (NovoLOG) PER UNIT As Ordered ONE ×3 (08:21→17:48)
[2020-02-26] MEDS ORDERED: HumaLOG INSULIN (NovoLOG) PER UNIT ONE ×3 (08:21→17:48)
[2020-02-26] MEDS ORDERED: methylPREDNISolone 40MG 1ML VIAL As Ordered ONE (09:22)
[2020-02-26] MEDS ORDERED: THIAMINE 100 MG TAB ONE (09:22)
[2020-02-26] MEDS ORDERED: MEROPENEM 500MG IN NACL 0.9% 50ML IVBAG (J2185 PER 100MG) ONE (09:22)
[2020-02-26] MEDS ORDERED: MEROPENEM 500MG IN NACL 0.9% 50ML IVBAG (J2185 PER 100MG) As Ordered ONE (09:22)
[2020-02-26] MEDS ORDERED: THIAMINE 100 MG TAB As Ordered ONE (09:23)
[2020-02-26] MEDS ORDERED: PANTOPRAZOLE 40MG VIAL (C9113 PER 1) As Ordered ONE (09:23)
[2020-02-26] MEDS ORDERED: predniSONE 20 MG TAB ONE (09:56)
[2020-02-26] MEDS ORDERED: PANTOPRAZOLE 40MG TAB (PROTONIX) As Ordered ONE (09:56)
[2020-02-26] MEDS ORDERED: PANTOPRAZOLE 40MG TAB (PROTONIX) ONE (09:56)
[2020-02-26] MEDS ORDERED: predniSONE 20 MG TAB As Ordered ONE (09:57)
[2020-02-26] MEDS ORDERED: ONDANSETRON 4MG/2ML VIAL As Ordered ONE (15:56)
[2020-02-26] MEDS ORDERED: ONDANSETRON 4MG/2ML VIAL ONE (15:56)
[2020-02-26] MEDS ORDERED: NYSTATIN CREAM 15 GM ONE ×2 (21:00)
[2020-02-27] MEDS ORDERED: HEPARIN SOD (PORCINE) 5000UNITS/ML 1ML VIAL/SYRINGE ONE (05:56)
[2020-02-27] MEDS ORDERED: HEPARIN SOD (PORCINE) 5000UNITS/ML 1ML VIAL/SYRINGE As Ordered ONE (05:56)
[2020-02-27] MEDS ORDERED: MULTIVITAMINS/MINERALS THERAP 1 TAB ONE (08:54)
[2020-02-27] MEDS ORDERED: predniSONE 20 MG TAB As Ordered ONE (08:54)
[2020-02-27] MEDS ORDERED: PANTOPRAZOLE 40MG TAB (PROTONIX) As Ordered ONE (08:54)
[2020-02-27] MEDS ORDERED: THIAMINE 100 MG TAB ONE (08:54)
[2020-02-27] MEDS ORDERED: predniSONE 20 MG TAB ONE (08:54)
[2020-02-27] MEDS ORDERED: PANTOPRAZOLE 40MG TAB (PROTONIX) ONE (08:54)
[2020-02-27] MEDS ORDERED: THIAMINE 100 MG TAB As Ordered ONE (08:54)
[2020-02-27] MEDS ORDERED: MULTIVITAMINS/MINERALS THERAP 1 TAB As Ordered ONE (08:54)
[2020-02-27] MEDS ORDERED: ACETAMINOPHEN TAB 650MG DOSE (2X325MG) ONE (14:10)
[2020-02-27] MEDS ORDERED: ACETAMINOPHEN TAB 650MG DOSE (2X325MG) As Ordered ONE (14:10)
[2020-02-27] MEDS ORDERED: MEROPENEM 500MG IN NACL 0.9% 50ML IVBAG (J2185 PER 100MG) ONE (14:27)
--- NOTE | 2020-04-01 15:55 | ECGEPIP ---
[facility] Test Date: 2020-02-23 Pat Name: BEBA WHITEHEAD Department: Room: [place] [address] Gender: Female Curing Room Worker: JAMES : 1965 Requested By: KATHERINE ESCAMILLA Order Number: [id number] Reading MD: Ashkan Rebolledo Measurements Intervals [place] Rate: 88 P: 79 WI: 149 QRS: 83 QRSD: 98 T: 29 QT: 365 QTc: 443 Interpretive Statements SINUS RHYTHM LOW QRS VOLTAGE IN EXTREMITY LEADS POSSIBLE ANTERIOR MYOCARDIAL INFARCTION, OF INDETERMINATE AGE ABNORMAL ECG NO PRIOR
--- NOTE | 2020-04-02 12:11 | ECGEPIP ---
[facility] Test Date: 2020-02-24 Pat Name: BEBA WHITEHEAD Department: Room: [place] [address] Gender: Female Food And Beverage Manager: JAMES : 1965 Requested By: DIANE Garcia Order Number: [id number] Reading MD: Ashkan Rebolledo Measurements Intervals [place] Rate: 78 P: 111 NH: 141 QRS: 95 QRSD: 98 T: -23 QT: 370 QTc: 424 Interpretive Statements SINUS RHYTHM WITH OCCASIONAL VENTRICULAR PREMATURE COMPLEXES WITH FREQUENT SUPRAVENTRICULAR PREMATURE COMPLEXES BORDERLINE RIGHT AXIS DEVIATION LOW QRS VOLTAGE IN EXTREMITY LEADS ABNORMAL QRS-T ANGLE ABNORMAL ECG NO PRIOR SEE SCANNED DOWNTIME REPORT
--- NOTE | 2020-04-07 07:53 | REP ---
PORTABLE SINGLE AP VIEW CHEST X-RAY (SITTING): Delay in reporting results from malfunction of the hospital computer system from malware / ransomware. COMPARISON: 02/22/20 FINDINGS: Because of the difficulties with the hospital computer system, the report for the prior study is not available for my review. However, the images are available for review. There are diffuse bilateral infiltrates that have worsened when compared to the prior study images. No pleural effusions are identified. Cardiac size appears enlarged, although there is magnification from portable positioning. IMPRESSION: Worsening diffuse bilateral infiltrates. No pleural effusion. MTDD
--- NOTE | 2020-04-07 12:46 | ECGEPIP ---
[facility] Test Date: 2020-02-22 Pat Name: BEBA WHITEHEAD Department: Room: 3207 Gender: Female Back Grinder: TIP : 1965 Requested By: JEANNIE Order Number: [id number] Reading MD: Tarun Rosario Measurements Intervals [place] Rate: 81 P: 97 RI: 127 QRS: 85 QRSD: 101 T: 30 QT: 395 QTc: 461 Interpretive Statements NORMAL SINUS RHYTHM LOW QRS VOLTAGE THROUGHOUT POSSIBLE ANTERIOR MYOCARDIAL INFARCTION, PROBABLY OLD ABNORMAL ECG PRIOR TRACING N/A SEE DOWNTIME SCANNED REPORT
[2020-04-09 18:29] LABS: BASO % 0.1 % (0.0-1.0); LYMPH # 0.7 10^3/uL (1.5-5.0); LYMPH % 2.6 % (24.0-44.0); MEAN CORPUSCULAR HEMOGLOBIN 35.9 pg (27.0-33.0); MEAN CORPUSCULAR HGB CONC 33.8 g/dl (32.0-36.5); MEAN CORPUSCULAR VOLUME 106.2 fl (80.0-96.0); MONO # 0.4 10^3/uL (0.0-0.8); MONO % 1.5 % (0.0-5.0); NEUTROPHILS # 23.4 10^3/uL (1.5-8.5); NEUTROPHILS % 94.2 % (36.0-66.0); PLATELET COUNT, AUTOMATED 225 10^3/uL (150-450); RED BLOOD COUNT 1.95 10^6/uL (4.00-5.40); WHITE BLOOD COUNT 24.9 10^3/uL (4.0-10.0)
[2020-04-09 18:31] LABS: HEMATOCRIT 20.7 % (36.0-47.0)
[2020-04-09 18:45] LABS: APPEARANCE, URINE MANUAL TURBID (CLEAR); COLOR, URINE MANUAL BROWN (YELLOW)
[2020-04-09 18:46] LABS: BILIRUBIN, URINE MANUAL OBSCURED (NEGATIVE); BLOOD URINE MANUAL POSITIVE (NEGATIVE); GLUCOSE, URINE (UA) MANUAL NEGATIVE (NEGATIVE); KETONE, URINE MANUAL OBSCURED mg/dL (NEGATIVE); LEUKOCYTE ESTERASE, URINE MAN POSITIVE (NEGATIVE); NITRITE, URINE MANUAL NEGATIVE (NEGATIVE); PROTEIN, URINE MANUAL 2+ mg/dL (NEGATIVE); UROBILINOGEN, URINE MANUAL OBSCURED mg/dl (NORMAL)
[2020-04-09 18:47] LABS: BACTERIA, URINE SMALL AMOUNT; HYALINE CAST, URINE NONE SEEN /lpf (0-1); RBC, URINE TNTC /hpf (0-3); SQUAMOUS EPITHELIAL CELL URINE MOD AMOUNT /hpf (SMALL AMT); WBC, URINE 40-50 /hpf (0-3)
[2020-04-14 10:53] LABS: INR 1.31; PROTHROMBIN TIME 16.6 SECONDS (12.5-14.3)
[2020-04-14 11:03] LABS: HEMOGLOBIN 7.2 g/dl (12.0-15.5); MEAN CORPUSCULAR HEMOGLOBIN 33.6 pg (27.0-33.0); MEAN CORPUSCULAR HGB CONC 32.7 g/dl (32.0-36.5); MEAN CORPUSCULAR VOLUME 102.8 fl (80.0-96.0); PLATELET COUNT, AUTOMATED 172 10^3/uL (150-450); RED BLOOD COUNT 2.14 10^6/uL (4.00-5.40); WHITE BLOOD COUNT 16.3 10^3/uL (4.0-10.0)
[2020-04-14 11:22] LABS: HEMATOCRIT 23.1 % (36.0-47.0); HEMOGLOBIN 7.7 g/dl (12.0-15.5); MEAN CORPUSCULAR HEMOGLOBIN 34.5 pg (27.0-33.0); MEAN CORPUSCULAR HGB CONC 33.3 g/dl (32.0-36.5); MEAN CORPUSCULAR VOLUME 103.6 fl (80.0-96.0); PLATELET COUNT, AUTOMATED 210 10^3/uL (150-450); RED BLOOD COUNT 2.23 10^6/uL (4.00-5.40); WHITE BLOOD COUNT 33.4 10^3/uL (4.0-10.0)
[2020-04-15 09:10] LABS: HEMATOCRIT 20.8 % (36.0-47.0); MEAN CORPUSCULAR HEMOGLOBIN 33.8 pg (27.0-33.0); MEAN CORPUSCULAR HGB CONC 32.7 g/dl (32.0-36.5); MEAN CORPUSCULAR VOLUME 103.5 fl (80.0-96.0); PLATELET COUNT, AUTOMATED 166 10^3/uL (150-450); RED BLOOD COUNT 2.01 10^6/uL (4.00-5.40); WHITE BLOOD COUNT 11.8 10^3/uL (4.0-10.0)
[2020-04-15 09:11] LABS: HEMOGLOBIN 6.8 g/dl (12.0-15.5)
[2020-04-15 10:12] LABS: HEMATOCRIT 22.9 % (36.0-47.0); HEMOGLOBIN 7.4 g/dl (12.0-15.5); PROTHROMBIN TIME 15.1 SECONDS (12.5-14.3)
[2020-04-15 10:13] LABS: INR 1.16
[2020-04-18 01:01] LABS: HEMATOCRIT 26.7 % (36.0-47.0); HEMOGLOBIN 8.9 g/dl (12.0-15.5); MEAN CORPUSCULAR HEMOGLOBIN 32.8 pg (27.0-33.0); MEAN CORPUSCULAR HGB CONC 33.3 g/dl (32.0-36.5); MEAN CORPUSCULAR VOLUME 98.5 fl (80.0-96.0); PLATELET COUNT, AUTOMATED 171 10^3/uL (150-450); RED BLOOD COUNT 2.71 10^6/uL (4.00-5.40); WHITE BLOOD COUNT 8.8 10^3/uL (4.0-10.0)
[2020-04-18 16:42] LABS: HEMOGLOBIN 9.1 g/dl (12.0-15.5); MEAN CORPUSCULAR HEMOGLOBIN 32.4 pg (27.0-33.0); MEAN CORPUSCULAR HGB CONC 32.5 g/dl (32.0-36.5); MEAN CORPUSCULAR VOLUME 99.6 fl (80.0-96.0); PLATELET COUNT, AUTOMATED 168 10^3/uL (150-450); RED BLOOD COUNT 2.81 10^6/uL (4.00-5.40); WHITE BLOOD COUNT 11.7 10^3/uL (4.0-10.0)
--- NOTE | 2020-04-20 07:06 | REP ---
PORTABLE CHEST COMPARISON: 02/23/2020. TECHNIQUE: Single view of the chest was performed. FINDINGS: Bilateral infiltrates are again noted diffusely. The infiltrates in the lung bases appear somewhat less dense than on the prior study. Heart appears enlarged. Mediastinal silhouette is unchanged. Bilateral central venous catheters, endotracheal tube, and nasogastric tube appear unchanged. MTDD
--- NOTE | 2020-04-22 10:50 | RO ---
DATE OF OPERATION: 02/23/2020 PREPROCEDURE DIAGNOSIS: Acute renal failure. POSTOPERATIVE DIAGNOSIS: Acute renal failure. PROCEDURE: Hemodialysis catheter insertion. ATTENDING PHYSICIAN: Denise Young MD INDICATION: Hemodialysis access. CONSENT: Due to emergent nature of the procedure, the consent was implied. PROCEDURE SUMMARY: A central line insertion practice form was completed by the attending service starting with the first handwash prior to starting sterile technique. A timeout was performed. A full sterile technique was maintained throughout the procedure including surgical cap, mask with safe eyewear, full gown and sterile gloves. The patient was placed in Trendelenburg position. The right neck region was prepped using chlorhexidine scrub and draped in a sterile fashion using a fenestrated drape and a sterile probe cover was employed. The right internal jugular vein was identified using ultrasound. Anesthesia was achieved over the vein using 1% lidocaine. Using real time monoplane guidance, the introducer needle was inserted into the right internal jugular vein under direct ultrasound visualization. Venous blood was withdrawn. The syringe was removed and a guidewire was advanced into the introducer needle. The syringe was removed over the guidewire and the guidewire was visualized in the internal jugular vein by ultrasound. A small incision was made at the skin surface with a scalpel and dilator was exchanged over the guidewire. After appropriate double dilation was obtained, the dilator was exchanged over the wire for a dual-lumen hemodialysis catheter. The wire was removed and the catheter was sutured in place. A sterile chlorhexidine impregnated dressing was placed over the catheter at the insertion site. The patient tolerated the procedure without any hemodynamic compromise. At time of procedure completion, all ports were aspirated and flushed properly. Heparin was instilled in the ports. Postprocedure chest x-ray showed no pneumothorax and the hemodialysis catheter in good position with the tip in the SVC. ESTIMATED BLOOD LOSS: Less than 3 mL MTDD
--- NOTE | 2020-04-22 10:51 | RO ---
DATE OF OPERATION: 02/23/2020 PREPROCEDURE DIAGNOSIS: Pulmonary edema, acute renal failure. POSTPROCEDURE DIAGNOSIS: Pulmonary edema, acute renal failure. PROCEDURE: Endotracheal intubation. ATTENDING PHYSICIAN: Denise Young MD INDICATION: Hypoxemic respiratory failure. CONSENT: Due to the emergent nature of the procedure, consent as implied. PROCEDURE SUMMARY: The patient was placed on a graphic engineer including continuous pulse oximetry. She was given 2 mg of Versed IV for presedation. The patient was then given 30 mg of Etomidate for induction for rapid sequence intubation. Using a size 3 Glidescope and a size 7.5 endotracheal tube stylet, the patient was intubated on the first pass attempt. The stylet was removed and the cuff balloon was inflated. Appropriate endotracheal tube was confirmed by direct visualization of vocal cord passage, following of the tube, CO2 colorimetric indicator and symmetric breath sounds. The tube was secured at approximately 23 cm at the lips. Post-intubation chest x-ray showed ET tube in good position. [facility]
--- NOTE | 2020-04-22 10:52 | RO ---
DATE OF OPERATION: 02/23/2020 PROCEDURE: Internal jugular central line. INDICATIONS: Venous access PREPROCEDURE DIAGNOSIS: Acute renal failure. POSTPROCEDURE DIAGNOSES: * Acute renal failure. * Hypoxemic respiratory failure. ATTENDING PHYSICIAN: Dr. Young CONSENT: The procedure was performed emergently and permission was implied due to the emergent nature of the procedure. PROCEDURE SUMMARY: A Central Line Insertion Practice form was completed by independent observer. Full sterile technique was maintained throughout the procedure including surgical cap, mask, protective eyewear, full gown, and sterile gloves. A time-out was performed prior to procedure. Patient was placed in Trendelenburg position. The left neck region was prepped using chlorhexidine scrub and draped in sterile fashion using a fenestrated drape and a sterile probe cover was employed. The left internal jugular vein was identified using ultrasound. Anesthesia was achieved using 1% Lidocaine. Using real-time ultrasound guidance, the introducer needle was inserted into the internal jugular vein under direct ultrasound visualization. Venous blood was drawn. The syringe was removed and a guidewire was advanced into the introducer needle. The introducer needle was removed over the guidewire. A small incision was made at the skin surface with a scalpel and a dilator was exchanged over the guidewire. After appropriate dilation was obtained, the dilator was changed over the wire for a triple lumen central venous catheter. The wire was removed and the catheter was sutured in place at approximately 19 cm. A sterile chlorhexidine impregnated dressing was placed over the catheter at the insertion site. The patient tolerated the procedure with hemodynamic compromise. At the time of procedure completion, all ports aspirated and flushed properly. Post- procedure chest x-ray shows the internal jugular vein with the tip crossing over midline with the tip at the SVC. ESTIMATED BLOOD LOSS: Less than 2 mL. MTDD
[2020-04-24 19:26] LABS: HEMATOCRIT 28.2 % (36.0-47.0); MEAN CORPUSCULAR HEMOGLOBIN 32.3 pg (27.0-33.0); MEAN CORPUSCULAR HGB CONC 31.9 g/dl (32.0-36.5); MEAN CORPUSCULAR VOLUME 101.1 fl (80.0-96.0); PLATELET COUNT, AUTOMATED 138 10^3/uL (150-450); RED BLOOD COUNT 2.79 10^6/uL (4.00-5.40); WHITE BLOOD COUNT 6.9 10^3/uL (4.0-10.0)
--- NOTE | 2020-04-26 08:04 | REP ---
PORTABLE CHEST X-RAY: HISTORY: Dialysis catheter, central line insertion. FINDINGS: A single view of the chest is performed and compared to prior exam earlier the same day. Diffuse bilateral infiltrates are again noted unchanged. Heart and mediastinum are unchanged. Endotracheal tube appears unchanged and in position. Nasogastric tube traverses into the stomach. Right central venous catheter and left central venous catheter have been placed. Each tip is in the superior vena cava. There is no pneumothorax. MTDD
[2020-05-12 13:09] LABS: BASO # 0.1 10^3/uL (0.0-0.2); BASO % 0.3 % (0.0-1.0); HEMATOCRIT 20.8 % (36.0-47.0); LYMPH # 1.4 10^3/uL (1.5-5.0); LYMPH % 6.1 % (24.0-44.0); MEAN CORPUSCULAR HEMOGLOBIN 35.5 pg (27.0-33.0); MEAN CORPUSCULAR HGB CONC 33.7 g/dl (32.0-36.5); MEAN CORPUSCULAR VOLUME 105.6 fl (80.0-96.0); MONO # 1.3 10^3/uL (0.0-0.8); MONO % 5.7 % (0.0-5.0); NEUTROPHILS # 20.1 10^3/uL (1.5-8.5); NEUTROPHILS % 86.3 % (36.0-66.0); PLATELET COUNT, AUTOMATED 247 10^3/uL (150-450); RED BLOOD COUNT 1.97 10^6/uL (4.00-5.40); WHITE BLOOD COUNT 23.3 10^3/uL (4.0-10.0)
[2020-05-17 22:05] LABS: ABG BASE EXCESS -6.8 (-2.0-2.0); ABG MODE OF VENT R/A; ABG PARTIAL PRESSURE CO2 38.8 mmHg (35.0-45.0); ABG STANDARD HCO3 18.8 MEQ/L (22.0-26.0); ABG TOTAL CO2 20.2 MEQ/L (22.0-29.0); ABG pH (ARTERIAL) 7.307 UNITS (7.350-7.450)
[2020-05-17 22:06] LABS: ABG O2 SATURATION 96.1 % (95.0-99.0)
[2020-05-17 22:10] LABS: ABG BASE EXCESS -7.3 (-2.0-2.0); ABG HCO3 18.7 MEQ/L (22.0-26.0); ABG MODE OF VENT R/A; ABG O2 SATURATION 97.2 % (95.0-99.0); ABG PARTIAL PRESSURE CO2 39.5 mmHg (35.0-45.0); ABG PARTIAL PRESSURE O2 95.1 mmHg (75.0-100.0); ABG STANDARD HCO3 18.4 MEQ/L (22.0-26.0); ABG TOTAL CO2 19.9 MEQ/L (22.0-29.0); ABG pH (ARTERIAL) 7.292 UNITS (7.350-7.450)
[2020-05-17 22:11] LABS: ABG BASE EXCESS -5.8 (-2.0-2.0); ABG HCO3 21.6 MEQ/L (22.0-26.0); ABG MODE OF VENT R/A; ABG PARTIAL PRESSURE CO2 54.1 mmHg (35.0-45.0); ABG PARTIAL PRESSURE O2 65.7 mmHg (75.0-100.0); ABG STANDARD HCO3 19.5 MEQ/L (22.0-26.0); ABG TOTAL CO2 23.3 MEQ/L (22.0-29.0)
[2020-05-17 22:12] LABS: ABG O2 SATURATION 90.4 % (95.0-99.0)
[2020-05-17 23:12] LABS: ALBUMIN 3.3 GM/DL (3.2-5.2); CREATININE FOR GFR 3.19 MG/DL (0.55-1.30); GLOMERULAR FILTRATION RATE 16.3 (>51); MAGNESIUM LEVEL 2.4 MG/DL (1.8-2.4); POTASSIUM SERUM 5.3 MEQ/L (3.5-5.1)
[2020-05-17 23:12] LABS: CREATININE,RANDOM URINE 92.8 MG/DL; TOTAL PROTEIN,RANDOM URINE 315.7 MG/DL (0.0-12.0)
[2020-05-17 23:12] LABS: CALCIUM LEVEL 6.1 MG/DL (8.5-10.1); CREATININE FOR GFR 2.99 MG/DL (0.55-1.30); GLOMERULAR FILTRATION RATE 17.5 (>51); POTASSIUM SERUM 4.9 MEQ/L (3.5-5.1)
[2020-05-17 23:12] LABS: ALBUMIN 3.4 GM/DL (3.2-5.2); CALCIUM LEVEL 7.2 MG/DL (8.5-10.1); CREATININE FOR GFR 3.31 MG/DL (0.55-1.30); GLOMERULAR FILTRATION RATE 15.6 (>51); PHOSPHORUS LEVEL 6.5 MG/DL (2.5-4.9); POTASSIUM SERUM 5.4 MEQ/L (3.5-5.1)
[2020-05-17 23:33] LABS: ALBUMIN 3.3 GM/DL (3.2-5.2); BILIRUBIN,TOTAL 1.9 MG/DL (0.2-1.0); CALCIUM LEVEL 7.5 MG/DL (8.5-10.1); CREATININE FOR GFR 3.02 MG/DL (0.55-1.30); FOLATE 18.5 NG/ML (>5.4); FREE THYROXINE INDEX 3.1 % (1.3-4.8); GLOMERULAR FILTRATION RATE 17.3 (>51); MAGNESIUM LEVEL 2.3 MG/DL (1.8-2.4); PHOSPHORUS LEVEL 5.6 MG/DL (2.5-4.9); POTASSIUM SERUM 5.3 MEQ/L (3.5-5.1); PTH INTACT 240.3 PG/ML (18.5-88.0); THYROID STIMULATING HORMONE 1.45 uIU/ML (0.358-3.740); THYROXINE (T4) 8.9 UG/DL (4.5-12.0); TOTAL PROTEIN 7.9 GM/DL (6.4-8.2)
[2020-05-17 23:34] LABS: ACETAMINOPHEN LEVEL < 2.0 UG/ML (10.0-30.0); ACETONE/KETONE 21.68 MG/DL (<2.81); CPK CREATINE PHOSPHOKINASE 144 U/L (26-192); ETHYL ALCOHOL (ETHANOL) < 0.003 % (0.000-0.010); SALICYLATE LEVEL < 1.7 MG/DL (5.0-30.0)
[2020-05-18 03:58] LABS: ABG BASE EXCESS -3.6 (-2.0-2.0); ABG MODE OF VENT R/A; ABG O2 SATURATION 79.1 % (95.0-99.0); ABG PARTIAL PRESSURE CO2 58.4 mmHg (35.0-45.0); ABG STANDARD HCO3 21.2 MEQ/L (22.0-26.0); ABG TOTAL CO2 25.8 MEQ/L (22.0-29.0); ABG pH (ARTERIAL) 7.231 UNITS (7.350-7.450)
[2020-05-18 03:59] LABS: ABG MODE OF VENT R/A; ABG PARTIAL PRESSURE CO2 46.6 mmHg (35.0-45.0); ABG pH (ARTERIAL) 7.331 UNITS (7.350-7.450)
[2020-05-18 04:00] LABS: ABG BASE EXCESS -1.8 (-2.0-2.0); ABG HCO3 24.1 MEQ/L (22.0-26.0); ABG PARTIAL PRESSURE O2 46.1 mmHg (75.0-100.0); ABG STANDARD HCO3 22.7 MEQ/L (22.0-26.0); ABG TOTAL CO2 25.5 MEQ/L (22.0-29.0)
[2020-05-18 04:12] LABS: ALBUMIN 3.6 GM/DL (3.2-5.2); BILIRUBIN,TOTAL 1.5 MG/DL (0.2-1.0); CALCIUM LEVEL 7.1 MG/DL (8.5-10.1); CALCIUM LEVEL 8.1 MG/DL (8.5-10.1); CREATININE FOR GFR 1.89 MG/DL (0.55-1.30); CREATININE FOR GFR 3.36 MG/DL (0.55-1.30); GLOMERULAR FILTRATION RATE 15.3 (>51); GLOMERULAR FILTRATION RATE 29.7 (>51); MAGNESIUM LEVEL 2.2 MG/DL (1.8-2.4); PHOSPHORUS LEVEL 6.2 MG/DL (2.5-4.9); POTASSIUM SERUM 4.4 MEQ/L (3.5-5.1); POTASSIUM SERUM 5.4 MEQ/L (3.5-5.1); TOTAL PROTEIN 7.3 GM/DL (6.4-8.2)
[2020-05-18 04:12] LABS: HEPATITIS A ANTIBODY IGM NEGATIVE (NEGATIVE); HEPATITIS B CORE ANTIBODY IGM NEGATIVE (NEGATIVE); HEPATITIS B SURFACE ANTIGEN NEGATIVE (NEGATIVE); HEPATITIS C VIRUS ABY INDEX 0.3 INDEX (<0.8)
[2020-05-19 03:39] LABS: ALBUMIN 2.8 GM/DL (3.2-5.2); BILIRUBIN,TOTAL 1.2 MG/DL (0.2-1.0); GLOMERULAR FILTRATION RATE 27.9 (>51); MAGNESIUM LEVEL 2.2 MG/DL (1.8-2.4); TOTAL PROTEIN 7.4 GM/DL (6.4-8.2)
[2020-05-19 03:39] LABS: CHOLESTEROL RISK RATIO 6.529 (<5); FOLATE 11.4 NG/ML
[2020-05-19 04:14] LABS: ABG MODE OF VENT R/A; ABG PARTIAL PRESSURE CO2 34.6 mmHg (35.0-45.0); ABG PARTIAL PRESSURE O2 150.9 mmHg (75.0-100.0); ABG TOTAL CO2 23.3 MEQ/L (22.0-29.0); ABG pH (ARTERIAL) 7.425 UNITS (7.350-7.450)
[2020-05-19 04:15] LABS: ABG BASE EXCESS -1.9 (-2.0-2.0); ABG HCO3 22.2 MEQ/L (22.0-26.0); ABG O2 SATURATION 99.4 % (95.0-99.0); ABG STANDARD HCO3 22.9 MEQ/L (22.0-26.0)
[2020-05-19 12:50] LABS: ALBUMIN 2.9 GM/DL (3.2-5.2); CALCIUM LEVEL 8.5 MG/DL (8.5-10.1); CREATININE FOR GFR 1.28 MG/DL (0.55-1.30); GLOMERULAR FILTRATION RATE 46.6 (>51); PHOSPHORUS LEVEL 1.9 MG/DL (2.5-4.9); POTASSIUM SERUM 3.4 MEQ/L (3.5-5.1)
[2020-05-19 15:12] LABS: ABG MODE OF VENT RA; ABG PARTIAL PRESSURE CO2 34.6 mmHg (35.0-45.0); ABG PARTIAL PRESSURE O2 102.8 mmHg (75.0-100.0); ABG pH (ARTERIAL) 7.447 UNITS (7.350-7.450)
[2020-05-19 15:13] LABS: ABG BASE EXCESS -0.4 (-2.0-2.0); ABG HCO3 23.3 MEQ/L (22.0-26.0); ABG O2 SATURATION 98.1 % (95.0-99.0); ABG STANDARD HCO3 24.2 MEQ/L (22.0-26.0); ABG TOTAL CO2 24.4 MEQ/L (22.0-29.0)
[2020-05-19 22:23] LABS: ALBUMIN 3.1 GM/DL (3.2-5.2); CALCIUM LEVEL 8.7 MG/DL (8.5-10.1); CREATININE FOR GFR 1.17 MG/DL (0.55-1.30); GLOMERULAR FILTRATION RATE 51.7 (>51); PHOSPHORUS LEVEL 2.5 MG/DL (2.5-4.9); POTASSIUM SERUM 3.8 MEQ/L (3.5-5.1)
[2020-05-23 05:27] LABS: ALBUMIN 3.1 GM/DL (3.2-5.2); ALT/SGPT 36 U/L (12-78); BILIRUBIN,TOTAL 1.4 MG/DL (0.2-1.0); BLOOD UREA NITROGEN 20 MG/DL (7-18); CALCIUM LEVEL 8.5 MG/DL (8.5-10.1); CARBON DIOXIDE LEVEL 32 MEQ/L (21-32); CHLORIDE LEVEL 99 MEQ/L (98-107); CREATININE FOR GFR 0.99 MG/DL (0.55-1.30); GLOMERULAR FILTRATION RATE > 60.0 (>51); GLUCOSE, FASTING 113 MG/DL (70-100); MAGNESIUM LEVEL 2.1 MG/DL (1.8-2.4); POTASSIUM SERUM 3.6 MEQ/L (3.5-5.1); SODIUM LEVEL 136 MEQ/L (136-145)
== END 2020-02-27 14:28 | disposition home or self-care (01) | DRG 673 ==
LOC: M ED 12:49 → M ICU 02-23 11:10
PROVIDERS: ADMIT Internal Medicine; ATTEND Internal Medicine
PROC: 0JH63XZ Insertion of Tunneled Vascular Access Device into Chest Subcutaneous Tissue and Fascia, Percutaneous Approach (ICD-10-PCS; principal; 2020-02-23)
PROC: 02HV33Z Insertion of Infusion Device into Superior Vena Cava, Percutaneous Approach (ICD-10-PCS; 2020-02-23)
PROC: 30233N1 Transfusion of Nonautologous Red Blood Cells into Peripheral Vein, Percutaneous Approach (ICD-10-PCS; 2020-02-23)
PROC: 0BH17EZ Insertion of Endotracheal Airway into Trachea, Via Natural or Artificial Opening (ICD-10-PCS; 2020-02-23)
PROC: 5A1D70Z Performance of Urinary Filtration, Intermittent, Less than 6 Hours Per Day (ICD-10-PCS; 2020-02-23)
PROC: 5A1945Z Respiratory Ventilation, 24-96 Consecutive Hours (ICD-10-PCS; 2020-02-23)
DX: N17.9 Acute kidney failure, unspecified (principal); J96.01 Acute respiratory failure with hypoxia; G93.41 Metabolic encephalopathy; I50.31 Acute diastolic (congestive) heart failure; G92 Toxic encephalopathy; J96.02 Acute respiratory failure with hypercapnia; E87.1 Hypo-osmolality and hyponatremia; N39.0 Urinary tract infection, site not specified; I13.0 Hypertensive heart and chronic kidney disease with heart failure and stage 1 through stage 4 chronic kidney disease, or unspecified chronic kidney disease; L03.116 Cellulitis of left lower limb; E87.2 Acidosis; J81.1 Chronic pulmonary edema; F11.90 Opioid use, unspecified, uncomplicated; D64.9 Anemia, unspecified; F10.10 Alcohol abuse, uncomplicated; F17.200 Nicotine dependence, unspecified, uncomplicated; G47.33 Obstructive sleep apnea (adult) (pediatric); M79.7 Fibromyalgia; R29.6 Repeated falls; M10.9 Gout, unspecified; I25.10 Atherosclerotic heart disease of native coronary artery without angina pectoris; E78.5 Hyperlipidemia, unspecified; E11.69 Type 2 diabetes mellitus with other specified complication; Z91.013 Allergy to seafood; J44.9 Chronic obstructive pulmonary disease, unspecified; E11.618 Type 2 diabetes mellitus with other diabetic arthropathy; Z79.899 Other long term (current) drug therapy; N18.9 Chronic kidney disease, unspecified; I95.9 Hypotension, unspecified; Z89.422 Acquired absence of other left toe(s); E87.5 Hyperkalemia; E83.51 Hypocalcemia; B35.6 Tinea cruris

== ENCOUNTER → 2020-03-16 | Outpatient (CLI) | payer MEDICARE, OTHER ==
[~2020-03-16] MED LIST changes: +AMPI500C9 PO; +DOXY-350 PO; +FLUO20CA20 PO; +FURO20TA2 PO; +IPRA0.00 NEB; +KLOR20TA42 PO; +METF500T13 PO; +NICO21DI31 TOP; +PANT40TA29 PO; +PLAQ200T4 PO; +SODI1TAB12 PO; +SUCR1TA PO
== END ==
LOC: M PAIN 14:37
PROVIDERS: ATTEND Nurse Practitioner Family
DX: M79.18 Myalgia, other site (principal); Z79.891 Long term (current) use of opiate analgesic
CPT/HCPCS: 77063; 77067; G0463

== ENCOUNTER → 2020-03-16 | Outpatient (CLI) | payer MEDICARE, OTHER ==
[~2020-03-16] MED LIST changes: -AMPI500C9 PO
--- NOTE | 2020-03-17 09:22 | REPMRS ---
Patient History The patient states she has not had a clinical breast exam in over a year. Patient is postmenopausal. No known family history of cancer. No Hormone Replacement Therapy 3D TOMOSYNTHESIS WAS PERFORMED. [facility] for [facility] 9.6%. BALA Pearl. Digital Woman Screen Mammo: March 16, 2020 - Exam #: [id number] Bilateral CC and MLO view(s) were taken. Technologist: Glo Mercer, Technologist Prior study comparison: June 14, 2018, right breast digital mammo diagnostic unilateral, performed at [facility]. April 21, 2016, left breast digital mammo diagnostic unilateral, performed at [facility]. FINDINGS: There are scattered fibroglandular densities. There has been no change in the appearance of the mammogram from the prior studies. There is a mild amount of residual fibroglandular tissue which is fairly symmetric. There is no interval development of dominant mass, architectural distortion, or clustered microcalcification suggestive of malignancy. Assessment: BI-RADS/ACR category 1 mammogram. Negative Mammogram. Recommendation Routine screening mammogram in 1 year (for women over age 40). This mammogram was interpreted with the aid of an FDA-approved computer-aided dectection system. Electronically Signed By: Rick Infante MD 03/17/20 0921
== END ==
LOC: M WHC 12:45
DX: Z12.31 Encounter for screening mammogram for malignant neoplasm of breast (principal)

== ENCOUNTER → 2020-04-20 | Outpatient (CLI) | payer MEDICARE, OTHER ==
[~2020-04-20] MED LIST changes: -DOXY-350 PO; -FLUO20CA20 PO; -FURO20TA2 PO; -IPRA0.00 NEB; -KLOR20TA42 PO; -METF500T13 PO; -NICO21DI31 TOP; -PANT40TA29 PO; -PLAQ200T4 PO; -SODI1TAB12 PO; -SUCR1TA PO
--- NOTE | 2020-04-26 16:34 | ECWPNPC ---
PATIENT NAME: BEBA WHITEHEAD : 1965 GENDER: FEMALE VISIT DATE: 04/20/2020 DISCHARGE DATE: 04/20/20 1451 VISIT LOCKED DATE TIME: PHYSICIAN: ADAM CARLOS RESOURCE: ADAM CARLOS REASON FOR APPOINTMENT 1. CHRONIC PAIN HISTORY OF PRESENT ILLNESS DEPRESSION SCREENING: HERE FOR FOLLOW-UP OF CHRONIC GENERALIZED BODY PAIN AND MEDICATION MANAGEMENT. CONTINUES WITH SEVERE PAIN. CURRENTLY USING HYDROCODONE 04/17/2025 EVERY 6 HOURS NEEDED WITH MDD OF 4. STATES THAT SHE FEELS SHE NEEDS HER LONG-ACTING MORPHINE BACK. IN FACT SHE STARTED TAKING THIS AGAIN IT WAS PRESCRIBED BY HER PREVIOUS PAIN MANAGEMENT A FEW MONTHS AGO. CHIEF AREA OF PAIN IS UPPER BACK AND NECK. DISCUSSED TRIGGER POINT INJECTIONS. PATIENT BRINGS IN HER MEDICATION WHICH IS APPROPRIATE FOR WHAT WAS DISPENSED. ADVISED NOT TO ADJUST HER MEDICATIONS ARE START MEDICATIONS WITHOUT CONSULTING WITH US FIRST. SHE IS ADVISED THAT THIS IS AGAINST OUR NARCOTIC AGREEMENT. PHQ-2 (2015 EDITION) LITTLE INTEREST OR PLEASURE IN DOING THINGS?NOT AT ALL FEELING DOWN, DEPRESSED, OR HOPELESS?NOT AT ALL TOTAL SCORE0 GENERAL: -. FALL RISK SCREENING: SCREENING :TWO OR MORE FALLS WITHOUT INJURY IN THE PAST YEAR MORE THAN TWO IN THE LAST YEAR , PT STATES NONE IN THE LAST MONTH "WHICH IS GOOD FOR ME" PAIN SCREENING: PATIENT HAS A COMPLAINT OF ACUTE OR CHRONIC PAIN :NO NURSING NOTE: -. PAIN CENTER INTAKE QUESTIONS: DO YOU HAVE A HISTORY OF MRSA? :YES DO YOU TAKE A BLOOD THINNERS? :NO DO YOU HAVE ANY BLEEDING DISORDERS? :NO ANY NEW NUMBNESS OR WEAKNESS IN YOUR LEGS OR ARMS? :NO ANY PACEMAKER,DEFIBRILLATOR, OR DORSAL COLUMN STIMULATOR? :NO DO YOU HAVE ANY RASHES OR OPEN SORES? :YES BILATERAL FEET SORE "FROM LUPUS" ARE YOU ALLERGIC TO IV DYE? :NO ARE YOU DIABETIC? :YES ANY NEW PROBLEMS WITH YOUR MEDICATIONS? :NO HAVE YOU RECEIVED A VACCINE IN THE PAST 30 DAYS? :NO DO YOU PLAN TO RECEIVE A VACCINE IN THE NEXT 21 DAYS? :NO DO YOU NEED ANY PRESCRIPTION? :NO DO YOU TAKE ANY IMMUNOSUPPRESSIVE MEDICATIONS? :NO IS THERE A CHANCE YOU COULD BE ? :NO ARE YOU BREAST FEEDING? :NO CURRENT MEDICATIONS TAKING BLOOD GLUCOSE TEST STRIP ONE TOUCH ULTRA 2 ICD:250.02 NIDDM SUBCUTANEOUSLY THREE TIMES DAILY 250.01/401.9 TAKING ONE TOUCH/ONE TOUCH II STARTER 1 GLUCOMETER ICD:250.02 NIDDM FSBS THREE TIMES DAILY TAKING ASPIR-81 81 MG TABLET DELAYED RELEASE 1 TABLET ORALLY ONCE A DAY TAKING FLONASE 50 MCG/ACT SUSPENSION 1 SPRAY IN EACH NOSTRIL NASALLY ONCE A DAY, NOTES: NEEDED TAKING COMMODE BEDSIDE - MISCELLANEOUS DIRECTED ICD10 - R15.9, M62.81 DAILY TAKING CARVEDILOL 6.25 MG TABLET 1/2 TABLET WITH FOOD ORALLY BID TAKING CALCIUM + D3 600-200 MG-UNIT TABLET 1 TAB ORALLY DAILY TAKING FOLIC ACID 1 MG TABLET 1 TABLET ORALLY ONCE A DAY TAKING VITAMIN B12 1000 MCG TABLET 1 TABLET ORALLY ONCE A DAY TAKING ZOFRAN 4 MG TABLET 1 TAB ORALLY ONCE A DAY NEEDED FOR NAUASEA TAKING LASIX 40 MG TABLET 1 TAB ORALLY BID TAKING DRISDOL 50,000 UNITS TABLET 1 TAB ORAL WEEKLY TAKING ALBUTEROL SULFATE HFA 108 (90 BASE) MCG/ACT AEROSOL SOLUTION 2 PUFFS INHALATION TWICE DAILY NEEDED TAKING NYSTATIN THROAT/SUSPENSION 147396 UNIT/ML SUSPENSION SWISH AND SWALLOW MOUTH/THROAT TID PRN TAKING POTASSIUM 1 20MG ORAL BID TAKING SM MAGNESIUM OXIDE 250 MG TABLET 1 TAB ORALLY THREE TIMES DAILY TAKING NYSTATIN 602448 UNIT/GM CREAM 1 APPLICATION TO AFFECTED AREA EXTERNALLY TO AFFECTED AREA FOUR TIMES DAILY NEEDED FOR RASH TAKING LIDOCAINE 3 % CREAM 1 APPLICATION TO AFFECTED AREA NEEDED EXTERNALLY TWICE A DAY TAKING PLAQUENIL 200 MG TABLET 1 TABLET WITH FOOD OR MILK ORALLY ONCE A DAY TAKING CYMBALTA 60 MG CAPSULE TAKE ONE CAPSULE BY MOUTH EVERY DAY ORALLY ONCE A DAY TAKING CYCLOBENZAPRINE HCL 10 MG TABLET TAKE ONE TABLET BY MOUTH THREE TIMES A DAY NEEDED ORALLY THREE TIMES A DAY TAKING CYMBALTA 30 MG CAPSULE DELAYED RELEASE PARTICLES 1 CAPSULE ORALLY ONCE A DAY TAKING MORPHINE SULFATE ER 15 MG TABLET EXTENDED RELEASE (SCHEDULE II DRUG) TAKE ONE TABLET BY MOUTH EVERY 12 HOURS MAXIMUM DAILY DOSE TWO TABLETS ORAL Q12H MDD2 TAKING NORCO 10-325 MG TABLET 1 TABLET NEEDED ORALLY EVERY 6 HRS MDD4 TAKING GABAPENTIN 300 MG TABLET 3 TABS TID NOT-TAKING CPAP MASK CPAP MASK AND TUBING WITH CONNECTORS DX. 327.23 APPLY TO CPAP MACHINE APPLY TO FACE , NOTES: NON COMPLIANT DOES NOT USE NOT-TAKING TOPAMAX 100 MG TABLET 1 TABLET ORALLY TWICE A DAY, NOTES: NEEDED NOT-TAKING IBUPROFEN 800 MG TABLET 1 TABLET WITH FOOD OR MILK NEEDED ORALLY THREE TIMES A DAY NOT-TAKING PLAVIX 75 MG TABLET ORALLY DAILY NOT-TAKING GABAPENTIN 600 MG TABLET 1 CAPSULE ORALLY THREE TIMES DAILY NOT-TAKING PREDNISONE 10 MG TABLET 4 ATB FOR 3 DAYS 3 TAB FOR 3 DAYS 2 TAB FOR 3 DAY THEN 1 TAB FOR 3 DAYSS ORALLY ONCE A DAY NOT-TAKING CEFDINIR 300 MG CAPSULE DIRECTED ORALLY BID NOT-TAKING LASIX 20 MG TABLET 1 TABLET ORALLY BEFORE BEDTIME NOT-TAKING PREDNISONE 20 MG TABLET 1 TABLET ORALLY ONCE A DAY NOT-TAKING CIPRO 500 MG TABLET 1 TABLET ORALLY BID MEDICATION LIST REVIEWED AND RECONCILED WITH THE PATIENT PAST MEDICAL HISTORY LUPUS INFECTIOUS DIARRHEA GIARDIA- DUODENITIS MIGRAINES DEPRESSION/ANXIETY SLEEP APNEA UNSPECIFIED ENTHESOPATHY OF KNEE CHRONIC SINUSITIS PULMONARY NODULE LEFT LUNG BASE 05/2015 GIARDIASIS- FOLLOWED ANNUALLY BY DR. RICHARDS L5-S1 HERNIATION ALCOHOL ABUSE DIABETES FIBROMYALGIA CHF RIGHT HUMERUS FX 06/2017 TX'D WITH SLING AND BRACE AR OCTOBER 2017 ALLERGIES SHELL FISH: ITCHING - ALLERGY SURGICAL HISTORY CARPAL TUNNEL RELEASE/ULNAR TUNNEL RELEASE-DR. ROBERTH HUMMEL 11/2012 DEBRIDEMENT DIABETIC FOOT ULCER 03/2013 CHOLECYSTECTOMY 2009 SINUS SURGERY 2004 INCISIONAL HERNIA 09/28 COLONOSCOPY 11/10/16 CARDIAC CATH WITH 2 STENTS PLACED OCTOBER 2017 FAMILY HISTORY FATHER: , [place], DIAGNOSED WITH HYPERTENSION MOTHER: , LUPUS SON(S): ALIVE 1 SON(S) - HEALTHY. DENIES ANY FAMILY HC SKIN OR PANCREATIC CANCER. SOCIAL HISTORY GENERAL: TOBACCO USE ARE YOU A:CURRENT SMOKER ARE YOU INTERESTED IN QUITTING?THINKING ABOUT QUITTING HAS ALL SHE NEEDS TO ASSIST HER WITH QUITTING, JUST NOT QUITE READY YET PREVIOUS QUIT ATTEMPTS?NO. COUNSELED THE PATIENT ON SMOKING CESSATION, EDUCATION [id number]/17/2018 HOW MANY CIGARETTES A DAY DO YOU SMOKE?31 OR MORE HOW OFTEN DO YOU SMOKE CIGARETTES?EVERY DAY PATIENT COUNSELED ON THE DANGERS OF TOBACCO USE AND URGED TO QUIT:04/20/2020 BMI CARE GOAL FOLLOW-UP ABOVE NORMAL [facility] ALCOHOL SCREENING DID YOU HAVE A DRINK CONTAINING ALCOHOL IN THE PAST YEAR?YES HOW OFTEN DID YOU HAVE SIX OR MORE DRINKS ON ONE OCCASION IN THE PAST YEAR?NEVER (0 POINTS) HOW MANY DRINKS DID YOU HAVE ON A TYPICAL DAY WHEN YOU WERE DRINKING IN THE PAST YEAR?1 OR 2 (0 POINTS) HOW OFTEN DID YOU HAVE A DRINK CONTAINING ALCOHOL IN THE PAST YEAR?MONTHLY OR LESS (1 POINT) POINTS1 INTERPRETATIONNEGATIVE RECREATIONAL DRUG USE DRUG USE?NO CAFFEINE CAFFEINE USE?NO SEXUAL HX HAD SEX IN THE LAST 12 MONTHS (VAGINAL, ORAL, OR ANAL)?YES WITHMEN ONLY HIV / HEP-C SCREENING HIV TEST OFFERED TO PATIENT:YES DATE OFFERED:06/30/2016 TEST ACCEPTED:NO HEP-C TEST OFFERED TO PATIENT:YES DATE OFFERED:06/30/2016 REASON:PATIENT DECLINED TEST ACCEPTED:NO REASON:PATIENT DECLINED JEHOVAH'S WITNESS [id number] SABIANIST LANGUAGE BENGALI. EDUCATION LEVEL OF EDUCATION:HIGH SCHOOL LEARNING BARRIERS / SPECIAL NEEDS CHANGE FROM LAST VISIT?YES BARRIERS TO LEARNING?NO HEARING IMPAIRED?NO VISION IMPAIRED?YES COGNITIVELY IMPAIRED?NO :CORRECTIVE LENSES READINESS TO LEARN?YES LEARNING PREFERENCES?NO LEARNING CAPABILITIES PRESENT?YES EMOTIONAL BARRIERS?NO SPECIAL DEVICES?YES :WALKER DIRECTOR OF RESIDENCE LIFE NEEDED?NO DOMESTIC VIOLENCE DO YOU FEEL SAFE IN YOUR ENVIRONMENT?YES OCCUPATION: UNEMPLOYED. DIET: REGULAR. EXERCISE: NO REGULAR EXERCISE. MARITAL STATUS: . OTHERS AT HOME: JUAN DAVID, ALTHEA. NEW PATIENT PAIN DIARY TODAY'S VISITNOTES FROM 0-10, WHAT LEVEL IS YOUR PAIN TODAY?8 PAIN CLINIC PFS, CLERGY, PUBLIC HEALTH REFERRALS PFS REFERRAL NEEDED?NO CLERGY REFERRAL NEEDED?NO PUBLIC HEALTH REFERRAL NEEDED?NO WAS THE PROVIDER NOTIFIED OF ANY PERTINENT INFO?NO HAS THE PATIENT BEEN EDUCATED REGARDING HIS/HER PLAN OF CARE?YES HAS THE PATIENT BEEN EDUCATED REGARDING PAIN, THE RISK FOR PAIN, THE IMPORTANCE OF EFFECTIVE PAIN MANAGEMENT, AND THE PAIN ASSESSMENT PROCESS?YES ADVANCE DIRECTIVE ADVANCE DIRECTIVE DISCUSSED WITH PATIENT:YES INFORMATION FOR HCP GIVEN. PT DECLINES ASSISTANCE WITH FILLING OUT FORM. 07/03/18 REVIEWED WITH PT 04/30/18 1354 BVREVIEWED WITH PT 07/03/18 1533 BV. HOSPITALIZATION/MAJOR DIAGNOSTIC PROCEDURE DIABETIC FOOT ULCER/CELLULITIS 12/2012 RENAL FAILURE 02/2016 WEAKNESS 05/09/2016 INFECTION & DEHYDRATION 11/12/16-11/14/16 CHF 01/01/17-01/03/17 BILAERAL PNEUMONIA ,KIDNEY FAILURE, PT ITUBATED -2019 REVIEW OF SYSTEMS CONSTITUTIONAL: ANY RECENT FEVER NO . CHILLS NO . WEIGHT CHANGE OF UNKNOWN REASONS NO . GASTROENTEROLOGY: NEW UNEXPLAINABLE CHANGES IN BOWEL CONTROL NO . CONSTIPATION NO . GENITOURINARY: ANY NEW CHANGE IN BLADDER CONTROL? NO . NEUROLOGY: NEW ONSET DIZZINESS OR NEUROLOGICAL CHANGES NOT MENTIONED NO . NEW NUMBNESS OR PAIN PATTERNS NOT MENTIONED AND PERTINENT TO TODAY'S VISIT NO . CARDIOLOGY: NEW CHEST PRESSURE NO . NEW CHEST PAIN NO . RESPIRATORY: UNEXPLAINABLE COUGH NO . NEW SHORTNESS OF BREATH NO . VITAL SIGNS WT 194.0 LBS, HT 64 IN, BMI 33.30 INDEX, BP 111/58 MM HG, HR 94 /MIN, RR 18 /MIN, TEMP 97.2 F, OXYGEN SAT % 94%, SAFE IN ENV? (Y/N) Y, NA INITIALS AW 1402, REVIEWED BY: KG. EXAMINATION GENERAL EXAMINATION: GENERALAWAKE,ALERT ,PLEAASANT . PSYCHAFFECT NORMAL . LUNGS:LUNG RODRIGUEZ ARE CLEAR TO AUSCULTATION BILATERALLY. GOOD MOVEMENT OF AIR . HEART:S1, S2 IN A REGULAR RATE AND RHYTHM. NO SIGNIFICANT MURMURS, RUBS OR GALLOPS NOTED . CERVICAL:TRIGGER POINTS: CERVICAL AND TRAPEZIUS BILAT..PAIN IS AGGREVATED WITH ROJM NECK. ASSESSMENTS MYALGIA - M79.10 (PRIMARY) CHRONIC PRESCRIPTION OPIATE USE - Z79.891 TREATMENT MYALGIA REFILL MORPHINE SULFATE ER TABLET EXTENDED RELEASE, 15 MG, (SCHEDULE II DRUG) TAKE ONE TABLET BY MOUTH EVERY 12 HOURS MAXIMUM DAILY DOSE TWO TABLETS, ORAL, Q12H MDD2, 30 DAY(S), 60, REFILLS 0 REFILL NORCO TABLET, 10-325 MG, 1 TABLET NEEDED, ORALLY, EVERY 6 HRS MDD4, 30 DAYS, 120, REFILLS 0 NOTES: ISTOP REGISTRY REVIEWED AND DEMONSTRATES COMPLLIANCE.BRINGS IN MEDICATIONS WHICH IS APPROPRIATE FOR WHAT WAS DISPENSED. , RISKS OF NARCOTIC/OPIOD MEDICATIONS INCLUDES BUT IS NOT LIMITED TO RISK OF DEPENDANCE/DEVELOPMENT OF ADDICTION, MOOD DISTURBANCE AND DEPRESSION, OSTEOPOROSIS, HORMONAL AND LABIDAL CHANGES, RESPIRATORY DEPRESSION AND . PATIENT IS ADVISED NOT TO DRIVE OR DRINK ALCOHOL WHILE ON THESE MEDICATIONS. OTHERS NOTES: TRIGGER POINT INJECTION BILAT. NECK/UPPER BACK. PROCEDURE CODES FA211 ESTABILISHED PATIENT [facility] FACILITY CHARGE DISPOSITION & COMMUNICATION FOLLOW UP POST (REASON: TRIGGER POINT INJECTION BILAT. NECK/UPPER BACK) ELECTRONICALLY SIGNED BY CRUZITO NG ON 04/26/2020 AT 03:44 PM EDT DISCLAIMER : THIS IS A VISIT SUMMARY EXTRACTED FROM THE App[employer]ats CHART. IT IS NOT A COPY OF THE App[employer]ats PROGRESS NOTE. MTDD
== END ==
LOC: M PAIN 13:30
PROVIDERS: ATTEND Nurse Practitioner Family
DX: M79.10 Myalgia, unspecified site (principal); Z79.891 Long term (current) use of opiate analgesic; M32.9 Systemic lupus erythematosus, unspecified; G43.909 Migraine, unspecified, not intractable, without status migrainosus; F32.9 Major depressive disorder, single episode, unspecified; F41.9 Anxiety disorder, unspecified; G47.30 Sleep apnea, unspecified; J32.9 Chronic sinusitis, unspecified; E11.9 Type 2 diabetes mellitus without complications; I50.9 Heart failure, unspecified; F17.210 Nicotine dependence, cigarettes, uncomplicated; Z91.013 Allergy to seafood

== ENCOUNTER → 2020-04-29 | Outpatient (CLI) | payer MEDICARE, OTHER | LOC: M LABSMTC 13:26 | PROVIDERS: ATTEND Anesthesiology | DX: Z20.828 Contact with and (suspected) exposure to other viral communicable diseases (principal) | CPT/HCPCS: C9803; U0003 ==

== ENCOUNTER → 2020-05-04 | Outpatient (CLI) | payer MEDICARE, OTHER ==
[~2020-05-04] MED LIST changes: +BUPIVACAINE HCL 0.25% 10ML VIAL As Ordered ONE; +BUPIVACAINE HCL 0.25% 30ML VIAL As Ordered ONE; +TRIAMCINOLONE ACETONIDE SUSP 40 MG/ML VIAL (J3301) As Ordered ONE; +diazePAM 5 MG TAB As Ordered ONE; +oxyCODONE 5MG TAB As Ordered ONE
--- NOTE | 2020-05-10 16:41 | ECWPNPC ---
PATIENT NAME: BEBA WHITEHEAD : 1965 GENDER: FEMALE VISIT DATE: 05/04/2020 DISCHARGE DATE: 05/04/201558 VISIT LOCKED DATE TIME: PHYSICIAN: LORE MANJARREZ MD RESOURCE: LORE MANJARREZ MD REASON FOR APPOINTMENT 1. TRIGGER POINT INJECTION BILAT. NECK/UPPER BACK HISTORY OF PRESENT ILLNESS GENERAL: -. FALL RISK SCREENING: SCREENING :TWO OR MORE FALLS WITH INJURY IN THE PAST YEAR PAIN SCREENING: PATIENT HAS A COMPLAINT OF ACUTE OR CHRONIC PAIN :YES LOCATION OF PAIN:NECK, UPPER BACK INTENSITY OF PAIN (SCALE OF 1 TO 10):9 WHAT DOES YOUR PAIN FEEL LIKE:ACHING, BURNING, THROBBING DURATION:CONTINOUS, CONSTANT PAIN IS INCREASED BY:OTHERS RAIN PAIN IS DECREASED BY:USE OF PAIN MEDICATIONS TREATMENT/MEDICATIONS USED TO MANAGE PAIN:OPIOIDS LEVEL OF RELIEF FROM PAIN TREATMENTS IN THE PAST:50% PAIN HAS INTERFERED WITH THE FOLLOWING:BATHING/DRESSING, HOUSEWORK, SLEEP NURSING NOTE: -. PAIN CENTER INTAKE QUESTIONS: DO YOU HAVE A HISTORY OF MRSA? :YES IN DIGIT #1 RIGHT FOOT DO YOU TAKE A BLOOD THINNERS? :NO DO YOU HAVE ANY BLEEDING DISORDERS? :NO ANY NEW NUMBNESS OR WEAKNESS IN YOUR LEGS OR ARMS? :NO ANY PACEMAKER,DEFIBRILLATOR, OR DORSAL COLUMN STIMULATOR? :NO DO YOU HAVE ANY RASHES OR OPEN SORES? :YES LUPUS SPOTS ON LOWER LEGS ARE YOU ALLERGIC TO IV DYE? :NO ARE YOU DIABETIC? :NO ANY NEW PROBLEMS WITH YOUR MEDICATIONS? :NO HAVE YOU RECEIVED A VACCINE IN THE PAST 30 DAYS? :NO DO YOU PLAN TO RECEIVE A VACCINE IN THE NEXT 21 DAYS? :NO DO YOU TAKE ANY IMMUNOSUPPRESSIVE MEDICATIONS? :NO PLAQUENIL FOR LUPUS. ANY HISTORY OF SEIZURES? :NO ANY HISTORY OF CARDIAC ISSUES OR EVENTS? :YES [place] WITH 2 STENTS 10/2015 DO YOU HAVE SLEEP APNEA? :NO ANY RECENT HEAD INJURY? :NO DO YOU HAVE ANY NEW INFECTIONS? :NO IS THERE A CHANCE YOU COULD BE ? :NO ARE YOU BREAST FEEDING? :NO WHEN DID YOU LAST EAT? : - WHEN DID YOU LAST DRINK? : - WHAT DID YOU LAST DRINK? : - NAME OF PERSON DRIVING YOU HOME? : -JUAN DAVID DO YOU HAVE ANY OTHER QUESTIONS OR CONCERNS? : - CURRENT MEDICATIONS TAKING BLOOD GLUCOSE TEST STRIP ONE TOUCH ULTRA 2 ICD:250.02 NIDDM SUBCUTANEOUSLY THREE TIMES DAILY 250.01/401.9 TAKING ONE TOUCH/ONE TOUCH II STARTER 1 GLUCOMETER ICD:250.02 NIDDM FSBS THREE TIMES DAILY TAKING ASPIR-81 81 MG TABLET DELAYED RELEASE 1 TABLET ORALLY ONCE A DAY, NOTES: 05-04-2020899 TAKING FLONASE 50 MCG/ACT SUSPENSION 1 SPRAY IN EACH NOSTRIL NASALLY ONCE A DAY, NOTES: NEEDED TAKING COMMODE BEDSIDE - MISCELLANEOUS DIRECTED ICD10 - R15.9, M62.81 DAILY TAKING CARVEDILOL 6.25 MG TABLET 1/2 TABLET WITH FOOD ORALLY BID, NOTES: 05-04-2020799 TAKING CALCIUM + D3 600-200 MG-UNIT TABLET 1 TAB ORALLY DAILY, NOTES: 05-04-2020899 TAKING FOLIC ACID 1 MG TABLET 1 TABLET ORALLY ONCE A DAY, NOTES: 05-04-2020799 TAKING ZOFRAN 4 MG TABLET 1 TAB ORALLY ONCE A DAY NEEDED FOR NAUASEA, NOTES: NOT LATELY TAKING LASIX 40 MG TABLET 1 TAB ORALLY BID, NOTES: 05-04-2020899 TAKING ALBUTEROL SULFATE HFA 108 (90 BASE) MCG/ACT AEROSOL SOLUTION 2 PUFFS INHALATION TWICE DAILY NEEDED TAKING NYSTATIN THROAT/SUSPENSION 348974 UNIT/ML SUSPENSION SWISH AND SWALLOW MOUTH/THROAT TID PRN TAKING POTASSIUM 1 20MG ORAL BID, NOTES: 05-04-2020899 TAKING SM MAGNESIUM OXIDE 250 MG TABLET 1 TAB ORALLY THREE TIMES DAILY, NOTES: 05-04-2020899 TAKING NYSTATIN 234499 UNIT/GM CREAM 1 APPLICATION TO AFFECTED AREA EXTERNALLY TO AFFECTED AREA FOUR TIMES DAILY NEEDED FOR RASH, NOTES: NOT LATLELY TAKING LIDOCAINE 3 % CREAM 1 APPLICATION TO AFFECTED AREA NEEDED EXTERNALLY TWICE A DAY, NOTES: NOT LATELY TAKING PLAQUENIL 200 MG TABLET 1 TABLET WITH FOOD OR MILK ORALLY ONCE A DAY, NOTES: 05-12-20899 TAKING CYMBALTA 60 MG CAPSULE TAKE ONE CAPSULE BY MOUTH EVERY DAY ORALLY ONCE A DAY, NOTES: 05-04-2020899 TAKING CYCLOBENZAPRINE HCL 10 MG TABLET TAKE ONE TABLET BY MOUTH THREE TIMES A DAY NEEDED ORALLY THREE TIMES A DAY, NOTES: 05-04-2020899 TAKING CYMBALTA 30 MG CAPSULE DELAYED RELEASE PARTICLES 1 CAPSULE ORALLY ONCE A DAY, NOTES: 05-04-2020899 TAKING GABAPENTIN 300 MG TABLET 3 TABS TID, NOTES: 05-04-2020 0900 TAKING MORPHINE SULFATE ER 15 MG TABLET EXTENDED RELEASE (SCHEDULE II DRUG) TAKE ONE TABLET BY MOUTH EVERY 12 HOURS MAXIMUM DAILY DOSE TWO TABLETS ORAL Q12H MDD2, NOTES: 0900 TAKING NORCO 10-325 MG TABLET 1 TABLET NEEDED ORALLY EVERY 6 HRS MDD4 TAKING CARAFATE 1 GM TABLET 1 TABLET ON AN EMPTY STOMACH ORALLY TWICE A DAY TAKING SODIUM CHLORIDE 1000 MG TABLET SOLUBLE DIRECTED EXTERNALLY , NOTES: NOT SURE OF DOSE NOT-TAKING VITAMIN B12 1000 MCG TABLET 1 TABLET ORALLY ONCE A DAY NOT-TAKING DRISDOL 50,000 UNITS TABLET 1 TAB ORAL WEEKLY NOT-TAKING CPAP MASK CPAP MASK AND TUBING WITH CONNECTORS DX. 327.23 APPLY TO CPAP MACHINE APPLY TO FACE , NOTES: NON COMPLIANT DOES NOT USE NOT-TAKING TOPAMAX 100 MG TABLET 1 TABLET ORALLY TWICE A DAY, NOTES: NEEDED NOT-TAKING IBUPROFEN 800 MG TABLET 1 TABLET WITH FOOD OR MILK NEEDED ORALLY THREE TIMES A DAY NOT-TAKING PLAVIX 75 MG TABLET ORALLY DAILY NOT-TAKING GABAPENTIN 600 MG TABLET 1 CAPSULE ORALLY THREE TIMES DAILY NOT-TAKING PREDNISONE 10 MG TABLET 4 ATB FOR 3 DAYS 3 TAB FOR 3 DAYS 2 TAB FOR 3 DAY THEN 1 TAB FOR 3 DAYSS ORALLY ONCE A DAY NOT-TAKING CEFDINIR 300 MG CAPSULE DIRECTED ORALLY BID NOT-TAKING LASIX 20 MG TABLET 1 TABLET ORALLY BEFORE BEDTIME NOT-TAKING PREDNISONE 20 MG TABLET 1 TABLET ORALLY ONCE A DAY NOT-TAKING CIPRO 500 MG TABLET 1 TABLET ORALLY BID MEDICATION LIST REVIEWED AND RECONCILED WITH THE PATIENT PAST MEDICAL HISTORY LUPUS INFECTIOUS DIARRHEA GIARDIA- DUODENITIS MIGRAINES DEPRESSION/ANXIETY SLEEP APNEA UNSPECIFIED ENTHESOPATHY OF KNEE CHRONIC SINUSITIS PULMONARY NODULE LEFT LUNG BASE 05/2015 GIARDIASIS- FOLLOWED ANNUALLY BY DR. RICHARDS L5-S1 HERNIATION ALCOHOL ABUSE DIABETES FIBROMYALGIA CHF RIGHT HUMERUS FX 06/2017 TX'D WITH SLING AND BRACE [place] OCTOBER 2017 ALLERGIES SHELL FISH: ITCHING - ALLERGY SURGICAL HISTORY CARPAL TUNNEL RELEASE/ULNAR TUNNEL RELEASE-DR. ROBERTH HUMMEL 11/2012 DEBRIDEMENT DIABETIC FOOT ULCER 03/2013 CHOLECYSTECTOMY 2008 SINUS SURGERY 2004 INCISIONAL HERNIA 09/28 COLONOSCOPY 11/10/16 CARDIAC CATH WITH 2 STENTS PLACED OCTOBER 2017 FAMILY HISTORY FATHER: , [place], DIAGNOSED WITH HYPERTENSION MOTHER: , LUPUS SON(S): ALIVE 1 SON(S) - HEALTHY. DENIES ANY FAMILY HC SKIN OR PANCREATIC CANCER. SOCIAL HISTORY GENERAL: TOBACCO USE ARE YOU A:CURRENT SMOKER ARE YOU INTERESTED IN QUITTING?THINKING ABOUT QUITTING HAS ALL SHE NEEDS TO ASSIST HER WITH QUITTING, JUST NOT QUITE READY YET PREVIOUS QUIT ATTEMPTS?NO. COUNSELED THE PATIENT ON SMOKING CESSATION, EDUCATION [id number]/19/2020 HOW MANY CIGARETTES A DAY DO YOU SMOKE?31 OR MORE HOW OFTEN DO YOU SMOKE CIGARETTES?EVERY DAY PATIENT COUNSELED ON THE DANGERS OF TOBACCO USE AND URGED TO QUIT:05/04/2020 LATEX QUESTIONNAIRE LATEX ALLERGY : HAVE YOU EVER DEVELOPED ANY TYPE OF REACTION AFTER HANDLING LATEX PRODUCTS SUCH RUBBER GLOVES, CONDOMS, DIAPHRAGMS, BALLOONS, SOCKS, OR UNDERWEAR?NO LATEX ALLERGY : HAVE YOU EVER DEVELOPED ANY TYPE OF REACTION DURING OR AFTER DENTAL APPOINTMENT, VAGINAL/RECTAL EXAMINATION, SURGICAL PROCEDURE, OR ANY OTHER EXPOSURE?NO LATEX RISK : HAVE YOU EVER HAD ANY DIFFICULTY BREATHING OR HIVES AFTER EATING OR HANDLING ANY FRUITS, OR VEGETABLES; SUCH KIWI, BANANAS, STONE FRUITS, OR CHESTNUTSNO LATEX RISK : DO YOU HAVE A PREVIOUS PERSONAL HISTORY OF MORE THAN NINE SURGERIES, SPINA BIFIDA, OR REPEATED CATHERIZATIONS? NO LATEX RISK : ARE YOU FREQUENTLY EXPOSED TO LATEX PRODUCTS IN YOUR OCCUPATION?NO DATE ASKED : 05/03/2020 BMI CARE GOAL FOLLOW-UP ABOVE NORMAL BMI FOLLOW-UPLIFESTYLE EDUCATION REGARDING DIET ALCOHOL SCREENING DID YOU HAVE A DRINK CONTAINING ALCOHOL IN THE PAST YEAR?YES HOW OFTEN DID YOU HAVE A DRINK CONTAINING ALCOHOL IN THE PAST YEAR?MONTHLY OR LESS (1 POINT) HOW MANY DRINKS DID YOU HAVE ON A TYPICAL DAY WHEN YOU WERE DRINKING IN THE PAST YEAR?1 OR 2 (0 POINTS) HOW OFTEN DID YOU HAVE SIX OR MORE DRINKS ON ONE OCCASION IN THE PAST YEAR?NEVER (0 POINTS) POINTS1 INTERPRETATIONNEGATIVE RECREATIONAL DRUG USE DRUG USE?NO CAFFEINE CAFFEINE USE?NO SEXUAL HX HAD SEX IN THE LAST 12 MONTHS (VAGINAL, ORAL, OR ANAL)?YES WITHMEN ONLY HIV / HEP-C SCREENING HIV TEST OFFERED TO PATIENT:YES DATE OFFERED:06/30/2016 TEST ACCEPTED:NO HEP-C TEST OFFERED TO PATIENT:YES DATE OFFERED:06/30/2016 REASON:PATIENT DECLINED TEST ACCEPTED:NO REASON:PATIENT DECLINED ORTHODOXY [id number] PROTESTANT LANGUAGE SENEGALESE. EDUCATION LEVEL OF EDUCATION:HIGH SCHOOL LEARNING BARRIERS / SPECIAL NEEDS CHANGE FROM LAST VISIT?YES BARRIERS TO LEARNING?NO HEARING IMPAIRED?NO VISION IMPAIRED?YES COGNITIVELY IMPAIRED?NO :CORRECTIVE LENSES READINESS TO LEARN?YES LEARNING PREFERENCES?NO LEARNING CAPABILITIES PRESENT?YES EMOTIONAL BARRIERS?NO SPECIAL DEVICES?YES :WALKER IOS DEVELOPER NEEDED?NO DOMESTIC VIOLENCE DO YOU FEEL SAFE IN YOUR ENVIRONMENT?YES OCCUPATION: UNEMPLOYED. DIET: REGULAR. EXERCISE: NO REGULAR EXERCISE. MARITAL STATUS: . OTHERS AT HOME: ALTHEA FALL. NEW PATIENT PAIN DIARY TODAY'S VISITNOTES FROM 0-10, WHAT LEVEL IS YOUR PAIN TODAY?8 PAIN CLINIC PFS, CLERGY, PUBLIC HEALTH REFERRALS PFS REFERRAL NEEDED?NO CLERGY REFERRAL NEEDED?NO PUBLIC HEALTH REFERRAL NEEDED?NO WAS THE PROVIDER NOTIFIED OF ANY PERTINENT INFO?NO HAS THE PATIENT BEEN EDUCATED REGARDING HIS/HER PLAN OF CARE?YES HAS THE PATIENT BEEN EDUCATED REGARDING PAIN, THE RISK FOR PAIN, THE IMPORTANCE OF EFFECTIVE PAIN MANAGEMENT, AND THE PAIN ASSESSMENT PROCESS?YES ADVANCE DIRECTIVE ADVANCE DIRECTIVE DISCUSSED WITH PATIENT:YES JUAN DAVID DENISE [phone] REVIEWED WITH PT 04/30/18 1354 BVREVIEWED WITH PT 07/03/18 1533 BV. HOSPITALIZATION/MAJOR DIAGNOSTIC PROCEDURE DIABETIC FOOT ULCER/CELLULITIS 12/2012 RENAL FAILURE 02/2016 WEAKNESS 05/09/2016 INFECTION & DEHYDRATION 11/12/16-11/14/16 CHF 01/01/17-01/03/17 BILAERAL PNEUMONIA ,KIDNEY FAILURE, PT ITUBATED -2019 VITAL SIGNS WT 192.4 LBS, HT 64 IN, BMI 33.02 INDEX, BP 142/69 MM HG, HR 72 /MIN, RR 18 /MIN, TEMP 97.4 F, OXYGEN SAT % 94%, SAFE IN ENV? (Y/N) YES, NA INITIALS SC 14:40, REVIEWED BY: KG. EXAMINATION GENERAL EXAMINATION: THE PATIENT IS ALERT, ORIENTED TIMES THREE AND COOPERATIVE. HEART SHOWS REGULAR RHYTHM, NO MURMURS AND NO GALLOPS. LUNGS ARE CLEAR TO AUSCULTATION. ASSESSMENTS MYALGIA, OTHER SITE - M79.18 (PRIMARY) TREATMENT MYALGIA, OTHER SITE MEDICATION: VALIUM TAB 5MG ORALLY (DIAZEPAM)ART MANCILLA 05/04/2020 3:00:18 PM > VERIFIED. СЕРГЕЙ DAMON 05/04/2020 3:01:04 PM > GIVEN LOT [id number] EXP [id number] MEDICATION: OXYCODONE HCL TAB 10MG ORALLYART MANCILLA 05/04/2020 3:00:33 PM > VERIFIED. СЕРГЕЙ DAMON 05/04/2020 3:02:51 PM > GIVEN LOT [id number] 08/2021 NOTES: 05/03/20 JACOBO KNIGHT, HEAD ATHLETIC TRAINER/STRENGTH COACH. PROCEDURES PAIN NURSING RECORD PRE-PROCEDURE IV SITE N/A PROCEDURE IN ROOM 1430, PHYSICIAN IN ROOM 1530, START 1537, FINISH 1545, PHYSICIAN OUT OF ROOM 1446, OUT OF ROOM 1558, STEROID KENALOG, O2 RA, PATIENT SHIELDED NO, SAFETY STRAP NO, PREP ALCOHOL DR MANJARREZ, DRESSING TEGADERM KGKEISHA RN LOC: 1. ALERT, ORIENTED, СЕРГЕЙ DAMON 05/04/2020 3:20:19 PM > RESP: 1. REGULAR, NO DYSPNEA, СЕРГЕЙ DAMON 05/04/2020 3:20:26 PM > COLOR: 1. PINK, СЕРГЕЙ DAMON 05/04/2020 3:20:34 PM > SKIN: 1. WARM, DRY, СЕРГЕЙ DAMON 05/04/2020 3:20:42 PM > POSITION: 4. OTHER SITTING DISCHARGE: POST PAIN 5, DRESSING SITE DRY AND INTACT, IV N/A, GAIT STEADY, TEACHING COMPLETED, PATIENT ACKNOWLEDGES UNDERSTANDING YES, PATIENT DISCHARGED AT 1558 PN TRIGGER POINT INJECTION WITH STEROIDS PRE PROCEDURE DIAGNOSIS 1. MYALGIA 2. PAIN AT BILATERAL NECK AREA AND BILATERAL THORACIC AREA POST PROCEDURE DIAGNOSIS 1. MYALGIA 2. PAIN AT BILATERAL NECK AREA AND BILATERAL THORACIC AREA PROCEDURE TRIGGER POINT INJECTION AT BILATERAL NECK AREA AREA AND BILATERAL THORACIC AREA SURGEON DR. LORE MANJARREZ PREFLIGHT INSPECTOR NONE ANESTHESIA LOCAL PRE PROCEDURE NOTE THE PATIENT HAS A HISTORY OF CHRONIC PAIN AT THE RIGHT AND LEFT NECK AREA AND RIGHT AND LEFT THORACIC AREA. I EVALUATED THE PATIENT AND REVIEWED THE CHART. THERE IS EVIDENCE OF BANDS OF TISSUE WITH RESTRICTION OF MOVEMENT AND PRESENCE OF TRIGGER POINT AT THE RIGHT AND LEFT NECK AREA AND RIGHT AND LEFT THORACIC AREA. I WENT OVER THE RISKS, ALTERNATIVES, AND BENEFITS ASSOCIATED WITH THIS PROCEDURE. I DISCUSSED THAT THE USE OF STEROIDS MAY CONTRIBUTE TO IMMUNOSUPPRESSION OF THE PATIENT'S BODY AGAINST INFECTIONS SUCH COVID-19. THE PATIENT IS AWARE OF THE POTENTIAL COMPLICATIONS ASSOCIATED WITH THIS VIRUS, INCLUDING, BUT NOT LIMITED TO, . THE PATIENT WOULD LIKE TO PROCEED AND GIVE CONSENT TO PERFORMED THE PROCEDURE. THE PATIENT DENIES UNEXPLAINABLE WEIGHT LOSS, FEVER, CHILLS, OR NEW CHANGES IN URINARY OR BOWEL CONTROL. THE PATIENT IS COVID-19 NEGATIVE DESCRIPTION OF PROCEDURE THE PATIENT WAS BROUGHT TO THE PROCEDURE ROOM AND PLACED IN THE SITTING POSITION. THE AREA WAS CLEANED WITH ALCOHOL. THE PROCEDURE WAS DONE USING ASEPTIC STERILE TECHNIQUE. A TIMEOUT WAS PERFORMED WHERE LATERALITY AND THE SITE OF THE PROCEDURE WERE CHECKED AND CONFIRMED WITH EVERYONE IN THE ROOM. USING A 25-GAUGE NEEDLE, TRIGGER POINTS WERE INJECTED AT THE RIGHT AND LEFT NECK AREA AND RIGHT AND LEFT THORACIC AREA WITH A TOTAL OF 40 ML OF BUPIVACAINE 0.25% AND KENALOG 40 MG. THE MEDICATIONS WERE VERIFIED WITH THE NURSE. THERE WAS NO EVIDENCE OF BLOOD OR PARESTHESIA DURING THE PROCEDURE. THE PATIENT WAS SENT TO THE RECOVERY ROOM. THE PATIENT WAS MOVING THE EXTREMITIES AND DOING WELL. THERE WERE NO COMPLICATIONS DURING THE PROCEDURE. ESTIMATED BLOOD LOSS WAS LESS THAN 5 ML POST PROCEDURE NOTE THE PROCEDURE DONE WAS DISCUSSED WITH THE PATIENT. THE PATIENT WILL BE SEEN IN A FOLLOW UP IN THE NEXT FEW WEEKS. I AM LOOKING FOR LONG LASTING PAIN RELIEF FOR THE PATIENT WITH THIS INTERVENTION. INSTRUCTIONS WERE GIVEN, QUESTIONS WERE ANSWERED, AND THE PATIENT EXPRESSED UNDERSTANDING AND AGREES WITH THE PLAN. I, BEV SHEEHAN, DOCUMENTED THE ABOVE INFORMATION ACTING A SCRIBE FOR DR. MANJARREZ. I HAVE REVIEWED THE ABOVE DOCUMENT, WRITTEN BY BEV SHEEHAN, DRIVER/REFUSE COLLECTOR, AND I VERIFY THAT IT IS ACCURATE PROCEDURE CODES 49301 INJECT TRIGGER POINTS 3/> DISPOSITION & COMMUNICATION FOLLOW UP FOLLOW UP WITH THREAD SEPARATOR (REASON: POST TPI BILATERAL NECK AREA AND THORACIC ) ELECTRONICALLY SIGNED BY LORE MANJARREZ MD, MD ON 05/10/2020 AT 01:36 PM EDT DISCLAIMER : THIS IS A VISIT SUMMARY EXTRACTED FROM THE [employer] CHART. IT IS NOT A COPY OF THE [employer] PROGRESS NOTE. MTDD
== END ==
LOC: M PAIN 14:30
PROVIDERS: ATTEND Anesthesiology
DX: M79.18 Myalgia, other site (principal); M79.7 Fibromyalgia; Z79.891 Long term (current) use of opiate analgesic; Z79.899 Other long term (current) drug therapy; F17.210 Nicotine dependence, cigarettes, uncomplicated; Z91.013 Allergy to seafood
CPT/HCPCS: 20553; J3301

== ENCOUNTER → 2020-05-18 | Outpatient (CLI) | payer MEDICARE, OTHER ==
[~2020-05-18] MED LIST changes: -BUPIVACAINE HCL 0.25% 10ML VIAL As Ordered ONE; -BUPIVACAINE HCL 0.25% 30ML VIAL As Ordered ONE; -TRIAMCINOLONE ACETONIDE SUSP 40 MG/ML VIAL (J3301) As Ordered ONE; -diazePAM 5 MG TAB As Ordered ONE; -oxyCODONE 5MG TAB As Ordered ONE
--- NOTE | 2020-05-19 02:17 | ECWPNPC ---
PATIENT NAME: BEBA WHITEHEAD : 1965 GENDER: FEMALE VISIT DATE: 05/18/2020 DISCHARGE DATE: 05/18/20 1528 VISIT LOCKED DATE TIME: PHYSICIAN: ADAM CARLOS RESOURCE: ADAM CARLOS REASON FOR APPOINTMENT 1. POST TPI HISTORY OF PRESENT ILLNESS GENERAL: BEING SEEN FOR 2 MONTH FOLLOW-UP AND MEDICATION MANAGEMENT OF CHRONIC GENERALIZED BACK PAIN. THIS IS A POST PROCEDURE VISIT. HAD TRIGGER POINT INJECTIONS TO HER NECK AND UPPER BACK 2 WEEKS AGO. REPORTING MARKED REDUCTION IN PAIN IN THAT REGION. DISCUSSED MEDICATIONS. ADVISED HER THAT WE WOULD WANT TO DECREASE THE AMOUNT OF SHORT ACTING PAIN MEDICATION THAT SHE NEEDS TO TAKE SINCE SHE'S DOING BETTER. REPORTS THAT SHE'S BECOME TOLERANT TO HYDROCODONE. IN THE PAST WE HAVE SWITCHED FROM HYDROCODONE TO OXYCODONE. I'VE ADVISED HER TO CONTINUE USING HYDROCODONE PERIODICALLY FOR SEVERE PAIN EPISODES UNTIL IS GONE. SHE WILL CALL US WHEN SHE IS IN NEED OF REFILL AND AT THAT POINT WE WILL SWITCH TO OXYCODONE 10/325 WITH MAXIMUM DAILY DOSE OF 4 AND 100 TABLETS FOR A 30 DAY SUPPLY. SHE IS AWARE THAT SHE IS NOT SUPPOSED TO ADJUST THESE MEDICATIONS. SHE CURRENTLY IS TAKING MS CONTIN 15 MG TWICE A DAY. -. FALL RISK SCREENING: SCREENING :NO FALLS REPORTED IN THE LAST YEAR NONE PAIN SCREENING: PATIENT HAS A COMPLAINT OF ACUTE OR CHRONIC PAIN :YES LOCATION OF PAIN:NECK INTENSITY OF PAIN (SCALE OF 1 TO 10):6 WHAT DOES YOUR PAIN FEEL LIKE:OTHER TIGHT PAIN DURATION:CONTINOUS PAIN IS INCREASED BY:ACTIVITIES PAIN IS DECREASED BY:USE OF PAIN MEDICATIONS NURSING NOTE: -. PAIN CENTER INTAKE QUESTIONS: DO YOU HAVE A HISTORY OF MRSA? :YES 16 PLUS YEARS AGO DO YOU TAKE A BLOOD THINNERS? :NO DO YOU HAVE ANY BLEEDING DISORDERS? :NO ANY NEW NUMBNESS OR WEAKNESS IN YOUR LEGS OR ARMS? :NO ANY PACEMAKER,DEFIBRILLATOR, OR DORSAL COLUMN STIMULATOR? :NO DO YOU HAVE ANY RASHES OR OPEN SORES? :NO ARE YOU ALLERGIC TO IV DYE? :NO ARE YOU DIABETIC? :YES MIGHT BE SUGAR IS UP ANY NEW PROBLEMS WITH YOUR MEDICATIONS? :NO HAVE YOU RECEIVED A VACCINE IN THE PAST 30 DAYS? :NO DO YOU PLAN TO RECEIVE A VACCINE IN THE NEXT 21 DAYS? :NO DO YOU NEED ANY PRESCRIPTION? :NO DO YOU TAKE ANY IMMUNOSUPPRESSIVE MEDICATIONS? :NO IS THERE A CHANCE YOU COULD BE ? :NO ARE YOU BREAST FEEDING? :NO CURRENT MEDICATIONS TAKING BLOOD GLUCOSE TEST STRIP ONE TOUCH ULTRA 2 ICD:250.02 NIDDM SUBCUTANEOUSLY THREE TIMES DAILY 250.01/401.9 TAKING ONE TOUCH/ONE TOUCH II STARTER 1 GLUCOMETER ICD:250.02 NIDDM FSBS THREE TIMES DAILY TAKING ASPIR-81 81 MG TABLET DELAYED RELEASE 1 TABLET ORALLY ONCE A DAY, NOTES: 05-04-2020899 TAKING FLONASE 50 MCG/ACT SUSPENSION 1 SPRAY IN EACH NOSTRIL NASALLY ONCE A DAY, NOTES: NEEDED TAKING COMMODE BEDSIDE - MISCELLANEOUS DIRECTED ICD10 - R15.9, M62.81 DAILY TAKING CARVEDILOL 6.25 MG TABLET 1/2 TABLET WITH FOOD ORALLY BID, NOTES: 05-04-2020799 TAKING CALCIUM + D3 600-200 MG-UNIT TABLET 1 TAB ORALLY DAILY, NOTES: 05-04-2020899 TAKING FOLIC ACID 1 MG TABLET 1 TABLET ORALLY ONCE A DAY, NOTES: 05-04-2020799 TAKING ZOFRAN 4 MG TABLET 1 TAB ORALLY ONCE A DAY NEEDED FOR NAUASEA, NOTES: NOT LATELY TAKING LASIX 40 MG TABLET 1 TAB ORALLY BID, NOTES: 05-04-2020899 TAKING ALBUTEROL SULFATE HFA 108 (90 BASE) MCG/ACT AEROSOL SOLUTION 2 PUFFS INHALATION TWICE DAILY NEEDED TAKING NYSTATIN THROAT/SUSPENSION 548366 UNIT/ML SUSPENSION SWISH AND SWALLOW MOUTH/THROAT TID PRN TAKING POTASSIUM 1 20MG ORAL BID, NOTES: 05-04-2020899 TAKING SM MAGNESIUM OXIDE 250 MG TABLET 1 TAB ORALLY THREE TIMES DAILY, NOTES: 05-04-2020899 TAKING NYSTATIN 013344 UNIT/GM CREAM 1 APPLICATION TO AFFECTED AREA EXTERNALLY TO AFFECTED AREA FOUR TIMES DAILY NEEDED FOR RASH, NOTES: NOT LATLELY TAKING LIDOCAINE 3 % CREAM 1 APPLICATION TO AFFECTED AREA NEEDED EXTERNALLY TWICE A DAY, NOTES: NOT LATELY TAKING PLAQUENIL 200 MG TABLET 1 TABLET WITH FOOD OR MILK ORALLY ONCE A DAY, NOTES: 05-12-20899 TAKING CYMBALTA 60 MG CAPSULE TAKE ONE CAPSULE BY MOUTH EVERY DAY ORALLY ONCE A DAY, NOTES: 05-04-2020899 TAKING CYCLOBENZAPRINE HCL 10 MG TABLET TAKE ONE TABLET BY MOUTH THREE TIMES A DAY NEEDED ORALLY THREE TIMES A DAY, NOTES: 05-04-2020899 TAKING CYMBALTA 30 MG CAPSULE DELAYED RELEASE PARTICLES 1 CAPSULE ORALLY ONCE A DAY, NOTES: 05-04-2020899 TAKING GABAPENTIN 300 MG TABLET 3 TABS TID, NOTES: 05-04-2020899 TAKING MORPHINE SULFATE ER 15 MG TABLET EXTENDED RELEASE (SCHEDULE II DRUG) TAKE ONE TABLET BY MOUTH EVERY 12 HOURS MAXIMUM DAILY DOSE TWO TABLETS ORAL Q12H MDD2, NOTES: 899 TAKING NORCO 10-325 MG TABLET 1 TABLET NEEDED ORALLY EVERY 6 HRS MDD4 TAKING CARAFATE 1 GM TABLET 1 TABLET ON AN EMPTY STOMACH ORALLY TWICE A DAY TAKING SODIUM CHLORIDE 1000 MG TABLET SOLUBLE DIRECTED EXTERNALLY , NOTES: NOT SURE OF DOSE NOT-TAKING VITAMIN B12 1000 MCG TABLET 1 TABLET ORALLY ONCE A DAY NOT-TAKING DRISDOL 50,000 UNITS TABLET 1 TAB ORAL WEEKLY NOT-TAKING CPAP MASK CPAP MASK AND TUBING WITH CONNECTORS DX. 327.23 APPLY TO CPAP MACHINE APPLY TO FACE , NOTES: NON COMPLIANT DOES NOT USE NOT-TAKING TOPAMAX 100 MG TABLET 1 TABLET ORALLY TWICE A DAY, NOTES: NEEDED NOT-TAKING IBUPROFEN 800 MG TABLET 1 TABLET WITH FOOD OR MILK NEEDED ORALLY THREE TIMES A DAY NOT-TAKING PLAVIX 75 MG TABLET ORALLY DAILY NOT-TAKING GABAPENTIN 600 MG TABLET 1 CAPSULE ORALLY THREE TIMES DAILY NOT-TAKING PREDNISONE 10 MG TABLET 4 ATB FOR 3 DAYS 3 TAB FOR 3 DAYS 2 TAB FOR 3 DAY THEN 1 TAB FOR 3 DAYSS ORALLY ONCE A DAY NOT-TAKING CEFDINIR 300 MG CAPSULE DIRECTED ORALLY BID NOT-TAKING LASIX 20 MG TABLET 1 TABLET ORALLY BEFORE BEDTIME NOT-TAKING PREDNISONE 20 MG TABLET 1 TABLET ORALLY ONCE A DAY NOT-TAKING CIPRO 500 MG TABLET 1 TABLET ORALLY BID MEDICATION LIST REVIEWED AND RECONCILED WITH THE PATIENT PAST MEDICAL HISTORY LUPUS INFECTIOUS DIARRHEA GIARDIA- DUODENITIS MIGRAINES DEPRESSION/ANXIETY SLEEP APNEA UNSPECIFIED ENTHESOPATHY OF KNEE CHRONIC SINUSITIS PULMONARY NODULE LEFT LUNG BASE 05/2015 GIARDIASIS- FOLLOWED ANNUALLY BY DR. RICHARDS L5-S1 HERNIATION ALCOHOL ABUSE DIABETES FIBROMYALGIA CHF RIGHT HUMERUS FX 06/2017 TX'D WITH SLING AND BRACE [place] OCTOBER 2017 ALLERGIES SHELL FISH: ITCHING - ALLERGY SURGICAL HISTORY CARPAL TUNNEL RELEASE/ULNAR TUNNEL RELEASE-DR. ROBERTH HUMMEL 11/2012 DEBRIDEMENT DIABETIC FOOT ULCER 03/2013 CHOLECYSTECTOMY 2009 SINUS SURGERY 2004 INCISIONAL HERNIA 09/28 COLONOSCOPY 11/10/16 CARDIAC CATH WITH 2 STENTS PLACED OCTOBER 2017 FAMILY HISTORY FATHER: , [place], DIAGNOSED WITH HYPERTENSION MOTHER: , LUPUS SON(S): ALIVE 1 SON(S) - HEALTHY. DENIES ANY FAMILY HC SKIN OR PANCREATIC CANCER. SOCIAL HISTORY GENERAL: TOBACCO USE ARE YOU A:CURRENT SMOKER HOW OFTEN DO YOU SMOKE CIGARETTES?EVERY DAY HOW MANY CIGARETTES A DAY DO YOU SMOKE?31 OR MORE ARE YOU INTERESTED IN QUITTING?THINKING ABOUT QUITTING HAS ALL SHE NEEDS TO ASSIST HER WITH QUITTING, JUST NOT QUITE READY YET PATIENT COUNSELED ON THE DANGERS OF TOBACCO USE AND URGED TO QUIT:05/04/2020 COUNSELED THE PATIENT ON SMOKING CESSATION, EDUCATION [id number]/19/2020 PREVIOUS QUIT ATTEMPTS?NO. LATEX QUESTIONNAIRE LATEX ALLERGY : HAVE YOU EVER DEVELOPED ANY TYPE OF REACTION AFTER HANDLING LATEX PRODUCTS SUCH RUBBER GLOVES, CONDOMS, DIAPHRAGMS, BALLOONS, SOCKS, OR UNDERWEAR?NO LATEX ALLERGY : HAVE YOU EVER DEVELOPED ANY TYPE OF REACTION DURING OR AFTER DENTAL APPOINTMENT, VAGINAL/RECTAL EXAMINATION, SURGICAL PROCEDURE, OR ANY OTHER EXPOSURE?NO LATEX RISK : HAVE YOU EVER HAD ANY DIFFICULTY BREATHING OR HIVES AFTER EATING OR HANDLING ANY FRUITS, OR VEGETABLES; SUCH KIWI, BANANAS, STONE FRUITS, OR CHESTNUTSNO LATEX RISK : DO YOU HAVE A PREVIOUS PERSONAL HISTORY OF MORE THAN NINE SURGERIES, SPINA BIFIDA, OR REPEATED CATHERIZATIONS? NO LATEX RISK : ARE YOU FREQUENTLY EXPOSED TO LATEX PRODUCTS IN YOUR OCCUPATION?NO DATE ASKED : 05/18/2020 BMI CARE GOAL FOLLOW-UP ABOVE NORMAL BMI [facility] REGARDING DIET ALCOHOL SCREENING DID YOU HAVE A DRINK CONTAINING ALCOHOL IN THE PAST YEAR?YES HOW OFTEN DID YOU HAVE SIX OR MORE DRINKS ON ONE OCCASION IN THE PAST YEAR?NEVER (0 POINTS) HOW MANY DRINKS DID YOU HAVE ON A TYPICAL DAY WHEN YOU WERE DRINKING IN THE PAST YEAR?1 OR 2 (0 POINTS) HOW OFTEN DID YOU HAVE A DRINK CONTAINING ALCOHOL IN THE PAST YEAR?MONTHLY OR LESS (1 POINT) POINTS1 INTERPRETATIONNEGATIVE RECREATIONAL DRUG USE DRUG USE?NO CAFFEINE CAFFEINE USE?NO SEXUAL HX HAD SEX IN THE LAST 12 MONTHS (VAGINAL, ORAL, OR ANAL)?YES WITHMEN ONLY HIV / HEP-C SCREENING HIV TEST OFFERED TO PATIENT:YES DATE OFFERED:06/30/2016 TEST ACCEPTED:NO HEP-C TEST OFFERED TO PATIENT:YES DATE OFFERED:06/30/2016 REASON:PATIENT DECLINED TEST ACCEPTED:NO REASON:PATIENT DECLINED HINDU [id number] ZOROASTRIANISM LANGUAGE TELUGU. 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 DIET: REGULAR. EXERCISE: NO REGULAR EXERCISE. MARITAL STATUS: . OTHERS AT HOME: JUAN DAVIDALTHEA. TODAY'S VISIT NOTES, FROM 0-10, WHAT LEVEL IS YOUR PAIN TODAY? 8. PAIN CLINIC PFS, CLERGY, PUBLIC HEALTH REFERRALS PFS REFERRAL NEEDED?NO CLERGY REFERRAL NEEDED?NO PUBLIC HEALTH REFERRAL NEEDED?NO WAS THE PROVIDER NOTIFIED OF ANY PERTINENT INFO?NO HAS THE PATIENT BEEN EDUCATED REGARDING HIS/HER PLAN OF CARE?YES HAS THE PATIENT BEEN EDUCATED REGARDING PAIN, THE RISK FOR PAIN, THE IMPORTANCE OF EFFECTIVE PAIN MANAGEMENT, AND THE PAIN ASSESSMENT PROCESS?YES ADVANCE DIRECTIVE ADVANCE DIRECTIVE DISCUSSED WITH PATIENT:YES JUAN DAVID DENISE [phone] REVIEWED WITH PT 04/30/18 1354 BVREVIEWED WITH PT 07/03/18 1533 BV. HOSPITALIZATION/MAJOR DIAGNOSTIC PROCEDURE DIABETIC FOOT ULCER/CELLULITIS 12/2012 RENAL FAILURE 02/2016 WEAKNESS 05/09/2016 INFECTION & DEHYDRATION 11/12/16-11/14/16 CHF 01/01/17-01/03/17 BILAERAL PNEUMONIA ,KIDNEY FAILURE, PT ITUBATED -2019 REVIEW OF SYSTEMS CONSTITUTIONAL: ANY RECENT FEVER NO . CHILLS NO . WEIGHT CHANGE OF UNKNOWN REASONS NO . GASTROENTEROLOGY: NEW UNEXPLAINABLE CHANGES IN BOWEL CONTROL NO . CONSTIPATION NO . GENITOURINARY: ANY NEW CHANGE IN BLADDER CONTROL? NO . NEUROLOGY: NEW ONSET DIZZINESS OR NEUROLOGICAL CHANGES NOT MENTIONED NO . NEW NUMBNESS OR PAIN PATTERNS NOT MENTIONED AND PERTINENT TO TODAY'S VISIT NO . CARDIOLOGY: NEW CHEST PRESSURE NO . NEW CHEST PAIN NO . RESPIRATORY: UNEXPLAINABLE COUGH NO . NEW SHORTNESS OF BREATH NO . VITAL SIGNS WT 192.4 LBS, HT 64 IN, BMI 33.02 INDEX, BP 132/69 MM HG, HR 85 /MIN, RR 18 /MIN, TEMP 97.2 F, OXYGEN SAT % 94%, SAFE IN ENV? (Y/N) YES, NA INITIALS SC 14:22, REVIEWED BY: ASHA. EXAMINATION GENERAL EXAMINATION: GENERALAWAKE,ALERT ,PLEASANT . PSYCHAFFECT NORMAL . LUNGS:LUNG RODRIGUEZ ARE CLEAR TO AUSCULTATION BILATERALLY. GOOD MOVEMENT OF AIR . HEART:S1, S2 IN A REGULAR RATE AND RHYTHM. NO SIGNIFICANT MURMURS, RUBS OR GALLOPS NOTED . ASSESSMENTS OTHER CHRONIC PAIN - G89.29 (PRIMARY) CHRONIC PRESCRIPTION OPIATE USE - Z79.891 CHARCOT'S JOINT OF FOOT DUE TO DIABETES - E11.610, LEFT MYALGIA, OTHER SITE - M79.18 TREATMENT OTHER CHRONIC PAIN PAIN PROCEDURE LOGDATE OF [id number]/20/2020PROCEDURE:TRIGGER POINT INJECTIONS BILAT NECK AND UPPER BACKAMOUNT OF PRE SEDATEORAL TAB VALIUM 5MG & ORAL TAB OXYCODONE 10MGRESULT:MARKED REDUCTION IN PAIN CONTINUES TODAY NOTES: ISTOP REGISTRY REVIEWED AND DEMONSTRATES COMPLLIANCE. (REF # ) BRINGS IN MEDICATIONS WHICH IS APPROPRIATE FOR WHAT WAS DISPENSED. URINE TOXICOLOGY TODAY RISKS OF NARCOTIC/OPIOD MEDICATIONS INCLUDES BUT IS NOT LIMITED TO RISK OF DEPENDANCE/DEVELOPMENT OF ADDICTION, MOOD DISTURBANCE AND DEPRESSION, OSTEOPOROSIS, HORMONAL AND LABIDAL CHANGES, RESPIRATORY DEPRESSION AND . PATIENT IS ADVISED NOT TO DRIVE OR DRINK ALCOHOL WHILE ON THESE MEDICATIONS,. PROCEDURE CODES FA211 ESTABILISHED PATIENT [facility] FACILITY CHARGE DISPOSITION & COMMUNICATION FOLLOW UP 3 MONTHS (REASON: MEDICATION MANAGEMENT) ELECTRONICALLY SIGNED BY CRUZITO NG ON 05/18/2020 AT 03:19 PM EST DISCLAIMER : THIS IS A VISIT SUMMARY EXTRACTED FROM THE [employer] [facility] CHART. IT IS NOT A COPY OF THE [employer] PROGRESS NOTE. LETY
== END ==
LOC: M PAIN 13:45
PROVIDERS: ATTEND Nurse Practitioner Family
DX: M79.18 Myalgia, other site (principal); E11.610 Type 2 diabetes mellitus with diabetic neuropathic arthropathy; G43.909 Migraine, unspecified, not intractable, without status migrainosus; G47.30 Sleep apnea, unspecified; M79.7 Fibromyalgia; I25.2 Old myocardial infarction; F17.210 Nicotine dependence, cigarettes, uncomplicated; Z86.59 Personal history of other mental and behavioral disorders; Z86.14 Personal history of Methicillin resistant Staphylococcus aureus infection; Z91.013 Allergy to seafood; Z79.82 Long term (current) use of aspirin; Z79.891 Long term (current) use of opiate analgesic; Z79.899 Other long term (current) drug therapy

== ENCOUNTER 2020-05-26 16:46 | Inpatient (IN) | payer MEDICARE, OTHER ==
[~2020-05-26] VITALS: Ht 160 cm; Wt 84.1 kg
[2020-05-26] MEDS ORDERED: KLOR20TA42 PO (17:07)
[2020-05-26] MEDS ORDERED: PLAQ200T4 PO (17:07)
[2020-05-26] MEDS ORDERED: METF500T13 PO (17:07)
[2020-05-26] MEDS ORDERED: FLUO20CA20 PO (17:07)
[2020-05-26] MEDS ORDERED: NICO21DI31 TOP (17:07)
[2020-05-26] MEDS ORDERED: CYCL-707 PO (17:07)
[2020-05-26] MEDS ORDERED: SUCR1TA PO (17:07)
[2020-05-26] MEDS ORDERED: SODI1TAB12 PO (17:07)
[2020-05-26] MEDS ORDERED: IPRA0.00 NEB (17:07)
[2020-05-26] MEDS ORDERED: DOXY-350 PO (17:07)
[2020-05-26 18:20] LABS: BASO # 0.1 10^3/uL (0.0-0.2); BASO % 0.6 % (0.0-1.0); EOS # 0.3 10^3/uL (0.0-0.5); EOS % 2.7 % (0.0-3.0); HEMATOCRIT 53.4 % (36.0-47.0); HEMOGLOBIN 17.9 g/dl (12.0-15.5); LYMPH # 3.1 10^3/uL (1.5-5.0); LYMPH % 31.7 % (24.0-44.0); MEAN CORPUSCULAR HEMOGLOBIN 33.7 pg (27.0-33.0); MEAN CORPUSCULAR HGB CONC 33.5 g/dl (32.0-36.5); MEAN CORPUSCULAR VOLUME 100.6 fl (80.0-96.0); MONO # 0.8 10^3/uL (0.0-0.8); MONO % 7.7 % (0.0-5.0); NEUTROPHILS # 5.5 10^3/uL (1.5-8.5); NEUTROPHILS % 56.7 % (36.0-66.0); PLATELET COUNT, AUTOMATED 178 10^3/uL (150-450); RED BLOOD COUNT 5.31 10^6/uL (4.00-5.40); WHITE BLOOD COUNT 9.7 10^3/uL (4.0-10.0)
[2020-05-26 18:37] LABS: BLOOD UREA NITROGEN 10 MG/DL (7-18); C REACTIVE PROTEIN QUANTITATIV 4.75 MG/DL (0.00-0.30); CALCIUM LEVEL 9.6 MG/DL (8.5-10.1); CARBON DIOXIDE LEVEL 31 MEQ/L (21-32); CHLORIDE LEVEL 94 MEQ/L (98-107); CREATININE FOR GFR 0.92 MG/DL (0.55-1.30); GLOMERULAR FILTRATION RATE > 60.0 (>51); GLUCOSE, FASTING 166 MG/DL (70-100); POTASSIUM SERUM 3.7 MEQ/L (3.5-5.1); SODIUM LEVEL 135 MEQ/L (136-145)
[2020-05-26 18:41] LABS: ERYTHROCYTE SEDIMENTATION RATE 9 mm/hr (0-30)
[2020-05-26] MEDS ORDERED: NS 2,520 ML in IV 1 EA IV ONE (19:00)
[2020-05-26] MEDS ORDERED: VANCOMYCIN HCL 750 MG, VIAL MATE ADAPTER 1 EACH in D5W 250 ML IV ONE (20:00)
[2020-05-26] MEDS ORDERED: VANCOMYCIN HCL 1,000 MG, VIAL MATE ADAPTER 1 EACH in D5W 250 ML IV ONE (20:00)
[2020-05-26] MEDS ORDERED: VANCOMYCIN HCL 1,750 MG in D5W 250 ML IV ONE (20:00)
[2020-05-26] MEDS ORDERED: GLUCOSE 4GM CHEW TABLET PO PRN (20:15)
[2020-05-26] MEDS ORDERED: GLUCAGON INJ 1MG VIAL SC PRN (20:15)
[2020-05-26] MEDS ORDERED: NS 500 ML IV ONE (20:15)
[2020-05-26] MEDS ORDERED: DEXTROSE 50% 50 ML SYRINGE IV PRN (20:15)
[2020-05-26] MEDS ORDERED: FURO20TA2 PO (20:32)
--- NOTE | 2020-05-26 20:32 | REPVR ---
PROCEDURE INFORMATION: Exam: XR Left Foot Complete Exam date and time: 05/26/2020 5:33 PM Age: 54 years old Clinical indication: Other: Infection; Additional info: Infection, R/O bone involvement TECHNIQUE: Imaging protocol: XR Left foot. Views: 3 or more views. COMPARISON: MRI-Foot W/O FOL WITH 04/06/2017 2:34 PM FINDINGS: Bones/joints: Severe midfoot arthritis with midfoot collapse and medial dislocation of the navicular bone. Ankle arthritis with widening of the anterior ankle joint space. Ankle joint effusion. No bone destruction or periosteal reaction identified to indicate osteomyelitis. No acute fracture. Osteoarthritic changes within the joints of the forefoot. Superior and inferior calcaneal spurs. Soft tissues: Generalized swelling of the foot soft tissues. Swelling and increased density within the subcutaneous tissues of the plantar aspect of the midfoot consistent with cellulitis in the proper clinical setting. Superficial skin ulcer at the plantar aspect of the midfoot with 2 gas collections (measuring 9 mm and 10 mm) within the subcutaneous fat of the plantar aspect of the midfoot. IMPRESSION: 1. Swelling and increased density within the subcutaneous tissues of the plantar aspect of the midfoot which are nonspecific but consistent with cellulitis in the proper clinical setting. 2. Skin ulceration and small gas collections within the subcutaneous tissues of the plantar aspect of the midfoot. 3. No radiographic evidence of osteomyelitis. 4. Severe midfoot arthritis with midfoot collapse and medial dislocation of the navicular bone. Electronically signed by: Madhu Lanier On 05/26/2020 20:31:38 PM
[2020-05-26] MEDS ORDERED: PANT40TA29 PO (20:35)
[2020-05-26] MEDS ORDERED: diazePAM 2 MG TAB PO ONE (20:45)
[2020-05-26] MEDS ORDERED: MORPHINE 15 MG SA TAB PO SCH (21:00)
[2020-05-26] MEDS ORDERED: PROHANCE 279.3MG/ML 15ML VIAL As Ordered ONE (22:05)
[2020-05-26] MEDS ORDERED: PROHANCE 279.3MG/ML 5ML VIAL As Ordered ONE (22:06)
--- NOTE | 2020-05-26 22:13 | HPEPDOC ---
[facility] Medical History & Physical Date of Admission May 26, 2020 Date of Service: May 26, 2020 History and Physical CHIEF COMPLAINT:"I saw a wound doctor(Dr. Jones) and he sent me down to have it cut open." left foot redness, pain, pus x 4 days HISTORY OF PRESENT ILLNESS: 54 y/o female w h/o chronic b/l LE diabetic foot infections, charcot foot, +MRSA presents to the ER after failed outpt doxycycline for left foot diabetic plantar abscess with worsening cellulitis first noticed 4 days ago as a 2 x 2cm ulcers with associated low grade temp 100, increasing redness, tenderness, and swelling now encompassing 10cm x 10 cm indurated area, evaluated by a wound surgeon Dr. Jones who recommended inpatient incision and debridement and iv antibiotics. She has used her hydrocodone-acetaminophen 4x daily with no pain relief, and ongoing radiation of pain from her foot to the groin, prompting her to come for inpatient admission. She denied any chills, n/v/d/abd pain, sob, dysuria, urgency, frequency, sob. In the ER, she was afebrile 97.5, normal wbc 9.7, normal esr 9, elevated CRP 4.75 , and lactic acidosis 3.0. Hospitalist was called to admit for left foot diabetic plantar abscess with 2 nonhealing ulcers and worsening foot cellulitis. PAST MEDICAL HISTORY: SLE, hypertension,obstructive sleep apnea on CPAP,COPD,history of diabetes mellitus, charcot foot, dm neuropathy, acute renal failure 02/23/20, acute hypoxemic respiratory failure 02/23/20, diastolic congestive heart failure, migraine headaches, endotracheal intubation for pulmonary edema 02/23/20, TIA, dyslipidemia, giardia 2004, UTI, Fatty liver, firomyalgia, chronic neck pain, hypogammaglobulinemia, anxiety, MRSA right foot wound.CAD/AR Easter 2017, pneumonia PAST SURGICAL HISTORY: Left internal jugular central line placement for venous access 02/23/20, Hemodialysis catheter placement 02/23/20,coronary stents october 2017, cholecystectomy 2008, incisional hernia repair, b/l elbow and wrist repairs, debridement diabetic foot ulcers b/l 2012, FAMILY HISTORY Patient is an only child. Patient's father due to myocardial infarct ion. Patient's mother due to lupus and leukemia. Patient has one son and one daughter who are healthy. Patient has one adopted daughter who is also healthy SOCIAL HISTORY Smoker: greater than 1 pack/day (40 years of 2ppd) Alcohol: Heavy alcohol use in the past, now social use Drugs: denies REVIEW OF SYSTEMS: 10POINT ROS OBTAINED negative aside from (+) findings on HPI PHYSICAL EXAMINATION VITALS SIGNS: SEE BELOW General Exam: AAOx 3, no respiratory dsitress. HEENT: PERRL EOMI dry mucus membranes no jvd. Chest: AEBE CTAB b/l no adventitious breath sounds. no w/r/r Heart: S1S2 RRR nondisplaced PMI Abdomen: obese, distended soft, normoactive sounds x4 quadrants ND nontender Extremities: 1+ edema b/l LE. charcot foot. Skin:erythema, ecchymosis, edema, tender left foot w 2 x nonhealing 2cm plantar ulcers, indurated with purulent drainage. [id number] erythematous area.s/p R great toe amputation,multiple crusted wounds b/l LE. right foot well healed medial surgical scar. Neuro: CN2-12 intact, speech not dysarthric, moving all extremities LABORATORY DATA/IMAGING STUDIES/MICROBIOLOGY: SEE BELOW ASSESSMENT AND PLAN: 54 y/o female w h/o chronic b/l LE diabetic foot infections, charcot foot, +MRSA presents to the ER after failed outpt doxycycline for left foot di abetic plantar abscess with worsening cellulitis first noticed 4 days ago as a 2 x 2cm ulcers with associated low grade temp 100, increasing redness, tenderness, and swelling now encompassing 10cm x 10 cm indurated area, evaluated by a wound surgeon Dr. Jones who recommended inpatient incision and debridement and iv antibiotics. She has used her hydrocodone-acetaminophen 4x daily with no pain re lief, and ongoing radiation of pain from her foot to the groin, prompting her to come for inpatient admission. She denied any chills, n/v/d/abd pain, sob, dysuria, urgency, frequency, sob. In the ER, she was afebrile 97.5, normal wbc 9.7, normal esr 9, elevated CRP 4.75 , and lactic acidosis 3.0. Hospitalist was called to admit for left foot diabetic plantar abscess with 2 nonhealing ulcers and worsening foot cellulitis.She will be admitted as an inpatient for two midnights for: Left foot diabetic nonhealing ulcers with plantar abscess and cellulitis -due to history of MRSA, pt has been started on IV vancomycin, with pharmD consult for vancomycin dosing. contact precautions. -due to risk of pseudomonas infection, zosyn has been added for both gram negative and anaerobic coverage until wound cultures are finalized. -de-escalate abx once sensitivity results are available. -wound cx, blood cx, serial crp/esr, cbcwith differential. bmp for vanco dosing -Xray: left midfoot swelling in subcutaneous tissue , skin ulceration, small gas collections, no osteomyelitis -[employer] Dr. Valencia for incision and drainage, and surgical debridement -hold antiplatelet and anticoagulants. NPO aftermidnight. judicious use of IVFluids until lactic acid is normal, due to history of CHF. -npo after midnight for OR in AM, hypoglycemic protocol, fingersticks q6hrs and start d51/2ns while npo. SLE -on chronic plaquenil. yearly eye exam. outpt rheumatology fu. hypertension,controlled -on coreg bid obstructive sleep apnea on CPAP, -chronic COPD,compensated -prn rescue inhalers diabetes mellitus, charcot foot, dm neuropathy, -consistent carb diet -fingersticks -hypoglycemic protocol while npo, a1c in am diastolic congestive heart failure, compensated -held lasix due to npo status for or Fatty liver, chronic -check lipid profile fibromyalgia, chronic neck pain -resumed on home pain meds hypogammaglobulinemia -increased risk of recurrent infections. ID referral asoutpt-may benefit from IVIG injections anxiety, -PRN valium Depression -fluoxetine Tobacco abuse -nicotine patch h/o MRSA -contact precautions DVT prophylaxis -held due to surgical debridement in am. Diet: consistent carbs for dinner. npo after midnight. Vital Signs Vital Signs Date Time Temp Pulse Resp B/P (MAP) Pulse Ox O2 Delivery O2 Flow Rate FiO2 05/26/20 17:21 05/26/20 16:47 97.5 88 20 96 Room Air Laboratory Data Labs 24H Laboratory Tests 2 05/26/20 17:39: Immature Granulocyte % (Auto) 0.6, Neutrophils (%) (Auto) 56.7, Lymphocytes (%) (Auto) 31.7, Monocytes (%) (Auto) 7.7H, Eosinophils (%) (Auto) 2.7, Basophils (%) (Auto) 0.6, Neutrophils # (Auto) 5.5, Lymphocytes # (Auto) 3.1, Monocytes # (Auto) 0.8, Eosinophils # (Auto) 0.3, Basophils # (Auto) 0.1, Nucleated Red Blood Cells % (auto) 0.0, Erythrocyte Sedimentation Rate 9, Anion Gap 10, Glomerular Filtration Rate > 60.0, Calcium Level 9.6, C-Reactive Protein, Quantitative 4.75H 05/26/20 17:41: Lactic Acid Level 3.0*H CBC/BMP Laboratory Tests 05/26/20 17:39 Microbiology Microbiology 05/26/20 Gram Stain, Received Pending 05/26/20 Wound Culture, Received Pending 05/26/20 Blood Culture, Received Pending 05/26/20 Blood Culture, Received Pending Home Medications Scheduled Aspirin (Aspirin EC) 81 Mg Tab, 81 MG PO QHS Carvedilol (Carvedilol) 3.125 Mg Tablet, 3.125 MG PO BID Cyclobenzaprine HCl (Cyclobenzaprine HCl) 10 Mg Tablet, 10 MG PO TID Doxycycline Monohydrate (Doxycycline) 100 Mg Capsule, 100 MG PO BID FOR 7 DAYS, FINISH DATE 05/27 Duloxetine Hcl (Cymbalta) 60 Mg Cap, 60 MG PO BID Fluoxetine Hcl (Fluoxetine HCl) 20 Mg Capsule, 60 MG PO DAILY Folic Acid (Folic Acid) 1 Mg Tab, 1 MG PO DAILY Furosemide (Lasix) 40 Mg Tablet, 40 MG PO QAM Furosemide (Furosemide) 20 Mg Tablet, 20 MG PO DAILY TAKES BETWEEN [id number] Gabapentin (Gabapentin) 300 Mg Cap, 900 MG PO TID Hydrocodone/Acetaminophen (Hydrocodone-Acetamin 10-325 mg) 1 Tab Tab, 1 TAB PO TID CAN TAKE UP TO 4 X DAILY Hydroxychloroquine Sulfate (Plaquenil) 200 Mg Tablet, 200 MG PO DAILY Metformin HCl (Metformin HCl) 500 Mg Tablet, 500 MG PO BIDWM Morphine Sulfate (Morphine Sulfate ER) 15 Mg Tab, 15 MG PO Q12H Pantoprazole Sodium (Pantoprazole Sodium) 40 Mg Tablet.dr, 40 MG PO DAILY Potassium Chloride (Klor-Con M20) 20 Meq Tab.er.prt, 20 MEQ PO BID Sodium Chloride (Sodium Chloride) 1 Gm Tablet, 1 GM PO BID Sucralfate (Sucralfate) 1 Gm Tablet, 1 TAB PO AC Scheduled PRN Albuterol Sulfate (Ventolin Hfa) 108 Mcg/Act Aer, 2 PUFFS INH QID PRN for SHORTNESS OF BREATH Diazepam (Diazepam) 2 Mg Tablet, 2 MG PO BID PRN for ANXIETY Nicotine (Nicotine Patch) 21 Mg Patch.td24, 1 PATCH TOP DAILY PRN for NICOTINE WITHDRAWAL Allergies Coded Allergies: aspartame (Verified Allergy, Unknown, 01/08/20) SUGAR SUBSTITUTE shellfish derived (Verified Allergy, Unknown, 01/08/20) ketamine (Verified Adverse Reaction, Unknown, hallucinations, 05/26/20) A-FIB/CHADSVASC A-FIB History Current/History of A-Fib/PAF?: No Current PO Anticoag Therapy: No Age/Risk Factor Scoring CHADSVASC: CHADSVASC Response (Comments) Value Age Risk Factor Age < 65 years old 0 Gender Risk Factor Female 1 Hx of CHF Yes 1 Hx of HTN No 0 Hx of Stroke/TIA/or VTE No 0 Hx of Diabetes Yes 1 Hx of Vascular Disease No 0 Total 3 Treatment Treatment ordered: NONE AMBER SERRANO MD May 26, 2020 20:03
[2020-05-26] MEDS ORDERED: diazePAM 2 MG TAB PO PRN (22:15)
[2020-05-26] MEDS ORDERED: ALBUTEROL 90 MCG/ACT 8GM HFA INHALER INH PRN (22:15)
[2020-05-26] MEDS: ANEXSIA, NORCO 7.5MG/325MG TABLET(HYDROCODONE/APAP) PO SCH (22:51)
[2020-05-26] MEDS: MORPHINE 15 MG SA TAB PO SCH (22:58)
[2020-05-26] MEDS: SUCRALFATE 1 GM TAB PO SCH (22:59)
[2020-05-26] MEDS: POTASSIUM CHLORIDE 10 MEQ SR TABLET PO SCH (22:59)
[2020-05-26] MEDS: CYCLOBENZAPRINE 10MG TABLET PO SCH (22:59)
[2020-05-26] MEDS: CARVedilol 3.125 MG TAB PO SCH (23:01)
[2020-05-26] MEDS: DULoxetine 30 MG CAP (CYMBALTA) PO SCH (23:01)
[2020-05-26] MEDS: GABAPENTIN 300 MG CAP PO SCH (23:02)
--- NOTE | 2020-05-26 23:21 | REPVR ---
PROCEDURE INFORMATION: Exam: MR Left Lower Extremity Other Than Joint Without and With Contrast; Foot Exam date and time: 05/26/2020 10:31 PM Age: 54 years old Clinical indication: Cellulitis; Patient HX: Left foot diabetic wound infection R/O osteomyelitis TECHNIQUE: Imaging protocol: MR of the Left lower extremity without and with intravenous contrast. Exam focused on the foot. Contrast material: PROHANCE; Contrast volume: 20 ml; Contrast route: INTRAVENOUS (IV); COMPARISON: MRI-Foot W/O FOL WITH 04/06/2017 2:34 PM FINDINGS: Bones and cartilage: Malalignment of the midfoot with dislocation of the talonavicular joint. Medial dislocation of the navicular bone. Mild widening of the lateral ankle mortise. A small effusion is identified within the tibiotalar joint. Mild marrow edema identified within the medial talus and and posterior calcaneus. Differential considerations include neuropathic changes and osteomyelitis, new compared to the prior study. Additional marrow edema is identified involving the lateral talar dome, suggestive of arthropathy or osteochondral injury, although osteomyelitis cannot be excluded. Motion artifact limits this study Artifact limits evaluation of the bone marrow of the digits 1st MTP arthropathy. Joint spaces: See "Bones and cartilage" finding. LIGAMENTS: Lisfranc ligament: Suboptimal evaluation due to motion artifact and malalignment. TENDONS: Flexor tendons of foot: See below. Tibialis posterior tendon: Tenosynovitis of the posterior tibialis tendon and flexor digitorum tendon. Peroneal tendons: Unremarkable as visualized. Extensor tendons of foot: No evidence of tear. Tibialis anterior tendon: Unremarkable as visualized. Tarsal canal (Sinus tarsi): Obscured by malalignment. Muscles: Extensive muscle atrophy. Soft tissues: Soft tissue swelling and ulceration is identified plantar to the midfoot. A loculated collection of fluid is identified within the soft tissues adjacent to this ulceration, concerning for abscess. This measures 2.1 x 1.2 x 1.6 cm. Additional mild swelling of the foot visualized. Plantar fascia: Mild swelling adjacent to the plantar fascia, consistent with plantar fasciitis or extension of adjacent soft tissue swelling. IMPRESSION: 1. Malalignment of the midfoot with dislocation of the talonavicular joint, new compared to the previous MRI. Medial dislocation of the navicular bone. 2. Soft tissue swelling and ulceration is identified plantar to the midfoot. A small loculated collection of fluid is identified within the soft tissues adjacent to this ulceration, concerning for abscess. 3. Mild marrow edema identified within the medial talus and and posterior calcaneus. Differential considerations include neuropathic changes and osteomyelitis, new compared to the prior study. 4. Additional marrow edema is identified involving the lateral talar dome, suggestive of arthropathy or osteochondral injury, although osteomyelitis cannot be excluded. 5. Mild widening of the lateral ankle mortise. A small effusion is identified within the tibiotalar joint. 6. Tenosynovitis of the posterior tibialis tendon and flexor digitorum tendon. 7. Additional findings described above. Electronically signed by: Thaddeus Jones On 05/26/2020 23:21:48 PM
[2020-05-27] MEDS: PIPERACILLIN/TAZOBACTAM SOD 3.375 GM in D5W MINI-BAG PLUS 50 ML IV SCH ×5 (01:07→23:15)
[2020-05-27] MEDS ORDERED: NICOTINE 21MG/24HR 1 EA TRANSDERMAL TD ONE ×2 (01:15)
[2020-05-27] MEDS: D5W/0.45% SODIUM CHLORIDE 1,000 ML IV SCH ×2 (03:06→14:39)
[2020-05-27] MEDS ORDERED: VANCOMYCIN HCL 1,000 MG, VIAL MATE ADAPTER 1 EACH in D5W 250 ML IV SCH (05:00)
[2020-05-27 06:53] LABS: BASO % 0.7 % (0.0-1.0); EOS # 0.2 10^3/uL (0.0-0.5); LYMPH # 1.8 10^3/uL (1.5-5.0); LYMPH % 32.3 % (24.0-44.0); MEAN CORPUSCULAR HGB CONC 33.3 g/dl (32.0-36.5); MEAN CORPUSCULAR VOLUME 102.1 fl (80.0-96.0); MONO # 0.5 10^3/uL (0.0-0.8); MONO % 8.9 % (0.0-5.0); NEUTROPHILS # 2.9 10^3/uL (1.5-8.5); NEUTROPHILS % 53.7 % (36.0-66.0); PLATELET COUNT, AUTOMATED 131 10^3/uL (150-450); RED BLOOD COUNT 4.21 10^6/uL (4.00-5.40); WHITE BLOOD COUNT 5.5 10^3/uL (4.0-10.0)
[2020-05-27 07:21] LABS: BLOOD UREA NITROGEN 11 MG/DL (7-18); CALCIUM LEVEL 8.5 MG/DL (8.5-10.1); CARBON DIOXIDE LEVEL 32 MEQ/L (21-32); CHLORIDE LEVEL 99 MEQ/L (98-107); CREATININE FOR GFR 0.84 MG/DL (0.55-1.30); GLOMERULAR FILTRATION RATE > 60.0 (>51); GLUCOSE, FASTING 239 MG/DL (70-100); POTASSIUM SERUM 4.2 MEQ/L (3.5-5.1); SODIUM LEVEL 136 MEQ/L (136-145)
[2020-05-27 07:22] LABS: HEMOGLOBIN 14.3 g/dl (12.0-15.5)
[2020-05-27] MEDS: ANEXSIA, NORCO 7.5MG/325MG TABLET(HYDROCODONE/APAP) PO SCH ×4 (08:15→20:22)
[2020-05-27] MEDS ORDERED: NICOTINE 21MG/24HR 1 EA TRANSDERMAL TD SCH ×2 (09:00)
[2020-05-27] MEDS ORDERED: FLUoxetine 20 MG CAP PO SCH (09:00)
[2020-05-27] MEDS: FLUoxetine 20 MG CAP PO SCH (09:47)
[2020-05-27] MEDS: GABAPENTIN 300 MG CAP PO SCH ×3 (09:48→20:20)
[2020-05-27] MEDS: MORPHINE 15 MG SA TAB PO SCH ×2 (09:48→20:21)
[2020-05-27] MEDS: SUCRALFATE 1 GM TAB PO SCH ×4 (09:48→20:22)
[2020-05-27] MEDS: CARVedilol 3.125 MG TAB PO SCH ×2 (09:49→20:20)
[2020-05-27] MEDS: PANTOPRAZOLE 40MG TAB (PROTONIX) PO SCH (09:49)
[2020-05-27] MEDS: SODIUM CHLORIDE 1 GM TAB PO SCH ×2 (09:50→19:42)
[2020-05-27] MEDS: CYCLOBENZAPRINE 10MG TABLET PO SCH ×3 (09:50→20:21)
[2020-05-27] MEDS: HYDROXYCHLOROQUINE 200 MG TAB PO SCH (09:50)
[2020-05-27] MEDS: POTASSIUM CHLORIDE 10 MEQ SR TABLET PO SCH ×2 (09:51→20:22)
[2020-05-27] MEDS: DULoxetine 30 MG CAP (CYMBALTA) PO SCH ×2 (09:51→20:22)
[2020-05-27] MEDS: FOLIC ACID 1 MG TAB PO SCH (09:51)
--- NOTE | 2020-05-27 13:11 | IPNPDOC ---
Text Note Date of Service The patient was seen on 05/27/20. NOTE Subjective: No any acute events overnight. Patient denied fever, chills, nausea, tachycardia, diarrhea, dysuria Objective: GENERAL APPEARANCE: NAD HEENT: no scleral icterus, no JVD, EOMI CARDIOVASCULAR: S1S2 LUNGS: CTA ABDOMEN: soft & not tender w palpitation MUSCULOSKELETAL: erythema, ecchymosis, edema, tender left foot w 2 x nonhealing 2cm plantar ulcers, indurated with purulent drainage. [id number] erythematous area.s/p R great toe amputation,multiple crusted wounds b/l LE. right foot well healed medial surgical scar. INTEGUMENT: no generalized palor NEUROLOGICAL: cranial nerve function from 2-12 intact intact, follows commands, speech not dysarthric Assessment and plan: 54 y/o female w h/o chronic b/l LE diabetic foot infections, charcot foot, +MRSA presents to the ER after failed outpt doxycycline for left foot diabetic plantar abscess with worsening cellulitis first noticed 4 days ago as a 2 x 2cm ulcers with associated low grade temp 100, increasing redness, tenderness. Left foot diabetic nonhealing ulcers with plantar abscess and cellulitis Dr. Powers revealed wound debridement today. There is concern for osteomyelitis. MRI showed: Soft tissue swelling and ulceration is identified plantar to the midfoot. A small loculated collection of fluid is identified within the soft tissues adjacent to this ulceration, concerning for abscess. Mild marrow edema identified within the medial talus and and posterior calcaneus. Differential considerations include neuropathic changes and osteomyelitis, new compared to the prior study. Additional marrow edema is identified involving the lateral talar dome, suggestive of arthropathy or osteochondral injury, although osteomyelitis cannot be excluded. Continue vancomycin and Zosyn SLE -on chronic Plaquenil hypertension,controlled -on coreg bid obstructive sleep apnea on CPAP, -chronic COPD,compensated -prn rescue inhalers diabetes mellitus, charcot foot, dm neuropathy, -consistent carb diet -fingersticks -hypoglycemic protocol while npo, a1c in am diastolic congestive heart failure, compensated -held lasix due to npo status for or fibromyalgia, chronic neck pain -resumed on home pain meds anxiety, -PRN valium Depression -fluoxetine Tobacco abuse -nicotine patch h/o MRSA -contact precautions DVT prophylaxis -held due to surgical debridement in am. VS,Fishbone, I+O VS, Fishbone, I+O Laboratory Tests 05/26/20 17:39 05/27/20 06:33 Vital Signs Date Time Temp Pulse Resp B/P (MAP) Pulse Ox O2 Delivery O2 Flow Rate FiO2 05/27/20 13:00 97.8 70 16 158/89 (112) 98 Room Air I&O- Last 24 Hours up to 6 AM 05/27/20 05:59 Intake Total 3615 ml Balance 3615 ml VLADIMIR HANNAH DO May 27, 2020 13:11
[2020-05-27 14:10] VITALS: BP 161/80
[2020-05-27] MEDS ORDERED: BUPIVACAINE HCL 0.5% 10ML VIAL As Ordered ONE (15:55)
[2020-05-27] MEDS ORDERED: LIDOCAINE 2% 100MG/5ML SDV (FOR ANES.) As Ordered ONE (15:55)
[2020-05-27] MEDS ORDERED: propofoL 200 MG/20 ML VIAL As Ordered ONE (15:55)
[2020-05-27] MEDS ORDERED: LIDOCAINE 1% MDV 20ML VIAL As Ordered ONE (15:55)
[2020-05-27] MEDS ORDERED: fentaNYL 100 MCG/2 ML INJECTION (J3010) As Ordered ONE (15:56)
[2020-05-27] MEDS ORDERED: MIDAZOLAM INJ 2MG/2ML VIAL (J2250 PER 1MG) As Ordered ONE (15:57)
[2020-05-27] MEDS: VANCOMYCIN HCL 1,000 MG, VIAL MATE ADAPTER 1 EACH in D5W 250 ML IV SCH (17:00)
[2020-05-27] MEDS ORDERED: LR 1,000 ML IV SCH (17:30)
[2020-05-27] MEDS ORDERED: PERCOCET 5MG/325MG TAB PO PRN (17:30)
[2020-05-27] MEDS ORDERED: ONDANSETRON 4MG/2ML VIAL IV PRN (17:30)
[2020-05-27] MEDS ORDERED: fentaNYL 100 MCG/2 ML INJECTION (J3010) IV PRN (17:30)
[2020-05-27] MEDS ORDERED: METOCLOPRAMIDE INJ 10MG/2ML VIAL (J2765 PER 1) IV PRN (17:30)
[2020-05-27 18:00] VITALS: BP 160/70
[2020-05-27] MEDS: NICOTINE 21MG/24HR 1 EA TRANSDERMAL TD SCH (20:21)
[2020-05-27 22:00] VITALS: BP 150/68
[2020-05-28] MEDS: VANCOMYCIN HCL 1,000 MG, VIAL MATE ADAPTER 1 EACH in D5W 250 ML IV SCH ×2 (04:46→17:36)
[2020-05-28 06:00] VITALS: BP 159/82
[2020-05-28 06:11] LABS: BASO % 0.6 % (0.0-1.0); EOS # 0.2 10^3/uL (0.0-0.5); EOS % 4.1 % (0.0-3.0); HEMATOCRIT 41.7 % (36.0-47.0); HEMOGLOBIN 13.7 g/dl (12.0-15.5); LYMPH # 1.4 10^3/uL (1.5-5.0); MEAN CORPUSCULAR HEMOGLOBIN 33.3 pg (27.0-33.0); MEAN CORPUSCULAR HGB CONC 32.9 g/dl (32.0-36.5); MEAN CORPUSCULAR VOLUME 101.5 fl (80.0-96.0); MONO # 0.5 10^3/uL (0.0-0.8); MONO % 9.1 % (0.0-5.0); NEUTROPHILS # 2.9 10^3/uL (1.5-8.5); NEUTROPHILS % 57.8 % (36.0-66.0); PLATELET COUNT, AUTOMATED 126 10^3/uL (150-450); RED BLOOD COUNT 4.11 10^6/uL (4.00-5.40); WHITE BLOOD COUNT 5.1 10^3/uL (4.0-10.0)
[2020-05-28] MEDS: PIPERACILLIN/TAZOBACTAM SOD 3.375 GM in D5W MINI-BAG PLUS 50 ML IV SCH ×3 (06:14→18:47)
[2020-05-28] MEDS: ANEXSIA, NORCO 7.5MG/325MG TABLET(HYDROCODONE/APAP) PO SCH (06:30)
[2020-05-28 06:34] LABS: BLOOD UREA NITROGEN 8 MG/DL (7-18); CALCIUM LEVEL 8.5 MG/DL (8.5-10.1); CARBON DIOXIDE LEVEL 30 MEQ/L (21-32); CHLORIDE LEVEL 101 MEQ/L (98-107); GLOMERULAR FILTRATION RATE > 60.0 (>51); GLUCOSE, FASTING 188 MG/DL (70-100); POTASSIUM SERUM 4.2 MEQ/L (3.5-5.1); SODIUM LEVEL 135 MEQ/L (136-145)
[2020-05-28] MEDS ORDERED: FLUBLOK(EGG FREE)(QUAD)INFLUENZA VACC 0.5ML SYRINGE 18YRS & OLDER IM ONE (09:00)
[2020-05-28] MEDS: GABAPENTIN 300 MG CAP PO SCH ×3 (09:05→20:16)
[2020-05-28] MEDS: FOLIC ACID 1 MG TAB PO SCH (09:05)
[2020-05-28] MEDS: PANTOPRAZOLE 40MG TAB (PROTONIX) PO SCH (09:05)
[2020-05-28] MEDS: FLUoxetine 20 MG CAP PO SCH (09:06)
[2020-05-28] MEDS: CYCLOBENZAPRINE 10MG TABLET PO SCH ×3 (09:06→20:17)
[2020-05-28] MEDS: POTASSIUM CHLORIDE 10 MEQ SR TABLET PO SCH ×2 (09:06→20:17)
[2020-05-28] MEDS: SUCRALFATE 1 GM TAB PO SCH ×4 (09:06→20:17)
[2020-05-28] MEDS: HYDROXYCHLOROQUINE 200 MG TAB PO SCH (09:06)
[2020-05-28] MEDS: DULoxetine 30 MG CAP (CYMBALTA) PO SCH ×2 (09:06→20:17)
[2020-05-28] MEDS: SODIUM CHLORIDE 1 GM TAB PO SCH ×2 (09:07→17:37)
[2020-05-28] MEDS: CARVedilol 3.125 MG TAB PO SCH ×2 (09:08→20:18)
[2020-05-28] MEDS: MORPHINE 15 MG SA TAB PO SCH ×2 (09:08→20:19)
[2020-05-28] MEDS ORDERED: ANEXSIA, NORCO 7.5MG/325MG TABLET(HYDROCODONE/APAP) PO PRN (10:30)
--- NOTE | 2020-05-28 11:11 | CR ---
DATE OF CONSULTATION: 05/27/2020 REASON FOR CONSULTATION: Left foot infection. Claudia Lorenz is a pleasant 54-year-old female who was admitted yesterday due to left foot infection. She was seen at the [facility] by Dr. Neely, who was treating her wound. Noted worsening despite being on oral doxycycline, and she was sent to be admitted for antibiotics and incision and drainage. She states that the wound has been present approximately 1-2 weeks. She does have history of infections on both sides, including requirement for amputation of her right 1st ray. PAST MEDICAL HISTORY: 1. Lupus. 2. Hypertension. 3. Obstructive sleep apnea, on continuous positive airway pressure (CPAP). 4. Chronic obstructive pulmonary disease (COPD). 5. History of diabetes with neuropathy. 6. Charcot foot. 7. Acute renal failure. 8. Diastolic congestive heart failure. 9. Migraines. 10. Pulmonary edema. 11. Transient ischemic attack (TIA). 12. Hyperlipidemia. 13. Urinary tract infection (UTI). 14. Giardia. 15. Fatty liver. 16. Fibromyalgia. 17. Chronic neck pain. 18. Hypogammaglobulinemia. 19. History of coronary artery disease. 20. Myocardial infarction (CO). SURGICAL HISTORY: 1. Coronary stents. 2. Cholecystectomy. 3. Foot wound debridement. 4. Right hallux amputation. FAMILY HISTORY: Brother with lupus, leukemia. Father with myocardial infarction. SOCIAL HISTORY: Positive for smoking. Positive for alcohol. REVIEW OF SYSTEMS: Negative for nausea, vomiting, fever, chills. Vital signs are reviewed. She has remained afebrile. Labs are reviewed. White blood cell count is 5.5, hemoglobin 14.3. Lactic acid was 3 on admission, improved to 1.1. CRP is 4.75. Glucose 239 today. Culture results are pending. X-rays: There are Charcot changes to the left midfoot. There is some soft tissue air in the plantar aspect of the foot. MRI shows signs consistent with Charcot, though cannot fully differentiate from osteomyelitis. Lower extremity examination: Pedal pulses are palpable on the right side. There has been an amputation. There are hammertoes on the left side. There is erythema and edema of the right plantar medial foot with an ulceration. ASSESSMENT: A 54-year-old diabetic female with neuropathy, Charcot disease, and ulceration, cellulitis, abscess. PLAN: Patient brought to the operating room (OR) now for incision and drainage. LETY
--- NOTE | 2020-05-28 12:34 | IPNPDOC ---
Text Note Date of Service The patient was seen on 05/28/20. NOTE Subjective: No any acute events overnight. Debridement was done yesterday. P atient tolerates procedure well Objective: GENERAL APPEARANCE: NAD HEENT: no scleral icterus, no JVD, EOMI CARDIOVASCULAR: S1S2 LUNGS: CTA ABDOMEN: soft & not tender w palpitation MUSCULOSKELETAL: Left foot covered with dressing INTEGUMENT: no generalized palor NEUROLOGICAL: cranial nerve function from 2-12 intact intact, follows commands, speech not dysarthric Assessment and plan: 54 y/o female w h/o chronic b/l LE diabetic foot infections, charcot foot, +MRSA presents to the ER after failed outpt doxycycline for left foot diabetic plantar abscess with worsening cellulitis first noticed 4 days ago as a 2 x 2cm ulcers with associated low grade temp 100, increasing redness, ten derness. Left foot diabetic nonhealing ulcers with plantar abscess and cellulitis Dr. Powers did wound debridement yesterday. He thinks that there is no bone infection. Await culture Continue vancomycin and Zosyn SLE -on chronic Plaquenil hypertension,controlled -on coreg bid obstructive sleep apnea on CPAP, -chronic COPD,compensated -prn rescue inhalers diabetes mellitus, charcot foot, dm neuropathy, -consistent carb diet diastolic congestive heart failure, compensated -held lasix due to npo status for or fibromyalgia, chronic neck pain -resumed on home pain meds anxiety, -PRN valium Depression -fluoxetine Tobacco abuse -nicotine patch h/o MRSA -contact precautions DVT prophylaxis VS,Fishbone, I+O VS, Fishbone, I+O Laboratory Tests 05/28/20 05:56 Vital Signs Date Time Temp Pulse Resp B/P (MAP) Pulse Ox O2 Delivery O2 Flow Rate FiO2 05/28/20 09:08 18 05/28/20 09:08 72 158/97 05/28/20 06:00 98.4 94 Room Air I&O- Last 24 Hours up to 6 AM 05/28/20 06:00 Intake Total 1050 ml Output Total 0 ml Balance 1050 ml VLADIMIR HANNAH DO May 28, 2020 12:34
[2020-05-28] MEDS ORDERED: GLUCOSE 4GM CHEW TABLET PO PRN (12:45)
[2020-05-28] MEDS ORDERED: DEXTROSE 50% 50 ML SYRINGE IV PRN (12:45)
[2020-05-28] MEDS: HumaLOG INSULIN (NovoLOG) PER UNIT SC SCH ×2 (13:28→17:37)
[2020-05-28 14:00] VITALS: BP 136/64
--- NOTE | 2020-05-28 14:23 | RO ---
DATE OF OPERATION: 05/27/2020 SURGEON: Tee Valencia DPM PAPER FINAL INSPECTOR: None. PREOPERATIVE DIAGNOSIS: Left foot infection. POSTOPERATIVE DIAGNOSIS: Left foot infection. PROCEDURE: Left foot incision and drainage. ANESTHESIA: Monitored anesthesia care. PREOPERATIVE INJECTION: 15 mL of 1:1 mix of 1% Lidocaine plain and 0.5% Marcaine plain. ESTIMATED BLOOD LOSS: Minimal. MATERIALS: None. COMPLICATIONS: None. SPECIMEN: Left foot tissue. INDICATIONS: Claudia Lorenz is a 52-year-old female who was admitted to [facility] with worsening condition of a diabetic ulcer. Decision was made to bring her to the operating room for incision and drainage. The patient, site and side were identified and marked in the preoperative area and consent reviewed and obtained. All risks, complications, and alternatives to the procedure were explained to the patient in detail, all questions were answered. PROCEDURE: The patient was brought to the operating room and placed on the table in supine position. Monitored anesthesia care was delivered by the anesthesia team. Injection of 15 mL of 1:1 mixture of 1% Lidocaine plain and 0.5% Marcaine plain was injected into the left foot; left foot was prepped and draped in usual sterile fashion. Tourniquet was applied to the left ankle but was not inflated during the procedure. Foot was inspected. There was ulceration on the plantar aspect of the foot with some necrotic tissue and purulent tissue that was tracking to the medial foot. Culture swabs were taken of the purulent material. An incision was made connecting along the tunnel toward the medial foot. Rongeur was used to remove nonviable tissue. Wound did not extend deep to the fascia, no bone was encountered during the procedure and the fascia appeared in good condition. Once all nonviable and necrotic tissue was removed site was irrigated with 1000 mL of saline solution. Sterile dressing was applied. The patient was brought to PACU with vital signs stable and neurovascular status intact. She will be admitted to the floor for continuing antibiotics and monitoring. LETY
--- NOTE | 2020-05-28 14:50 | IPN ---
DATE: 05/28/2020 SUBJECTIVE: Patient seen and examined. Denies overnight complaints. States her foot is feeling better. OBJECTIVE: On lower extremity examination, the erythema and edema are improved. No necrotic tissue or purulence coming from the wound. LABORATORY DATA: White blood cell count is 5.1, hemoglobin is 13.7. ASSESSMENT: This is a 54-year-old female with Charcot abscess status post incision and drainage. PLAN: Await culture results. Patient most likely will be able to be discharged on oral antibiotics. She should have follow-up with her wound care center next week. LETY
[2020-05-28] MEDS: NORCO, ANEXSIA 5/325MG TABLET (HYDROcodone/ACETAMINOPHEN) PO PRN (19:47)
[2020-05-28] MEDS: NICOTINE 21MG/24HR 1 EA TRANSDERMAL TD SCH (19:48)
[2020-05-28] MEDS ORDERED: HumaLOG INSULIN (NovoLOG) PER UNIT SC SCH (21:00)
[2020-05-28 22:00] VITALS: BP 165/82
[2020-05-29] MEDS: PIPERACILLIN/TAZOBACTAM SOD 3.375 GM in D5W MINI-BAG PLUS 50 ML IV SCH ×2 (00:01→06:53)
[2020-05-29] MEDS: NORCO, ANEXSIA 5/325MG TABLET (HYDROcodone/ACETAMINOPHEN) PO PRN (03:20)
[2020-05-29] MEDS: VANCOMYCIN HCL 1,000 MG, VIAL MATE ADAPTER 1 EACH in D5W 250 ML IV SCH (05:38)
[2020-05-29 06:00] VITALS: BP 132/64
[2020-05-29 07:24] LABS: BASO % 0.5 % (0.0-1.0); EOS # 0.2 10^3/uL (0.0-0.5); EOS % 3.6 % (0.0-3.0); HEMATOCRIT 40.9 % (36.0-47.0); HEMOGLOBIN 13.4 g/dl (12.0-15.5); LYMPH # 1.6 10^3/uL (1.5-5.0); LYMPH % 37.4 % (24.0-44.0); MEAN CORPUSCULAR HEMOGLOBIN 33.3 pg (27.0-33.0); MEAN CORPUSCULAR HGB CONC 32.8 g/dl (32.0-36.5); MEAN CORPUSCULAR VOLUME 101.7 fl (80.0-96.0); MONO # 0.4 10^3/uL (0.0-0.8); MONO % 10.3 % (0.0-5.0); NEUTROPHILS % 47.7 % (36.0-66.0); PLATELET COUNT, AUTOMATED 127 10^3/uL (150-450); RED BLOOD COUNT 4.02 10^6/uL (4.00-5.40); WHITE BLOOD COUNT 4.2 10^3/uL (4.0-10.0)
[2020-05-29 07:39] LABS: CALCIUM LEVEL 8.4 MG/DL (8.5-10.1); CREATININE FOR GFR 1.19 MG/DL (0.55-1.30); GLOMERULAR FILTRATION RATE 50.7 (>51); POTASSIUM SERUM 4.4 MEQ/L (3.5-5.1)
[2020-05-29] MEDS: HumaLOG INSULIN (NovoLOG) PER UNIT SC SCH (08:50)
[2020-05-29] MEDS: GABAPENTIN 300 MG CAP PO SCH (08:53)
[2020-05-29] MEDS: SUCRALFATE 1 GM TAB PO SCH (08:54)
[2020-05-29] MEDS: HYDROXYCHLOROQUINE 200 MG TAB PO SCH (08:54)
[2020-05-29] MEDS: POTASSIUM CHLORIDE 10 MEQ SR TABLET PO SCH (08:54)
[2020-05-29] MEDS: DULoxetine 30 MG CAP (CYMBALTA) PO SCH (08:54)
[2020-05-29] MEDS: CYCLOBENZAPRINE 10MG TABLET PO SCH (08:55)
[2020-05-29] MEDS: FOLIC ACID 1 MG TAB PO SCH (08:55)
[2020-05-29] MEDS: SODIUM CHLORIDE 1 GM TAB PO SCH (08:55)
[2020-05-29] MEDS: PANTOPRAZOLE 40MG TAB (PROTONIX) PO SCH (08:55)
[2020-05-29 08:56] VITALS: BP 162/81
[2020-05-29] MEDS: FLUoxetine 20 MG CAP PO SCH (08:56)
[2020-05-29] MEDS: CARVedilol 3.125 MG TAB PO SCH (08:56)
[2020-05-29] MEDS: MORPHINE 15 MG SA TAB PO SCH (08:56)
[2020-05-29] MEDS ORDERED: FLUBLOK(EGG FREE)(QUAD)INFLUENZA VACC 0.5ML SYRINGE 18YRS & OLDER IM ONE (09:00)
[2020-05-29] MEDS ORDERED: AMPI500C9 PO (10:05)
[2020-05-29] MEDS ORDERED: DOXY-350 PO (10:05)
--- NOTE | 2020-05-29 13:02 | DS.PDOC ---
Discharge Summary General Date of Admission May 26, 2020 at 20:07 Date of Discharge 05/29/20 Discharge Summary PROCEDURES PERFORMED DURING STAY: [None]. ADMITTING DIAGNOSES: Left foot diabetic nonhealing ulcers with plantar abscess and cellulitis SLE Hypertension COPD obstructive sleep apnea diabetes mellitus diastolic congestive heart failure Fibromyalgia anxiety h/o MRSA Depression DISCHARGE DIAGNOSES: Left foot diabetic nonhealing ulcers with plantar abscess and cellulitis SLE Hypertension COPD obstructive sleep apnea diabetes mellitus diastolic congestive heart failure Fibromyalgia anxiety h/o MRSA Depression COMPLICATIONS/CHIEF COMPLAINT: Infection Of Left Foot. HISTORY OF PRESENT ILLNESS: 54 y/o female w h/o chronic b/l LE diabetic foot infections, charcot foot, +MRSA presents to the ER after failed outpt doxycycline for left foot diabetic plantar abscess with worsening cellulitis first noticed 4 days ago as a 2 x 2cm ulcers with associated low grade temp 100, increasing redness, tenderness. Left foot diabetic nonhealing ulcers with plantar abscess and cellulitis HOSPITAL COURSE: During hospital stay following issue addressed Dr. Powers did wound debridement. He thinks that there is no bone infection. Positive wound culture for Enterococcus faecalis, staph aureus Initially Patient received treatment with vancomycin and Zosyn SLE -on chronic Plaquenil Hypertension, controlled -on coreg bid obstructive sleep apnea on CPAP, -chronic COPD,compensated -prn rescue inhalers diabetes mellitus, charcot foot, dm neuropathy, -consistent carb diet diastolic congestive heart failure, compensated -held lasix due to npo status for or DISCHARGE MEDICATIONS: Please see below. ALLERGIES: Please see below. PHYSICAL EXAMINATION ON DISCHARGE: VITAL SIGNS: Please see below. GENERAL APPEARANCE: NAD HEENT: no scleral icterus, no JVD, EOMI CARDIOVASCULAR: S1S2 LUNGS: CTA ABDOMEN: soft & not tender w palpitation MUSCULOSKELETAL: Left foot covered with dressing INTEGUMENT: no generalized palor NEUROLOGICAL: cranial nerve function from LABORATORY DATA: Please see below. PROGNOSIS: Fair ACTIVITY: [As tolerated]. DIET: Diabetes DISPOSITION: 01 Home, Self-Care. ITEMS TO FOLLOWUP ON ON OUTPATIENT: Follow-up with change management director and multimedia specialist in 3-5 days DISCHARGE CONDITION: [Stable]. TIME SPENT ON DISCHARGE: Greater than 25 minutes. Vital Signs/I&Os Vital Signs Date Time Temp Pulse Resp B/P (MAP) Pulse Ox O2 Delivery O2 Flow Rate FiO2 05/29/20 08:56 17 05/29/20 08:56 67 162/81 05/29/20 06:00 98.1 98 Room Air I&O- Last 24 Hours up to 6 AM 05/29/20 06:00 Intake Total 770 ml Output Total 0 ml Balance 770 ml Laboratory Data Labs 24H Laboratory Tests 2 05/28/20 15:48: Vancomycin Level Trough 16.5 05/28/20 17:17: Bedside Glucose (Misc Panel) 222H 05/28/20 20:04: Bedside Glucose (Misc Panel) 147H 05/29/20 06:16: Immature Granulocyte % (Auto) 0.5, Neutrophils (%) (Auto) 47.7, Lymphocytes (%) (Auto) 37.4, Monocytes (%) (Auto) 10.3H, Eosinophils (%) (Auto) 3.6H, Basophils (%) (Auto) 0.5, Neutrophils # (Auto) 2.0, Lymphocytes # (Auto) 1.6, Monocytes # (Auto) 0.4, Eosinophils # (Auto) 0.2, Basophils # (Auto) 0.0, Nucleated Red Blood Cells % (auto) 0.0, Anion Gap 6L, Glomerular Filtration Rate 50.7L, Calcium Level 8.4L 05/29/20 08:46: Bedside Glucose (Misc Panel) 204H CBC/BMP Laboratory Tests 05/29/20 06:16 FSBS Laboratory Tests Test 05/28/20 17:17 05/28/20 20:04 05/29/20 08:46 Range/Units Bedside Glucose (Misc Panel) 222 147 204 70-105 MG/DL Microbiology Microbiology 05/27/20 Wound Culture, Received Pending 05/27/20 Anaerobic Culture, Received Pending 05/26/20 Gram Stain - Final, Resulted 05/26/20 Wound Culture - Preliminary, Resulted Streptococcus Anginosus Grp Staphylococcus Aureus Enterococcus Faecalis 05/26/20 Blood Culture - Preliminary, Resulted No Growth after 48 hours. All Specime... 05/26/20 Blood Culture - Preliminary, Resulted No Growth after 48 hours. All Specime... Discharge Medications Scheduled Ampicillin Trihydrate (Ampicillin Trihydrate) 500 Mg Capsule, 500 MG PO QID Aspirin (Aspirin EC) 81 Mg Tab, 81 MG PO QHS, (Reported) Carvedilol (Carvedilol) 3.125 Mg Tablet, 3.125 MG PO BID, (Reported) Cyclobenzaprine HCl (Cyclobenzaprine HCl) 10 Mg Tablet, 10 MG PO TID, (Reported) Doxycycline Monohydrate (Doxycycline) 100 Mg Capsule, 1 CAP PO BID Duloxetine Hcl (Cymbalta) 60 Mg Cap, 60 MG PO BID, (Reported) Fluoxetine Hcl (Fluoxetine HCl) 20 Mg Capsule, 60 MG PO DAILY, (Reported) Folic Acid (Folic Acid) 1 Mg Tab, 1 MG PO DAILY, (Reported) Furosemide (Lasix) 40 Mg Tablet, 40 MG PO QAM, (Reported) Furosemide (Furosemide) 20 Mg Tablet, 20 MG PO DAILY, (Reported) TAKES BETWEEN [id number] Gabapentin (Gabapentin) 300 Mg Cap, 900 MG PO TID, (Reported) Hydrocodone/Acetaminophen (Hydrocodone-Acetamin 10-325 mg) 1 Tab Tab, 1 TAB PO TID, (Reported) CAN TAKE UP TO 4 X DAILY Hydroxychloroquine Sulfate (Plaquenil) 200 Mg Tablet, 200 MG PO DAILY, (Reported) Metformin HCl (Metformin HCl) 500 Mg Tablet, 500 MG PO BIDWM, (Reported) Morphine Sulfate (Morphine Sulfate ER) 15 Mg Tab, 15 MG PO Q12H, (Reported) Pantoprazole Sodium (Pantoprazole Sodium) 40 Mg Tablet.dr, 40 MG PO DAILY, (Reported) Potassium Chloride (Klor-Con M20) 20 Meq Tab.er.prt, 20 MEQ PO BID, (Reported) Sodium Chloride (Sodium Chloride) 1 Gm Tablet, 1 GM PO BID, (Reported) Sucralfate (Sucralfate) 1 Gm Tablet, 1 TAB PO AC, (Reported) Scheduled PRN Albuterol Sulfate (Ventolin Hfa) 108 Mcg/Act Aer, 2 PUFFS INH QID PRN for SHORTNESS OF BREATH, (Reported) Diazepam (Diazepam) 2 Mg Tablet, 2 MG PO BID PRN for ANXIETY, (Reported) Nicotine (Nicotine Patch) 21 Mg Patch.td24, 1 PATCH TOP DAILY PRN for NICOTINE WITHDRAWAL, (Reported) Allergies Coded Allergies: aspartame (Verified Allergy, Unknown, 01/08/20) SUGAR SUBSTITUTE shellfish derived (Verified Allergy, Unknown, 01/08/20) ketamine (Verified Adverse Reaction, Unknown, hallucinations, 05/26/20) VLADIMIR HANNAH DO May 29, 2020 13:02
== END 2020-05-29 12:27 | disposition home or self-care (01) | DRG 623 ==
LOC: M ED 16:46 → EEVIPCON 20:07 → M ED INP 20:07 → ENRESERV 05-27 12:45 → M MSPAV 05-27 14:14
PROVIDERS: ADMIT General Practice; ATTEND Internal Medicine
PROC: 0JBR0ZZ Excision of Left Foot Subcutaneous Tissue and Fascia, Open Approach (ICD-10-PCS; principal; 2020-05-27 16:30)
DX: E11.621 Type 2 diabetes mellitus with foot ulcer (principal); I50.32 Chronic diastolic (congestive) heart failure; L03.116 Cellulitis of left lower limb; D80.1 Nonfamilial hypogammaglobulinemia; E11.610 Type 2 diabetes mellitus with diabetic neuropathic arthropathy; E11.40 Type 2 diabetes mellitus with diabetic neuropathy, unspecified; J44.9 Chronic obstructive pulmonary disease, unspecified; M32.9 Systemic lupus erythematosus, unspecified; I11.0 Hypertensive heart disease with heart failure; K76.0 Fatty (change of) liver, not elsewhere classified; G47.33 Obstructive sleep apnea (adult) (pediatric); M79.7 Fibromyalgia; F41.9 Anxiety disorder, unspecified; F32.9 Major depressive disorder, single episode, unspecified; Z79.82 Long term (current) use of aspirin; Z79.899 Other long term (current) drug therapy; Z88.8 Allergy status to other drugs, medicaments and biological substances; Z91.013 Allergy to seafood; G43.909 Migraine, unspecified, not intractable, without status migrainosus; Z86.73 Personal history of transient ischemic attack (TIA), and cerebral infarction without residual deficits; E78.5 Hyperlipidemia, unspecified; M54.2 Cervicalgia; I25.2 Old myocardial infarction

== ENCOUNTER → 2020-08-18 | Outpatient (CLI) | payer MEDICARE, OTHER ==
[~2020-08-18] MED LIST changes: +AMPI500C9 PO; +DOXY-350 PO; +FLUO20CA20 PO; +FURO20TA2 PO; +GABA-282 PO; -GABA-843 PO; +IPRA0.00 NEB; +KLOR20TA42 PO; +METF500T13 PO; +NICO1DIS12 TOP; +PANT40TA29 PO; +PLAQ200T4 PO; +SODI1TAB12 PO; +SUCR1TA PO
--- NOTE | 2020-08-22 23:56 | ECWPNPC ---
PATIENT NAME: BEBA WHITEHEAD : 1965 GENDER: FEMALE VISIT DATE: 08/18/2020 DISCHARGE DATE: 08/18/20 1217 VISIT LOCKED DATE TIME: PHYSICIAN: ADAM CARLOS RESOURCE: ADAM CARLOS REASON FOR APPOINTMENT 1. MEDICATION [phone] HISTORY OF PRESENT ILLNESS GENERAL: PATIENT IS AGREEABLE TO TELEPHONE VISIT TODAY. THIS IS A ROUTINE FOLLOW-UP AND MEDICATION MANAGEMENT FOR CHRONIC GENERALIZED BACK PAIN. PATIENT IS NOTICING IMPROVEMENT WITH SWITCH FROM HYDROCODONE TO OXYCODONE MADE AT HER LAST VISIT. STATES DUE TO COLD WEATHER SHE'S BEEN EXPERIENCING MORE BACK PAIN. BENEFITED FROM TRIGGER POINT INJECTIONS IN THE PAST. PATIENT WOULD LIKE TO CONSIDER DOING TRIGGER POINT INJECTIONS AGAIN IF POSSIBLE. -. FALL RISK SCREENING: SCREENING :ONE FALL WITHOUT INJURY IN THE PAST YEAR PAIN SCREENING: PATIENT HAS A COMPLAINT OF ACUTE OR CHRONIC PAIN :YES LOCATION OF PAIN:BOTH SHOULDERS, HAND(S), KNEES INTENSITY OF PAIN (SCALE OF 1 TO 10):8 WHAT DOES YOUR PAIN FEEL LIKE:ACHING, CONTINOUS, STABBING, SHOOTING DURATION:CONTINOUS, CONSTANT, AWAKENS FROM SLEEP PAIN IS INCREASED BY:ACTIVITIES, PROLONGED STANDING PAIN IS DECREASED BY:USE OF PAIN MEDICATIONS OXYCODONE AND MORPHINE WHEN SCHEDULED HELPS NURSING NOTE: -. PAIN CENTER INTAKE QUESTIONS: DO YOU HAVE A HISTORY OF MRSA? :YES 2010 MRSA IN RIGHT BIG TOE. TOE HAS BEEN REMOVED. DO YOU TAKE A BLOOD THINNERS? :NO DO YOU HAVE ANY BLEEDING DISORDERS? :NO ANY NEW NUMBNESS OR WEAKNESS IN YOUR LEGS OR ARMS? :YES WEAKNESS IN ARMS AND LEGS. ANY PACEMAKER,DEFIBRILLATOR, OR DORSAL COLUMN STIMULATOR? :NO DO YOU HAVE ANY RASHES OR OPEN SORES? :YES LUPUS BLISTERS AND OPEN AREA ON BOTTOM OF LEFT FOOT. ARE YOU ALLERGIC TO IV DYE? :NO ARE YOU DIABETIC? :YES ANY NEW PROBLEMS WITH YOUR MEDICATIONS? :NO HAVE YOU RECEIVED A VACCINE IN THE PAST 30 DAYS? :YES IF SO WHAT VACCINE AND WHEN? FLU AND PNEUMONIA VACCINATION 07/2020. DO YOU PLAN TO RECEIVE A VACCINE IN THE NEXT 21 DAYS? :YES IF SO WHAT VACCINE AND WHEN? WOULD LIKE THE COVID VACCINATION WHEN AVAILABLE. DO YOU NEED ANY PRESCRIPTION? :NO DO YOU TAKE ANY IMMUNOSUPPRESSIVE MEDICATIONS? :YES PLAQUENIL IS THERE A CHANCE YOU COULD BE ? :NO ARE YOU BREAST FEEDING? :NO CURRENT MEDICATIONS TAKING BLOOD GLUCOSE TEST STRIP ONE TOUCH ULTRA 2 ICD:250.02 NIDDM SUBCUTANEOUSLY THREE TIMES DAILY 250.01/401.9 TAKING ONE TOUCH/ONE TOUCH II STARTER 1 GLUCOMETER ICD:250.02 NIDDM FSBS THREE TIMES DAILY TAKING ASPIR-81 81 MG TABLET DELAYED RELEASE 1 TABLET ORALLY ONCE A DAY, NOTES: 05-04-2020899 TAKING FLONASE 50 MCG/ACT SUSPENSION 1 SPRAY IN EACH NOSTRIL NASALLY ONCE A DAY, NOTES: NEEDED TAKING COMMODE BEDSIDE - MISCELLANEOUS DIRECTED ICD10 - R15.9, M62.81 DAILY TAKING CARVEDILOL 6.25 MG TABLET 1/2 TABLET WITH FOOD ORALLY BID, NOTES: 05-04-2020799 TAKING CALCIUM + D3 600-200 MG-UNIT TABLET 1 TAB ORALLY DAILY, NOTES: 05-04-2020899 TAKING FOLIC ACID 1 MG TABLET 1 TABLET ORALLY ONCE A DAY, NOTES: 05-04-2020799 TAKING ZOFRAN 4 MG TABLET 1 TAB ORALLY ONCE A DAY NEEDED FOR NAUASEA, NOTES: NOT LATELY TAKING LASIX 40 MG TABLET 1 TAB ORALLY DAILY, NOTES: 05-04-2020899 TAKING ALBUTEROL SULFATE HFA 108 (90 BASE) MCG/ACT AEROSOL SOLUTION 2 PUFFS INHALATION TWICE DAILY NEEDED TAKING NYSTATIN THROAT/SUSPENSION 310722 UNIT/ML SUSPENSION SWISH AND SWALLOW MOUTH/THROAT TID PRN TAKING POTASSIUM 1 20MG ORAL DAILY, NOTES: 05-04-2020899 TAKING SM MAGNESIUM OXIDE 250 MG TABLET 1 TAB ORALLY TWICE DAILY, NOTES: 05-04-2020899 TAKING NYSTATIN 186945 UNIT/GM CREAM 1 APPLICATION TO AFFECTED AREA EXTERNALLY TO AFFECTED AREA FOUR TIMES DAILY NEEDED FOR RASH, NOTES: NOT LATLELY TAKING LIDOCAINE 3 % CREAM 1 APPLICATION TO AFFECTED AREA NEEDED EXTERNALLY TWICE A DAY, NOTES: NOT LATELY TAKING PLAQUENIL 200 MG TABLET 1 TABLET WITH FOOD OR MILK ORALLY ONCE A DAY, NOTES: 05-12-20899 TAKING CYMBALTA 60 MG CAPSULE TAKE ONE CAPSULE BY MOUTH EVERY DAY ORALLY BID, NOTES: 05-04-2020899 TAKING CYCLOBENZAPRINE HCL 10 MG TABLET TAKE ONE TABLET BY MOUTH THREE TIMES A DAY NEEDED ORALLY THREE TIMES A DAY, NOTES: 05-04-2020899 TAKING CYMBALTA 30 MG CAPSULE DELAYED RELEASE PARTICLES 1 CAPSULE ORALLY ONCE A DAY, NOTES: 05-04-2020899 TAKING GABAPENTIN 300 MG TABLET 3 TABS TID, NOTES: 05-04-2020899 TAKING CARAFATE 1 GM TABLET 1 TABLET ON AN EMPTY STOMACH ORALLY FOUR TIMES DAILY TAKING SODIUM CHLORIDE 1000 MG TABLET SOLUBLE DIRECTED EXTERNALLY , NOTES: NOT SURE OF DOSE TAKING MORPHINE SULFATE ER 15 MG TABLET EXTENDED RELEASE (SCHEDULE II DRUG) TAKE ONE TABLET BY MOUTH EVERY 12 HOURS MAXIMUM DAILY DOSE TWO TABLETS ORAL Q12H MDD2, NOTES: 899 TAKING PERCOCET 10-325 MG TABLET 1 TABLET NEEDED ORALLY FOUR TIMES DAILY TAKING LASIX 20 MG TABLET 1 TABLET ORALLY BEFORE BEDTIME TAKING FLEXERIL 10 MG 30 10 MG TABLETS ONE TABLET ORALLY THREE TIMES DAILY NEEDED TAKING PROZAC 40 MG CAPSULE 1 CAPSULE ORALLY DAILY TAKING PROZAC 20 MG CAPSULE 1 CAPSULE ORALLY ONCE A DAY NOT-TAKING NORCO 10-325 MG TABLET 1 TABLET NEEDED ORALLY EVERY 6 HRS MDD4 UNKNOWN VITAMIN B12 1000 MCG TABLET 1 TABLET ORALLY ONCE A DAY UNKNOWN DRISDOL 50,000 UNITS TABLET 1 TAB ORAL WEEKLY UNKNOWN CPAP MASK CPAP MASK AND TUBING WITH CONNECTORS DX. 327.23 APPLY TO CPAP MACHINE APPLY TO FACE , NOTES: NON COMPLIANT DOES NOT USE UNKNOWN TOPAMAX 100 MG TABLET 1 TABLET ORALLY TWICE A DAY, NOTES: NEEDED UNKNOWN IBUPROFEN 800 MG TABLET 1 TABLET WITH FOOD OR MILK NEEDED ORALLY THREE TIMES A DAY UNKNOWN PLAVIX 75 MG TABLET ORALLY DAILY UNKNOWN GABAPENTIN 600 MG TABLET 1 CAPSULE ORALLY THREE TIMES DAILY UNKNOWN PREDNISONE 10 MG TABLET 4 ATB FOR 3 DAYS 3 TAB FOR 3 DAYS 2 TAB FOR 3 DAY THEN 1 TAB FOR 3 DAYSS ORALLY ONCE A DAY UNKNOWN CEFDINIR 300 MG CAPSULE DIRECTED ORALLY BID UNKNOWN LASIX 20 MG TABLET 1 TABLET ORALLY BEFORE BEDTIME UNKNOWN PREDNISONE 20 MG TABLET 1 TABLET ORALLY ONCE A DAY UNKNOWN CIPRO 500 MG TABLET 1 TABLET ORALLY BID MEDICATION LIST REVIEWED AND RECONCILED WITH THE PATIENT PAST MEDICAL HISTORY LUPUS INFECTIOUS DIARRHEA GIARDIA- DUODENITIS MIGRAINES DEPRESSION/ANXIETY SLEEP APNEA UNSPECIFIED ENTHESOPATHY OF KNEE CHRONIC SINUSITIS PULMONARY NODULE LEFT LUNG BASE 05/2015 GIARDIASIS- FOLLOWED ANNUALLY BY DR. RICHARDS L5-S1 HERNIATION ALCOHOL ABUSE DIABETES FIBROMYALGIA CHF RIGHT HUMERUS FX 06/2017 TX'D WITH SLING AND BRACE [place] OCTOBER 2017 ALLERGIES SHELL FISH: ITCHING - ALLERGY SOCIAL HISTORY GENERAL: TOBACCO USE ARE YOU A:CURRENT SMOKER HOW OFTEN DO YOU SMOKE CIGARETTES?EVERY DAY HOW MANY CIGARETTES A DAY DO YOU SMOKE?31 OR MORE ARE YOU INTERESTED IN QUITTING?THINKING ABOUT QUITTING HAS ALL SHE NEEDS TO ASSIST HER WITH QUITTING, JUST NOT QUITE READY YET PATIENT COUNSELED ON THE DANGERS OF TOBACCO USE AND URGED TO QUIT:05/04/2020 COUNSELED THE PATIENT ON SMOKING CESSATION, EDUCATION [id number]/19/2020 PREVIOUS QUIT ATTEMPTS?NO. LATEX QUESTIONNAIRE LATEX ALLERGY : HAVE YOU EVER DEVELOPED ANY TYPE OF REACTION AFTER HANDLING LATEX PRODUCTS SUCH RUBBER GLOVES, CONDOMS, DIAPHRAGMS, BALLOONS, SOCKS, OR UNDERWEAR?NO LATEX ALLERGY : HAVE YOU EVER DEVELOPED ANY TYPE OF REACTION DURING OR AFTER DENTAL APPOINTMENT, VAGINAL/RECTAL EXAMINATION, SURGICAL PROCEDURE, OR ANY OTHER EXPOSURE?NO LATEX RISK : HAVE YOU EVER HAD ANY DIFFICULTY BREATHING OR HIVES AFTER EATING OR HANDLING ANY FRUITS, OR VEGETABLES; SUCH KIWI, BANANAS, STONE FRUITS, OR CHESTNUTSNO LATEX RISK : DO YOU HAVE A PREVIOUS PERSONAL HISTORY OF MORE THAN NINE SURGERIES, SPINA BIFIDA, OR REPEATED CATHERIZATIONS? NO LATEX RISK : ARE YOU FREQUENTLY EXPOSED TO LATEX PRODUCTS IN YOUR OCCUPATION?NO DATE ASKED : 08/18/2020 ALCOHOL USE: NO. BMI CARE GOAL FOLLOW-UP ABOVE NORMAL BMI FOLLOW-UPLIFESTYLE EDUCATION REGARDING DIET ALCOHOL SCREENING DID YOU HAVE A DRINK CONTAINING ALCOHOL IN THE PAST YEAR?YES HOW OFTEN DID YOU HAVE SIX OR MORE DRINKS ON ONE OCCASION IN THE PAST YEAR?NEVER (0 POINTS) HOW MANY DRINKS DID YOU HAVE ON A TYPICAL DAY WHEN YOU WERE DRINKING IN THE PAST YEAR?1 OR 2 (0 POINTS) HOW OFTEN DID YOU HAVE A DRINK CONTAINING ALCOHOL IN THE PAST YEAR?MONTHLY OR LESS (1 POINT) POINTS1 INTERPRETATIONNEGATIVE RECREATIONAL DRUG USE DRUG USE?NO CAFFEINE CAFFEINE USE?NO SEXUAL HX HAD SEX IN THE LAST 12 MONTHS (VAGINAL, ORAL, OR ANAL)?YES WITHMEN ONLY HIV / HEP-C SCREENING HIV TEST OFFERED TO PATIENT:YES DATE OFFERED:06/30/2016 TEST ACCEPTED:NO HEP-C TEST OFFERED TO PATIENT:YES DATE OFFERED:06/30/2016 REASON:PATIENT DECLINED TEST ACCEPTED:NO REASON:PATIENT DECLINED UATSDIN [id number] EPISCOPAL LANGUAGE DIVEHI. EDUCATION LEVEL OF EDUCATION:HIGH SCHOOL LEARNING BARRIERS / SPECIAL NEEDS CHANGE FROM LAST VISIT?YES BARRIERS TO LEARNING?NO HEARING IMPAIRED?NO VISION IMPAIRED?YES :CORRECTIVE LENSES COGNITIVELY IMPAIRED?NO READINESS TO LEARN?YES LEARNING PREFERENCES?NO LEARNING CAPABILITIES PRESENT?YES EMOTIONAL BARRIERS?NO SPECIAL DEVICES?YES :WALKER COP NEEDED?NO DOMESTIC VIOLENCE DO YOU FEEL SAFE IN YOUR ENVIRONMENT?YES OCCUPATION: UNEMPLOYED. DIET: REGULAR. EXERCISE: NO REGULAR EXERCISE. MARITAL STATUS: . OTHERS AT HOME: ALTHEA FALL. TODAY'S VISIT NOTES, FROM 0-10, WHAT LEVEL IS YOUR PAIN TODAY? 8. - PFS REFERRAL NEEDED?NO CLERGY REFERRAL NEEDED?NO PUBLIC HEALTH REFERRAL NEEDED?NO WAS THE PROVIDER NOTIFIED OF ANY PERTINENT INFO?NO HAS THE PATIENT BEEN EDUCATED REGARDING HIS/HER PLAN OF CARE?YES HAS THE PATIENT BEEN EDUCATED REGARDING PAIN, THE RISK FOR PAIN, THE IMPORTANCE OF EFFECTIVE PAIN MANAGEMENT, AND THE PAIN ASSESSMENT PROCESS?YES ADVANCE DIRECTIVE ADVANCE DIRECTIVE DISCUSSED WITH PATIENT:YES JUAN DAVID DENISE [phone] REVIEWED WITH PT 04/30/18 1354 BVREVIEWED WITH PT 07/03/18 1533 BV. REVIEW OF SYSTEMS CONSTITUTIONAL: ANY RECENT FEVER NO . CHILLS NO . WEIGHT CHANGE OF UNKNOWN REASONS NO . GASTROENTEROLOGY: NEW UNEXPLAINABLE CHANGES IN BOWEL CONTROL NO . CONSTIPATION NO . GENITOURINARY: ANY NEW CHANGE IN BLADDER CONTROL? NO . NEUROLOGY: NEW ONSET DIZZINESS OR NEUROLOGICAL CHANGES NOT MENTIONED NO . NEW NUMBNESS OR PAIN PATTERNS NOT MENTIONED AND PERTINENT TO TODAY'S VISIT NO . CARDIOLOGY: NEW CHEST PRESSURE NO . NEW CHEST PAIN NO . RESPIRATORY: UNEXPLAINABLE COUGH NO . NEW SHORTNESS OF BREATH NO . VITAL SIGNS WT 192.4 LBS, HT 64 IN, BMI 33.02 INDEX, SAFE IN ENV? (Y/N) YES, REVIEWED BY: WILLAM TO OBTAIN VITAL SIGNS DUE TO PHONE VISIT. AMADOU CONNELLY MA. ASSESSMENTS MYALGIA - M79.10 (PRIMARY) TREATMENT MYALGIA NOTES: ADVISED TO CONTINUE CURRENT CHRONIC PAIN MEDICATION. APPOINTMENT WILL BE SCHEDULED IN CLINIC TO EVALUATE FOR TRIGGER POINT INJECTIONS. TOTAL TIME SPENT DURING TELEPHONE VISIT WAS APPROXIMATELY 11 MINUTES. DISPOSITION & COMMUNICATION FOLLOW UP 2 WEEKS IN CLINIC W [place] SET UP OPERATOR ,DISCUSS TPI (REASON: BACK PAIN) ELECTRONICALLY SIGNED BY CRUZITO NG ON 08/22/2020 AT 09:10 AM EST DISCLAIMER : THIS IS A VISIT SUMMARY EXTRACTED FROM THE [employer] CHART. IT IS NOT A COPY OF THE [employer] PROGRESS NOTE. LETY
== END ==
LOC: M PAIN 13:30
PROVIDERS: ATTEND Nurse Practitioner Family
DX: M79.10 Myalgia, unspecified site (principal); E11.9 Type 2 diabetes mellitus without complications; G43.909 Migraine, unspecified, not intractable, without status migrainosus; M79.7 Fibromyalgia; F17.210 Nicotine dependence, cigarettes, uncomplicated; Z86.14 Personal history of Methicillin resistant Staphylococcus aureus infection; Z86.59 Personal history of other mental and behavioral disorders; Z91.013 Allergy to seafood; Z79.82 Long term (current) use of aspirin; Z79.891 Long term (current) use of opiate analgesic; Z79.899 Other long term (current) drug therapy

== ENCOUNTER → 2020-10-27 | Outpatient (CLI) | payer MEDICARE, OTHER ==
[~2020-10-27] MED LIST changes: -CALC500T44 PO; -NABU-53 PO; +NABU-73 PO; +OYST500T92 PO
--- NOTE | 2020-10-29 00:44 | ECWPNPC ---
PATIENT NAME: BEBA WHITEHEAD : 1965 GENDER: FEMALE VISIT DATE: 10/27/2020 DISCHARGE DATE: 10/27/20 1216 VISIT LOCKED DATE TIME: PHYSICIAN: ADAM CARLOS RESOURCE: ADAM CARLOS REASON FOR APPOINTMENT 1. BACK PAIN HISTORY OF PRESENT ILLNESS DEPRESSION SCREENING: PHQ-2 (2015 EDITION) LITTLE INTEREST OR PLEASURE IN DOING THINGS?NOT AT ALL FEELING DOWN, DEPRESSED, OR HOPELESS?NOT AT ALL TOTAL SCORE0 GENERAL: HERE FOR FOLLOW-UP AND MEDICATION MANAGEMENT OF CHRONIC GENERALIZED BACK PAIN. PAIN HAS INCREASED OVER THE PAST FEW MONTHS. PAIN IS WORSE ON THE LEFT SIDE OF HER CERVICAL, THORACIC AND LUMBAR REGION. HAS RESPONDED WELL TO TRIGGER POINT INJECTIONS IN THE PAST. NO RECENT IMAGING OF CERVICAL ,THORACIC AND LUMBAR SPINE. PATIENT FORGOT TO BRING HER MEDICATIONS IN TO CLINIC TODAY. -. FALL RISK SCREENING: SCREENING : NO FALLS REPORTED IN THE LAST YEAR. PAIN SCREENING: PATIENT HAS A COMPLAINT OF ACUTE OR CHRONIC PAIN :YES LOCATION OF PAIN:MID BACK, LOW BACK INTENSITY OF PAIN (SCALE OF 1 TO 10):8 WHAT DOES YOUR PAIN FEEL LIKE:SHOOTING DURATION:CONTINOUS, CONSTANT, ALL DAY PAIN IS INCREASED BY:ACTIVITIES, PROLONGED STANDING NURSING NOTE: -. PAIN CENTER INTAKE QUESTIONS: DO YOU HAVE A HISTORY OF MRSA? :YES 2010 MRSA IN RIGHT BIG TOE. TOE HAS BEEN REMOVED. DO YOU TAKE A BLOOD THINNERS? :NO DO YOU HAVE ANY BLEEDING DISORDERS? :NO ANY NEW NUMBNESS OR WEAKNESS IN YOUR LEGS OR ARMS? :YES WEAKNESS IN ARMS AND LEGS. ANY PACEMAKER,DEFIBRILLATOR, OR DORSAL COLUMN STIMULATOR? :NO DO YOU HAVE ANY RASHES OR OPEN SORES? :YES LUPUS BLISTERS AND OPEN AREA ON BOTTOM OF LEFT FOOT. ARE YOU ALLERGIC TO IV DYE? :NO ARE YOU DIABETIC? :YES ANY NEW PROBLEMS WITH YOUR MEDICATIONS? :NO HAVE YOU RECEIVED A VACCINE IN THE PAST 30 DAYS? :YES IF SO WHAT VACCINE AND WHEN? RANDOLPH DICKSON 09/13/2020 DO YOU PLAN TO RECEIVE A VACCINE IN THE NEXT 21 DAYS? :NO DO YOU NEED ANY PRESCRIPTION? :NO DO YOU TAKE ANY IMMUNOSUPPRESSIVE MEDICATIONS? :YES PLAQUENIL IS THERE A CHANCE YOU COULD BE ? :NO ARE YOU BREAST FEEDING? :NO CURRENT MEDICATIONS TAKING BLOOD GLUCOSE TEST STRIP ONE TOUCH ULTRA 2 ICD:250.02 NIDDM SUBCUTANEOUSLY THREE TIMES DAILY 250.01/401.9 TAKING ONE TOUCH/ONE TOUCH II STARTER 1 GLUCOMETER ICD:250.02 NIDDM FSBS THREE TIMES DAILY TAKING ASPIR-81 81 MG TABLET DELAYED RELEASE 1 TABLET ORALLY ONCE A DAY TAKING FLONASE 50 MCG/ACT SUSPENSION 1 SPRAY IN EACH NOSTRIL NASALLY ONCE A DAY TAKING COMMODE BEDSIDE - MISCELLANEOUS DIRECTED ICD10 - R15.9, M62.81 DAILY TAKING CARVEDILOL 6.25 MG TABLET 1/2 TABLET WITH FOOD ORALLY BID TAKING CALCIUM + D3 600-200 MG-UNIT TABLET 1 TAB ORALLY DAILY TAKING FOLIC ACID 1 MG TABLET 1 TABLET ORALLY ONCE A DAY TAKING ZOFRAN 4 MG TABLET 1 TAB ORALLY ONCE A DAY NEEDED FOR NAUASEA TAKING LASIX 40 MG TABLET 1 TAB ORALLY DAILY TAKING ALBUTEROL SULFATE HFA 108 (90 BASE) MCG/ACT AEROSOL SOLUTION 2 PUFFS INHALATION TWICE DAILY NEEDED TAKING NYSTATIN THROAT/SUSPENSION 195667 UNIT/ML SUSPENSION SWISH AND SWALLOW MOUTH/THROAT TID PRN TAKING POTASSIUM 1 20MG ORAL DAILY TAKING SM MAGNESIUM OXIDE 250 MG TABLET 1 TAB ORALLY TWICE DAILY TAKING NYSTATIN 502006 UNIT/GM CREAM 1 APPLICATION TO AFFECTED AREA EXTERNALLY TO AFFECTED AREA FOUR TIMES DAILY NEEDED FOR RASH TAKING LIDOCAINE 3 % CREAM 1 APPLICATION TO AFFECTED AREA NEEDED EXTERNALLY TWICE A DAY TAKING PLAQUENIL 200 MG TABLET 1 TABLET WITH FOOD OR MILK ORALLY ONCE A DAY TAKING CYMBALTA 60 MG CAPSULE TAKE ONE CAPSULE BY MOUTH EVERY DAY ORALLY BID TAKING CYCLOBENZAPRINE HCL 10 MG TABLET TAKE ONE TABLET BY MOUTH THREE TIMES A DAY NEEDED ORALLY THREE TIMES A DAY TAKING GABAPENTIN 300 MG TABLET 3 TABS TID TAKING CARAFATE 1 GM TABLET 1 TABLET ON AN EMPTY STOMACH ORALLY FOUR TIMES DAILY TAKING SODIUM CHLORIDE 1000 MG TABLET SOLUBLE DIRECTED EXTERNALLY TAKING LASIX 20 MG TABLET 1 TABLET ORALLY BEFORE BEDTIME TAKING FLEXERIL 10 MG 30 10 MG TABLETS ONE TABLET ORALLY THREE TIMES DAILY NEEDED TAKING PROZAC 40 MG CAPSULE 1 CAPSULE ORALLY DAILY TAKING PROZAC 20 MG CAPSULE 1 CAPSULE ORALLY ONCE A DAY TAKING MORPHINE SULFATE ER 15 MG TABLET EXTENDED RELEASE (SCHEDULE II DRUG) TAKE ONE TABLET BY MOUTH EVERY 12 HOURS MAXIMUM DAILY DOSE TWO TABLETS ORAL Q12H MDD2 TAKING PERCOCET 10-325 MG TABLET 1 TABLET NEEDED ORALLY FOUR TIMES DAILY NOT-TAKING CYMBALTA 30 MG CAPSULE DELAYED RELEASE PARTICLES 1 CAPSULE ORALLY ONCE A DAY NOT-TAKING NORCO 10-325 MG TABLET 1 TABLET NEEDED ORALLY EVERY 6 HRS MDD4 NOT-TAKING VITAMIN B12 1000 MCG TABLET 1 TABLET ORALLY ONCE A DAY NOT-TAKING DRISDOL 50,000 UNITS TABLET 1 TAB ORAL WEEKLY NOT-TAKING CPAP MASK CPAP MASK AND TUBING WITH CONNECTORS DX. 327.23 APPLY TO CPAP MACHINE APPLY TO FACE , NOTES: NON COMPLIANT DOES NOT USE NOT-TAKING TOPAMAX 100 MG TABLET 1 TABLET ORALLY TWICE A DAY, NOTES: NEEDED NOT-TAKING IBUPROFEN 800 MG TABLET 1 TABLET WITH FOOD OR MILK NEEDED ORALLY THREE TIMES A DAY NOT-TAKING PLAVIX 75 MG TABLET ORALLY DAILY NOT-TAKING GABAPENTIN 600 MG TABLET 1 CAPSULE ORALLY THREE TIMES DAILY NOT-TAKING PREDNISONE 10 MG TABLET 4 ATB FOR 3 DAYS 3 TAB FOR 3 DAYS 2 TAB FOR 3 DAY THEN 1 TAB FOR 3 DAYSS ORALLY ONCE A DAY NOT-TAKING CEFDINIR 300 MG CAPSULE DIRECTED ORALLY BID NOT-TAKING LASIX 20 MG TABLET 1 TABLET ORALLY BEFORE BEDTIME NOT-TAKING PREDNISONE 20 MG TABLET 1 TABLET ORALLY ONCE A DAY NOT-TAKING CIPRO 500 MG TABLET 1 TABLET ORALLY BID MEDICATION LIST REVIEWED AND RECONCILED WITH THE PATIENT PAST MEDICAL HISTORY LUPUS INFECTIOUS DIARRHEA GIARDIA- DUODENITIS MIGRAINES DEPRESSION/ANXIETY SLEEP APNEA UNSPECIFIED ENTHESOPATHY OF KNEE CHRONIC SINUSITIS PULMONARY NODULE LEFT LUNG BASE 05/2015 GIARDIASIS- FOLLOWED ANNUALLY BY DR. RICHARDS L5-S1 HERNIATION ALCOHOL ABUSE DIABETES FIBROMYALGIA CHF RIGHT HUMERUS FX 06/2017 TX'D WITH SLING AND BRACE [place] OCTOBER 2017 ALLERGIES SHELL FISH: ITCHING - ALLERGY SOCIAL HISTORY GENERAL: TOBACCO USE ARE YOU A:CURRENT SMOKER ARE YOU INTERESTED IN QUITTING?THINKING ABOUT QUITTING HAS ALL SHE NEEDS TO ASSIST HER WITH QUITTING, JUST NOT QUITE READY YET PREVIOUS QUIT ATTEMPTS?NO. COUNSELED THE PATIENT ON SMOKING CESSATION, EDUCATION [id number]/14/2021 HOW MANY CIGARETTES A DAY DO YOU SMOKE?31 OR MORE HOW OFTEN DO YOU SMOKE CIGARETTES?EVERY DAY PATIENT COUNSELED ON THE DANGERS OF TOBACCO USE AND URGED TO QUIT:05/04/2020 LATEX QUESTIONNAIRE LATEX ALLERGY : HAVE YOU EVER DEVELOPED ANY TYPE OF REACTION AFTER HANDLING LATEX PRODUCTS SUCH RUBBER GLOVES, CONDOMS, DIAPHRAGMS, BALLOONS, SOCKS, OR UNDERWEAR?NO LATEX ALLERGY : HAVE YOU EVER DEVELOPED ANY TYPE OF REACTION DURING OR AFTER DENTAL APPOINTMENT, VAGINAL/RECTAL EXAMINATION, SURGICAL PROCEDURE, OR ANY OTHER EXPOSURE?NO LATEX RISK : HAVE YOU EVER HAD ANY DIFFICULTY BREATHING OR HIVES AFTER EATING OR HANDLING ANY FRUITS, OR VEGETABLES; SUCH KIWI, BANANAS, STONE FRUITS, OR CHESTNUTSNO LATEX RISK : DO YOU HAVE A PREVIOUS PERSONAL HISTORY OF MORE THAN NINE SURGERIES, SPINA BIFIDA, OR REPEATED CATHERIZATIONS? NO LATEX RISK : ARE YOU FREQUENTLY EXPOSED TO LATEX PRODUCTS IN YOUR OCCUPATION?NO DATE ASKED : 10/27/2020 ALCOHOL USE: NO. BMI CARE GOAL FOLLOW-UP ABOVE NORMAL BMI FOLLOW-UPLIFESTYLE EDUCATION REGARDING DIET ALCOHOL SCREENING DID YOU HAVE A DRINK CONTAINING ALCOHOL IN THE PAST YEAR?YES HOW OFTEN DID YOU HAVE SIX OR MORE DRINKS ON ONE OCCASION IN THE PAST YEAR?NEVER (0 POINTS) HOW MANY DRINKS DID YOU HAVE ON A TYPICAL DAY WHEN YOU WERE DRINKING IN THE PAST YEAR?1 OR 2 (0 POINTS) HOW OFTEN DID YOU HAVE A DRINK CONTAINING ALCOHOL IN THE PAST YEAR?MONTHLY OR LESS (1 POINT) POINTS1 INTERPRETATIONNEGATIVE RECREATIONAL DRUG USE DRUG USE?NO CAFFEINE CAFFEINE USE?NO SEXUAL HX HAD SEX IN THE LAST 12 MONTHS (VAGINAL, ORAL, OR ANAL)?YES WITHMEN ONLY HIV / HEP-C SCREENING HIV TEST OFFERED TO PATIENT:YES DATE OFFERED:06/30/2016 TEST ACCEPTED:NO HEP-C TEST OFFERED TO PATIENT:YES DATE OFFERED:06/30/2016 REASON:PATIENT DECLINED TEST ACCEPTED:NO REASON:PATIENT DECLINED MU-ISM [id number] [employer] LANGUAGE [place]. EDUCATION LEVEL OF EDUCATION:HIGH SCHOOL LEARNING BARRIERS / SPECIAL NEEDS CHANGE FROM LAST VISIT?YES BARRIERS TO LEARNING?NO HEARING IMPAIRED?NO VISION IMPAIRED?YES :CORRECTIVE LENSES COGNITIVELY IMPAIRED?NO READINESS TO LEARN?YES LEARNING PREFERENCES?NO LEARNING CAPABILITIES PRESENT?YES EMOTIONAL BARRIERS?NO SPECIAL DEVICES?YES :WALKER NEEDED IRON BENDER NEEDED?NO DOMESTIC VIOLENCE DO YOU FEEL SAFE IN YOUR ENVIRONMENT?YES OCCUPATION: UNEMPLOYED. DIET: REGULAR. EXERCISE: NO REGULAR EXERCISE. MARITAL STATUS: . OTHERS AT HOME: ALTHEA FALL. TODAY'S VISIT NOTES, FROM 0-10, WHAT LEVEL IS YOUR PAIN TODAY? 8. - PFS REFERRAL NEEDED?NO CLERGY REFERRAL NEEDED?NO PUBLIC HEALTH REFERRAL NEEDED?NO WAS THE PROVIDER NOTIFIED OF ANY PERTINENT INFO?NO HAS THE PATIENT BEEN EDUCATED REGARDING HIS/HER PLAN OF CARE?YES HAS THE PATIENT BEEN EDUCATED REGARDING PAIN, THE RISK FOR PAIN, THE IMPORTANCE OF EFFECTIVE PAIN MANAGEMENT, AND THE PAIN ASSESSMENT PROCESS?YES ADVANCE DIRECTIVE ADVANCE DIRECTIVE DISCUSSED WITH PATIENT:YES JUAN DAVID DENISE [phone] REVIEWED WITH PT 04/30/18 1354 BVREVIEWED WITH PT 07/03/18 8516 BV. REVIEW OF SYSTEMS CONSTITUTIONAL: ANY RECENT FEVER NO . CHILLS NO . WEIGHT CHANGE OF UNKNOWN REASONS NO . GASTROENTEROLOGY: NEW UNEXPLAINABLE CHANGES IN BOWEL CONTROL NO . CONSTIPATION NO . GENITOURINARY: ANY NEW CHANGE IN BLADDER CONTROL? NO . NEUROLOGY: NEW ONSET DIZZINESS OR NEUROLOGICAL CHANGES NOT MENTIONED CURRENTLY FOLLOWING WITH NEUROLOGY FOR NUMBNESS/PAIN FINGERS BILATERALLY AND LOWER EXTREMITIES. IS SCHEDULED FOR NERVE CONDUCTION STUDIES. . NEW NUMBNESS OR PAIN PATTERNS NOT MENTIONED AND PERTINENT TO TODAY'S VISIT NO . CARDIOLOGY: NEW CHEST PRESSURE NO . PATIENT DENIES NO . RESPIRATORY: UNEXPLAINABLE COUGH NO . NEW SHORTNESS OF BREATH NO . VITAL SIGNS WT 207.0 LBS, HT 64 IN, BMI 35.53 INDEX, BP 131/75 MM HG, HR 111 /MIN, RR 18 /MIN, TEMP 97.0 F, OXYGEN SAT % 94%, SAFE IN ENV? (Y/N) YES, NA INITIALS AW [id number].JAE RODRIGUEZ. EXAMINATION GENERAL EXAMINATION: GENERALAWAKE,ALERT ,PLEAASANT . PSYCHAFFECT NORMAL . LUNGS:LUNG RODRIGUEZ ARE CLEAR TO AUSCULTATION BILATERALLY. GOOD MOVEMENT OF AIR . HEART:S1, S2 IN A REGULAR RATE AND RHYTHM. NO SIGNIFICANT MURMURS, RUBS OR GALLOPS NOTED . CERVICAL:TRIGGER POINTS: CERVICAL AND TRAPEZIUS BILAT..PAIN IS AGGREVATED WITH ROJM NECK. ASSESSMENTS MYALGIA, OTHER SITE - M79.18 (PRIMARY) TREATMENT MYALGIA, OTHER SITE LAB: URINE TEST GROUP DUSTIN ROWE 10/27/2020 12:12:24 PM > LAST DOSE: GABAPENTIN-10/27/2020 @8:30AM, PERCOCET 10/27/2020 @8:30AM, MORPHINE 10/27/2020 @8:30AM [facility] SPINE, CERVICAL WITHOUT [id number] [facility] MRI SPINE, L.S. WITHOUT [id number] [facility] MRI SPINE,THORACIC WITHOUT [id number] NOTES: ISTOP REVIEWED AND WNL. REFERRAL TO:PHYSICAL THERAPIST REASON:2XWK X 6 WKS,MASSAGE,MYOFASCIAL RELEASE PROCEDURE CODES [id number] ESTABILISHED PATIENT [facility] FACILITY CHARGE DISPOSITION & COMMUNICATION FOLLOW UP 4-6 WKS (REASON: PILL COUNT IDENTIFICATION/REVIEW MRI/FOLLOW-UP PT) ELECTRONICALLY SIGNED BY CRUZITO NG ON 10/28/2020 AT 04:21 PM EDT DISCLAIMER : THIS IS A VISIT SUMMARY EXTRACTED FROM THE [employer] CHART. IT IS NOT A COPY OF THE [employer] PROGRESS NOTE. LETY
== END ==
LOC: M PAIN 11:30
PROVIDERS: ATTEND Nurse Practitioner Family
DX: M79.18 Myalgia, other site (principal); E11.9 Type 2 diabetes mellitus without complications; G43.909 Migraine, unspecified, not intractable, without status migrainosus; G47.30 Sleep apnea, unspecified; I25.2 Old myocardial infarction; F17.210 Nicotine dependence, cigarettes, uncomplicated; Z86.14 Personal history of Methicillin resistant Staphylococcus aureus infection; Z86.59 Personal history of other mental and behavioral disorders; Z91.013 Allergy to seafood; Z79.82 Long term (current) use of aspirin; Z79.891 Long term (current) use of opiate analgesic; Z79.899 Other long term (current) drug therapy

== ENCOUNTER → 2020-12-01 | Outpatient (CLI) | payer MEDICARE ==
[~2020-12-01] MED LIST changes: +BACTDSTA PO; -SULF1TAB93 PO
== END ==
LOC: M PLARAD 13:37
PROVIDERS: ATTEND Nurse Practitioner Family
DX: Z53.9 Procedure and treatment not carried out, unspecified reason (principal); M79.18 Myalgia, other site

== ENCOUNTER → 2020-12-14 | Outpatient (CLI) | payer MEDICARE ==
--- NOTE | 2020-12-15 02:10 | ECWPNPC ---
PATIENT NAME: BEBA WHITEHEAD : 1965 GENDER: FEMALE VISIT DATE: 12/14/2020 DISCHARGE DATE: 12/14/20 1523 VISIT LOCKED DATE TIME: PHYSICIAN: ADAM CARLOS RESOURCE: ADAM CARLOS REASON FOR APPOINTMENT 1. REVIEW MRI - RUNNING LATE HISTORY OF PRESENT ILLNESS GENERAL: HERE FOR F/U AND TO REVIEW MRI L/S SPINE.WAS UNABLE TO HAVE MRI DUE TO CLOSTERPHOBIA AND IS NOW SCHEDULED FOR OPEN MRI.HAS BEEN HAVING SEVERE INCREASE IN PAIN LATELY.HAS MULTIPLE DISCOID LESIONS THAT ARE OPEN AND INFLAMED THAT PATIENT STATES ARE DISCOID LUPUS ERUPTIONS.STATES SHE HAS BEEN IN A SEVERE FLARE UP IN PAIN BECAUSE OF LUPUS.FINDS CURRENT CHRONIC PAIN MEDICATION SOMEWHAT HELPFUL BUT IS TELLING ME OF SEVERE PAIN WITH FLARE UP THAT IS NOT CONTROLLED. -. FALL RISK SCREENING: SCREENING MULTIPLE FALLS THIS YEAR AND BROKE HER RIGHT HAND AND HURT HER RIBS. PAIN SCREENING: PATIENT HAS A COMPLAINT OF ACUTE OR CHRONIC PAIN :YES LOCATION OF PAIN:NECK, UPPER BACK, MID BACK, LOW BACK INTENSITY OF PAIN (SCALE OF 1 TO 10):8 WHAT DOES YOUR PAIN FEEL LIKE:ACHING TIGHTNESS DURATION:CONTINOUS, CONSTANT, ALL DAY PAIN IS INCREASED BY:OTHERS JUST THE POSITION PAIN IS DECREASED BY:USE OF PAIN MEDICATIONS NURSING NOTE: -. PAIN CENTER INTAKE QUESTIONS: DO YOU HAVE A HISTORY OF MRSA? :YES 2009 MRSA IN RIGHT BIG TOE. TOE HAS BEEN REMOVED. DO YOU TAKE A BLOOD THINNERS? :NO DO YOU HAVE ANY BLEEDING DISORDERS? :NO ANY NEW NUMBNESS OR WEAKNESS IN YOUR LEGS OR ARMS? :YES WEAKNESS IN ARMS AND LEGS. ANY PACEMAKER,DEFIBRILLATOR, OR DORSAL COLUMN STIMULATOR? :NO DO YOU HAVE ANY RASHES OR OPEN SORES? :YES LUPUS BLISTERS AND OPEN AREA ON BOTTOM OF LEFT FOOT. ARE YOU ALLERGIC TO IV DYE? :NO ARE YOU DIABETIC? :YES ANY NEW PROBLEMS WITH YOUR MEDICATIONS? :NO HAVE YOU RECEIVED A VACCINE IN THE PAST 30 DAYS? :YES IF SO WHAT VACCINE AND WHEN? RANDOLPH DICKSON 09/13/2020 DO YOU PLAN TO RECEIVE A VACCINE IN THE NEXT 21 DAYS? :NO DO YOU NEED ANY PRESCRIPTION? :NO DO YOU TAKE ANY IMMUNOSUPPRESSIVE MEDICATIONS? :YES PLAQUENIL IS THERE A CHANCE YOU COULD BE ? :NO ARE YOU BREAST FEEDING? :NO CURRENT MEDICATIONS TAKING BLOOD GLUCOSE TEST STRIP ONE TOUCH ULTRA 2 ICD:250.02 NIDDM SUBCUTANEOUSLY THREE TIMES DAILY 250.01/401.9 TAKING ONE TOUCH/ONE TOUCH II STARTER 1 GLUCOMETER ICD:250.02 NIDDM FSBS THREE TIMES DAILY TAKING ASPIR-81 81 MG TABLET DELAYED RELEASE 1 TABLET ORALLY ONCE A DAY TAKING FLONASE 50 MCG/ACT SUSPENSION 1 SPRAY IN EACH NOSTRIL NASALLY ONCE A DAY TAKING COMMODE BEDSIDE - MISCELLANEOUS DIRECTED ICD10 - R15.9, M62.81 DAILY TAKING CARVEDILOL 6.25 MG TABLET 1/2 TABLET WITH FOOD ORALLY BID TAKING CALCIUM + D3 600-200 MG-UNIT TABLET 1 TAB ORALLY DAILY TAKING FOLIC ACID 1 MG TABLET 1 TABLET ORALLY ONCE A DAY TAKING ZOFRAN 4 MG TABLET 1 TAB ORALLY ONCE A DAY NEEDED FOR NAUASEA TAKING LASIX 40 MG TABLET 1 TAB ORALLY DAILY TAKING ALBUTEROL SULFATE HFA 108 (90 BASE) MCG/ACT AEROSOL SOLUTION 2 PUFFS INHALATION TWICE DAILY NEEDED TAKING NYSTATIN THROAT/SUSPENSION 365120 UNIT/ML SUSPENSION SWISH AND SWALLOW MOUTH/THROAT TID PRN TAKING POTASSIUM 1 20MG ORAL DAILY, NOTES: NOT SURE TAKING SM MAGNESIUM OXIDE 250 MG TABLET 1 TAB ORALLY TWICE DAILY TAKING NYSTATIN 131032 UNIT/GM CREAM 1 APPLICATION TO AFFECTED AREA EXTERNALLY TO AFFECTED AREA FOUR TIMES DAILY NEEDED FOR RASH TAKING LIDOCAINE 3 % CREAM 1 APPLICATION TO AFFECTED AREA NEEDED EXTERNALLY TWICE A DAY TAKING PLAQUENIL 200 MG TABLET 1 TABLET WITH FOOD OR MILK ORALLY ONCE A DAY TAKING CYMBALTA 60 MG CAPSULE TAKE ONE CAPSULE BY MOUTH EVERY DAY ORALLY BID TAKING CYCLOBENZAPRINE HCL 10 MG TABLET 3 TAB TAKE ONE TABLET BY MOUTH THREE TIMES A DAY NEEDED ORALLY THREE TIMES A DAY TAKING GABAPENTIN 300 MG TABLET 3 TABS TID TAKING CARAFATE 1 GM TABLET 1 TABLET ON AN EMPTY STOMACH ORALLY FOUR TIMES DAILY TAKING SODIUM CHLORIDE 1000 MG TABLET SOLUBLE DIRECTED EXTERNALLY TAKING LASIX 20 MG TABLET 1 TABLET ORALLY BEFORE BEDTIME TAKING VALIUM 5 MG TABLET 1 TABLET NEEDED ORALLY X 1 PRIOR TO MRI TAKING PERCOCET 10-325 MG TABLET 1 TABLET NEEDED ORALLY FOUR TIMES DAILY TAKING MORPHINE SULFATE ER 15 MG TABLET EXTENDED RELEASE (SCHEDULE II DRUG) TAKE ONE TABLET BY MOUTH EVERY 12 HOURS MAXIMUM DAILY DOSE TWO TABLETS ORAL Q12H MDD2 NOT-TAKING FLEXERIL 10 MG 30 10 MG TABLETS ONE TABLET ORALLY THREE TIMES DAILY NEEDED NOT-TAKING PROZAC 40 MG CAPSULE 1 CAPSULE ORALLY DAILY NOT-TAKING PROZAC 20 MG CAPSULE 1 CAPSULE ORALLY ONCE A DAY NOT-TAKING CYMBALTA 30 MG CAPSULE DELAYED RELEASE PARTICLES 1 CAPSULE ORALLY ONCE A DAY NOT-TAKING NORCO 10-325 MG TABLET 1 TABLET NEEDED ORALLY EVERY 6 HRS MDD4 NOT-TAKING VITAMIN B12 1000 MCG TABLET 1 TABLET ORALLY ONCE A DAY NOT-TAKING DRISDOL 50,000 UNITS TABLET 1 TAB ORAL WEEKLY NOT-TAKING CPAP MASK CPAP MASK AND TUBING WITH CONNECTORS DX. 327.23 APPLY TO CPAP MACHINE APPLY TO FACE , NOTES: NON COMPLIANT DOES NOT USE NOT-TAKING TOPAMAX 100 MG TABLET 1 TABLET ORALLY TWICE A DAY, NOTES: NEEDED NOT-TAKING IBUPROFEN 800 MG TABLET 1 TABLET WITH FOOD OR MILK NEEDED ORALLY THREE TIMES A DAY NOT-TAKING PLAVIX 75 MG TABLET ORALLY DAILY NOT-TAKING GABAPENTIN 600 MG TABLET 1 CAPSULE ORALLY THREE TIMES DAILY NOT-TAKING PREDNISONE 10 MG TABLET 4 ATB FOR 3 DAYS 3 TAB FOR 3 DAYS 2 TAB FOR 3 DAY THEN 1 TAB FOR 3 DAYSS ORALLY ONCE A DAY NOT-TAKING CEFDINIR 300 MG CAPSULE DIRECTED ORALLY BID NOT-TAKING LASIX 20 MG TABLET 1 TABLET ORALLY BEFORE BEDTIME NOT-TAKING PREDNISONE 20 MG TABLET 1 TABLET ORALLY ONCE A DAY NOT-TAKING CIPRO 500 MG TABLET 1 TABLET ORALLY BID MEDICATION LIST REVIEWED AND RECONCILED WITH THE PATIENT PAST MEDICAL HISTORY LUPUS INFECTIOUS DIARRHEA GIARDIA- DUODENITIS MIGRAINES DEPRESSION/ANXIETY SLEEP APNEA UNSPECIFIED ENTHESOPATHY OF KNEE CHRONIC SINUSITIS PULMONARY NODULE LEFT LUNG BASE 05/2015 GIARDIASIS- FOLLOWED ANNUALLY BY DR. RICHARDS L5-S1 HERNIATION ALCOHOL ABUSE DIABETES FIBROMYALGIA CHF RIGHT HUMERUS FX 06/2017 TX'D WITH SLING AND BRACE VT OCTOBER 2017 ALLERGIES SHELL FISH: ITCHING - ALLERGY SURGICAL HISTORY CARPAL TUNNEL RELEASE/ULNAR TUNNEL RELEASE-DR. ROBERTH HUMMEL 11/2012 DEBRIDEMENT DIABETIC FOOT ULCER 03/2013 CHOLECYSTECTOMY 2009 SINUS SURGERY 2005 INCISIONAL HERNIA 09/28 COLONOSCOPY 11/10/16 CARDIAC CATH WITH 2 STENTS PLACED OCTOBER 2017 SOCIAL HISTORY GENERAL: TOBACCO USE ARE YOU A:CURRENT SMOKER ARE YOU INTERESTED IN QUITTING?THINKING ABOUT QUITTING HAS ALL SHE NEEDS TO ASSIST HER WITH QUITTING, JUST NOT QUITE READY YET PREVIOUS QUIT ATTEMPTS?NO. COUNSELED THE PATIENT ON SMOKING CESSATION, EDUCATION [id number]/01/2021 HOW MANY CIGARETTES A DAY DO YOU SMOKE?31 OR MORE HOW OFTEN DO YOU SMOKE CIGARETTES?EVERY DAY PATIENT COUNSELED ON THE DANGERS OF TOBACCO USE AND URGED TO QUIT:05/04/2020 LATEX QUESTIONNAIRE LATEX ALLERGY : HAVE YOU EVER DEVELOPED ANY TYPE OF REACTION AFTER HANDLING LATEX PRODUCTS SUCH RUBBER GLOVES, CONDOMS, DIAPHRAGMS, BALLOONS, SOCKS, OR UNDERWEAR?NO LATEX ALLERGY : HAVE YOU EVER DEVELOPED ANY TYPE OF REACTION DURING OR AFTER DENTAL APPOINTMENT, VAGINAL/RECTAL EXAMINATION, SURGICAL PROCEDURE, OR ANY OTHER EXPOSURE?NO LATEX RISK : HAVE YOU EVER HAD ANY DIFFICULTY BREATHING OR HIVES AFTER EATING OR HANDLING ANY FRUITS, OR VEGETABLES; SUCH KIWI, BANANAS, STONE FRUITS, OR CHESTNUTSNO LATEX RISK : DO YOU HAVE A PREVIOUS PERSONAL HISTORY OF MORE THAN NINE SURGERIES, SPINA BIFIDA, OR REPEATED CATHERIZATIONS? NO LATEX RISK : ARE YOU FREQUENTLY EXPOSED TO LATEX PRODUCTS IN YOUR OCCUPATION?NO DATE ASKED : 12/14/2020 ALCOHOL USE: NO. BMI CARE GOAL FOLLOW-UP ABOVE NORMAL BMI FOLLOW-UPLIFESTYLE EDUCATION REGARDING DIET ALCOHOL SCREENING DID YOU HAVE A DRINK CONTAINING ALCOHOL IN THE PAST YEAR?YES HOW OFTEN DID YOU HAVE SIX OR MORE DRINKS ON ONE OCCASION IN THE PAST YEAR?NEVER (0 POINTS) HOW MANY DRINKS DID YOU HAVE ON A TYPICAL DAY WHEN YOU WERE DRINKING IN THE PAST YEAR?1 OR 2 (0 POINTS) HOW OFTEN DID YOU HAVE A DRINK CONTAINING ALCOHOL IN THE PAST YEAR?MONTHLY OR LESS (1 POINT) POINTS1 INTERPRETATIONNEGATIVE RECREATIONAL DRUG USE DRUG USE?NO CAFFEINE CAFFEINE USE?NO SEXUAL HX HAD SEX IN THE LAST 12 MONTHS (VAGINAL, ORAL, OR ANAL)?YES WITHMEN ONLY HIV / HEP-C SCREENING HIV TEST OFFERED TO PATIENT:YES DATE OFFERED:06/30/2016 TEST ACCEPTED:NO HEP-C TEST OFFERED TO PATIENT:YES DATE OFFERED:06/30/2016 REASON:PATIENT DECLINED TEST ACCEPTED:NO REASON:PATIENT DECLINED DRUZE [id number] RELIGION LANGUAGE ITALIAN. EDUCATION LEVEL OF EDUCATION:HIGH SCHOOL LEARNING BARRIERS / SPECIAL NEEDS CHANGE FROM LAST VISIT?YES BARRIERS TO LEARNING?NO HEARING IMPAIRED?NO VISION IMPAIRED?YES :CORRECTIVE LENSES SHE SHOULD COGNITIVELY IMPAIRED?NO READINESS TO LEARN?YES LEARNING PREFERENCES?NO LEARNING CAPABILITIES PRESENT?YES EMOTIONAL BARRIERS?NO SPECIAL DEVICES?YES :CANE, WALKER, WHEELCHAIR NEEDED HEALTH CARE COORDINATOR NEEDED?NO DOMESTIC VIOLENCE DO YOU FEEL SAFE IN YOUR ENVIRONMENT?YES OCCUPATION: UNEMPLOYED. DIET: REGULAR. EXERCISE: NO REGULAR EXERCISE. MARITAL STATUS: . OTHERS AT HOME: ALTHEA FALL. TODAY'S VISIT NOTES, FROM 0-10, WHAT LEVEL IS YOUR PAIN TODAY? 8. - PFS REFERRAL NEEDED?NO CLERGY REFERRAL NEEDED?NO PUBLIC HEALTH REFERRAL NEEDED?NO WAS THE PROVIDER NOTIFIED OF ANY PERTINENT INFO?NO HAS THE PATIENT BEEN EDUCATED REGARDING HIS/HER PLAN OF CARE?YES HAS THE PATIENT BEEN EDUCATED REGARDING PAIN, THE RISK FOR PAIN, THE IMPORTANCE OF EFFECTIVE PAIN MANAGEMENT, AND THE PAIN ASSESSMENT PROCESS?YES ADVANCE DIRECTIVE ADVANCE DIRECTIVE DISCUSSED WITH PATIENT:YES JUAN DAVID DENISE [phone] REVIEWED WITH PT 04/30/18 1354 BVREVIEWED WITH PT 07/03/18 1533 BV. HOSPITALIZATION/MAJOR DIAGNOSTIC PROCEDURE DIABETIC FOOT ULCER/CELLULITIS 12/2012 RENAL FAILURE 02/2016 WEAKNESS 05/09/2016 INFECTION & DEHYDRATION 11/12/16-11/14/16 CHF 01/01/17-01/03/17 BILAERAL PNEUMONIA ,KIDNEY FAILURE, PT ITUBATED -2020 REVIEW OF SYSTEMS CONSTITUTIONAL: ANY RECENT FEVER NO . CHILLS NO . WEIGHT CHANGE OF UNKNOWN REASONS NO . GASTROENTEROLOGY: NEW UNEXPLAINABLE CHANGES IN BOWEL CONTROL NO . CONSTIPATION NO . GENITOURINARY: ANY NEW CHANGE IN BLADDER CONTROL? NO . NEUROLOGY: NEW ONSET DIZZINESS OR NEUROLOGICAL CHANGES NOT MENTIONED CURRENTLY FOLLOWING WITH NEUROLOGY FOR NUMBNESS/PAIN FINGERS BILATERALLY AND LOWER EXTREMITIES. IS SCHEDULED FOR NERVE CONDUCTION STUDIES. . NEW NUMBNESS OR PAIN PATTERNS NOT MENTIONED AND PERTINENT TO TODAY'S VISIT NO . CARDIOLOGY: NEW CHEST PRESSURE NO . PATIENT DENIES NO . RESPIRATORY: UNEXPLAINABLE COUGH NO . NEW SHORTNESS OF BREATH NO . VITAL SIGNS WT 211.4 LBS, HT 64 IN, BMI 36.28 INDEX, BP 130/62 MM HG, HR 85 /MIN, RR 18 /MIN, TEMP 97.1 F, OXYGEN SAT % 91%, SAFE IN ENV? (Y/N) YES, NA INITIALS MS 14:33T.JAE RODRIGUEZ. EXAMINATION GENERAL EXAMINATION: GENERAL AWAKE,ALERT ,PLEAASANT . PSYCH AFFECT NORMAL . LUNGS: LUNG RODRIGUEZ ARE CLEAR TO AUSCULTATION BILATERALLY. GOOD MOVEMENT OF AIR . HEART: S1, S2 IN A REGULAR RATE AND RHYTHM. NO SIGNIFICANT MURMURS, RUBS OR GALLOPS NOTED . CERVICAL: TRIGGER POINTS: CERVICAL AND TRAPEZIUS BILAT..PAIN IS AGGREVATED WITH ROJM NECK. SKIN: MULTIPLE DISCOID LESIONS THAT ARE OPEN AND RED OVER HANDS AND LEGS.. ASSESSMENTS CHARCOT'S JOINT OF FOOT DUE TO DIABETES - E11.610 (PRIMARY), LEFT INFLAMMATORY ARTHROPATHY - M19.90 CHRONIC PRESCRIPTION OPIATE USE - Z79.891 TREATMENT CHARCOT'S JOINT OF FOOT DUE TO DIABETES REFILL PERCOCET TABLET, 10-325 MG, 1 TABLET NEEDED, ORALLY, FOUR TIMES DAILY, 30 DAYS, 120, REFILLS 0 REFILL MORPHINE SULFATE ER TABLET EXTENDED RELEASE, 15 MG, (SCHEDULE II DRUG) TAKE ONE TABLET BY MOUTH EVERY 12 HOURS MAXIMUM DAILY DOSE TWO TABLETS, ORAL, Q12H MDD2, 30 DAY(S), 60, REFILLS 0 PROCEDURE CODES FA211 ESTABILISHED PATIENT [facility]LY [facility] CHARGE DISPOSITION & COMMUNICATION FOLLOW UP PT WILL CALL AFTER MRI AND GET MY NEXT AVAILABLE OPENING (REASON: MRI REVIEW DISCUSS INJECTIONS) ELECTRONICALLY SIGNED BY CRUZITO NG ON 12/14/2020 AT 10:11 PM EDT DISCLAIMER : THIS IS A VISIT SUMMARY EXTRACTED FROM THE [employer] CHART. IT IS NOT A COPY OF THE [employer] PROGRESS NOTE. MARTAD
== END ==
LOC: M PAIN 14:00
PROVIDERS: ATTEND Nurse Practitioner Family
DX: E11.610 Type 2 diabetes mellitus with diabetic neuropathic arthropathy (principal); M19.90 Unspecified osteoarthritis, unspecified site; G43.909 Migraine, unspecified, not intractable, without status migrainosus; G47.30 Sleep apnea, unspecified; M79.7 Fibromyalgia; I25.2 Old myocardial infarction; F17.210 Nicotine dependence, cigarettes, uncomplicated; Z86.14 Personal history of Methicillin resistant Staphylococcus aureus infection; Z86.59 Personal history of other mental and behavioral disorders; Z91.013 Allergy to seafood; Z79.82 Long term (current) use of aspirin; Z79.891 Long term (current) use of opiate analgesic; Z79.899 Other long term (current) drug therapy

== ENCOUNTER → 2020-12-19 | Outpatient (REF) ==
[~2020-12-19] MED LIST changes: +CEPH500C PO; +CEPH500T PO; +DOXY100C PO; +ERGO500029 PO; +FLUO20CA22 PO; +NYST10006 TOP; +OXYC10TA3 PO; +SERT50TA29 PO; -VITA50005 PO
== END ==
LOC: M LABCFH 12:53
PROVIDERS: ATTEND Physician Assistant
DX: N76.0 Acute vaginitis (principal)

== ENCOUNTER 2021-01-29 12:47 | Inpatient (IN) | payer MEDICARE ==
[~2021-01-29] VITALS: Ht 157.5 cm; Wt 200.0 kg
[~2021-01-29 12:47] MED LIST changes: -CEPH500C PO; -CEPH500T PO; -DOXY100C PO; -FLUO20CA22 PO; -NYST10006 TOP; -OXYC10TA3 PO; -SERT50TA29 PO
[2021-01-29 15:11] LABS: BASO % 0.5 % (0.0-1.0); EOS # 0.1 10^3/uL (0.0-0.5); EOS % 1.4 % (0.0-3.0); HEMATOCRIT 38.8 % (36.0-47.0); HEMOGLOBIN 13.5 g/dl (12.0-15.5); LYMPH # 1.7 10^3/uL (1.5-5.0); LYMPH % 19.8 % (24.0-44.0); MEAN CORPUSCULAR HEMOGLOBIN 40.9 pg (27.0-33.0); MEAN CORPUSCULAR HGB CONC 34.8 g/dl (32.0-36.5); MONO # 0.6 10^3/uL (0.0-0.8); MONO % 6.7 % (2.0-8.0); NEUTROPHILS # 6.1 10^3/uL (1.5-8.5); NEUTROPHILS % 70.9 % (36.0-66.0); PLATELET COUNT, AUTOMATED 182 10^3/uL (150-450); WHITE BLOOD COUNT 8.6 10^3/uL (4.0-10.0)
[2021-01-29 15:16] LABS: MEAN CORPUSCULAR VOLUME 117.6 fl (80.0-96.0)
[2021-01-29 15:48] LABS: ALBUMIN 2.7 GM/DL (3.2-5.2); ALT/SGPT 32 U/L (12-78); BLOOD UREA NITROGEN 6 MG/DL (7-18); CALCIUM LEVEL 8.6 MG/DL (8.5-10.1); CARBON DIOXIDE LEVEL 34 MEQ/L (21-32); CHLORIDE LEVEL 97 MEQ/L (98-107); CREATININE FOR GFR 0.65 MG/DL (0.55-1.30); GLOMERULAR FILTRATION RATE > 60.0 (>51); GLUCOSE, FASTING 99 MG/DL (70-100); POTASSIUM SERUM 3.4 MEQ/L (3.5-5.1); SODIUM LEVEL 138 MEQ/L (136-145); TOTAL PROTEIN 6.6 GM/DL (6.4-8.2)
[2021-01-29] MEDS ORDERED: CYCLOBENZAPRINE 5MG TABLET PO ONE (16:15)
[2021-01-29] MEDS ORDERED: PERCOCET 5MG/325MG TAB PO ONE (16:15)
[2021-01-29] MEDS ORDERED: GABAPENTIN 300 MG CAP PO ONE (16:15)
[2021-01-29] MEDS ORDERED: SERT50TA29 PO (17:00)
[2021-01-29] MEDS ORDERED: CEPH500C PO (17:00)
[2021-01-29] MEDS ORDERED: OXYC10TA3 PO (17:00)
[2021-01-29] MEDS ORDERED: FLUO20CA22 PO (17:00)
[2021-01-29] MEDS ORDERED: DULO1CAP6 PO (17:00)
[2021-01-29] MEDS ORDERED: FURO20TA2 PO (17:00)
[2021-01-29] MEDS ORDERED: DOXY100C PO (17:00)
[2021-01-29] MEDS ORDERED: diazePAM 2 MG TAB PO PRN (17:05)
[2021-01-29] MEDS ORDERED: ALBUTEROL 90 MCG/ACT 8GM HFA INHALER INH PRN (17:05)
[2021-01-29] MEDS ORDERED: ACETAMINOPHEN TAB 650MG DOSE (2X325MG) PO PRN (17:05)
--- NOTE | 2021-01-29 17:33 | HPEPDOC ---
[facility] Medical History & Physical Date of Admission Jan 29, 2021 Date of Service: Jan 29, 2021 History and Physical Chief complaint: Who presented to the emergency room with worsening left lower extremity cell ulitis History of present illness: Patient is a 55-year-old female who presents to the emergency room with worsening left lower extremity redness, warmth and tenderness. Patient reports that she was at [facility] on January 22 and was admitted for cellulitis of her left lower extremity. Patient was initially started on vancomycin and Zosyn after she was found to have leukocytosis or lactic acidosis in the emergency room. Patient had clinical improvement despite second day and was transitioned to cephalexin and doxycycline and was subsequently discharged on the third day, Sunday. Patient reports that while she was there she may have fallen on her right knee. Patient reported that her weekend went [place] and by she was experiencing some additional redness of her left lower extremity. She had contacted her primary care provider who discussed with infectious disease and advised patient to go to [facility] ER. Patient ultimately went there on Sunday, where she received an US of her LLE that was negative for a DVT. She was informed that they did not have infectious disease and she subsequently left the hospital and was evaluated at [facility] on that same night. Again, patient had left the hospital after she was advised that they did not have infectious disease available. Patient has presented to ER, currently as she is noted worsening redness of her left leg extending up into her thigh. She has reported chills at home. Denies any fevers. Denies any chest pain, shortness breath or palpitations. Reports a chronic cough. Has had nausea chronically without any vomiting. Denies any abdominal pain. Reports diarrhea for many years. Denies any urinary discomfort. Reports her appetite is poor but is unsure of any changes in her weight. Past Medical History: CAD s/p stent x 2 (10/2017; Hx of NV) CHF (Preserved EF) DM2 (no longer on medications 2/2 weight loss) Lupus Migraine headaches Depression / Anxiety / Fibromyalgia MICHELLE (no longer on CPAP) Hx of Alcohol abuse Chronic sinusitis Chronic back pain 2/2 L5-S1 Disk herniation Pulmonary nodule at LL base (Follows with Dr. Meeks) Infectious diarrhea; s/p Giardiasis (Follows with Dr. Morris) Past Surgical History: Right humerus fracture 2017 Carpal tunnel release/ulnar tunnel release, 11/2012 Debridement of diabetic foot ulcer. 03/2013 Cholecystectomy 2009 Sinus surgery 2004 Incisional hernia 09/2015 Colonoscopy 10/2016 Right foot first digit amputation 2017 Allergies: See below Medications: See below Family History: - Mother with a history of lupus - Father with a history of heart attack and hypertension Social History: - Patient is an active smoker of 40 years at 1.5 PPD; social alcohol use; no drug use - Denies recent travel or sick contacts - Lives with significant other in [place] - Occupation; patient previously worked [employer] business Review of Systems: 10 point review of systems complete, all negative otherwise stated in HPI Physical exam: - Vitals: BP [123/65], HR [89], RR [20], Sat [94%RA], Temp [97.4F] - General: Lying in bed, No acute distress, Speaking in full sentences, AAOx3 - HEENT: NC, AT, PERRLA - CVS: RRR, +S1S2 - Lungs: Fair air entry bilaterally, No appreciable wheezing / rales / rhonchi - Abdomen: Soft, Non-distended, Non-tender - Extremities: Erythema left lower extremity involving mostly her leg extending up to her left medial thigh; right foot first digit amputation - Neuro: No focal motor or sensory deficit - Skin: Areas of multiple blistering lesions that have been unroofed - reports these have been there for a long time Labs: See below Imaging: See below EKG: See below Assessment and Plan: LLE cellulitis - Patients failed outpatient treatment with cephalexin and doxycycline - Was recently at [facility] last week - Patient is hemodynamically stable and afebrile - Physical reveals erythema, warmth and tenderness of left lower extremity extending up into the thigh - No significant leukocytosis or lactic acidosis - Will check CRP and treatment - Will check duplex ultrasound of left lower extremity - Will check blood cultures, MRSA screen, ASO titer - Will start vancomycin and Zosyn Skin lesions; 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 - Has seen dermatology several years ago but has never followed up - Will send urine for 24 hour urine porphobilinogen - Lesions in mouth; will start Magic mouth wash - Patient will ultimately need to follow up with Dermatology as an outpatient CAD s/p stent x 2 (10/2017; Hx of NV) - c/w ASA, Carvedilol, CHF (Preserved EF) - No evidence of fluid overload - c/w Furosemide HTN - BP appears well controlled - c/w Carvedilol DM2 - No longer on medications 2/2 weight loss Lupus - c/w Hydroxychloroquine Migraine headaches Depression / Anxiety / Fibromyalgia / Neuropathy - c/w Diazepam / Duloxetine / Gabapentin MICHELLE - No longer on CPAP - Reports that it has improved since her weight loss Hx of Alcohol abuse - Patient reports she drinks alcohol socially only at this time Chronic sinusitis Chronic back pain 2/2 L5-S1 Disk herniation - c/w current pain regimen Pulmonary nodule at LL base - Follows with Dr. Meeks Hx of Infectious diarrhea - s/p Giardiasis - Follows with Dr. Morris annually DVT prophylaxis - Will start Lovenox Vital Signs Vital Signs Date Time Temp Pulse Resp B/P (MAP) Pulse Ox O2 Delivery O2 Flow Rate FiO2 01/29/21 16:40 17 01/29/21 14:09 01/29/21 12:47 97.4 89 94 Room Air Laboratory Data Labs 24H Laboratory Tests 2 01/29/21 14:33: Immature Granulocyte % (Auto) 0.7, Neutrophils (%) (Auto) 70.9H, Lymphocytes (%) (Auto) 19.8L, Monocytes (%) (Auto) 6.7, Eosinophils (%) (Auto) 1.4, Basophils (%) (Auto) 0.5, Neutrophils # (Auto) 6.1, Lymphocytes # (Auto) 1.7, Monocytes # (Auto) 0.6, Eosinophils # (Auto) 0.1, Basophils # (Auto) 0.0, Nucleated Red Blood Cells % (auto) 0.2H, Anion Gap 7L, Glomerular Filtration Rate > 60.0, Lactic Acid Level 2.0, Calcium Level 8.6, Total Bilirubin 2.0H, Aspartate Amino Transf (AST/SGOT) 25, Alanine Aminotransferase (ALT/SGPT) 32, Alkaline Phosphatase 269H, Total Protein 6.6, Albumin 2.7L, Albumin/Globulin Ratio 0.7L CBC/BMP Laboratory Tests 01/29/21 14:33 Home Medications Scheduled Aspirin (Aspirin EC) 81 Mg Tab, 81 MG PO QHS Carvedilol (Carvedilol) 3.125 Mg Tablet, 3.125 MG PO BID Cephalexin (Cephalexin) 500 Mg Capsule, 500 MG PO QID Doxycycline Hyclate (Doxycycline Hyclate) 100 Mg Capsule, 100 MG PO BID Duloxetine Hcl (Cymbalta) 60 Mg Cap, 60 MG PO BID Duloxetine Hcl (Duloxetine HCl) 60 Mg Capsule.dr, 60 MG PO BID Folic Acid (Folic Acid) 1 Mg Tab, 1 MG PO DAILY Furosemide (Furosemide) 20 Mg Tablet, 20 MG PO DAILY TAKES BETWEEN [id number] Furosemide (Furosemide) 20 Mg Tablet, 40 MG PO DAILY Gabapentin (Gabapentin) 300 Mg Cap, 900 MG PO TID Hydroxychloroquine Sulfate (Plaquenil) 200 Mg Tablet, 200 MG PO DAILY Morphine Sulfate (Morphine Sulfate ER) 15 Mg Tab, 15 MG PO Q12H Pantoprazole Sodium (Pantoprazole Sodium) 40 Mg Tablet.dr, 40 MG PO DAILY Potassium Chloride (Klor-Con M20) 20 Meq Tab.er.prt, 20 MEQ PO DAILY Sodium Chloride (Sodium Chloride) 1 Gm Tablet, 1 GM PO BID Scheduled PRN Albuterol Sulfate (Ventolin Hfa) 108 Mcg/Act Aer, 2 PUFFS INH QID PRN for SHORTNESS OF BREATH Cyclobenzaprine HCl (Cyclobenzaprine HCl) 10 Mg Tablet, 10 MG PO TID PRN for MUSCLE SPASMS Diazepam (Diazepam) 2 Mg Tablet, 2 MG PO BID PRN for ANXIETY Nicotine (Nicotine Patch) 21 Mg Patch.td24, 1 PATCH TOP DAILY PRN for NICOTINE WITHDRAWAL Oxycodone HCl/Acetaminophen (Oxycodone-Acetaminophen 10-325) 1 Each Tablet, 1 TAB PO QID PRN for PAIN LEVEL 5-10 Allergies Coded Allergies: aspartame (Verified Allergy, Unknown, 01/08/20) SUGAR SUBSTITUTE shellfish derived (Verified Allergy, Unknown, 01/08/20) ketamine (Verified Adverse Reaction, Unknown, hallucinations, 05/26/20) LORENZA ROSS MD Jan 29, 2021 17:33
--- NOTE | 2021-01-29 17:40 | REP ---
INDICATION: ?osteomyelitis. COMPARISON: None. TECHNIQUE: Five views are provided. FINDINGS: Diffuse soft tissue swelling and subcutaneous edema lower leg and ankle region. Lateral view shows prominent plantar and smaller Achilles insertion spurs. Mortise joint shows some degenerative changes without talar dome osteochondral defect. Oblique image shows asymmetric widening of the medial aspect of the mortise joint. Slight flattening of the talar dome and spurring of the tibial plafond anteriorly. No gross destructive lesion of the distal tibia or fibula by plain film. Subtalar joints poorly evaluated on this ankle due to chronic ankle deformity of the hindfoot noted. There are small ossific densities on the lateral view anterior to the ankle joint. Limited examination. IMPRESSION: Diffuse soft tissue swelling and subcutaneous edema about the distal lower leg and ankle/hindfoot. No definite acute fracture or destructive lesion the limited examination as described above. Degenerative changes and chronic deformity of the hindfoot and ankle. Plantar and Achilles insertional spurs. I can neither suggest or exclude osteomyelitis on this study. <Electronically signed by Jose Bates > 01/29/21 [id number]
[2021-01-29 17:58] LABS: C REACTIVE PROTEIN QUANTITATIV 7.38 MG/DL (0.00-0.30)
[2021-01-29] MEDS ORDERED: POTASSIUM CHLORIDE 10 MEQ SR TABLET PO ONE (18:00)
--- NOTE | 2021-01-29 18:13 | REP ---
INDICATION: LLE swelling / erythema. TECHNIQUE: Multiple ultrasonographic images of the deep venous structures of the left thigh were obtained from the level of the common femoral vein to the popliteal vein in the longitudinal and transverse scan planes along with Doppler interrogation and color flow Doppler imaging. FINDINGS: There is no abnormal echogenic material seen within any of the visualized deep venous structures that would suggest acute thrombosis. Coaptation is unremarkable throughout. Doppler interrogation shows an expected response to respiratory variability and augmentation. The color flow Doppler images show what appears to be a normal vascular pattern throughout. The right common femoral vein was examined and is fully compressible. IMPRESSION: There is no ultrasonographic evidence of deep venous thrombosis involving any of the visualized deep venous structures of the left thigh as described above. Accredited by the [employer] in Vascular Peripheral Ultrasound. <Electronically signed by Jose Bates > 01/29/21 4913
--- NOTE | 2021-01-29 18:51 | REP ---
INDICATION: Rihgt knee pain 2/2 fall. COMPARISON: X-ray 10/27/2015, MRI 06/16/2013. TECHNIQUE: Two views FINDINGS: Two views show marginal osteophytes lateral greater than medial joint line. There is narrowing of the medial joint compartment although mild. Lateral compartment maintains normal height patellofemoral compartment is slightly narrowed on the lateral view with prominent spurring the trochlea superiorly and even larger from the patella inferiorly. Is a large posterior osteophytes dip Vanessa plateau posteriorly likely behind the medial tibial spine and extending superiorly is seen as a smaller finding 5 years ago. Vascular calcifications are noted in the popliteal fossa large varied dense popcorn type calcifications in the popliteal fossa are noted which could be very densely calcified synovial osteochondromas or other dystrophic calcifications. Patient did have a prominent Mederos's cyst in the popliteal fossa on the MRI over 7 years ago. I cannot confirm a definite suprapatellar effusion on the lateral view. No gross evidence for displaced fracture, osteochondral defect or other focal lesion. Proximal tibiofibular articulation grossly intact. No tibial plateau depressed fracture IMPRESSION: 1. Tricompartment osteoarthritis with narrowing of the medial and patellofemoral compartments with no definite acute osteochondral defect or loose body within the joint proper. I cannot confirm a definite joint effusion. No visible fracture. 2. 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 3. No definite acute fracture. No acute destructive lesion. <Electronically signed by Jose Baets > 01/29/21 [id number]
[2021-01-29] MEDS ORDERED: VANCOMYCIN HCL 1,000 MG, VIAL MATE ADAPTER 1 EACH in NS 250 ML IV ONE (19:00)
[2021-01-29] MEDS: FUROSEMIDE 20 MG TAB PO SCH (19:05)
[2021-01-29] MEDS: PIPERACILLIN/TAZOBACTAM SOD 3.375 GM in D5W MINI-BAG PLUS 50 ML IV SCH ×2 (19:06→23:51)
[2021-01-29 19:53] LABS: RSV AMPLIFICATION NEGATIVE (NEGATIVE)
[2021-01-29] MEDS ORDERED: VANCOMYCIN HCL 750 MG, VIAL MATE ADAPTER 1 EACH in NS 250 ML IV ONE (20:00)
[2021-01-29] MEDS ORDERED: DULoxetine 30 MG CAP (CYMBALTA) PO SCH (21:00)
[2021-01-29 22:00] VITALS: BP 134/76
[2021-01-29] MEDS: CARVedilol 3.125 MG TAB PO SCH (22:08)
[2021-01-29] MEDS: DULoxetine 30 MG CAP (CYMBALTA) PO SCH (22:08)
[2021-01-29] MEDS: GABAPENTIN 300 MG CAP PO SCH (22:09)
[2021-01-29] MEDS: ASPIRIN 81MG ENTERIC TABLET PO SCH (22:10)
[2021-01-29] MEDS: MORPHINE 15 MG SA TAB PO SCH (22:11)
[2021-01-29] MEDS: CYCLOBENZAPRINE 10MG TABLET PO PRN (22:21)
[2021-01-29] MEDS: SODIUM CHLORIDE 1 GM TAB PO SCH (22:38)
[2021-01-29] MEDS: MAGIC MOUTHWASH SUSPENSION BTL SSP SCH (22:39)
[2021-01-29] MEDS: PERCOCET 5MG/325MG TAB PO PRN (23:56)
[2021-01-30] MEDS: PIPERACILLIN/TAZOBACTAM SOD 3.375 GM in D5W MINI-BAG PLUS 50 ML IV SCH ×4 (05:54→23:39)
[2021-01-30 06:00] VITALS: BP 131/80
[2021-01-30 06:28] LABS: MEAN CORPUSCULAR HEMOGLOBIN 39.6 pg (27.0-33.0); MEAN CORPUSCULAR HGB CONC 33.3 g/dl (32.0-36.5); PLATELET COUNT, AUTOMATED 183 10^3/uL (150-450); RED BLOOD COUNT 3.03 10^6/uL (4.00-5.40); WHITE BLOOD COUNT 7.2 10^3/uL (4.0-10.0)
[2021-01-30 06:33] LABS: MEAN CORPUSCULAR VOLUME 118.8 fl (80.0-96.0)
[2021-01-30 06:44] LABS: BLOOD UREA NITROGEN 6 MG/DL (7-18); C REACTIVE PROTEIN QUANTITATIV 7.59 MG/DL (0.00-0.30); CALCIUM LEVEL 8.2 MG/DL (8.5-10.1); CARBON DIOXIDE LEVEL 33 MEQ/L (21-32); CHLORIDE LEVEL 99 MEQ/L (98-107); CREATININE FOR GFR 0.73 MG/DL (0.55-1.30); GLOMERULAR FILTRATION RATE > 60.0 (>51); GLUCOSE, FASTING 86 MG/DL (70-100); MAGNESIUM LEVEL 1.6 MG/DL (1.8-2.4); POTASSIUM SERUM 3.3 MEQ/L (3.5-5.1); SODIUM LEVEL 139 MEQ/L (136-145)
[2021-01-30] MEDS: MAG SULF 1GM/100ML (MAG RUN) 1 GM in IV 1 EA IV SCH ×2 (07:11→09:06)
[2021-01-30 07:19] LABS: ATYPICAL LYMPH 3 % (0-5); BASOPHILS 1 % (0-1); EOSINOPHILS 2 % (0-3); LYMPHOCYTES 24 % (16-44); MONOCYTES 5 % (0-5); NEUTROPHILS 64 % (28-66)
[2021-01-30 07:21] LABS: ANISOCYTOSIS 1+; PLATELET ESTIMATE NORMAL (NORMAL)
[2021-01-30 07:22] LABS: POLYCHROMASIA 1+; SMUDGE CELLS 1+; STOMATOCYTES 1+
[2021-01-30] MEDS ORDERED: POTASSIUM CHLORIDE 10 MEQ SR TABLET PO SCH (09:00)
[2021-01-30] MEDS: MAGIC MOUTHWASH SUSPENSION BTL SSP SCH ×3 (09:06→18:47)
[2021-01-30] MEDS: CARVedilol 3.125 MG TAB PO SCH ×2 (09:08→20:00)
[2021-01-30] MEDS: PANTOPRAZOLE 40MG TAB (PROTONIX) PO SCH (09:10)
[2021-01-30] MEDS: HYDROXYCHLOROQUINE 200 MG TAB PO SCH (09:10)
[2021-01-30] MEDS: FUROSEMIDE 20 MG TAB PO SCH ×2 (09:10→14:06)
[2021-01-30] MEDS: MORPHINE 15 MG SA TAB PO SCH ×2 (09:10→19:59)
[2021-01-30] MEDS: FOLIC ACID 1 MG TAB PO SCH (09:11)
[2021-01-30] MEDS: ENOXAPARIN 40MG/0.4ML SYRINGE (J1650 PER 10MG) SC SCH (09:11)
[2021-01-30] MEDS: SODIUM CHLORIDE 1 GM TAB PO SCH ×2 (09:11→19:58)
[2021-01-30] MEDS: POTASSIUM CHLORIDE 10 MEQ SR TABLET PO SCH ×2 (09:11→19:57)
[2021-01-30] MEDS: DULoxetine 30 MG CAP (CYMBALTA) PO SCH ×2 (09:11→20:00)
[2021-01-30] MEDS: GABAPENTIN 300 MG CAP PO SCH ×3 (09:11→19:58)
--- NOTE | 2021-01-30 09:22 | IPNPDOC ---
Text Note Date of Service The patient was seen on 01/30/21. NOTE Subjective: Patient is a 55-year-old female who presents to the emergency room with worsening left lower extremity redness, warmth and tenderness. Patient reports that she was at [facility] on January 22 and was admitted for cellulitis of her left lower extremity. Patient was initially started on vancomycin and Zosyn after she was found to have leukocytosis or lactic acidosis in the emergency room. Patient had clinical improvement despite second day and was transitioned to cephalexin and doxycycline and was subsequently discharged on the third day, Sunday. Patient reports that while she was there she may have fallen on her right knee. Patient reported that her weekend went by and by she was experiencing some additional redness of her left lower extremity. She had contacted her primary care provider who discussed with in fectious disease and advised patient to go to [facility] ER. Patient ultimately went there on Sunday, where she received an US of her LLE that was negative for a DVT. She was informed that they did not have infectious disease and she subsequently left the hospital and was evaluated at [facility] ER on that same night. Again, patient had left the hospital after she was advised that they did not have infectious disease available. Patient has presented to ER currently after she had noted worsening redness of her left leg extending up into her thigh. Patient was admitted to the hospital service for further evaluation and treatment. Patient was seen and examined at the bedside. Patient reports that her left lower extremity appears to be doing better. Denies any chest pain, short of breath, palpitations, nausea, vomiting, abdominal pain. Reports a chronic cough. Objective: Vitals (See below) General: Lying in bed, no acute distress, comfortable, AAOx3 HEENT: NC, AT CVS: RRR, +S1S2 Lungs: Fair air entry b/l, -w/r/r Abdomen: Soft, ND, NT, +BSx4 Extremities: +PPx4, - Edema, - Calf tenderness Imaging: L ankle XR 01/29: Diffuse soft tissue swelling and subcutaneous edema about the distal lower leg and ankle/hindfoot. No definite acute fracture or destructive lesion the limited examination as described above. Degenerative changes and chronic deformity of the hindfoot and ankle. Plantar and Achilles insertional spurs. I can neither suggest or exclude osteomyelitis on this study. Knee XR 01/29: 1. Tricompartment osteoarthritis with narrowing of the medial and patellofemoral compartments with no definite acute osteochondral defect or loose body within the joint proper. I cannot confirm a definite joint effusion. No visible fracture. 2. 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 3. No definite acute fracture. No acute destructive lesion. Vascular US 01/29: There is no ultrasonographic evidence of deep venous thrombosis involving any of the visualized deep venous structures of the left thigh as described above. 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 - Has seen dermatology several years ago but has never followed up - Urine for 24 hour urine porphobilinogen pending - Lesions in mouth; c/w Magic mouth wash - Patient will ultimately need to follow up with Dermatology as an outpatient CAD s/p stent x 2 (10/2017; Hx of HI) - c/w ASA, Carvedilol CHF (Preserved EF) - No evidence of fluid overload - c/w Furosemide HTN - BP appears well controlled - c/w Carvedilol DM2 - No longer on medications 2/2 weight loss Lupus - c/w Hydroxychloroquine Migraine headaches Depression / Anxiety / Fibromyalgia / Neuropathy - c/w Diazepam / Duloxetine / Gabapentin MICHELLE - No longer on CPAP - Reports that it has improved since her weight loss Hx of Alcohol abuse - Patient reports she drinks alcohol socially only at this time Chronic sinusitis Chronic back pain 2/2 L5-S1 Disk herniation - c/w current pain regimen Pulmonary nodule at LL base - Follows with Dr. Meeks Hx of Infectious diarrhea - s/p Giardiasis - Follows with Dr. Morris annually DVT prophylaxis - c/w Lovenox Disposition: - Awaiting clinical improvement VSCrystal I+O VS, Crystal, I+O Laboratory Tests 01/29/21 14:33 01/30/21 05:53 Vital Signs Date Time Temp Pulse Resp B/P (MAP) Pulse Ox O2 Delivery O2 Flow Rate FiO2 01/30/21 06:00 98.1 87 18 131/80 (97) 96 Room Air I&O- Last 24 Hours up to 6 AM 01/30/21 06:00 Intake Total 1070 ml Output Total 700 ml Balance 370 ml LORENZA ROSS MD Jan 30, 2021 09:22
[2021-01-30] MEDS ORDERED: VANCOMYCIN HCL 1,000 MG, VIAL MATE ADAPTER 1 EACH in NS 250 ML IV SCH (10:00)
[2021-01-30] MEDS: PERCOCET 5MG/325MG TAB PO PRN ×2 (10:29→22:17)
[2021-01-30 14:00] VITALS: BP 111/60
[2021-01-30] MEDS: NICOTINE 21MG/24HR 1 EA TRANSDERMAL TOP PRN (14:06)
[2021-01-30] MEDS: CYCLOBENZAPRINE 10MG TABLET PO PRN (14:06)
[2021-01-30] MEDS: ASPIRIN 81MG ENTERIC TABLET PO SCH (19:57)
[2021-01-30 22:00] VITALS: BP 132/64
[2021-01-31] MEDS: guaiFENesin ER 600 MG TAB PO SCH ×3 (00:53→20:06)
[2021-01-31] MEDS: PIPERACILLIN/TAZOBACTAM SOD 3.375 GM in D5W MINI-BAG PLUS 50 ML IV SCH ×3 (04:52→18:53)
[2021-01-31] MEDS: PERCOCET 5MG/325MG TAB PO PRN ×3 (04:53→20:07)
[2021-01-31 06:00] VITALS: BP 117/65
[2021-01-31 06:12] LABS: BASO % 0.5 % (0.0-1.0); EOS # 0.1 10^3/uL (0.0-0.5); HEMOGLOBIN 11.5 g/dl (12.0-15.5); LYMPH # 2.1 10^3/uL (1.5-5.0); LYMPH % 25.1 % (24.0-44.0); MEAN CORPUSCULAR HEMOGLOBIN 39.5 pg (27.0-33.0); MEAN CORPUSCULAR HGB CONC 32.9 g/dl (32.0-36.5); MONO # 0.7 10^3/uL (0.0-0.8); NEUTROPHILS # 5.5 10^3/uL (1.5-8.5); NEUTROPHILS % 64.9 % (36.0-66.0); PLATELET COUNT, AUTOMATED 163 10^3/uL (150-450); RED BLOOD COUNT 2.91 10^6/uL (4.00-5.40); WHITE BLOOD COUNT 8.4 10^3/uL (4.0-10.0)
[2021-01-31 06:26] LABS: BLOOD UREA NITROGEN 5 MG/DL (7-18); C REACTIVE PROTEIN QUANTITATIV 5.05 MG/DL (0.00-0.30); CALCIUM LEVEL 7.8 MG/DL (8.5-10.1); CARBON DIOXIDE LEVEL 34 MEQ/L (21-32); CHLORIDE LEVEL 100 MEQ/L (98-107); CREATININE FOR GFR 0.79 MG/DL (0.55-1.30); GLOMERULAR FILTRATION RATE > 60.0 (>51); GLUCOSE, FASTING 113 MG/DL (70-100); POTASSIUM SERUM 3.6 MEQ/L (3.5-5.1); SODIUM LEVEL 137 MEQ/L (136-145)
[2021-01-31 06:45] LABS: MEAN CORPUSCULAR VOLUME 120.3 fl (80.0-96.0)
[2021-01-31] MEDS: MAGIC MOUTHWASH SUSPENSION BTL SSP SCH ×3 (08:39→18:53)
[2021-01-31] MEDS: GABAPENTIN 300 MG CAP PO SCH ×3 (08:45→20:04)
[2021-01-31] MEDS: DULoxetine 30 MG CAP (CYMBALTA) PO SCH ×2 (08:45→20:05)
[2021-01-31] MEDS: HYDROXYCHLOROQUINE 200 MG TAB PO SCH (08:45)
[2021-01-31] MEDS: CARVedilol 3.125 MG TAB PO SCH ×2 (08:45→20:06)
[2021-01-31] MEDS: FOLIC ACID 1 MG TAB PO SCH (08:45)
[2021-01-31] MEDS: POTASSIUM CHLORIDE 10 MEQ SR TABLET PO SCH ×2 (08:46→20:05)
[2021-01-31] MEDS: PANTOPRAZOLE 40MG TAB (PROTONIX) PO SCH (08:46)
[2021-01-31] MEDS: SODIUM CHLORIDE 1 GM TAB PO SCH ×2 (08:46→20:06)
[2021-01-31] MEDS: FUROSEMIDE 20 MG TAB PO SCH ×2 (08:46→14:53)
[2021-01-31] MEDS: MORPHINE 15 MG SA TAB PO SCH ×2 (08:48→20:05)
[2021-01-31] MEDS: ENOXAPARIN 40MG/0.4ML SYRINGE (J1650 PER 10MG) SC SCH (08:48)
[2021-01-31] MEDS ORDERED: ALBUTEROL SULFATE 2.5 MG/0.5 ML INH NEB SOLN NEB ONE (09:25)
--- NOTE | 2021-01-31 09:59 | IPNPDOC ---
Text Note Date of Service The patient was seen on 01/31/21. NOTE Subjective: Patient is a 55-year-old female who presents to the emergency room with worsening left lower extremity redness, warmth and tenderness. Patient reports that she was at [facility] on January 22 and was admitted for cellulitis of her left lower extremity. Patient was initially started on vancomycin and Zosyn after she was found to have leukocytosis or lactic acidosis in the emergency room. Patient had clinical improvement despite second day and was transitioned to cephalexin and doxycycline and was subsequently discharged on the third day, Sunday. Patient reports that while she was there she may have fallen on her right knee. Patient reported that her weekend went by and by she was experiencing some additional redness of her left lower extremity. She had contacted her primary care provider who discussed with in fectious disease and advised patient to go to [facility] ER. Patient ultimately went there on Sunday, where she received an US of her LLE that was negative for a DVT. She was informed that they did not have infectious disease and she subsequently left the hospital and was evaluated at [facility] ER on that same night. Again, patient had left the hospital after she was advised that they did not have infectious disease available. Patient has presented to ER currently after she had noted worsening redness of her left leg extending up into her thigh. Patient was admitted to the hospital service for further evaluation and treatment. Patient was seen and examined at the bedside. Currently patient denies any nausea, vomiting or chest pain. Has been experiencing a mild cough, however, it is been chronic. Denies any change in her baseline shortness of breath. Has not expressed any abdominal pain or continues to experience loose bowel movements. These have noted at the bedside commode, appear to be relatively formed. Denies any urinary discomfort. Reports that her left lower extremity cellulitis has had improvement. Objective: Vitals (See below) General: Patient is sitting up in bed, appears comfortable without any acute distress, is awake and alert, oriented 3 HEENT: NC, AT CVS: +S1S2 Lungs: Fair air entry b/l, no evidence of rales or rhonchi, there are wheezes that can be appreciated at bilateral lower and mid lung molina Abdomen: Abdomen remains soft without distention or tenderness Extremities: Left leg with trace edema. Area of erythema, warmth and tenderness has improved Imaging: L ankle XR 01/29: Diffuse soft tissue swelling and subcutaneous edema about the distal lower leg and ankle/hindfoot. No definite acute fracture or destructive lesion the limited examination as described above. Degenerative changes and chronic deformity of the hindfoot and ankle. Plantar and Achilles insertional spurs. I can neither suggest or exclude osteomyelitis on this study. Knee XR 01/29: 1. Tricompartment osteoarthritis with narrowing of the medial and patellofemoral compartments with no definite acute osteochondral defect or loose body within the joint proper. I cannot confirm a definite joint effusion. No visible fracture. 2. 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 3. No definite acute fracture. No acute destructive lesion. Vascular US 01/29: There is no ultrasonographic evidence of deep venous thrombosis involving any of the visualized deep venous structures of the left thigh as described above. Assessment and plan: LLE cellulitis - Failed outpatient treatment with cephalexin and doxycycline; after discharge from [facility] last week - Continues to remain hemodynamically stable / No fevers documented - Improvement of erythema, warmth and tenderness of the left lower extremity - No significant leukocytosis or lactic acidosis - CRP improving - Blood cultures 01/29: Pending - MRSA negative - ASO titer elevated - Imaging note above - c/w Zosyn; Will DC Vancomycin (Antibiotic day #3) - Consulted ID this morning; Will get advanced wound care evaluation with Dr. 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 - Has seen dermatology several years ago but has never followed up - Urine for 24 hour urine porphobilinogen pending - Lesions in mouth; c/w Magic mouth wash - Patient will ultimately need to follow up with Dermatology as an outpatient CAD s/p stent x 2 (10/2017; Hx of PR) - c/w ASA, Carvedilol CHF (Preserved EF) - No evidence of fluid overload - c/w Furosemide HTN - BP appears well controlled - c/w Carvedilol DM2 - No longer on medications 2/2 weight loss Lupus - c/w Hydroxychloroquine Migraine headaches Depression / Anxiety / Fibromyalgia / Neuropathy - c/w Diazepam / Duloxetine / Gabapentin MICHELLE - No longer on CPAP - Reports that it has improved since her weight loss Hx of Alcohol abuse - Patient reports she drinks alcohol socially only at this time Chronic sinusitis Chronic back pain 2/2 L5-S1 Disk herniation - c/w current pain regimen Pulmonary nodule at LL base - Follows with Dr. Meeks Hx of Infectious diarrhea - s/p Giardiasis - Follows with Dr. Morris annually DVT prophylaxis - c/w Lovenox Disposition: - Awaiting clinical improvement VS,Fishbone, I+O VS, Fishbone, I+O Laboratory Tests 01/31/21 05:40 Vital Signs Date Time Temp Pulse Resp B/P (MAP) Pulse Ox O2 Delivery O2 Flow Rate FiO2 01/31/21 08:48 18 01/31/21 08:45 90 136/83 01/31/21 06:00 98.3 96 Room Air I&O- Last 24 Hours up to 6 AM 01/31/21 06:00 Intake Total 1880 ml Output Total 2850 ml Balance -970 ml LORENZA ROSS MD Jan 31, 2021 09:59
[2021-01-31 14:00] VITALS: BP 136/80
--- NOTE | 2021-01-31 14:37 | CR ---
TELEMEDICINE WOUND CARE CONSULTATION DATE: 01/31/2021 REQUESTING PHYSICIAN: LORENZA ROSS MD REASON FOR CONSULTATION: Right foot wounds. Wound care Telemedicine provides a visual assessment of a wound without the benefit of physical examination. It can assist with establishing a diagnosis and etiology. This allows for an initial treatment plan. As wounds often change, it may be necessary to modify the original care. Our recommendation is periodic wound reassessment to monitor treatment. Failure to comply may result in nonhealing of the wound, possible complications and/or a poor outcome. The recommendations given will serve as treatment options. As I will not be following this patient, this care plan will require the attending physician to give and sign the orders. Upon discharge, outpatient follow-up can be arranged at our Wound Care Center if the patient so desires. HISTORY OF PRESENT ILLNESS: This is a 55-year-old female with bilateral Charcot foot deformities secondary to advanced neuropathy as a result of longstanding alcoholism. Patient is not drinking at this time. She is morbidly obese, weighing 440 pounds. She has had previous toe amputations involving the right foot which have healed and is here for evaluation of left foot wounds. Patient has been followed at the [facility] by Dr. Neely who is presently treating her left foot wounds. Patient has a history of lupus, is scheduled to be evaluated by Dermatology and Infectious Disease. She indicated that the reason she is hospitalized is to be evaluated by infectious disease She has not had a [employer] walker off loading boot or any specialized shoes for off-loading purposes which is mandatory to manage her condition. When seen today, the patient has a left mid plantar wound measuring 2.3 cm x 1.2 cm with a wound depth of 0.3 cm. There is significant callous formation involving the rosa-wound and the foot appears unclean and. On the lateral aspect of the left foot there is now a healed large superficial wound. Presumably this was the result of increased Left lower extremity edema which caused skin blistering of the lateral foot resulting in a superficial wound which has now resolved. A recent hemoglobin A1c was 5.2. The patient indicated that with significant weight loss she is no longer diabetic. I also asked her if she had an arterial ultrasound and she said she has had one in [place] which showed no occlusions. . I have not been able to access this report to confirm her statement. TREATMENT PLAN: Off-loading is the mainstay of this patient's treatment. Cleaning the wound with Vashe Wound Cleanser for 10 minutes followed by a foam dressing is indicated. Podiatry to remove callous formation is also indicated if the patient is to remain hospitalized. . Patient should be evaluated Don Irene, the transitions manager rn to be fitted for appropriate offloading footwear.. This is both the for the plantar ulcer and also to prevent worsening of the condition. Total contact casting can also be utilized for the short-term.. The patient also referred to multiple bouts of left lower extremity cellulitis which is not apparent when viewed today. Antibiotics are at the discretion of the attending physician. It is my impression that the patient when discharged will continue to follow at the wound center in [place] as before. LETY
[2021-01-31] MEDS: CYCLOBENZAPRINE 10MG TABLET PO PRN (14:53)
[2021-01-31] MEDS: NICOTINE 21MG/24HR 1 EA TRANSDERMAL TOP PRN (18:56)
[2021-01-31] MEDS: ASPIRIN 81MG ENTERIC TABLET PO SCH (20:05)
[2021-02-01] MEDS: PIPERACILLIN/TAZOBACTAM SOD 3.375 GM in D5W MINI-BAG PLUS 50 ML IV SCH ×4 (00:06→17:23)
[2021-02-01 01:47] VITALS: BP 122/65
[2021-02-01] MEDS: PERCOCET 5MG/325MG TAB PO PRN ×4 (03:08→23:37)
[2021-02-01 06:02] VITALS: BP 128/92
[2021-02-01 06:19] LABS: BASO % 0.3 % (0.0-1.0); EOS # 0.1 10^3/uL (0.0-0.5); EOS % 1.3 % (0.0-3.0); HEMOGLOBIN 12.3 g/dl (12.0-15.5); LYMPH % 22.8 % (24.0-44.0); MEAN CORPUSCULAR HEMOGLOBIN 39.8 pg (27.0-33.0); MEAN CORPUSCULAR HGB CONC 33.2 g/dl (32.0-36.5); MONO # 0.6 10^3/uL (0.0-0.8); MONO % 6.6 % (2.0-8.0); NEUTROPHILS # 6.1 10^3/uL (1.5-8.5); NEUTROPHILS % 68.1 % (36.0-66.0); PLATELET COUNT, AUTOMATED 163 10^3/uL (150-450); RED BLOOD COUNT 3.09 10^6/uL (4.00-5.40); WHITE BLOOD COUNT 8.9 10^3/uL (4.0-10.0)
[2021-02-01 06:21] LABS: MEAN CORPUSCULAR VOLUME 119.7 fl (80.0-96.0)
[2021-02-01 06:52] LABS: BLOOD UREA NITROGEN 6 MG/DL (7-18); C REACTIVE PROTEIN QUANTITATIV 3.95 MG/DL (0.00-0.30); CARBON DIOXIDE LEVEL 32 MEQ/L (21-32); CHLORIDE LEVEL 100 MEQ/L (98-107); CREATININE FOR GFR 0.77 MG/DL (0.55-1.30); GLOMERULAR FILTRATION RATE > 60.0 (>51); GLUCOSE, FASTING 74 MG/DL (70-100); MAGNESIUM LEVEL 1.9 MG/DL (1.8-2.4); POTASSIUM SERUM 4.2 MEQ/L (3.5-5.1); SODIUM LEVEL 137 MEQ/L (136-145)
[2021-02-01 06:55] LABS: PLATELET ESTIMATE NORMAL (NORMAL)
[2021-02-01 06:56] LABS: ANISOCYTOSIS 1+
[2021-02-01 07:41] LABS: ERYTHROCYTE SEDIMENTATION RATE 57 mm/hr (0-30)
[2021-02-01] MEDS: POTASSIUM CHLORIDE 10 MEQ SR TABLET PO SCH ×2 (10:11→20:41)
[2021-02-01] MEDS: MAGIC MOUTHWASH SUSPENSION BTL SSP SCH ×3 (10:11→16:53)
[2021-02-01] MEDS: guaiFENesin ER 600 MG TAB PO SCH ×2 (10:12→20:40)
[2021-02-01] MEDS: GABAPENTIN 300 MG CAP PO SCH ×3 (10:12→20:41)
[2021-02-01] MEDS: PANTOPRAZOLE 40MG TAB (PROTONIX) PO SCH (10:12)
[2021-02-01] MEDS: DULoxetine 30 MG CAP (CYMBALTA) PO SCH ×2 (10:12→20:41)
[2021-02-01] MEDS: MORPHINE 15 MG SA TAB PO SCH ×2 (10:12→20:43)
[2021-02-01] MEDS: FOLIC ACID 1 MG TAB PO SCH (10:12)
[2021-02-01] MEDS: FUROSEMIDE 20 MG TAB PO SCH ×2 (10:13→15:04)
[2021-02-01] MEDS: SODIUM CHLORIDE 1 GM TAB PO SCH ×2 (10:13→20:40)
[2021-02-01] MEDS: CARVedilol 3.125 MG TAB PO SCH ×2 (10:13→20:42)
[2021-02-01] MEDS: HYDROXYCHLOROQUINE 200 MG TAB PO SCH (10:14)
[2021-02-01] MEDS: ENOXAPARIN 40MG/0.4ML SYRINGE (J1650 PER 10MG) SC SCH (10:15)
[2021-02-01 14:00] VITALS: BP 126/80
--- NOTE | 2021-02-01 14:10 | CR ---
CONSULTATION DATE: 02/01/2021 CONSULTATION REQUESTED BY: Hospitalist REASON FOR CONSULTATION: Evaluation of left lower extremity cellulitis HISTORY OF PRESENT ILLNESS: Claudia is a 55-year-old lady who has a history of recurrent ulceration of upper and lower extremities, who was seen in my office in consultation at the end of December for evaluation of recurrent left lower extremity cellulitis and multiple ulcerations. She had been on multiple courses of antibiotics when I saw her including Augmentin, Bactrim, Doxycycline for at least a couple months prior. I recommended she discontinue the antibiotics, so we could do further workup of infectious etiology and autoimmune diseases as well as Porphyria to see what was the reason for her ulcerations. She was seen at [facility] on January 22, admitted for cellulitis of left lower extremity and started on Vancomycin and Zosyn. She had a fever and leukocytosis. Patient was advised to be transferred to [facility] to follow-up with infectious disease. 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 She developed worsening redness of the left lower extremity and contacted her primary care provider, who recommended she get admitted to [facility] or [facility] where there is an infectious disease physician, so she was admitted to [facility]. She has been on I.V. Zosyn with improvement of her symptoms. The swelling had extended from the left leg up to the thigh. She had some chills, but denied any fever. She had no chest pain or shortness of breath. She has a chronic cough from smoking. She has nausea without any vomiting. Blood cultures were negative. Medications included Zosyn 3.375 grams I.V. every 6 hours. She also received Vancomycin on 01/29/2021. Patient had 24-hour urine for porphyrinogens as a workup of her chronic constellations that have been suggested to be obtained about three years ago when she was seen by dermatology, who did a biopsy which was inconclusive. PAST MEDICAL HISTORY: Complicated including questionable history of lupus; she has had multiple negative GLEN and a recent positive GLEN, but a negative double stranded DNA, for which she takes Plaquenil, coronary artery disease; status post stents x2 with SD, congestive heart failure with preserved ejection fraction, diabetes type 2; no longer on medication due to weight loss, migraine headache, depression, anxiety, fibromyalgia, obstructive sleep apnea, history of alcohol abuse; she quit drinking, chronic sinusitis, chronic back pain from L5-S1 disc herniation, history of chronic giardiasis treated in 2006, pulmonary nodule. PAST SURGICAL HISTORY: Right humerus fracture in 2016, carpal tunnel release in 2012, debridement of diabetic foot ulcer in 2012, cholecystectomy in 2008, spine surgery in 2004, incisional hernia September 2015, colonoscopy 2016, right foot amputation 2017, abscess of the left foot I and D with culture positive for MSSA and polymicrobial jayda. FAMILY HISTORY: Mother with a history of lupus. Father of heart disease and hypertension. SOCIAL HISTORY: She is a , but lives with Earl, her significant other. She is an active smoker; 40 pack year, one and a half packs a day. She moved to [place]. She is on disability. PHYSICAL EXAMINATION: VITAL SIGNS: She was admitted on 01/29/2021 and has been afebrile since then with a temperature of 97.4, pulse 82, respirations 16, blood pressure 136/80, O2 sat 95% on room air. HEART: Normal S1, S2. No murmurs, rubs or gallops. LUNGS: A few expiratory wheezes bilaterally. ABDOMEN: Morbidly obese, soft, nontender. There is a small ulceration in the mid abdomen measuring 1 x 1 cm; she states was a burn. EXTREMITIES: Left lower extremity with chronic venous stasis changes, erythema to below the knee, slight tenderness, slight swelling. There is skin maceration with denuded skin on the second and third toe and lateral aspect of the foot with some serosanguineous discharge. The left foot has a 2.3 x 1.3 cm ulceration, this does not look infected with a callus surrounding it. The right foot has also areas of skin denudement on the fourth and fifth toe. There are multiple skin ulcerations all over her body from hyperpigmented scars, below the knees some scabs. Arms also have multiple ulcerations especially between the second, the third and the fourth finger on the right hand. The ulcers measure anywhere from 1 to 2 cm and are dry or they have slight discharge. ALLERGIES: Aspartane, Ketamine, shellfish. MEDICATIONS: 1. Zosyn 3.375 grams I.V. every 6 hours. 2. Plaquenil 200 mg p.o. daily. 3. Pantoprazole 40 mg p.o. daily. 4. Guaifenesin 1,200 mg p.o. b.i.d. 5. Potassium 40 mEq b.i.d. 6. Furosemide 40 mg daily. 7. Folic acid 1 mg daily. 8. Lovenox 40 mg subcutaneously daily. 9. Morphine 15 mg p.o. every 12 hours. 10.Gabapentin 900 mg p.o. t.i.d. 11.Duloxetine 60 mg p.o. b.i.d. 12.Coreg 3.125 mg p.o. b.i.d. 13.Aspirin 81 mg p.o. q.h.s. 14.Zosyn 3.375 grams I.V. every 6 hours. 15.Nicotine patch daily. 16.Diazepam 2 mg p.o. b.i.d. p.r.n. 17.Cyclobenzaprine 10 mg p.o. t.i.d. p.r.n. LABORATORY DATA: White count 8.4, hemoglobin 11.5, hematocrit 35, platelets 153,000. Sodium 137, potassium 3.6, chloride 100, bicarb 34, BUN 5, creatinine 0.79, glucose 139. Calcium 7.8, magnesium 3. CRP 5.05 down from 7.59. Procalcitonin 0.16. Urine porphyrinogen 24-hour is pending. SARS-CoV2, influenza A and B, VSR negative. MRSA DTR not detected. She has had three previous ones in 2019, two in February were also negative. ASO titer 1560 with a normal of less than 14. Blood cultures two sets are negative. IMAGING: Vascular ultrasound of left leg; no DVT. X-ray showed tricompartment osteoarthritis, cannot rule out a joint effusion. very dense calcification location of the popliteal fossa suggestive of osteochondromas. IMPRESSION: This is a 55-year-old female with a history of diabetes with Charcot arthropathy; status post amputation of multiple toes, who has had recurrent skin ulcerations upper extremities and lower extremities and now has had recurrent cellulitis of the left lower extremity for the past year, at least she has had three or more episodes. She has a positive ASO, which is suggestive of recurrent Streptococcal infection usually Group A Strep. She had an ulcer at the bottom of her left leg in May of 2020, debrided by Dr. Valencia, which was positive for MSSA and microbial jayda. I am not sure what is the cause of her ulcerations that she has on her hands and feet, but she is being worked up for dermatomyositis, Porphyria and other autoimmune diseases. I would suggest obtaining a dermatology consultation for possible biopsy. She had one done about three years ago, but she never followed up. PLAN: Continue with I.V. Zosyn. I do not see any need for home I.V. antibiotic, but I would suggest keeping her on chronic suppressor therapy to cover for Staph Aureus and Strep as the cause of recurrent left lower extremity cellulitis, three episodes in one year with Keflex 500 mg p.o. daily. Also I would just suggest using colonization with silicone body wash daily for one month and Bactroban cream b.i.d. in the area of axilla and groin area as well as open wounds as she has had recurrent Staph Aureus infection MSSA. Please consult dermatology for a possible biopsy. She has an appointment scheduled for May, that was the soonest appointment, so it would be ideal if we could get her seen in the hospital today on this admission. LETY
--- NOTE | 2021-02-01 15:11 | IPNPDOC ---
Subjective Date Seen The patient was seen on 02/01/21. Subjective Chief Complaint/HPI Resting comfortably in bed, left lower extremity cellulitis is improved. She is currently afebrile Objective Physical Examination General Exam: Positive: Alert, No Acute Distress Eye Exam: Positive: PERRLA, Conjunctiva & lids normal, EOMI; Negative: Sclera icteric ENT Exam: Positive: Atraumatic, Mucous membr. moist/pink, Pharynx Normal Neck Exam: Positive: Supple; Negative: JVD, thyromegaly Chest Exam: Positive: Clear to auscultation, Normal air movement Heart Exam: Positive: Rate Normal, Regular Rhythm, Normal S1, Normal S2; Negative: Murmurs, Rubs Telemetry: Positive: No significant arrhythmia Abdomen Exam: Positive: Normal bowel sounds, Soft; Negative: Tenderness, Hepatospenomegaly Female Exam: Positive: Nl Ext Genitalia; Negative: Lesions, Discharge, Odor, Tenderness Extremity Exam: Positive: Normal pulses, Other (bilateral clubfeet); Negative: Clubbing, Cyanosis, Edema Skin Exam: Positive: Nl turgor and temperature, Rash (her chronic lower extre mity wounds are dry and intact. Left lower extremity cellulitis appears less red with no evidence of further spread); Negative: Breakdown Neuro Exam: Positive: Normal Gait, Normal Speech, Cranial Nerves 3-12 NL, Reflexes 2+ Psych Exam: Positive: Mental status NL, Mood NL, Oriented x 3 Assessment /Plan Assessment LLE cellulitis - Failed outpatient treatment with cephalexin and doxycycline; after discharge from [facility] last week - improving - CRP improving - Blood cultures 01/29: no growth - MRSA negative - ASO titer elevated - Imaging note above - c/w Zosyn; Will DC Vancomycin (Antibiotic day #4) - advanced wound care note (Dr. 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 - Has seen dermatology several years ago but has never followed up - Urine for 24 hour urine porphobilinogen pending - Lesions in mouth; c/w Magic mouth wash - Patient will ultimately need to follow up with Dermatology as an outpatient CAD s/p stent x 2 (10/2017; Hx of RI) - c/w ASA, Carvedilol CHF (Preserved EF) - No evidence of fluid overload - c/w Furosemide HTN - BP appears well controlled - c/w Carvedilol DM2 - No longer on medications 2/2 weight loss Lupus - c/w Hydroxychloroquine Depression / Anxiety / Fibromyalgia / Neuropathy - c/w Diazepam / Duloxetine / Gabapentin MICHELLE - No longer on CPAP - Reports that it has improved since her weight loss Hx of Alcohol abuse - Patient reports she drinks alcohol socially only at this time Chronic back pain 2/2 L5-S1 Disk herniation - c/w current pain regimen Pulmonary nodule at LL base - Follows with Dr. Meeks DVT prophylaxis - c/w Lovenox Plan/VTE VTE Prophylaxis Ordered?: Yes VS, I&O, 24H, [place] Vital Signs/I&O Vital Signs Date Time Temp Pulse Resp B/P (MAP) Pulse Ox O2 Delivery O2 Flow Rate FiO2 02/01/21 14:00 97.9 77 18 126/80 (95) 98 Room Air I&O- Last 24 Hours up to 6 AM 02/01/21 06:00 Intake Total 470 ml Output Total 1000 ml Balance -530 ml Laboratory Data 24H LABS Laboratory Tests 2 02/01/21 06:00: Immature Granulocyte % (Auto) 0.9, Neutrophils (%) (Auto) 68.1H, Lymphocytes (%) (Auto) 22.8L, Monocytes (%) (Auto) 6.6, Eosinophils (%) (Auto) 1.3, Basophils (%) (Auto) 0.3, Neutrophils # (Auto) 6.1, Lymphocytes # (Auto) 2.0, Monocytes # (Auto) 0.6, Eosinophils # (Auto) 0.1, Basophils # (Auto) 0.0, Nucleated Red Blood Cells % (auto) 0.0, Platelet Estimate NORMAL, Anisocytosis 1+, Macrocytosis 3+, Erythrocyte Sedimentation Rate 57H, Anion Gap 5L, Glomerular Filtration Rate > 60.0, Calcium Level 8.0L, Magnesium Level 1.9, C-Reactive Protein, Quantitative 3.95H CBC/BMP Laboratory Tests 02/01/21 06:00 Microbiology Microbiology 01/31/21 Gram Stain - Final, Resulted 01/31/21 Wound Culture, Resulted Pending 01/29/21 Blood Culture - Preliminary, Resulted No Growth after 48 hours. All Specime... 01/29/21 Blood Culture - Preliminary, Resulted No Growth after 48 hours. All Specime... KAREN COLEMAN MD Feb 01, 2021 15:11
[2021-02-01] MEDS: NICOTINE 21MG/24HR 1 EA TRANSDERMAL TOP PRN (16:59)
[2021-02-01] MEDS: ASPIRIN 81MG ENTERIC TABLET PO SCH (20:40)
[2021-02-01] MEDS: NYSTATIN CREAM 15 GM TOP SCH (20:43)
[2021-02-01] MEDS: CYCLOBENZAPRINE 10MG TABLET PO PRN (21:05)
[2021-02-01 22:00] VITALS: BP 147/82
[2021-02-02 06:00] VITALS: BP 139/67
[2021-02-02 06:35] LABS: BASO # 0.1 10^3/uL (0.0-0.2); BASO % 0.6 % (0.0-1.0); EOS # 0.2 10^3/uL (0.0-0.5); EOS % 1.7 % (0.0-3.0); HEMATOCRIT 37.2 % (36.0-47.0); HEMOGLOBIN 12.5 g/dl (12.0-15.5); LYMPH # 1.9 10^3/uL (1.5-5.0); MEAN CORPUSCULAR HEMOGLOBIN 39.9 pg (27.0-33.0); MEAN CORPUSCULAR HGB CONC 33.6 g/dl (32.0-36.5); MONO # 0.7 10^3/uL (0.0-0.8); MONO % 8.2 % (2.0-8.0); NEUTROPHILS % 67.8 % (36.0-66.0); PLATELET COUNT, AUTOMATED 158 10^3/uL (150-450); RED BLOOD COUNT 3.13 10^6/uL (4.00-5.40); WHITE BLOOD COUNT 8.8 10^3/uL (4.0-10.0)
[2021-02-02 06:43] LABS: MEAN CORPUSCULAR VOLUME 118.8 fl (80.0-96.0)
[2021-02-02 06:53] LABS: BLOOD UREA NITROGEN 6 MG/DL (7-18); C REACTIVE PROTEIN QUANTITATIV 3.31 MG/DL (0.00-0.30); CALCIUM LEVEL 8.4 MG/DL (8.5-10.1); CARBON DIOXIDE LEVEL 33 MEQ/L (21-32); CHLORIDE LEVEL 100 MEQ/L (98-107); CREATININE FOR GFR 0.81 MG/DL (0.55-1.30); GLOMERULAR FILTRATION RATE > 60.0 (>51); GLUCOSE, FASTING 99 MG/DL (70-100); MAGNESIUM LEVEL 1.9 MG/DL (1.8-2.4); POTASSIUM SERUM 4.5 MEQ/L (3.5-5.1); SODIUM LEVEL 135 MEQ/L (136-145)
[2021-02-02 07:39] LABS: PLATELET ESTIMATE NORMAL (NORMAL)
[2021-02-02 07:40] LABS: ANISOCYTOSIS 1+
[2021-02-02] MEDS: SODIUM CHLORIDE 1 GM TAB PO SCH (08:39)
[2021-02-02] MEDS: DULoxetine 30 MG CAP (CYMBALTA) PO SCH (08:39)
[2021-02-02] MEDS: PANTOPRAZOLE 40MG TAB (PROTONIX) PO SCH (08:39)
[2021-02-02] MEDS: GABAPENTIN 300 MG CAP PO SCH (08:39)
[2021-02-02] MEDS: MAGIC MOUTHWASH SUSPENSION BTL SSP SCH ×2 (08:39→12:28)
[2021-02-02] MEDS: PERCOCET 5MG/325MG TAB PO PRN (08:40)
[2021-02-02] MEDS: HYDROXYCHLOROQUINE 200 MG TAB PO SCH (08:40)
[2021-02-02 08:41] VITALS: BP 139/67
[2021-02-02] MEDS: guaiFENesin ER 600 MG TAB PO SCH (08:41)
[2021-02-02] MEDS: CARVedilol 3.125 MG TAB PO SCH (08:41)
[2021-02-02] MEDS: POTASSIUM CHLORIDE 10 MEQ SR TABLET PO SCH (08:41)
[2021-02-02] MEDS: FOLIC ACID 1 MG TAB PO SCH (08:41)
[2021-02-02] MEDS: FUROSEMIDE 20 MG TAB PO SCH (08:41)
[2021-02-02] MEDS: ENOXAPARIN 40MG/0.4ML SYRINGE (J1650 PER 10MG) SC SCH (08:42)
[2021-02-02] MEDS: CEPHALEXIN 500 MG CAP PO SCH ×2 (08:47→12:27)
[2021-02-02] MEDS: MORPHINE 15 MG SA TAB PO SCH (09:57)
[2021-02-02] MEDS: NYSTATIN CREAM 15 GM TOP SCH (09:58)
--- NOTE | 2021-02-02 09:59 | IPN ---
PROGRESS NOTE DATE: 02/01/2021 SUBJECTIVE: Claudia feels good. She states her swelling in her left lower extremity has improved. She does not like to use [employer]rip. She has had no fever or chills; no nausea, vomiting or diarrhea. Her appetite is good. OBJECTIVE: Her temperature is 97.9, pulse 77, respirations 18, blood pressure 126/80. O2 sat 98% on room air. Heart: Normal S1, S2; no murmurs. Lungs: wheezes bilaterally. Abdomen obese, soft, nontender. Extremities: Trace edema on the left side with erythema of the right below the knee to the ankle with hyperpigmented venous stasis changes. Mild tenderness right leg with no erythema. Amputation of toes of both feet with multiple skin lesions that are scabbed over and healing. Skin with ulceration on the hands as well; multiple at different stages. A diabetic foot ulcer on the plantar aspect of the foot, dry with callus. No evidence of infection. That ulcer measures about 3 x 2 cm and does not have surrounding cellulitis. Blood culture, 2 sets, was negative. Left 3rd toe culture is pending. IMPRESSION: 1. Recurrent left lower extremity cellulitis with three separate occasions of cellulitis requiring hospitalization. ASO is elevated and, therefore, that suggests recurrent streptococcal cellulitis. 2. Multiple ulcerations. She has an appointment to see dermatology not until May. I was hoping she may be able to see dermatology as an inpatient if possible or maybe make her an appointment sooner. 3. History of lupus. Needs to follow up with Dr. Castillo. She is on Plaquenil. PLAN: Check a 24-hour urine porphyria, which is pending, as a workup of her skin lesions. This has been done in the hospital. Discontinue IV Zosyn; she has received currently four days. She will switched to Keflex 500 mg p.o. four times a day for five days and then one tablet daily as chronic suppressive therapy. She has an appointment to see me in the office in 3-4 weeks. She needs to keep that appointment. I do not need to see her next week in followup after discharge. The patient was hoping to be discharged home if dermatology are not able to see her as an inpatient. LETY
[2021-02-02] MEDS ORDERED: FLUCONAZOLE 100 MG TAB PO ONE (11:30)
[2021-02-02 14:00] VITALS: BP 132/81
[2021-02-02] MEDS ORDERED: CEPH500T PO (14:17)
[2021-02-02] MEDS ORDERED: NYST10006 TOP (14:17)
[2021-02-02] MEDS ORDERED: CEPH500C PO (14:17)
[2021-02-02 16:08] LABS: PORPHOBILINOGEN LEVEL URINE 0.3 mg/L (0.0-2.0)
[2021-02-02] MEDS ORDERED: NYSTATIN 100,000 UNITS/GM TOPICAL PWD 15 GM TOP SCH (21:00)
--- NOTE | 2021-02-03 10:45 | DSES ---
DISCHARGE SUMMARY DATE OF ADMISSION: 01/29/2021 DATE OF DISCHARGE: 02/02/2021 DISCHARGE DIAGNOSES: 1. Left lower extremity cellulitis. 2. Skin lesions. Rule out porphyria cutanea tarda. 3. History of heart disease. 4. Congestive heart failure, diastolic without acute exacerbation. 5. Hypertension. 6. Diabetes mellitus type 2, diet controlled. 7. History of lupus. PROCEDURES PERFORMED DURING THIS HOSPITALIZATION: None. CONSULTANTS ON THE CASE: 1. Dr. Morris, Infectious Disease. 2. Dr. Cisneros. DISPOSITION: The patient was discharged home. CONDITION ON DISCHARGE: Stable. DISCHARGE INSTRUCTIONS: The patient is instructed to take cephalexin 500 mg four times daily for five days, then to take it daily thereafter for suppressive therapy. She is to follow up with dermatology in the next one to two weeks, podiatry in the next one to two weeks for removal of calluses on her foot. [facility] [place]. She is to follow up with her PCP. She is to follow up with Dr. Morris in three to four weeks. RELEVANT LABS: Wound cultures are still pending at the time of discharge. Blood cultures times two are negative. Urine porphyrinobilogen level was 0.3. COVID swab was negative. MRSA swab was negative. Anti-streptolysin O antibody was 1560. Sodium 135, potassium 2.5, chloride 100, bicarb 33, anion gap was 2. BUN 6, creatinine 0.81. Calcium 8.4. Magnesium 1.9. CRP is 3.31, was 7.59 on admission. Aldolase was 6. White blood cell count 8.8, hemoglobin 2.5, hematocrit 37.2, platelet count 158,000. IMAGIN. Imaging studies obtained during the patient's hospital stay are x-ray of the left ankle which showed no definitive fracture or obstructive lesion, only diffuse soft tissue swelling and subcutaneous edema on distal lower leg and ankle/hindfoot. 2. X-ray of the right knee which showed tricompartmental osteoarthritis with narrowing of the medial patellofemoral compartments and no evidence of acute osteochondral defect or loose body within the joint proper. No evidence of a definitive acute fracture. 3. Lower extremity venous duplex of the left leg showed no evidence of DVT. HOSPITAL COURSE: Claudia is a 55-year-old woman who presented to the Emergency Room with worsening left lower extremity redness, warmth and tenderness. She had recently been hospitalized at [facility] on January 22 and was discharged on oral antibiotics and despite this, she developed worsening left lower extremity redness. She was admitted to the hospitalist service and empirically placed on Vancomycin and Zosyn. Infectious Disease was consulted. There was concern that the patient had these cutaneous lesions that could be porphyria cutanea tarda. Therefore a urine porphyrinobilogen level was checked and was found to be normal. We did want dermatology to see the patient while she was hospitalized. However, dermatology was not terra cotta mason. Wound Care was consulted. The patient was seen by Dr. Cisneros who recommended a orthotic consult. We did have the orthotic person see her and he is in the process of developing orthotics for her. Wound culture was obtained and is still pending at this time. The patient has been transitioned to oral antibiotics which she has been tolerating fine. She is discharged home in stable condition. At the time of discharge, her temperature is 98.5, pulse is 88, respirations 17, blood pressure 132/81, O2 saturation 94% on room air. General: The patient is alert and oriented times three. She appears in no acute distress. Skin is intact and warm to touch. She has some left lower extremity erythema which is improving and some area of denuded skin. Ulcer at the plantar base is clean, dry, and intact without any visible drainage. Head atraumatic. Her pupils are symmetric and reactive to light. Oropharynx is clear. Neck is supple. Lung sounds are present without rales or rhonchi. Heart sounds: S1, S2, no murmurs or gallops. Abdomen is soft, nontender, nondistended. Extremities without any significant cyanosis. She does have bilateral clubbed feet. The patient has some mild edema of the lower extremities. Total time spent 30 minutes including all discharge paperwork.
== END 2021-02-02 15:52 | disposition home or self-care (01) | DRG 603 ==
LOC: M ED 12:47 → M ED INP 17:05 → ENRESERV 20:41 → M MSPAV 21:19
PROVIDERS: ADMIT Internal Medicine; ATTEND Internal Medicine
DX: L03.116 Cellulitis of left lower limb (principal); E80.1 Porphyria cutanea tarda; I50.32 Chronic diastolic (congestive) heart failure; E11.40 Type 2 diabetes mellitus with diabetic neuropathy, unspecified; I11.0 Hypertensive heart disease with heart failure; I25.10 Atherosclerotic heart disease of native coronary artery without angina pectoris; Z95.2 Presence of prosthetic heart valve; G43.909 Migraine, unspecified, not intractable, without status migrainosus; G47.33 Obstructive sleep apnea (adult) (pediatric); R91.1 Solitary pulmonary nodule; F32.9 Major depressive disorder, single episode, unspecified; F41.9 Anxiety disorder, unspecified; M79.7 Fibromyalgia; J32.9 Chronic sinusitis, unspecified; Z79.82 Long term (current) use of aspirin; Z79.899 Other long term (current) drug therapy; Z91.013 Allergy to seafood; Z88.8 Allergy status to other drugs, medicaments and biological substances

== ENCOUNTER → 2021-02-15 | Outpatient (CLI) | payer MEDICARE ==
[~2021-02-15] MED LIST changes: +CEPH500C PO; +CEPH500T PO; +CYMB60CA4 PO; +DOXY100C3 PO; -FLUC100T PO; +FLUC100T3 PO; +FLUO-96 PO; -FLUO20CA20 PO; +FLUO20CA22 PO; -KLOR20TA42 PO; +LOSA25TA13 PO; -LOSA25TA14 PO; +LOSA50TA28 PO; -LOSA50TA88 PO; +NYST10006 TOP; +OXYC10TA3 PO; +POTA-141 PO; +SERT50TA29 PO
== END ==
LOC: M PAIN 10:45
PROVIDERS: ATTEND Nurse Practitioner Family
DX: E11.610 Type 2 diabetes mellitus with diabetic neuropathic arthropathy (principal); M19.90 Unspecified osteoarthritis, unspecified site; G43.909 Migraine, unspecified, not intractable, without status migrainosus; G47.30 Sleep apnea, unspecified; M79.7 Fibromyalgia; I25.2 Old myocardial infarction; F17.210 Nicotine dependence, cigarettes, uncomplicated; Z86.14 Personal history of Methicillin resistant Staphylococcus aureus infection; Z86.59 Personal history of other mental and behavioral disorders; Z91.013 Allergy to seafood; Z79.82 Long term (current) use of aspirin; Z79.891 Long term (current) use of opiate analgesic; Z79.899 Other long term (current) drug therapy

== ENCOUNTER 2021-03-23 17:42 | Emergency (ER) | payer MEDICARE, OTHER ==
[~2021-03-23] VITALS: Ht 157.5 cm; Wt 86.4 kg
[~2021-03-23 17:42] MED LIST changes: -CYMB60CA4 PO; +FLUC100T PO; -FLUC100T3 PO; -FLUO-96 PO; +FLUO20CA20 PO; -LOSA25TA13 PO; +LOSA25TA14 PO; -LOSA50TA28 PO; +LOSA50TA88 PO
[2021-03-23] MEDS ORDERED: ALBUTEROL 90 MCG/ACT 8GM HFA INHALER INH ONE (19:10)
[2021-03-23] MEDS ORDERED: PERCOCET 5MG/325MG TAB PO ONE ×2 (19:35→21:15)
--- NOTE | 2021-03-23 19:52 | REP ---
INDICATION: osteomyelitis/ thumb. COMPARISON: None. TECHNIQUE: Four views of the left thumb are provided. FINDINGS: Four views of the left thumb demonstrate a palm are dislocation of the IP joint of the thumb with override. There is some erosive change in the proximal and of the distal phalanx of the thumb. On lateral radiograph there is soft tissue deficit overlying the distal end of the proximal phalanx consistent with open dislocation. No acute fracture is seen. There is mild osteoarthritic spurring at the 1st metacarpal-carpal articulation. No soft tissue gas is seen. There is some soft tissue swelling. No opaque foreign body noted. IMPRESSION: Soft tissue deficit along the dorsal aspect of the thumb at the IP joint. There is evidence suggesting an open palm are dislocation of the IP joint of the thumb with erosive changes in the proximal end of the distal phalanx consistent with osteomyelitis. No acute fracture is appreciated. <Electronically signed by Piotr Herron > 03/23/211948
[2021-03-23 20:07] LABS: BASO # 0.1 10^3/uL (0.0-0.2); BASO % 0.6 % (0.0-1.0); EOS # 0.2 10^3/uL (0.0-0.5); EOS % 1.7 % (0.0-3.0); HEMATOCRIT 40.5 % (36.0-47.0); HEMOGLOBIN 13.8 g/dl (12.0-15.5); LYMPH # 1.9 10^3/uL (1.5-5.0); LYMPH % 19.1 % (24.0-44.0); MEAN CORPUSCULAR HEMOGLOBIN 39.4 pg (27.0-33.0); MEAN CORPUSCULAR HGB CONC 34.1 g/dl (32.0-36.5); MONO # 0.8 10^3/uL (0.0-0.8); MONO % 8.3 % (2.0-8.0); NEUTROPHILS # 7.1 10^3/uL (1.5-8.5); NEUTROPHILS % 69.7 % (36.0-66.0); PLATELET COUNT, AUTOMATED 222 10^3/uL (150-450); WHITE BLOOD COUNT 10.2 10^3/uL (4.0-10.0)
[2021-03-23] MEDS ORDERED: diazePAM 10MG/2ML SYRINGE (J3360 PER 5MG) IV ONE (20:10)
[2021-03-23] MEDS ORDERED: NS 500 ML IV ONE (20:15)
[2021-03-23 20:22] LABS: MEAN CORPUSCULAR VOLUME 115.7 fl (80.0-96.0)
[2021-03-23 20:33] LABS: ERYTHROCYTE SEDIMENTATION RATE 53 mm/hr (0-30)
[2021-03-23 20:34] LABS: ANISOCYTOSIS 1+; PLATELET ESTIMATE NORMAL (NORMAL); POLYCHROMASIA 1+
[2021-03-23 20:43] LABS: ALBUMIN 2.4 GM/DL (3.2-5.2); ALT/SGPT 26 U/L (12-78); BILIRUBIN,DIRECT 0.7 MG/DL (0.0-0.2); BILIRUBIN,TOTAL 1.2 MG/DL (0.2-1.0); C REACTIVE PROTEIN QUANTITATIV 5.44 MG/DL (0.00-0.30); CK-MB VALUE MASS < 1.0 NG/ML (<3.6); CPK CREATINE PHOSPHOKINASE 28 U/L (26-192); LIPASE 44 U/L (73-393); MB/CK RELATIVE INDEX 3.57 (< OR =4); NT-PRO BNP 3724 PG/ML (<125); TOTAL PROTEIN 6.8 GM/DL (6.4-8.2); TROPONIN I 0.02 NG/ML (< 0.10)
[2021-03-23] MEDS ORDERED: KCL 10MEQ/100ML SWI (KRUN) 10 MEQ in IV 1 EA IV ONE (20:55)
[2021-03-23 20:59] LABS: RSV AMPLIFICATION NEGATIVE (NEGATIVE)
[2021-03-23] MEDS ORDERED: VANCOMYCIN HCL 1,000 MG, VIAL MATE ADAPTER 1 EACH in NS 250 ML IV ONE (21:45)
[2021-03-23] MEDS ORDERED: POTASSIUM CHLORIDE 10MEQ SR TABLET PO ONE (22:15)
--- NOTE | 2021-03-23 22:15 | REPVR ---
PROCEDURE INFORMATION: Exam: XR Chest Exam date and time: 03/23/21 (8:48pm) Age: 55 years old Clinical indication: Wheezing TECHNIQUE: Imaging protocol: XR of the chest Views: 2 views COMPARISON: Portable CXR of 02/24/20 FINDINGS: Comparison is made with a portable CXR done on 02/24/20. Mild cardiomegaly again seen. Faint aortic knob calcification. No significant vascular congestion. Mildly hazy markings at the right lung base. No consolidation. No pleural effusions. No pneumothorax. IMPRESSION: Mildly hazy right basilar markings. No consolidation. No pleural effusions. Perhaps mild nonspecific pneumonitis, eg. Electronically signed by: Stefanie Sheikh On 03/23/2021 22:14:52 PM
[2021-03-23] MEDS ORDERED: GABAPENTIN 300 MG CAP PO ONE (23:05)
[2021-03-23] MEDS ORDERED: NS 1,000 ML IV ONE (23:05)
[2021-03-23] MEDS ORDERED: PIPERACILLIN/TAZOBACTAM SOD 3.375 GM in D5W MINI-BAG PLUS 50 ML IV ONE (23:50)
[2021-03-24] MEDS ORDERED: ALPRAZolam 0.5 MG TAB PO ONE (00:45)
[2021-03-24 01:35] LABS: CK-MB VALUE MASS < 1.0 NG/ML (<3.6); CPK CREATINE PHOSPHOKINASE 16 U/L (26-192); MB/CK RELATIVE INDEX 6.25 (< OR =4); TROPONIN I < 0.02 NG/ML (< 0.10)
[2021-03-24 04:50] LABS: CK-MB VALUE MASS < 1.0 NG/ML (<3.6); CPK CREATINE PHOSPHOKINASE 27 U/L (26-192); TROPONIN I < 0.02 NG/ML (< 0.10)
[2021-03-24 06:00] VITALS: BP 144/70
--- NOTE | 2021-03-24 06:32 | ECGEPIP ---
[facility] - ED Test Date: 2021-03-23 Pat Name: BEBA WHITEHEAD Department: Room: - Gender: Female Forensic Engineer: : 1965 Requested By: KOLBY Lund PA-C Order Number: [id number] Reading MD: Kunal King Measurements Intervals [place] Rate: 88 P: 27 DE: 128 QRS: 6 QRSD: 88 T: 20 QT: 406 QTc: 491 Interpretive Statements Normal sinus rhythm POOR R WAVE PROGRESSION SIMILAR TO 02/24/20 Electronically Signed on 03-24-2021 6:32:21 EDT by Kunal King
--- NOTE | 2021-03-24 06:43 | ECGEPIP ---
[facility] - ED Test Date: 2021-03-24 Pat Name: BEBA WHITEHEAD Department: Room: - Gender: Female Vice President Regulatory: : 1965 Requested By: DAVI Feng Order Number: [id number] Reading MD: Kunal King Measurements Intervals [place] Rate: 88 P: 55 AL: 130 QRS: 5 QRSD: 86 T: 21 QT: 408 QTc: 493 Interpretive Statements Sinus rhythm with premature atrial complexes POOR R WAVE PROGRESSION SIMILAR TO 03/23/21 Electronically Signed on 03-24-2021 6:42:51 EDT by Kunal King
--- NOTE | 2021-03-24 06:44 | ECGEPIP ---
[facility] - ED Test Date: 2021-03-24 Pat Name: BEBA WHITEHEAD Department: Room: - Gender: Female Ward Helper: : 1965 Requested By: DAVI Feng Order Number: [id number] Reading MD: Kunal King Measurements Intervals [place] Rate: 89 P: 69 NE: 150 QRS: 4 QRSD: 86 T: 35 QT: 390 QTc: 474 Interpretive Statements Normal sinus rhythm with sinus arrhythmia POOR R WAVE PROGRESSION SIMILAR TO PRIOR ON SAME DATE Electronically Signed on 03-24-2021 6:44:21 EDT by Kunal King
== END 2021-03-24 06:05 | disposition short-term general hospital (02) ==
LOC: M ED 17:42
DX: M86.142 Other acute osteomyelitis, left hand (principal); M32.9 Systemic lupus erythematosus, unspecified; R07.89 Other chest pain; I11.0 Hypertensive heart disease with heart failure; I50.32 Chronic diastolic (congestive) heart failure; I25.2 Old myocardial infarction; I25.10 Atherosclerotic heart disease of native coronary artery without angina pectoris; Z95.2 Presence of prosthetic heart valve; G43.909 Migraine, unspecified, not intractable, without status migrainosus; G47.33 Obstructive sleep apnea (adult) (pediatric); K76.0 Fatty (change of) liver, not elsewhere classified; R91.8 Other nonspecific abnormal finding of lung field; D80.1 Nonfamilial hypogammaglobulinemia; F32.9 Major depressive disorder, single episode, unspecified; F41.9 Anxiety disorder, unspecified; F17.200 Nicotine dependence, unspecified, uncomplicated; Z88.8 Allergy status to other drugs, medicaments and biological substances; Z79.82 Long term (current) use of aspirin; Z79.899 Other long term (current) drug therapy
CPT/HCPCS: 71046; 73140; 80047; 80076; 82550; 82553; 83605; 83690; 83880; 84484; 85025; 85652; 86140; 87040; 87070; 87077; 87186; 87205; 87631; 93005; 94640; 96365; 96366; 96367; 96375; 99285; G0463; J2543; J3360; J3370

== ENCOUNTER → 2021-05-20 | Outpatient (REF) | payer MEDICARE, OTHER ==
[~2021-05-20] MED LIST changes: +CYMB60CA4 PO
== END ==
LOC: M LAB REF 17:22
PROVIDERS: ATTEND Dermatology
DX: R21 Rash and other nonspecific skin eruption (principal)
CPT/HCPCS: 87070; 87077; 87186; 87205; G0463

== ENCOUNTER → 2021-05-26 | Outpatient (CLI) | payer MEDICARE, OTHER ==
--- NOTE | 2021-05-26 14:32 | REP ---
INDICATION: PNEUMONIA, UNSPECIFIED ORGANISM. COMPARISON: 03/23/2021 TECHNIQUE: Two views of the chest were obtained. FINDINGS: There is minimal rotation to the left. The right lung is thought to be clear currently. Patchy areas of parenchymal opacification are seen at the left lung base. Consider atelectasis and or pneumonia. No effusion is noted. The heart is mildly enlarged but there is no evidence of failure. The known fracture of the proximal right humerus is not encompassed on this exam though the markedly demineralized left humeral head is noted. IMPRESSION: Patchy areas of parenchymal opacification at the left lung base. 2. Cardiomegaly but without evidence of failure. <Electronically signed by Rip Barboza > 05/26/21 [id number]
[2021-05-26 16:10] LABS: BASO % 0.4 % (0.0-1.0); EOS # 0.3 10^3/uL (0.0-0.5); HEMATOCRIT 41.7 % (36.0-47.0); LYMPH # 1.4 10^3/uL (1.5-5.0); LYMPH % 13.2 % (24.0-44.0); MEAN CORPUSCULAR HEMOGLOBIN 39.5 pg (27.0-33.0); MEAN CORPUSCULAR HGB CONC 33.6 g/dl (32.0-36.5); MONO # 0.7 10^3/uL (0.0-0.8); MONO % 7.2 % (2.0-8.0); NEUTROPHILS # 7.8 10^3/uL (1.5-8.5); NEUTROPHILS % 75.8 % (36.0-66.0); PLATELET COUNT, AUTOMATED 149 10^3/uL (150-450); RED BLOOD COUNT 3.54 10^6/uL (4.00-5.40); WHITE BLOOD COUNT 10.3 10^3/uL (4.0-10.0)
[2021-05-26 16:16] LABS: MEAN CORPUSCULAR VOLUME 117.8 fl (80.0-96.0)
[2021-05-26 16:51] LABS: THYROID STIMULATING HORMONE 2.35 uIU/ML (0.358-3.740)
[2021-05-26 16:52] LABS: C REACTIVE PROTEIN QUANTITATIV 12.5 MG/DL (0.00-0.30); PLATELET ESTIMATE NORMAL (NORMAL)
[2021-05-26 16:55] LABS: ANISOCYTOSIS 2+
[2021-05-26 17:21] LABS: FOLATE 3.5 NG/ML
[2021-05-26 17:25] LABS: ERYTHROCYTE SEDIMENTATION RATE 56 mm/hr (0-30)
== END ==
LOC: M PLAIMG 13:55
PROVIDERS: ATTEND Internal Medicine Infectious Disease
DX: J18.9 Pneumonia, unspecified organism (principal); I51.7 Cardiomegaly; M86.149 Other acute osteomyelitis, unspecified hand; R41.3 Other amnesia
CPT/HCPCS: 36415; 71046; 82550; 82607; 82746; 84443; 85025; 85652; 86140; 87040; G0463

== ENCOUNTER → 2021-06-16 | Outpatient (CLI) | payer MEDICARE, OTHER | LOC: M PAIN 14:00 | PROVIDERS: ATTEND Anesthesiology | DX: R52 Pain, unspecified (principal); M32.9 Systemic lupus erythematosus, unspecified; L98.9 Disorder of the skin and subcutaneous tissue, unspecified; G43.909 Migraine, unspecified, not intractable, without status migrainosus; G47.30 Sleep apnea, unspecified; M79.7 Fibromyalgia; I25.2 Old myocardial infarction; F17.210 Nicotine dependence, cigarettes, uncomplicated; Z86.59 Personal history of other mental and behavioral disorders; Z91.013 Allergy to seafood; Z79.82 Long term (current) use of aspirin; Z79.891 Long term (current) use of opiate analgesic; Z79.899 Other long term (current) drug therapy | CPT/HCPCS: G0463 ×2 ==

== ENCOUNTER → 2021-07-28 | Outpatient (REF) | payer MEDICARE, OTHER ==
[~2021-07-28] MED LIST changes: +FLUO-96 PO; -FLUO20CA20 PO; +LOSA25TA13 PO; -LOSA25TA14 PO; +LOSA50TA28 PO; -LOSA50TA88 PO
[2021-07-28 16:33] LABS: ALBUMIN 2.7 GM/DL (3.2-5.2); ALT/SGPT 23 U/L (12-78); BILIRUBIN,TOTAL 1.3 MG/DL (0.2-1.0); BLOOD UREA NITROGEN 10 MG/DL (7-18); C REACTIVE PROTEIN QUANTITATIV 5.64 MG/DL (0.00-0.30); CALCIUM LEVEL 8.5 MG/DL (8.5-10.1); CARBON DIOXIDE LEVEL 35 MEQ/L (21-32); CHLORIDE LEVEL 93 MEQ/L (98-107); CREATININE FOR GFR 0.87 MG/DL (0.55-1.30); GLOMERULAR FILTRATION RATE > 60.0 (>51); GLUCOSE, FASTING 135 MG/DL (70-100); POTASSIUM SERUM 2.8 MEQ/L (3.5-5.1); SODIUM LEVEL 135 MEQ/L (136-145)
== END ==
LOC: M LAB REF 14:57
PROVIDERS: ATTEND Internal Medicine Infectious Disease
DX: M86.142 Other acute osteomyelitis, left hand (principal)

== ENCOUNTER → 2021-07-28 | Outpatient (CLI) | payer MEDICARE, OTHER ==
[~2021-07-28] MED LIST changes: -FLUC100T PO; +FLUC100T3 PO
[2021-08-02 13:07] LABS: ANA (HEP2) Positive (.); ANTI CENTROMERE ANTIBODY <0.2 AI (0.0-0.9); ANTI DS-DNA AB Negative (Negative); ANTI RIBOSOMAL ANTIBODIES <0.2 AI (0.0-0.9); ANTI SCLERODERMA ANTIBODIES 4.4 AI (0.0-0.9); CYCLIC CITRULLINATED PEPTIDE > 250 units (0-19); SSB SJOGRENS B <0.2 AI (0.0-0.9)
== END ==
LOC: M PLALAB 12:24
PROVIDERS: ATTEND Dermatology
DX: R21 Rash and other nonspecific skin eruption (principal)
CPT/HCPCS: 36415; 83516; 83520; 86038; 86200; 86225; 86235; 86255; 86431; 87070; 87077; 87186; 87205; G0463

== ENCOUNTER 2021-08-29 12:07 | Outpatient (CLI) | payer MEDICARE, OTHER ==
[~2021-08-29] VITALS: Ht 160 cm; Wt 81.8 kg
[2021-08-29 12:10] VITALS: BP 118/58
[2021-08-29] MEDS ORDERED: DALBAVANCIN 1,500 MG in D5W 250 ML IV ONE (12:35)
[2021-08-29 12:54] LABS: BASO # 0.1 10^3/uL (0.0-0.2); BASO % 0.5 % (0.0-1.0); EOS # 0.2 10^3/uL (0.0-0.5); HEMATOCRIT 39.4 % (36.0-47.0); HEMOGLOBIN 13.2 g/dl (12.0-15.5); LYMPH # 2.6 10^3/uL (1.5-5.0); LYMPH % 21.9 % (24.0-44.0); MEAN CORPUSCULAR HEMOGLOBIN 36.7 pg (27.0-33.0); MEAN CORPUSCULAR HGB CONC 33.5 g/dl (32.0-36.5); MEAN CORPUSCULAR VOLUME 109.4 fl (80.0-96.0); MONO # 1.1 10^3/uL (0.0-0.8); MONO % 9.3 % (2.0-8.0); NEUTROPHILS # 7.6 10^3/uL (1.5-8.5); NEUTROPHILS % 65.4 % (36.0-66.0); PLATELET COUNT, AUTOMATED 202 10^3/uL (150-450); WHITE BLOOD COUNT 11.7 10^3/uL (4.0-10.0)
[2021-08-29 13:20] LABS: ERYTHROCYTE SEDIMENTATION RATE 51 mm/hr (0-30)
[2021-08-29 13:30] LABS: BLOOD UREA NITROGEN 9 MG/DL (7-18); C REACTIVE PROTEIN QUANTITATIV 5.26 MG/DL (0.00-0.30); CALCIUM LEVEL 8.7 MG/DL (8.5-10.1); CARBON DIOXIDE LEVEL 34 MEQ/L (21-32); CHLORIDE LEVEL 95 MEQ/L (98-107); GLOMERULAR FILTRATION RATE > 60.0 (>51); GLUCOSE, FASTING 124 MG/DL (70-100); IMMUNOGLOBULIN G 1420 MG/DL (681-1648); POTASSIUM SERUM 3.4 MEQ/L (3.5-5.1); SODIUM LEVEL 137 MEQ/L (136-145)
[2021-08-29 13:53] VITALS: BP 119/62
== END 2021-08-29 14:00 | disposition home or self-care (01) ==
LOC: M INFU 12:07
PROVIDERS: ATTEND Internal Medicine Infectious Disease
DX: M86.142 Other acute osteomyelitis, left hand (principal)
CPT/HCPCS: 36592; 80048; 82784; 85025; 85652; 86140; 96365; J0875

== ENCOUNTER 2021-09-12 14:06 | Outpatient (CLI) | payer MEDICARE, OTHER ==
[~2021-09-12] VITALS: Ht 160 cm; Wt 81.8 kg
[~2021-09-12 14:06] MED LIST changes: +DALBAVANCIN 1,500 MG in D5W 250 ML IV ONE
[2021-09-12 14:39] VITALS: BP 130/59
[2021-09-12 14:58] LABS: BASO % 0.3 % (0.0-1.0); EOS # 0.2 10^3/uL (0.0-0.5); EOS % 1.8 % (0.0-3.0); HEMATOCRIT 40.9 % (36.0-47.0); HEMOGLOBIN 13.4 g/dl (12.0-15.5); LYMPH % 22.1 % (24.0-44.0); MEAN CORPUSCULAR HEMOGLOBIN 35.5 pg (27.0-33.0); MEAN CORPUSCULAR HGB CONC 32.8 g/dl (32.0-36.5); MEAN CORPUSCULAR VOLUME 108.5 fl (80.0-96.0); MONO # 0.8 10^3/uL (0.0-0.8); MONO % 9.4 % (2.0-8.0); NEUTROPHILS # 5.9 10^3/uL (1.5-8.5); NEUTROPHILS % 65.7 % (36.0-66.0); PLATELET COUNT, AUTOMATED 198 10^3/uL (150-450); RED BLOOD COUNT 3.77 10^6/uL (4.00-5.40)
[2021-09-12 15:19] LABS: BLOOD UREA NITROGEN 6 MG/DL (7-18); C REACTIVE PROTEIN QUANTITATIV 4.36 MG/DL (0.00-0.30); CALCIUM LEVEL 8.9 MG/DL (8.5-10.1); CARBON DIOXIDE LEVEL 32 MEQ/L (21-32); CHLORIDE LEVEL 97 MEQ/L (98-107); CREATININE FOR GFR 0.78 MG/DL (0.55-1.30); GLOMERULAR FILTRATION RATE > 60.0 (>51); GLUCOSE, FASTING 131 MG/DL (70-100); SODIUM LEVEL 135 MEQ/L (136-145)
[2021-09-12 15:20] LABS: ERYTHROCYTE SEDIMENTATION RATE 41 mm/hr (0-30)
[2021-09-12 15:40] VITALS: BP 103/58
== END 2021-09-12 16:00 | disposition home or self-care (01) ==
LOC: M INFU 14:06
PROVIDERS: ATTEND Internal Medicine Infectious Disease
DX: M86.142 Other acute osteomyelitis, left hand (principal)
CPT/HCPCS: 36592; 80048; 85025; 85652; 86140; 96365; G0463; J0875

== ENCOUNTER → 2021-09-22 | Outpatient (CLI) | payer MEDICARE, OTHER ==
[~2021-09-22] MED LIST changes: -DALBAVANCIN 1,500 MG in D5W 250 ML IV ONE
== END ==
LOC: M PAIN 13:45
PROVIDERS: ATTEND Anesthesiology
DX: R52 Pain, unspecified (principal); M32.9 Systemic lupus erythematosus, unspecified; M35.01 Sjogren syndrome with keratoconjunctivitis; M34.9 Systemic sclerosis, unspecified; M06.9 Rheumatoid arthritis, unspecified; G43.909 Migraine, unspecified, not intractable, without status migrainosus; G47.30 Sleep apnea, unspecified; E11.9 Type 2 diabetes mellitus without complications; M79.7 Fibromyalgia; F17.210 Nicotine dependence, cigarettes, uncomplicated; Z86.59 Personal history of other mental and behavioral disorders; Z91.013 Allergy to seafood; Z79.82 Long term (current) use of aspirin; Z79.891 Long term (current) use of opiate analgesic; Z79.899 Other long term (current) drug therapy

== ENCOUNTER → 2021-12-14 | Outpatient (CLI) | payer MEDICARE, OTHER ==
[~2021-12-14] MED LIST changes: +BUPR-71 PO; -BUPR150T5 PO
== END ==
LOC: M PAIN 13:30
PROVIDERS: ATTEND Anesthesiology
DX: M35.00 Sjogren syndrome, unspecified (principal); M34.9 Systemic sclerosis, unspecified; M06.9 Rheumatoid arthritis, unspecified; M33.90 Dermatopolymyositis, unspecified, organ involvement unspecified; M32.9 Systemic lupus erythematosus, unspecified; G43.909 Migraine, unspecified, not intractable, without status migrainosus; G47.30 Sleep apnea, unspecified; E11.9 Type 2 diabetes mellitus without complications; M79.7 Fibromyalgia; F17.210 Nicotine dependence, cigarettes, uncomplicated; Z86.14 Personal history of Methicillin resistant Staphylococcus aureus infection; Z86.59 Personal history of other mental and behavioral disorders; Z91.013 Allergy to seafood; Z79.82 Long term (current) use of aspirin; Z79.891 Long term (current) use of opiate analgesic; Z79.899 Other long term (current) drug therapy

== ENCOUNTER 2022-03-20 09:49 | Emergency (ER) | payer MEDICARE, OTHER ==
[~2022-03-20] VITALS: Ht 160 cm; Wt 72.7 kg
[2022-03-20 10:29] LABS: BASO # 0.1 10^3/uL (0.0-0.2); BASO % 0.7 % (0.0-1.0); EOS # 0.3 10^3/uL (0.0-0.5); EOS % 3.4 % (0.0-3.0); HEMATOCRIT 38.6 % (36.0-47.0); HEMOGLOBIN 12.8 g/dl (12.0-15.5); LYMPH # 1.5 10^3/uL (1.5-5.0); LYMPH % 19.5 % (24.0-44.0); MEAN CORPUSCULAR HEMOGLOBIN 38.8 pg (27.0-33.0); MEAN CORPUSCULAR HGB CONC 33.2 g/dl (32.0-36.5); MONO # 0.6 10^3/uL (0.0-0.8); MONO % 7.3 % (2.0-8.0); NEUTROPHILS # 5.2 10^3/uL (1.5-8.5); NEUTROPHILS % 68.6 % (36.0-66.0); PLATELET COUNT, AUTOMATED 159 10^3/uL (150-450); WHITE BLOOD COUNT 7.6 10^3/uL (4.0-10.0)
[2022-03-20 10:45] LABS: INR 1.02; PROTHROMBIN TIME 13.8 SECONDS (12.7-14.5)
[2022-03-20 10:46] LABS: PARTIAL THROMBOPLASTIN TIME 40.3 SECONDS (25.9-37.0)
[2022-03-20 11:00] LABS: ANISOCYTOSIS 2+; CK-MB VALUE MASS < 1.0 NG/ML (<3.6); CPK CREATINE PHOSPHOKINASE 21 U/L (26-192); MB/CK RELATIVE INDEX 4.76 (< OR =4); PLATELET ESTIMATE NORMAL (NORMAL); POLYCHROMASIA 1+
[2022-03-20] MEDS ORDERED: FUROSEMIDE 40MG/4ML VIAL (J1940) IV ONE (11:00)
[2022-03-20 11:01] LABS: TOXIC GRANULATION 1+
[2022-03-20] MEDS ORDERED: COMBIVENT RESPIMAT 100-20MCG INHALER 4GM INH SCH (11:45)
[2022-03-20 12:15] LABS: CK-MB VALUE MASS < 1.0 NG/ML (<3.6); CPK CREATINE PHOSPHOKINASE 17 U/L (26-192); MB/CK RELATIVE INDEX 5.88 (< OR =4)
[2022-03-20] MEDS ORDERED: ISOVUE-370 76% 100ML VIAL As Ordered ONE (12:39)
[2022-03-20 14:00] LABS: CK-MB VALUE MASS 1.2 NG/ML (<3.6); MB/CK RELATIVE INDEX 6.67 (< OR =4)
[2022-03-20] MEDS ORDERED: LASI20TA3 PO (14:21)
[2022-03-20 14:31] VITALS: BP 112/70
== END 2022-03-20 14:41 | disposition home or self-care (01) ==
LOC: M ED 09:49 → EDBD 09:49 → M ED 14:41
DX: S20.212A Contusion of left front wall of thorax, initial encounter (principal); I50.9 Heart failure, unspecified; R07.9 Chest pain, unspecified; R00.0 Tachycardia, unspecified; F10.10 Alcohol abuse, uncomplicated; Z87.891 Personal history of nicotine dependence; Z91.013 Allergy to seafood; Z91.02 Food additives allergy status; Z88.4 Allergy status to anesthetic agent; Z79.51 Long term (current) use of inhaled steroids; Z79.899 Other long term (current) drug therapy
CPT/HCPCS: 71045; 71275; 80047; 82550; 82553; 83880; 84484; 85025; 85610; 85730; 93005; 93041; 94640; 94664; 94760; 96374; 99285; J1940; Q9967